=== PATIENT | female | born 1960 | race Caucasian/White ===

== ENCOUNTER → 2017-03-06 | Outpatient (CLI) | payer OTHER ==
[~2017-03-06] MED LIST: RT-ALBUTEROL SULF 2.5 MG/3 ML PRE-MIX VIAL IH ONE
== END ==
LOC: RT 12:51
PROVIDERS: ATTEND Neuromusculoskeletal Medicine, Sports Medicine
DX: Z02.71 Encounter for disability determination (principal)
CPT/HCPCS: 94060; 94640; 94729

== ENCOUNTER 2018-09-13 12:00 | Emergency (ER) | payer MEDICAID, OTHER ==
[~2018-09-13] VITALS: Ht 160 cm; Wt 54.4 kg
[2018-09-13] MEDS ORDERED: ALPR0.254 (12:29)
[2018-09-13] MEDS ORDERED: OXYC-465 (12:29)
[2018-09-13] MEDS ORDERED: DULO30CA48 (12:29)
[2018-09-13] MEDS ORDERED: CYCL10TA9 (12:29)
[2018-09-13] MEDS ORDERED: PANT40TA3 (12:29)
[2018-09-13] MEDS ORDERED: TRAZ-190 (12:29)
[2018-09-13] MEDS ORDERED: ARIP2TAB11 (12:29)
[2018-09-13] MEDS ORDERED: CLOP75TA69 PO (12:30)
--- NOTE | 2018-09-13 13:08 | Diagnostic Imaging Report ---
PATIENT HISTORY: Fall, confusion. TECHNIQUE: Frontal view of the chest. COMPARISON: None. FINDINGS: Lung volumes are mildly large. There is mild opacity at the right costophrenic angle. The cardiac silhouette is upper normal in size. No acute osseous abnormality is seen. There is no pneumothorax. IMPRESSION: Mild opacity at the right costophrenic angle, may represent a small infiltrate or effusion. Dictated by: Dictated on workstation # [id number]
[2018-09-13 13:11] LABS: BILIRUBIN,URINE NEGATIVE (NEGATIVE); CLARITY,URINE CLEAR; COLOR,URINE YELLOW; GLUCOSE, URINE (UA) NEGATIVE (NEGATIVE); KETONES,URINE NEGATIVE (NEGATIVE); LEUKOCYTE ESTERASE ,URINE 1+ (NEGATIVE); NITRITE,URINE NEGATIVE (NEGATIVE); PH,URINE 8 (5-9); PROTEIN,URINE NEGATIVE (NEGATIVE); UROBILINOGEN,URINE NORMAL (NORMAL)
[2018-09-13 13:26] LABS: AMPHETAMINE SCREEN, URINE NEGATIVE (NEGATIVE); BARBITURATE SCREEN URINE NEGATIVE (NEGATIVE); BENZODIAZEPINES SCREEN URINE POSITIVE (NEGATIVE); CANNABINOID SCREEN, URINE NEGATIVE (NEGATIVE); COCAINE SCREEN URINE NEGATIVE (NEGATIVE); METHADONE STAT NEGATIVE (NEGATIVE); METHAMPHETAMINE SCREEN URINE S NEGATIVE (NEGATIVE); OPIATE SCREEN URINE NEGATIVE (NEGATIVE); OXYCODONE STAT POSITIVE (NEGATIVE); TRICYCLIC ANTIDEPRESSANTS SCRE POSITIVE (NEGATIVE)
[2018-09-13 13:27] LABS: PROPOXYPHENE STAT NEGATIVE (NEGATIVE)
--- NOTE | 2018-09-13 13:28 | ED General ---
General Chief Complaint: Trauma-Non Activation Stated Complaint: FALL/CONFUSED Nursing Triage Note: pt presents to ed accompanied by son with the complaints of increased confusion and hallucinations since falling at home monday. pt reports she has not been seen by a provider since the fall. pt son also reports pt has increased weakness. pt is on plavix Nursing Sepsis Screen: No Definite Risk Source of Information: Patient Exam Limitations: No Limitations History of Present Illness Date Seen by Provider: Sep 13, 2018 Time Seen by Provider: 13:26 Initial Comments To ER per private vehicle accompanied by son with reports of confusion and hallucinations. She fell at home on Monday on 09/08/18. She hit her head. Since then she's been hallucinating. She has done this before according to the son when she was low on oxygen. He also states that she's been overmedicating with her pain medication. Son reports a history of "early dementia" Timing/Duration: 1-2 Days Severity: Moderate Allergies and Home Medications Allergies Coded Allergies: No Known Drug Allergies (Unverified , 03/06/17) Home Medications Clopidogrel Bisulfate 75 Mg Tablet, 75 MG PO DAILY, (Reported) Patient Home Medication List Home Medication List Reviewed: Yes Review of Systems Review of Systems Constitutional: see HPI EENTM: see HPI Respiratory: no symptoms reported Cardiovascular: no symptoms reported Genitourinary: no symptoms reported Musculoskeletal: no symptoms reported Skin: no symptoms reported Psychiatric/Neurological: No Symptoms Reported Past Xziqkbd-Panmuf-Zxzbgb Hx Patient Social History Alcohol Use: Denies Use Recreational Drug Use: No Smoking Status: Former Smoker Type Used: Smokeless Tobacco Former Smoker, Quit: Aug 15, 2018 Recent Foreign Travel: No Contact w/Someone Who Travel: No Recent Infectious Disease Expo: No Recent Hopitalizations: No Seasonal Allergies Seasonal Allergies: No Past Medical History Surgeries: Yes (r eye, DNC, ) Appendectomy, Eye Surgery Sleep Apnea, COPD, Emphysema Currently Using CPAP: Yes Cardiac: No Neurological: Yes (restless legs) Dementia, Stroke Genitourinary: No Gastrointestinal: Yes (decreased appetite) Arthritis Endocrine: No HEENT: No Cancer: No Psychosocial: Yes Anxiety, Bipolar, Depression Physical Exam Vital Signs Vital Signs - First Documented 09/13/18 12:18 Temp 96.6 Pulse 95 Resp 20 B/P (MAP) 149/94 (112) Pulse Ox 94 Capillary Refill : Less Than 3 Seconds Height, Weight, BMI Height: 5'3.00" Weight: 120lbs. oz. 54.839588ag; BMI Method:Stated General Appearance: No Apparent Distress, WD/WN, Other (alert and oriented at this time but the son states that she's been hallucinating even since she's been here.) Eyes: Bilateral Eye Normal Inspection, Bilateral Eye PERRL, Bilateral Eye EOMI HEENT: PERRL/EOMI, TMs Normal Neck: Full Range of Motion, Normal Inspection Respiratory: Lungs Clear, Normal Breath Sounds, No Accessory Muscle Use, No Respiratory Distress Cardiovascular: Regular Rate, Rhythm, Normal Peripheral Pulses Gastrointestinal: Normal Bowel Sounds, Non Tender, Soft Extremity: Normal Capillary Refill, Normal Inspection Neurologic/Psychiatric: Alert, Oriented x3, Other (cooperative. States that she has been seeing things that she knows is not actually there. States she's also hearing things occasionally. ) Skin: Normal Color, Warm/Dry Progress/Results/Core Measures Suspected Sepsis Recent Fever Within 48 Hours: No Infection Criteria Present: None New/Unexplained Altered Menta: Yes Sepsis Screen: No Definite Risk SIRS Temperature:96.6 Pulse: 95 Respiratory Rate: 20 Laboratory Tests 09/13/18 13:25: White Blood Count 8.6 Blood Pressure 149 /94 Mean: 112 Laboratory Tests 09/13/18 13:25: Creatinine 0.68, Platelet Count 306, Total Bilirubin 0.4 Results/Orders Lab Results Laboratory Tests Test 09/13/18 13:00 09/13/18 13:25 09/13/18 15:30 Range/Units Urine Color YELLOW Urine Clarity CLEAR Urine pH 8 5-9 Urine Specific Alton 1.010 L 1.016-1.022 Urine Protein NEGATIVE NEGATIVE Urine Glucose (UA) NEGATIVE NEGATIVE Urine Ketones NEGATIVE NEGATIVE Urine Nitrite NEGATIVE NEGATIVE Urine Bilirubin NEGATIVE NEGATIVE Urine Urobilinogen NORMAL NORMAL MG/DL Urine Leukocyte Esterase 1+ H NEGATIVE Urine RBC (Auto) NEGATIVE NEGATIVE Urine RBC 0-2 /HPF Urine WBC 0-2 /HPF Urine Squamous Epithelial Cells 2-5 /HPF Urine Renal Epithelial Cells NONE /HPF Urine Crystals NONE /LPF Urine Bacteria NEGATIVE /HPF Urine Casts NONE /LPF Urine Mucus NEGATIVE /LPF Urine Culture Indicated NO Urine Opiates Screen NEGATIVE NEGATIVE Urine Oxycodone Screen POSITIVE H NEGATIVE Urine Methadone Screen NEGATIVE NEGATIVE Urine Propoxyphene Screen NEGATIVE NEGATIVE Urine Barbiturates Screen NEGATIVE NEGATIVE Ur Tricyclic Antidepressants Screen POSITIVE H NEGATIVE Urine Phencyclidine Screen NEGATIVE NEGATIVE Urine Amphetamines Screen NEGATIVE NEGATIVE Urine Methamphetamines Screen NEGATIVE NEGATIVE Urine Benzodiazepines Screen POSITIVE H NEGATIVE Urine Cocaine Screen NEGATIVE NEGATIVE Urine Cannabinoids Screen NEGATIVE NEGATIVE White Blood Count 8.6 4.3-11.0 10^3/uL Red Blood Count 3.61 L 4.35-5.85 10^6/uL Hemoglobin 11.8 11.5-16.0 G/DL Hematocrit 37 35-52 % Mean Corpuscular Volume 102 H 80-99 FL Mean Corpuscular Hemoglobin 33 25-34 PG Mean Corpuscular Hemoglobin Concent 32 32-36 G/DL Red Cell Distribution Width 13.6 10.0-14.5 % Platelet Count 306 130-400 10^3/uL Mean Platelet Volume 9.1 7.4-10.4 FL Neutrophils (%) (Auto) 82 H 42-75 % Lymphocytes (%) (Auto) 12 12-44 % Monocytes (%) (Auto) 5 0-12 % Eosinophils (%) (Auto) 1 0-10 % Basophils (%) (Auto) 0 0-10 % Neutrophils # (Auto) 7.1 1.8-7.8 X 10^3 Lymphocytes # (Auto) 1.0 1.0-4.0 X 10^3 Monocytes # (Auto) 0.5 0.0-1.0 X 10^3 Eosinophils # (Auto) 0.0 0.0-0.3 10^3/uL Basophils # (Auto) 0.0 0.0-0.1 10^3/uL Sodium Level 139 135-145 MMOL/L Potassium Level 3.7 3.6-5.0 MMOL/L Chloride Level 97 L 98-107 MMOL/L Carbon Dioxide Level 34 H 21-32 MMOL/L Anion Gap 8 5-14 MMOL/L Blood Urea Nitrogen 7 7-18 MG/DL Creatinine 0.68 0.60-1.30 MG/DL Estimat Glomerular Filtration Rate > 60 BUN/Creatinine Ratio 10 Glucose Level 99 70-105 MG/DL Calcium Level 9.6 8.5-10.1 MG/DL Corrected Calcium 9.7 8.5-10.1 MG/DL Magnesium Level 2.1 1.8-2.4 MG/DL Total Bilirubin 0.4 0.1-1.0 MG/DL Aspartate Amino Transf (AST/SGOT) 25 5-34 U/L Alanine Aminotransferase (ALT/SGPT) 19 0-55 U/L Alkaline Phosphatase 73 40-136 U/L Total Protein 7.6 6.4-8.2 GM/DL Albumin 3.9 3.2-4.5 GM/DL Thyroid Stimulating Hormone (TSH) 0.28 L 0.35-4.94 UIU/ML Free Thyroxine 0.79 0.70-1.48 NG/DL Serum Alcohol < 10 <10 MG/DL Blood Gas Puncture Site LT RAD Blood Gas Patient Temperature 98.6 Arterial Blood pH 7.40 7.37-7.43 Arterial Blood Partial Pressure CO2 54 H 35-45 MMHG Arterial Blood Partial Pressure O2 40 L 79-93 MMHG Arterial Blood HCO3 33 H 23-27 MMOL/L Arterial Blood Total CO2 34.6 H 21.0-31.0 MMOL/L Arterial Blood Oxygen Saturation 70 L 94-100 % Arterial Blood Base Excess 8.1 H -2.5-2.5 MMOL/L Feliciano Test YES-POS Blood Gas Ventilator Setting NO Blood Gas Inspired Oxygen 2L My Orders Orders - KYLE LÓPEZ APRN Cbc With Automated Diff (09/13/18 12:41) Comprehensive Metabolic Panel (09/13/18 12:41) Thyroid Stimulating Hormone (09/13/18 12:41) Magnesium (09/13/18 12:41) Ua Culture If Indicated (09/13/18 12:41) Drug Screen Stat (Urine) (09/13/18 12:41) Alcohol (09/13/18 12:41) Ct Head/Cervical Spine Wo (09/13/18 12:41) Chest 1 View, Ap/Pa Only (09/13/18 12:41) Iv Heplock-Insert (Order) (09/13/18 12:41) Lactated Ringers (Lr 1000 Ml Iv Solution (09/13/18 13:30) Ketorolac Injection (Toradol Injection) (09/13/18 14:30) Free T4 (Free Thyroxine) (09/13/18 14:24) Arterial Blood Gas (09/13/18 14:49) Medications Given in ED Current Medications Medications Dose Ordered Sig/Ana Route Start Time Stop Time Status Last Admin Dose Admin Ketorolac Tromethamine 15 mg ONCE ONCE IVP 09/13/18 14:30 09/13/18 14:31 DC 09/13/18 14:34 15 MG Vital Signs/I&O 09/13/18 12:18 Temp 96.6 Pulse 95 Resp 20 B/P (MAP) 149/94 (112) Pulse Ox 94 Capillary Refill : Less Than 3 Seconds Blood Pressure Mean: 112 Diagnostic Imaging Diagonstic Imaging: Xray Plain Films/CT/US/NM/MRI: chest Comments NAME: MARQUISE PEDERSEN [facility] REC#: [id number] PT STATUS: REG ER : 1960 PHYSICIAN: KYLE LÓPEZ APRN ADMIT DATE: 09/13/18/ER Draft Date of Exam:09/13/18 CHEST 1 VIEW, AP/PA ONLY PATIENT HISTORY: Fall, confusion. TECHNIQUE: Frontal view of the chest. COMPARISON: None. FINDINGS: Lung volumes are mildly large. There is mild opacity at the right costophrenic angle. The cardiac silhouette is upper normal in size. No acute osseous abnormality is seen. There is no pneumothorax. IMPRESSION: Mild opacity at the right costophrenic angle, may represent a small infiltrate or effusion. Dictated on workstation # [id number] Dict: 09/13/18 1303 Trans: 09/13/18 1307 [id number] Interpreted by: SLAVA SMITH MD Electronically signed by: NAME: MARQUISE PEDERSEN [facility] REC#: [id number] PT STATUS: REG ER : 1960 PHYSICIAN: KYLE LÓPEZ APRN ADMIT DATE: 09/13/18/ER Draft Date of Exam:09/13/18 CT HEAD/CERVICAL SPINE WO PROCEDURE: CT head and CT cervical spine without contrast. TECHNIQUE: Multiple contiguous axial images were obtained through the brain and cervical spine without the use of intravenous contrast. Sagittal and coronal reformations through the cervical spine were then performed. INDICATION: Multiple falls. No prior studies are available for comparison. CT head: The ventricles and sulci are within normal limits. No sulcal effacement, midline shift or hemorrhage is detected. There is a vague area of low density in the left thalamus. This may represent a lacunar infarct, age indeterminate. Cisterns are patent. The visualized paranasal sinuses appear clear. Impression: 1. No acute intra-cranial hemorrhage is detected. 2. Vague low-density left thalamus suggestive of an age-indeterminate lacunar infarct. If there is concern for acuity, MRI could be performed for further evaluation. CT cervical spine: Curvature and alignment is normal. There is degenerative disc disease C5-6 and C6-7 levels with disc space narrowing and marginal spurring. There is neural foraminal stenosis bilaterally at C5-6 level due to uncovertebral joint degenerative change. No fracture is identified. The prevertebral tissues are within normal limits. The odontoid is intact. Impression: Cervical spondylosis. No acute bony abnormality is detected. Dictated on workstation # [id number] Dict: 09/13/18 1358 Trans: 09/13/18 1403 [place] [id number] Interpreted by: ROSMERY DEVLIN MD Electronically signed by: Departure Communication (Admissions) 1433- son states that she is still hallucinating, stating that she heard something on the TV even though the TV is turned off, stating that she saw a leaf blow across the floor or maybe it was a mouse, she was petting the son's hands it was a Bar. This is the son's report. I have not witnessed these things myself. Patient has been cooperative and she does state that she is hallucinating and seeing things.I discussed inpatient placement for mental health versus outpatient mental health follow-up. Patient would prefer outpatient mental health follow-up, son would prefer inpatient. Discussed with him that if he can convince her to go inpatient I will transfer her or at least attempt depending on bed availability but I cannot force her to go. 1529- patient has agreed to go inpatient. I have tried to call to place her inpatient. [facility] does not have any beds. [facility]. Natasha irvin did not answer. [facility] states that they do not feel she is appropriate for inpatient. [facility] does not have any beds available. I spoke with [facility] and they can see her tomorrow at 11 AM with Carlene De La Garza. Impression Primary Impression: History of hallucinations Additional Impression: History of confusion Disposition: 01 HOME, SELF-CARE Condition: Stable Departure-Patient Inst. Decision time for Depature: 14:28 Referrals: RADHA CRAFT MD (PCP/Family) Primary Care Physician Patient Instructions: General (DC) Add. Discharge Instructions: 1. Continue current medications 2. Return to ER for any concerns 3. Your scheduled to see Carlene De La Garza tomorrow at 11 AM at the [place] office from [facility]. All discharge instructions reviewed with patient and/or family. Voiced understanding. KYLE LÓPEZ APRN Sep 13, 2018 13:28
[2018-09-13] MEDS ORDERED: LACTATED RINGERS 1,000 ML IV SCH (13:30)
[2018-09-13 13:32] LABS: BACTERIA,URINE NEGATIVE /HPF; RBC,URINE 0-2 /HPF; WBC,URINE 0-2 /HPF
[2018-09-13 13:33] LABS: BASOPHILS % (AUTO) 0 % (0-10); EOSINOPHILS % (AUTO) 1 % (0-10); HEMATOCRIT 37 % (35-52); HEMOGLOBIN 11.8 G/DL (11.5-16.0); LYMPHOCYTES % (AUTO) 12 % (12-44); MEAN CORPUSCULAR HEMOGLOBIN 33 PG (25-34); MEAN CORPUSCULAR HGB CONC 32 G/DL (32-36); MEAN CORPUSCULAR VOLUME 102 FL (80-99); MEAN PLATELET VOLUME 9.1 FL (7.4-10.4); MONOCYTES # (AUTO) 0.5 X 10^3 (0.0-1.0); MONOCYTES % (AUTO) 5 % (0-12); NEUTROPHILS # (AUTO) 7.1 X 10^3 (1.8-7.8); NEUTROPHILS % (AUTO) 82 % (42-75); PLATELET COUNT 306 10^3/uL (130-400); RED CELL DISTRIBUTION WIDTH 13.6 % (10.0-14.5); WHITE BLOOD COUNT 8.6 10^3/uL (4.3-11.0)
[2018-09-13 13:59] LABS: BUN/CREATININE RATIO 10; CARBON DIOXIDE 34 MMOL/L (21-32); CHLORIDE 97 MMOL/L (98-107); CREATININE SERUM 0.68 MG/DL (0.60-1.30); POTASSIUM 3.7 MMOL/L (3.6-5.0); SODIUM 139 MMOL/L (135-145)
[2018-09-13 14:00] LABS: ALANINE AMINOTRANSFERASE 19 U/L (0-55); ALBUMIN 3.9 GM/DL (3.2-4.5); ALKALINE PHOSPHATASE 73 U/L (40-136); BILIRUBIN,TOTAL 0.4 MG/DL (0.1-1.0); CALCIUM 9.6 MG/DL (8.5-10.1); GFR ESTIMATED > 60; GLUCOSE 99 MG/DL (70-105); MAGNESIUM 2.1 MG/DL (1.8-2.4); TOTAL PROTEIN 7.6 GM/DL (6.4-8.2)
--- NOTE | 2018-09-13 14:04 | Diagnostic Imaging Report ---
PROCEDURE: CT head and CT cervical spine without contrast. TECHNIQUE: Multiple contiguous axial images were obtained through the brain and cervical spine without the use of intravenous contrast. Sagittal and coronal reformations through the cervical spine were then performed. INDICATION: Multiple falls. No prior studies are available for comparison. CT head: The ventricles and sulci are within normal limits. No sulcal effacement, midline shift or hemorrhage is detected. There is a vague area of low density in the left thalamus. This may represent a lacunar infarct, age indeterminate. Cisterns are patent. The visualized paranasal sinuses appear clear. Impression: 1. No acute intra-cranial hemorrhage is detected. 2. Vague low-density left thalamus suggestive of an age-indeterminate lacunar infarct. If there is concern for acuity, MRI could be performed for further evaluation. CT cervical spine: Curvature and alignment is normal. There is degenerative disc disease C5-6 and C6-7 levels with disc space narrowing and marginal spurring. There is neural foraminal stenosis bilaterally at C5-6 level due to uncovertebral joint degenerative change. No fracture is identified. The prevertebral tissues are within normal limits. The odontoid is intact. Impression: Cervical spondylosis. No acute bony abnormality is detected. Dictated by: Dictated on workstation # [id number]
[2018-09-13] MEDS ORDERED: KETOROLAC 30 MG/ML VIAL IVP ONE (14:30)
[2018-09-13 15:41] LABS: ABG BASE EXCESS 8.1 MMOL/L (-2.5-2.5); ABG OXYGEN SATURATION 70 % (94-100); ABG PCO2 54 MMHG (35-45); ABG PO2 40 MMHG (79-93); ABG TCO2 34.6 MMOL/L (21.0-31.0)
[2018-09-13 15:42] LABS: ALLENS TEST YES-POS; INSPIRED O2 2L; PATIENT TEMP 98.6; VENTILATOR NO
[2018-09-13 16:27] VITALS: BP 145/90
== END 2018-09-13 16:29 | disposition home or self-care (01) ==
LOC: EDUNIT# 12:00 → ER 12:03
DX: R41.0 Disorientation, unspecified (principal); R44.3 Hallucinations, unspecified; J43.9 Emphysema, unspecified; F03.90 Unspecified dementia, unspecified severity, without behavioral disturbance, psychotic disturbance, mood disturbance, and anxiety; F31.9 Bipolar disorder, unspecified; F41.9 Anxiety disorder, unspecified; Z86.73 Personal history of transient ischemic attack (TIA), and cerebral infarction without residual deficits; Z87.891 Personal history of nicotine dependence; Z90.49 Acquired absence of other specified parts of digestive tract; Z79.02 Long term (current) use of antithrombotics/antiplatelets
CPT/HCPCS: 36415; 70450; 71045; 72125; 80053; 80306; 80320; 81000; 82805; 83735; 84439; 84443; 85025

== ENCOUNTER 2020-02-04 06:41 | Inpatient (IN) | payer MEDICARE, MEDICAID ==
[~2020-02-04] VITALS: Ht 160 cm; Wt 91.0 kg
[2020-02-04] VITALS (18 sets, daily range): BP systolic 100–169; BP diastolic 53–123
[~2020-02-04 06:41] MED LIST changes: +ALPR0.254; +ARIP2TAB20; +CLOP75TA69 PO; +CYCL10TA9 PO; +DULO30CA49; +OXYC-465; +PANT40TA3; -RT-ALBUTEROL SULF 2.5 MG/3 ML PRE-MIX VIAL IH ONE; +TRAZ-227 PO
--- OUTSIDE RECORDS SUMMARY | 2020-02-04 06:52 | XMS REPORT ---
Author Author Melania CRAFT Organization [facility] Address [address] [place] [address] Care Team Providers Care Research Biologist Name Role Phone RADHA CRAFT Unavailable PROBLEMS Type Condition ICD9-CM Code MYY73-OF Code Onset Dates Condition S tatus SNOMED Code Problem Tobacco use Z72.0 Mar, Active 62145 3000 Problem COPD with exacerbation J44.1 Apr, Acti ve 456465704 Problem Hypoxia R09.02 Sep, Active 8390283 02 Problem Cerebral infarction I63.9 Dec, Active 094593875 Problem Chronic respiratory failure with hypoxia and hypercapn ia J96.11 Sep, Active 54554738 Problem Pure hypercholesterolemia E78.00 Acti ve 356032622 Problem Nondiabetic gastroparesis K31.84 Apr, A ctive 59246481 Problem Arthritis M19.90 Active 2758292 Problem CVA (cerebral vascular accident) I63.9 Active 616162152 Problem Anxiety F41.9 Active 54258004 Problem Centrilobular emphysema J43.2 Active 93019165 Problem Chronic obstructive airway disease J44.9 Active 64645503 Problem Centrilobular emphysema J43.2 Active 41018310 Problem Moderate episode of recurrent major depressive disorder F33.1 Active 305141846 Problem Dementia F03.90 Active 46722583 Problem Dyslipidemia E78.5 Active 4326595 07 Problem Daytime somnolence R40.0 Active 1 31350378330 Problem Memory loss R41.3 Active 63053097 ALLERGIES No Information ENCOUNTERS Encounter Location Date Diagnosis [address] [place] [address] Sep, [address] [place] [address] Aug, [address] [place] [address] Aug, UTI symptoms R39.9 and COPD with exacerbation J44.[address] [place] [address] Aug, Moderate episode of recurren t major depressive disorder F33.[address] [place] [address] Jul, [address] [place] [address] Jul, Moderate episode of recurren t major depressive disorder F33.[address] [place] [address] Jun, [address] [place] [address] Jun, Moderate episode of recurren t major depressive disorder F33.[address] [place] [address] Jun, [address] [place] [address] May, Moderate episode of recurren t major depressive disorder F33.[address] [place] [address] May, [address] [place] [address] May, [address] [place] [address] May, Memory loss R41.3 and Centri lobular emphysema J43.[address] [place] [address] May, [address] [place] [address] Apr, Influenza vaccine refused Z2 8.21 ; Dyslipidemia E78.5 ; Memory loss R41.3 ; Chronic obstructive airway disease J44.9 and CVA (cerebral vascular accident) I63.9 [facility] [address] [place] [address] Apr, Moderate episode of recurren t major depressive disorder F33.1 [facility] [address] [place] [address] Apr, [address] [place] [address] Apr, Moderate episode of recurren t major depressive disorder F33.[address] [place] [address] Apr, Pure hypercholesterolemia E7 8.[address] [place] [address] Mar, Pure hypercholesterolemia E7 8.00 and Dyslipidemia E78.[address] [place] [address] Mar, Moderate episode of recurren t major depressive disorder F33.1 [facility] [address] [place] [address] Mar, [address] [place] [address] Mar, Moderate episode of recurren t major depressive disorder F33.1 [facility] [address] [place] [address] Feb, Moderate episode of recurren t major depressive disorder F33.1 [facility] [address] [place] [address] Feb, [address] [place] [address] Feb, Moderate episode of recurren t major depressive disorder F33.[address] [place] [address] Jan, Moderate episode of recurren t major depressive disorder F33.1 [facility] [address] [place] [address] Jan, Dementia F03.90 and CVA (cer ebral vascular accident) I63.9 [facility] [address] [place] [address] Jan, [facility] [address] [place] [address] Jan, [address] [place] [address] Jan, Moderate episode of recurren t major depressive disorder F33.[address] [place] [address] Dec, Moderate episode of recurren t major depressive disorder F33.[address] [place] [address] Dec, [address] [place] [address] Dec, COPD with exacerbation J44.1 ; Daytime somnolence R40.0 ; Memory loss R41.3 and Fungal infection of skin of abdomen B36.[address] [place] [address] Dec, Moderate episode of recurren t major depressive disorder F33.1 [facility] [address] [id number] [place] [address] November, [address] [place] [address] November, Moderate episode of recurren t major depressive disorder F33.[address] [place] [address] November, CVA (cerebral vascular accid ent) I63.9 ; Chronic respiratory failure with hypoxia and hypercapnia J96.11 ; Dyslipidemia E78.5 and Walking pneumonia J18.[address] [place] [address] November, [address] [place] [address] November, Dyslipidemia E78.[address] [place] [address] November, Moderate episode of recurren t major depressive disorder F33.1 [facility] [address] [id number] [place] [address] Oct, [address] [place] [address] Oct, Moderate episode of recurren t major depressive disorder F33.[address] [place] [address] Oct, Moderate episode of recurren t major depressive disorder F33.1 [facility] [address] [id number] [place] [address] Oct, Moderate episode of recurrent major depr essive disorder F33.[address] [place] [address] Oct, Breast calcifications on ariana mogram R92.[address] [place] [address] Oct, Depression F32.9 ; History o f CVA (cerebrovascular accident) without residual deficits Z86.73 and Moderate episode of recurrent major depressive disorder F33.[address] [place] [address] Oct, Moderate episode of recurren t major depressive disorder F33.[address] [place] [address] Oct, [address] [place] [address] Sep, [address] [place] [address] Sep, [facility] [address] [place] [address] Sep, 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 [place] [address] Sep, COPD (chronic obstructive pu lmonary disease) J44.9 ; Pure hypercholesterolemia E78.00 ; Moderate episode of recurrent major depressive disorder F33.1 ; Depression F32.9 and History of CVA (cerebrovascular accident) without residual deficits Z86.73 [facility] [id number] [place] [address] Aug, [facility] [id number] [place] [address] Aug, [address] [place] [address] Aug, [address] [place] [address] Aug, COPD (chronic obstructive pu lmonary disease) J44.9 ; Depression F32.9 and Pure hypercholesterolemia E78.00 [address] [place] [address] Aug, [facility] [id number] [place] [address] Jul, [facility] [id number] [place] [address] Jun, [facility] [id number] [place] [address] Jun, [facility] [address] [address] May, [facility] [id number] [place] [address] May, [facility] [address] [address] Apr, [facility] [address] [id number] [place] [address] Apr, [facility] [address] [id number] [place] [address] Oct, Dental caries K02.9 [facility] [address] [id number] [place] [address] Sep, Dental examination Z01.20 IMMUNIZATIONS No Known Immunizations SOCIAL HISTORY Never Assessed REASON FOR VISIT Controlled Med Refill 10/26 PLAN OF CARE VITAL SIGNS MEDICATIONS Medication Instructions Dosage Frequency Start Date End Date Duration S tatus Percocet 10-325 MG Orally 4 times a day 1 tablet 6h Sep, 28 days Active RESULTS No Results PROCEDURES No Known procedures INSTRUCTIONS MEDICATIONS ADMINISTERED No Known Medications MEDICAL (GENERAL) HISTORY Type Description Date Medical History CVA (cerebral vascular accident) Medical History Arthritis Medical History Chronic obstructive airway disease Medical History Depression Medical History Anxiety Medical History Dementia Surgical History Repair broken leg 1975 Surgical History Appendectomy 1979 Surgical History Gallbladder removed 2008 Hospitalization History Stroke 2006
--- OUTSIDE RECORDS SUMMARY | 2020-02-04 06:52 | XMS REPORT ---
Author Author Melania CRAFT Organization [facility] Address [address] [facility] [place] [address] Care Team Providers Care Behavioral Scientist Name Role Phone RADHA CRAFT Unavailable PROBLEMS Type Condition ICD9-CM Code [id number] Code Onset Dates Condition S tatus SNOMED Code Problem COPD with exacerbation J44.1 Apr, 0 294092911 Problem Left-sided weakness 728.87 Dec, 0 35646310 Problem Chest pain R07.9 09 May, 2009 0 110299 09 Problem Hypoxia R09.02 Sep, 0 5089181 02 Problem Hyperlipidemia E78.5 May, 0 55 894648 Problem Back pain M54.9 Jun, 0 3637193 05 Problem 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 Sep, 0 34851456 Problem Well woman exam with routine gynecological exam Z01.419 Apr, 0 [id number] Problem Acute pancreatitis K85.90 09 May, 2009 0 933378496 Problem Cerebral infarction I63.9 Dec, 0 250173929 Problem Nondiabetic gastroparesis K31.84 Apr, 0 03672006 Problem Depression F32.9 Active 87095628 Problem Chronic respiratory failure with hypoxia and hypercapn ia J96.11 Sep, 0 85954270 Problem Tobacco use Z72.0 Mar, 0 60842 3000 Problem Moderate episode of recurrent major depressive disorder F33.1 Active 604638838 Problem Hx of transient ischemic attack (TIA) Z86.73 Dec, 0 598363090 Problem Breast calcification, right R92.1 Apr, 0 964987438 Problem Left-sided headache R51 Dec, 0 39943545 Problem Left-sided weakness R53.1 Dec, 0 61262526 Problem Pure hypercholesterolemia E78.00 Acti ve 424988997 Problem COPD (chronic obstructive pulmonary disease) J44.9 Active 88324457 ALLERGIES No Known Allergies ENCOUNTERS Encounter Location Date Diagnosis [facility] [address] [address] November, [address] [address] Oct, Breast calcifications on mammogram R92.[address] [address] Oct, Moderate episode of recurrent major depr essive disorder F33.1 [facility] [address] [address] Oct, [address] [address] Sep, [address] [address] Sep, [address] [address] Sep, COPD with chronic bronchitis and emphyse ma J44.[address] [address] Sep, COPD (chronic obstructive pulmonary dise ase) J44.9 ; Pure hypercholesterolemia E78.00 ; Moderate episode of recurrent major depressive disorder F33.1 ; Depression F32.9 and History of CVA (cerebrovascular accident) without residual deficits Z86.73 [place] [address] [place] [id number] [address] [place] [address] Aug, [facility], [place] [address] [facility] [id number] [address] [place] [address] Aug, [address] [address] Aug, [address] [address] Aug, COPD (chronic obstructive pulmonary dise ase) J44.9 ; Depression F32.9 and Pure hypercholesterolemia E78.[address] [address] Aug, [facility], [place] [address] [facility] [id number] [address] [place] [address] Jul, [facility], [place] [address] [id number] [address] [place] [address] Jun, [facility], [place] [address] [id number] [address] [place] [address] Jun, [facility], [place] [address] [id number] [address] [place] [address] May, [facility], [place] [address] [id number] [address] [place] [address] May, [facility], [place] [address] [id number] [address] [place] [address] Apr, [facility], [place] [address] [id number] [address] [place] [address] Apr, [facility], [place] [address] [id number] [address] [place] [address] Oct, Dental caries K02.9 [facility], [place] [address] [id number] [address] [place] [address] Sep, Dental examination Z01.20 IMMUNIZATIONS No Known Immunizations SOCIAL HISTORY Never Assessed REASON FOR VISIT Hospital F/U, Coughing up mucos, yellow in color PLAN OF CARE Activity Details Follow Up prn Reason: VITAL SIGNS Height 5ft 3in in 2018-10-02 Weight 138lb lbs 2018-10-02 BMI 24.44 kg/m2 2018-10-02 Blood pressure systolic 126 mmHg 2018-10-02 Blood pressure diastolic 64 mmHg 2018-10-02 MEDICATIONS Medication Instructions Dosage Frequency Start Date End Date Duration S tatus Xanax 0.25 MG by oral route every 8 hours 1 tablet 8h 10 days Active Cymbalta 30 MG Orally Once a day 1 capsule 24h Active Trazodone HCl 100 MG Orally Once a day 1 tablet at bedtime 24h 30 day(s) Active Protonix 20 MG Orally Once a day 1 tablet 24h 30 day (s) Active Abilify 2 MG Orally at bedtime 2 capsules Active Clopidogrel Bisulfate 75 MG Orally Once a day 1 tablet 24h Active Atorvastatin Calcium 10 MG Orally Once a day 1 tablet 24h Active Percocet 10-325 MG Orally 4 times a day 1 tablet 6h Sep, 28 days Active Cyclobenzaprine HCl 10 MG Orally Three times a day 1 tablet as needed 8h Active RESULTS No Results PROCEDURES No Known [...]
--- OUTSIDE RECORDS SUMMARY | 2020-02-04 06:52 | XMS REPORT ---
Author Melania Lindsey [facility] eClinicalWorks Address Unknown Phone Unavailable Care Team Providers Care Sales Support Technician Name Role Phone RUBY PUENTES CP Unavailable Allergies, Adverse Reactions, Alerts Substance Reaction Event Type N.K.D.A. Info Not Available Non Drug Allergy Problems Problem Type Condition Code Onset Dates Condition Statu s Assessment Dental examination Z01.20 Active Medications Medication Code System Code Instructions Start Date End Date Status Dosage Amoxicillin [facility] [address]-30 500 MG Orally four times a day M arch 2015November 03, 2015 1 tablet Celexa [facility] [address]-11 not define d Plavix [facility] [address]-27 not define d Percocet [facility] [address]-94 not defin ed [place] [facility] [address]-35 5-325 MG Orally every 6 hrs October 27, 2015 October 31, 2015 1 tablet as needed Xanax [facility] [address]-22 not define d Procedures Procedure Coding System Code Date INTRAORL-PERIAPICAL 1 FILM 31770 CPT-4 D0220 October 27, 2015 Billing Notes on claim CPT-4 EC109 October 27, 2015 LTD ORAL EVALUATION - PROBLEM FOCUS CPT-4 D0140 October 27, 2015 Vital Signs Date/Time: October 27, 2015 Blood Pressure Diastolic 89 mmHg Blood Pressure Systolic 139 mmHg Results No Known Results Summary Purpose eClinicalWorks Submission
--- OUTSIDE RECORDS SUMMARY | 2020-02-04 06:52 | XMS REPORT ---
Author Author Melania CRAFT Organization [facility] Address [address] [place] [address] Care Team Providers Care Auto Parts Clerk Name Role Phone RADHA CRAFT Unavailable PROBLEMS Type Condition ICD9-CM Code PFZ32-HC Code Onset Dates Condition S tatus SNOMED Code Problem Tobacco use Z72.0 Mar, Active 77761 3000 Problem COPD with exacerbation J44.1 Apr, Acti ve 185683327 Problem Hypoxia R09.02 Sep, Active 5026878 02 Problem Cerebral infarction I63.9 Dec, Active 928922958 Problem Chronic respiratory failure with hypoxia and hypercapn ia J96.11 Sep, Active 92228189 Problem Pure hypercholesterolemia E78.00 Acti ve 758014855 Problem Nondiabetic gastroparesis K31.84 Apr, A ctive 59447071 Problem Arthritis M19.90 Active 8422465 Problem CVA (cerebral vascular accident) I63.9 Active 858226568 Problem Anxiety F41.9 Active 62063947 Problem Centrilobular emphysema J43.2 Active 58864896 Problem Chronic obstructive airway disease J44.9 Active 57219077 Problem Centrilobular emphysema J43.2 Active 03379021 Problem Moderate episode of recurrent major depressive disorder F33.1 Active 725904788 Problem Dementia F03.90 Active 16960390 Problem Dyslipidemia E78.5 Active 4875854 07 Problem Daytime somnolence R40.0 Active 1 97653262172 Problem Memory loss R41.3 Active 54600603 ALLERGIES No Information ENCOUNTERS Encounter Location Date Diagnosis [facility] [address] [facility] [address] [id number] [place] [address] Sep, [address] [id number] [place] [address] Sep, [address] [id number] [place] [address] Sep, [facility] [address] [id number] [place] [address] Sep, [address] [id number] [place] [address] 12 Sep, 2019 High risk medications (not a nticoagulants) long-term use Z79.899 [facility] [address] [id number] [place] [address] 11 Sep, 2019 Moderate episode of recurren t major depressive disorder F33.1 [address] [id number] [place] [address] 10 Sep, 2019 Moderate episode of recurren t major depressive disorder F33.1 [address] [id number] [place] [address] 09 Sep, 2019 Moderate episode of recurren t major depressive disorder F33.1 [facility] [address] [id number] [place] [address] Aug, [facility] [address] [id number] [place] [address] Aug, UTI symptoms R39.9 and COPD with exacerbation J44.[address] [id number] [place] [address] Aug, Moderate episode of recurren t major depressive disorder F33.1 [facility] [address] [id number] [place] [address] Jul, [facility] [address] [id number] [place] [address] Jul, Moderate episode of recurren t major depressive disorder F33.1 [facility] [address] [id number] [place] [address] Jun, [facility] [address] [id number] [address] Jun, Moderate episode of recurren t major depressive disorder F33.1 [facility] [place] [address] [id number] [place] [address] Jun, [facility] [address] [id number] [place] [address] May, Moderate episode of recurren t major depressive disorder F33.1 [facility] [address] 340[address] [id number] [place] [address] May, [facility] [address] 340B [id number] [place] [address] May, [facility] [address] 340[address] [id number] [place] [address] May, Memory loss R41.3 and Centri lobular emphysema J43.2 [facility] [address] 340[address] [id number] [place] [address] May, [facility] [address] 340[address] [id number] [place] [address] Apr, Influenza vaccine refused Z2 8.21 ; Dyslipidemia E78.5 ; Memory loss R41.3 ; Chronic obstructive airway disease J44.9 and CVA (cerebral vascular accident) I63.9 [facility] [address] 340B [id number] [place] [address] Apr, Moderate episode of recurren t major depressive disorder F33.1 [facility] [address] [id number] [place] [address] Apr, [facility] [address] 340[address] [id number] [place] [address] Apr, Moderate episode of recurren t major depressive disorder F33.1 [facility] [address] [id number] [place] [address] Apr, Pure hypercholesterolemia E7 8.00 [facility] [address] 340[address] [id number] [place] [address] Mar, Pure hypercholesterolemia E7 8.00 and Dyslipidemia E78.5 [facility] [address] [address] [id number] [place] [address] Mar, Moderate episode of recurren t major depressive disorder F33.1 [facility] [address] [id number] [place] [address] Mar, [facility] [address] [id number] [place] [address] Mar, Moderate episode of recurren t major depressive disorder F33.1 [facility] [address] [id number] [place] [address] Feb, Moderate episode of recurren t major depressive disorder F33.1 [facility] [address] [id number] [place] [address] Feb, [facility] [address] [id number] [place] [address] Feb, Moderate episode of recurren t major depressive disorder F33.1 [facility] [address] [id number] [place] [address] Jan, Moderate episode of recurren t major depressive disorder F33.1 [facility] [address] [id number] [place] [address] Jan, Dementia F03.90 and CVA (cer ebral vascular accident) I63.9 [facility] [address] [id number] [place] [address] Jan, [facility] [address] [id number] [place] [address] Jan, [facility] [place] [address] [id number] [place] [address] Jan, Moderate episode of recurren t major depressive disorder F33.1 [facility] [address] [address] [id number] [place] [address] Dec, Moderate episode of recurren t major depressive disorder F33.1 [facility] [address] 340B [id number] [place] [address] Dec, [facility] [address] 340B [id number] [place] [address] Dec, COPD with exacerbation J44.1 ; Daytime somnolence R40.0 ; Memory loss R41.3 and Fungal infection of skin of abdomen B36.[address] 340B [id number] [place] [address] Dec, Moderate episode of recurren t major depressive disorder F33.1 [facility] [address] [facility] [id number] 100[address] [place] [address] November, [facility] [address] 340[address] [id number], [place] [address] November, Moderate episode of recurren t major depressive disorder F33.1 [facility] [address] 340[place] [id number] [address] November, CVA (cerebral vascular accid ent) I63.9 ; Chronic respiratory failure with hypoxia and hypercapnia J96.11 ; Dyslipidemia E78.5 and Walking pneumonia J18.9 [facility] [address] 340[address] [id number] [place] [address] November, [facility] [address] 340[place] [id number], [place] [address] November, Dyslipidemia E78.[address] 340B [id number] [place] [address] November, Moderate episode of recurren t major depressive disorder F33.1 [facility] [address] [id number] [address] [place] [address] Oct, [address] 340B [id number] [place] [address] Oct, Moderate episode of recurren t major depressive disorder F33.[address] 340B [id number] [place] [address] Oct, Moderate episode of recurren t major depressive disorder F33.1 [facility] [address] [facility] [id number] [place] [address] Oct, Moderate episode of recurren t major depressive disorder F33.[address] 340B [id number] [place] [address] Oct, Breast calcifications on ariana mogram R92.[address] 340B [id number] [place] [address] Oct, Depression F32.9 ; History o f CVA (cerebrovascular accident) without residual deficits Z86.73 and Moderate episode of recurrent major depressive disorder F33.[address] 340B [id number] [place] [address] Oct, Moderate episode of recurren t major depressive disorder F33.[address] 340B [id number] [place] [address] Oct, [address] 340B [id number] [place] [address] Sep, [address] 340B [id number] [place] [address] Sep, [address] 340[place] [id number] [address] Sep, 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 340B [id number] [place] [address] Sep, COPD (chronic obstructive pu lmonary disease) J44.9 ; Pure hypercholesterolemia E78.00 ; Moderate episode of recurrent major depressive disorder F33.1 ; Depression F32.9 and History of CVA (cerebrovascular accident) without residual deficits Z86.73 [facility] [address] [facility] [id number] [place] [address] Aug, [facility] [address] [id number] [address] [place] [address] Aug, [facility] [address] 340[address] [id number], [place] [address] Aug, [address] 340[place] [id number] [address] Aug, COPD (chronic obstructive pu lmonary disease) J44.9 ; Depression F32.9 and Pure hypercholesterolemia E78.[address] 340[place] [id number] [address] Aug, [facility] [address] [id number] [address] [place] [address] Jul, [facility] [address] [id number] [address] [place] [address] Jun, [facility] [address] [id number] [address] [place] [address] Jun, [facility] [address] [id number] [address] [place] [address] May, [facility] [address] [id number] [address] [place] [address] May, [facility] [address] [facility] [id number] [address] [place] [address] Apr, [facility] [address] [id number] [address] [place] [address] Apr, [facility] [address] [id number] [address] [place] [address] Oct, Dental caries K02.9 [facility] [address] [id number] [address] [place] [address] Sep, Dental examination Z01.20 IMMUNIZATIONS No Known Immunizations SOCIAL HISTORY Never Assessed REASON FOR VISIT RYC- PLAN OF CARE VITAL SIGNS MEDICATIONS Medication Instructions Dosage Frequency Start Date End Date Duration S tatus Levaquin 500 MG Orally Once a day 1 tablet 24h Oct, 7 days Active RESULTS No Results PROCEDURES No [...]
--- OUTSIDE RECORDS SUMMARY | 2020-02-04 06:52 | XMS REPORT ---
Author Author Melania CRAFT Organization [facility] Address [address] [place] [address] Care Team Providers Care Rn Appeals Name Role Phone RADHA CRAFT Unavailable PROBLEMS Type Condition ICD9-CM Code QZU83-[place] Code Onset Dates Condition S tatus SNOMED Code Problem Tobacco use Z72.0 Mar, Active 20856 3000 Problem COPD with exacerbation J44.1 Apr, Acti ve 975328037 Problem Hypoxia R09.02 Sep, Active 5516993 02 Problem Cerebral infarction I63.9 Dec, Active 055832344 Problem Chronic respiratory failure with hypoxia and hypercapn ia J96.11 Sep, Active 39056626 Problem Pure hypercholesterolemia E78.00 Acti ve 961747227 Problem Nondiabetic gastroparesis K31.84 Apr, A ctive 43036501 Problem Arthritis M19.90 Active 2241801 Problem CVA (cerebral vascular accident) I63.9 Active 255471889 Problem Anxiety F41.9 Active 83791987 Problem Centrilobular emphysema J43.2 Active 65789523 Problem Chronic obstructive airway disease J44.9 Active 69102779 Problem Centrilobular emphysema J43.2 Active 08894692 Problem Moderate episode of recurrent major depressive disorder F33.1 Active 541039661 Problem Dementia F03.90 Active 05720037 Problem Dyslipidemia E78.5 Active 2168975 07 Problem Daytime somnolence R40.0 Active 1 33718352931 Problem Memory loss R41.3 Active 15547079 ALLERGIES No Known Allergies ENCOUNTERS Encounter Location Date Diagnosis [id number] [address] Dec, Well woman exam with routine gynecological exam Z01.419 and Breast cancer screening Z12.[address] 340B [id number] [place] [address] Sep, [facility] [address] 340B [id number] [place] [address] Sep, [address] [id number] [place] [address] Sep, [address] 340B [id number] [place] [address] Sep, [address] 340B [id number] [place] [address] Sep, High risk medications (not a nticoagulants) long-term use Z79.[address] 340B [id number] [place] [address] 11 Sep, 2019 Moderate episode of recurren t major depressive disorder F33.1 [facility] [address] 340B [id number] [place] [address] Sep, Moderate episode of recurren t major depressive disorder F33.1 [facility] [address] 340B [id number] [place] [address] 09 Sep, 2019 Moderate episode of recurren t major depressive disorder F33.1 [facility] [address] [id number] [place] [address] Aug, [facility] [address] 340B [id number] [place] [address] Aug, UTI symptoms R39.9 and COPD with exacerbation J44.[address] 340B [id number] [place] [address] Aug, Moderate episode of recurren t major depressive disorder F33.1 [address] [id number] [place] [address] Jul, [address] 340[address] [id number] [place] [address] Jul, Moderate episode of recurren t major depressive disorder F33.1 [facility] [address] [id number] [place] [address] Jun, [facility] [place] [address] 340B [id number] [place] [address] Jun, Moderate episode of recurren t major depressive disorder F33.1 [facility] [address] 340B [id number] [place] [address] Jun, [facility] [address] [address] [id number] [place] [address] May, Moderate episode of recurren t major depressive disorder F33.1 [facility] [place]ED[place] [address] 340B [id number] [place] [address] May, [facility] [address] 340B [id number] [place] [address] May, [facility] [address] [id number] [place] [address] May, Memory loss R41.3 and Centri lobular emphysema J43.2 [facility] [place] [address] 340B [id number] [place] [address] May, [facility] [address] [address] 340B [id number] [place] [address] Apr, Influenza vaccine refused Z2 8.21 ; Dyslipidemia E78.5 ; Memory loss R41.3 ; Chronic obstructive airway disease J44.9 and CVA (cerebral vascular accident) I63.9 [facility] [address] [id number] [place] [address] Apr, Moderate episode of recurren t major depressive disorder F33.1 [facility] [address] [id number] [place] [address] Apr, [facility] [address] 340[address] [id number] [place] [address] Apr, Moderate episode of recurren t major depressive disorder F33.1 [facility] [address] 340B [id number] [place] [address] Apr, Pure hypercholesterolemia E7 8.00 [facility] [address] [id number] [place] [address] Mar, Pure hypercholesterolemia E7 8.00 and Dyslipidemia E78.5 [address] 340B [id number] [place] [address] Mar, Moderate episode of recurren t major depressive disorder F33.1 [facility] [address] [id number] [place] [address] Mar, [facility] [address] [id number] [place] [address] Mar, Moderate episode of recurren t major depressive disorder F33.1 [facility] [address] [id number] [place] [address] Feb, Moderate episode of recurren t major depressive disorder F33.1 [facility] [address] [id number] [place] [address] Feb, [facility] [address] [id number] [place] [address] Feb, Moderate episode of recurren t major depressive disorder F33.1 [facility] [address] 340[address] [id number] [place] [address] Jan, Moderate episode of recurren t major depressive disorder F33.1 [facility] [address] 340B [id number] [place] [address] Jan, Dementia F03.90 and CVA (cer ebral vascular accident) I63.9 [facility] [address]B [id number] [place] [address] Jan, [facility] [address] [id number] [place] [address] Jan, [facility] [address] 340B [id number] [place] [address] Jan, Moderate episode of recurren t major depressive disorder F33.[address] 340B [id number] [place] [address] Dec, Moderate episode of recurren t major depressive disorder F33.[address] 340B [id number] [place] [address] Dec, [address] 340B [id number] [place] [address] Dec, COPD with exacerbation J44.1 ; Daytime somnolence R40.0 ; Memory loss R41.3 and Fungal infection of skin of abdomen B36.[address] 340 [id number] [address] Dec, Moderate episode of recurren t major depressive disorder F33.1 [facility] [address] [facility] [id number] [address] [place] [address] November, [address] 340 [id number] [address] November, Moderate episode of recurren t major depressive disorder F33.[address] 340B [id number] [place] [address] November, CVA (cerebral vascular accid ent) I63.9 ; Chronic respiratory failure with hypoxia and hypercapnia J96.11 ; Dyslipidemia E78.5 and Walking pneumonia J18.[address] 340B [id number] [place] [address] November, [address] 340 [id number] [place] [address] November, Dyslipidemia E78.[address] 340B [id number] [place] [address] November, Moderate episode of recurren t major depressive disorder F33.1 [facility] [address] [facility] [id number] [address] [place] [address] Oct, [address] 340B [id number] [place] [address] Oct, Moderate episode of recurren t major depressive disorder F33.1 [address] [id number] [place] [address] Oct, Moderate episode of recurren t major depressive disorder F33.1 [facility] [address] [facility] [id number] [address] [place] [address] Oct, Moderate episode of recurren t major depressive disorder F33.[address] 340B [id number] [place] [address] Oct, Breast calcifications on ariana mogram R92.[address] 340B [id number] [place] [address] Oct, Depression F32.9 ; History o f CVA (cerebrovascular accident) without residual deficits Z86.73 and Moderate episode of recurrent major depressive disorder F33.1 [address]B [id number] [place] [address] Oct, Moderate episode of recurren t major depressive disorder F33.1 [address] 340B [id number] [place] [address] Oct, [address] 340B [id number] [place] [address] Sep, [address] [id number] [place] [address] Sep, [address]B [id number] [place] [address] Sep, 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 340B [id number] [place] [address] Sep, COPD (chronic obstructive pu lmonary disease) J44.9 ; Pure hypercholesterolemia E78.00 ; Moderate episode of recurrent major depressive disorder F33.1 ; Depression F32.9 and History of CVA (cerebrovascular accident) without residual deficits Z86.73 [facility] [address] [id number] [address] [place] [address] Aug, [facility] [address] [id number] [address] [place] [address] Aug, [address] 340B [id number] [place] [address] Aug, [facility] [address] 340B [id number] [place] [address] Aug, COPD (chronic obstructive pu lmonary disease) J44.9 ; Depression F32.9 and Pure hypercholesterolemia E78.[address] 340B [id number] [place] [address] Aug, [facility] [address] [id number] [address] [place] [address] Jul, [facility] [address] [id number] [address] [place] [address] Jun, [facility] [address] [id number] [address] [place] [address] Jun, [facility] [address] [facility] [id number] [address] [place] [address] May, [facility] [address] [id number] [address] [place] [address] May, [facility] [address] [id number] [address] [place] [address] Apr, [facility] [address] [id number] [address] [place] [address] Apr, [facility] [address] [facility] [id number] [address] [place] [address] Oct, Dental caries K02.9 [facility] [address] [id number] [address] [place] [address] Sep, Dental examination Z01.20 IMMUNIZATIONS No Known Immunizations SOCIAL HISTORY Never Assessed REASON FOR VISIT Cold Symptoms PLAN OF CARE VITAL SIGNS Height 5ft 3in in 2018-10-24 Weight 138 lbs 2018-10-24 BMI 24.44 kg/m2 2018-10-24 Blood pressure systolic 122 mmHg 2018-10-24 Blood pressure diastolic 70 mmHg 2018-10-24 MEDICATIONS Medication Instructions Dosage Frequency Start Date End Date Duration S tatus Clopidogrel Bisulfate 75 MG Orally Once a day 1 tablet 24h Active Abilify 2 MG Orally at bedtime 2 capsules Active Trazodone HCl 100 MG Orally Once a day 1 tablet at bedtime 24h 30 day(s) Active Xanax 0.25 MG by oral route every 8 hours 1 tablet 8h 10 days Active PredniSONE 5 MG Orally Once a day 1 tablet 24h Sep, 6 days Active Cymbalta 30 MG Orally Once a day 1 capsule 24h Active Protonix 20 MG Orally Once a day 1 tablet 24h 30 day (s) Active Augmentin 875-125 MG Orally every 12 hrs 1 tablet 12h Sep, 07 days Active Cyclobenzaprine HCl 10 MG Orally Three times a day 1 tablet as needed 8h Active Percocet 10-325 MG Orally 4 times a day 1 tablet 6h Sep, 28 days Active Atorvastatin Calcium 10 MG TAKE 1 TABLET BY MOUTH ONCE DAILY 30 Active RESULTS No Results PROCEDURES No Known [...]
--- OUTSIDE RECORDS SUMMARY | 2020-02-04 06:52 | XMS REPORT ---
Author Author Melania Hunter Organization [facility] Address [address] [place] [address] Care Team Providers Care Director Of Teenage Activities Name Role Phone NAVEED Hunter Unavailable PROBLEMS Type Condition ICD9-CM Code AYD35-DH Code Onset Dates Condition S tatus SNOMED Code Problem Tobacco use Z72.0 Mar, Active 94878 3000 Problem COPD with exacerbation J44.1 Apr, Acti ve 201370348 Problem Hypoxia R09.02 Sep, Active 8326185 02 Problem Cerebral infarction I63.9 Dec, Active 556307842 Problem Chronic respiratory failure with hypoxia and hypercapn ia J96.11 Sep, Active 42130181 Problem Pure hypercholesterolemia E78.00 Acti ve 387545359 Problem Nondiabetic gastroparesis K31.84 Apr, A ctive 18790512 Problem Arthritis M19.90 Active 1078114 Problem CVA (cerebral vascular accident) I63.9 Active 698164370 Problem Anxiety F41.9 Active 64403761 Problem Centrilobular emphysema J43.2 Active 80054691 Problem Chronic obstructive airway disease J44.9 Active 80709085 Problem Centrilobular emphysema J43.2 Active 83820364 Problem Moderate episode of recurrent major depressive disorder F33.1 Active 676628282 Problem Dementia F03.90 Active 51885926 Problem Dyslipidemia E78.5 Active 8187906 07 Problem Daytime somnolence R40.0 Active 1 79265672519 Problem Memory loss R41.3 Active 42308456 ALLERGIES No Information ENCOUNTERS Encounter Location Date Diagnosis [address] [place] [address] Sep, [address] [place] [address] Aug, [address] [place] [address] 12 Aug, 2019 UTI symptoms R39.9 and COPD with exacerbation J44.1 [facility] [address] [place] [address] 2019 Moderate episode of recurren t major depressive disorder F33.[address] [place] [address] Jul, [address] [place] [address] Jul, Moderate episode of recurren t major depressive disorder F33.1 [address] [place] [address] Jun, [address] [place] [address] Jun, Moderate episode of recurren t major depressive disorder F33.1 [address] [place] [address] Jun, [address] [place] [address] May, Moderate episode of recurren t major depressive disorder F33.[address] [place] [address] May, [address] [place] [address] May, [address] [place] [address] May, Memory loss R41.3 and Centri lobular emphysema J43.[address] [place] [address] May, [address] [place] [address] Apr, Influenza vaccine refused Z2 8.21 ; Dyslipidemia E78.5 ; Memory loss R41.3 ; Chronic obstructive airway disease J44.9 and CVA (cerebral vascular accident) I63.[address] [place] [address] Apr, Moderate episode of recurren t major depressive disorder F33.1 [facility] [address] [place] [address] Apr, [address] [place] [address] Apr, Moderate episode of recurren t major depressive disorder F33.[address] [place] [address] Apr, Pure hypercholesterolemia E7 8.[address] [place] [address] Mar, Pure hypercholesterolemia E7 8.00 and Dyslipidemia E78.[address] [place] [address] Mar, Moderate episode of recurren t major depressive disorder F33.[address] [place] [address] Mar, [address] [place] [address] Mar, Moderate episode of recurren t major depressive disorder F33.[address] [place] [address] Feb, Moderate episode of recurren t major depressive disorder F33.[address] [place] [address] Feb, [address] [place] [address] Feb, Moderate episode of recurren t major depressive disorder F33.[address] [place] [address] Jan, Moderate episode of recurren t major depressive disorder F33.[address] [place] [address] Jan, Dementia F03.90 and CVA (cer ebral vascular accident) I63.9 [address] [place] [address] Jan, [address] [place] [address] Jan, [address] [place] [address] Jan, Moderate episode of recurren t major depressive disorder F33.1 [address] [place] [address] Dec, Moderate episode of recurren t major depressive disorder F33.1 [address] [place] [address] Dec, [address] [place] [address] Dec, COPD with exacerbation J44.1 ; Daytime somnolence R40.0 ; Memory loss R41.3 and Fungal infection of skin of abdomen B36.[address] [place] [address] Dec, Moderate episode of recurren t major depressive disorder F33.1 [facility] [place] [address] [facility] [place] [address] November, [address] [place] [address] November, Moderate episode of recurren t major depressive disorder F33.1 [address] [place] [address] November, CVA (cerebral vascular accid ent) I63.9 ; Chronic respiratory failure with hypoxia and hypercapnia J96.11 ; Dyslipidemia E78.5 and Walking pneumonia J18.[address] [place] [address] November, [address] [place] [address] November, Dyslipidemia E78.[address] [place] [address] November, Moderate episode of recurren t major depressive disorder F33.1 [facility] [place] [address] [facility] [place] [address] Oct, [address] [place] [address] Oct, Moderate episode of recurren t major depressive disorder F33.1 [address] [place] [address] Oct, Moderate episode of recurren t major depressive disorder F33.1 [facility] [place] [address] [facility] [place] [address] Oct, Moderate episode of recurrent major depr essive disorder F33.[address] [place] [address] Oct, Breast calcifications on ariana mogram R92.1 [address] [place] [address] Oct, Depression F32.9 ; History o f CVA (cerebrovascular accident) without residual deficits Z86.73 and Moderate episode of recurrent major depressive disorder F33.[address] [place] [address] Oct, Moderate episode of recurren t major depressive disorder F33.[address] [place] [address] Oct, [address] [place] [address] Sep, [address] [place] [address] Sep, [facility] [address] [place] [address] Sep, 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 [place] [address] Sep, COPD (chronic obstructive pu lmonary disease) J44.9 ; Pure hypercholesterolemia E78.00 ; Moderate episode of recurrent major depressive disorder F33.1 ; Depression F32.9 and History of CVA (cerebrovascular accident) without residual deficits Z86.73 [facility] [place] [id number] [place] [address] Aug, [facility] [place] [id number] [place] [address] Aug, [address] [place] [address] Aug, [address] [place] [address] Aug, COPD (chronic obstructive pu lmonary disease) J44.9 ; Depression F32.9 and Pure hypercholesterolemia E78.[address] [place] [address] Aug, [facility] [place] [id number] [place] [address] Jul, [facility] [place] [id number] [place] [address] Jun, [facility] [place] [id number] [place] [address] Jun, [facility] [place] [address] [facility] [place] [address] May, [facility] [place] [id number] [place] [address] May, [facility] [place] [address] [facility] [place] [address] Apr, [facility] [place] [address] [place] [address] Apr, [facility] [place] [address] [facility] [place] [address] Oct, Dental caries K02.9 [facility] [place] [address] [facility] [place] [address] Sep, Dental examination Z01.20 IMMUNIZATIONS No Known Immunizations SOCIAL HISTORY Never Assessed REASON FOR VISIT Controlled Med Refill PLAN OF CARE VITAL SIGNS MEDICATIONS Medication [...]
--- OUTSIDE RECORDS SUMMARY | 2020-02-04 06:52 | XMS REPORT ---
Author Author Melania CRAFT Organization [facility] Address [address] [place] [address] Care Team Providers Care Duty Manager Name Role Phone RADHA CRAFT Unavailable PROBLEMS Type Condition ICD9-CM Code CYO49-CE Code Onset Dates Condition S tatus SNOMED Code Problem Tobacco use Z72.0 Mar, Active 87649 3000 Problem COPD with exacerbation J44.1 Apr, Acti ve 946907185 Problem Hypoxia R09.02 Sep, Active 4407856 02 Problem Cerebral infarction I63.9 Dec, Active 428009922 Problem Chronic respiratory failure with hypoxia and hypercapn ia J96.11 Sep, Active 93119104 Problem Pure hypercholesterolemia E78.00 Acti ve 153176076 Problem Nondiabetic gastroparesis K31.84 Apr, A ctive 30770969 Problem Arthritis M19.90 Active 3658377 Problem CVA (cerebral vascular accident) I63.9 Active 467663077 Problem Anxiety F41.9 Active 93775723 Problem Centrilobular emphysema J43.2 Active 09574434 Problem Chronic obstructive airway disease J44.9 Active 09550449 Problem Centrilobular emphysema J43.2 Active 00394185 Problem Moderate episode of recurrent major depressive disorder F33.1 Active 434299317 Problem Dementia F03.90 Active 80058516 Problem Dyslipidemia E78.5 Active 6049674 07 Problem Daytime somnolence R40.0 Active 1 03725148030 Problem Memory loss R41.3 Active 52665817 ALLERGIES No Information ENCOUNTERS Encounter Location Date Diagnosis [place] [id number] [place] [address] 24 Dec, 2019 Well woman exam with routine gynecological exam Z01.419 and Breast cancer screening Z12.[address] [id number] [place] [address] Sep, [facility] [address] [id number] [place] [address] Sep, [address] [id number] [place] [address] Sep, [address] 340[address] [id number] [place] [address] Sep, [address] [id number] [place] [address] Sep, High risk medications (not a nticoagulants) long-term use Z79.[address] [id number] [place] [address] Sep, Moderate episode of recurren t major depressive disorder F33.[address] 340[address] [id number] [place] [address] Sep, Moderate episode of recurren t major depressive disorder F33.1 [address] [id number] [place] [address] 09 Sep, 2019 Moderate episode of recurren t major depressive disorder F33.1 [facility] [address] [id number] [place] [address] Aug, [facility] [address] [id number] [place] [address] Aug, UTI symptoms R39.9 and COPD with exacerbation J44.[address] 340[address] [id number] [place] [address] 2019 Moderate episode of recurren t major depressive disorder F33.1 [address] [id number] [place] [address] Jul, [address] [id number] [place] [address] Jul, Moderate episode of recurren t major depressive disorder F33.1 [facility] [place] [address] [id number] [place] [address] Jun, [facility] [place] [address] 340B [id number] [place] [address] Jun, Moderate episode of recurren t major depressive disorder F33.1 [facility] [address] [id number] [place] [address] Jun, [facility] [address] [id number] [place] [address] May, Moderate episode of recurren t major depressive disorder F33.1 [facility] [place] [address] 340B [id number] [place] [address] May, [facility] [address] 340B [id number] [place] [address] May, [facility] [address] [id number] [place] [address] May, Memory loss R41.3 and Centri lobular emphysema J43.2 [facility] [place] [address] 340B [id number] [place] [address] May, [facility] [place] [address] [id number] [place] [address] Apr, Influenza vaccine refused Z2 8.21 ; Dyslipidemia E78.5 ; Memory loss R41.3 ; Chronic obstructive airway disease J44.9 and CVA (cerebral vascular accident) I63.9 [facility] [address] [id number] [place] [address] Apr, Moderate episode of recurren t major depressive disorder F33.1 [facility] [place] [address] [id number] [place] [address] Apr, [facility] [address] [id number] [place] [address] Apr, Moderate episode of recurren t major depressive disorder F33.1 [facility] [address] [id number] [place] [address] Apr, Pure hypercholesterolemia E7 8.00 [facility] [address] [id number] [place] [address] Mar, Pure hypercholesterolemia E7 8.00 and Dyslipidemia E78.5 [address] [id number] [place] [address] Mar, Moderate episode of recurren t major depressive disorder F33.1 [facility] [address] [id number] [place] [address] Mar, [facility] [address] [id number] [place] [address] Mar, Moderate episode of recurren t major depressive disorder F33.1 [facility] [address] [id number] [place] [address] Feb, Moderate episode of recurren t major depressive disorder F33.1 [facility] [address] [id number] [place] [address] Feb, [facility] [address] [id number] [place] [address] Feb, Moderate episode of recurren t major depressive disorder F33.1 [facility] [address] [id number] [place] [address] Jan, Moderate episode of recurren t major depressive disorder F33.1 [facility] [address] [id number] [place] [address] Jan, Dementia F03.90 and CVA (cer ebral vascular accident) I63.9 [facility] [address] [id number] [place] [address] Jan, [facility] [address] [id number] [place] [address] Jan, [facility] [address] [id number] [place] [address] Jan, Moderate episode of recurren t major depressive disorder F33.[address] 340 [id number] [place] [address] Dec, Moderate episode of recurren t major depressive disorder F33.[address] 340B [id number] [place] [address] Dec, [address] 340 [id number], [place] [address] Dec, COPD with exacerbation J44.1 ; Daytime somnolence R40.0 ; Memory loss R41.3 and Fungal infection of skin of abdomen B36.[address] 340 [id number], [place] [address] Dec, Moderate episode of recurren t major depressive disorder F33.1 [facility] [place] [address] [facility] [place] [id number] [address] [place] [address] November, [address] 340 [id number], [place] [address] November, Moderate episode of recurren t major depressive disorder F33.[address] 340 [id number], [place] [address] November, CVA (cerebral vascular accid ent) I63.9 ; Chronic respiratory failure with hypoxia and hypercapnia J96.11 ; Dyslipidemia E78.5 and Walking pneumonia J18.[address] 340 [id number], [place] [address] November, [address] 340 [id number], [place] [address] November, Dyslipidemia E78.[address] 340B [id number], [place] [address] November, Moderate episode of recurren t major depressive disorder F33.1 [facility] [place] [address] [facility] [place] [id number] [address] [place] [address] Oct, [address] 340B [id number] [place] [address] Oct, Moderate episode of recurren t major depressive disorder F33.1 [address] [id number] [place] [address] Oct, Moderate episode of recurren t major depressive disorder F33.1 [facility] [place] [address] [facility] [place] [id number] [address] [place] [address] Oct, Moderate episode of recurren t major depressive disorder F33.[address] 340B [id number], [place] [address] Oct, Breast calcifications on ariana mogram R92.[address] 340B [id number] [place] [address] Oct, Depression F32.9 ; History o f CVA (cerebrovascular accident) without residual deficits Z86.73 and Moderate episode of recurrent major depressive disorder F33.[address] 340B [id number] [place] [address] Oct, Moderate episode of recurren t major depressive disorder F33.1 [address] [id number] [place] [address] Oct, [address] 340B [id number] [place] [address] Sep, [address] 340B [id number] [place] [address] Sep, [address] [id number] [place] [address] Sep, 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 [address] [id number] [place] [address] 05 Sep, 2018 COPD (chronic obstructive pu lmonary disease) J44.9 ; Pure hypercholesterolemia E78.00 ; Moderate episode of recurrent major depressive disorder F33.1 ; Depression F32.9 and History of CVA (cerebrovascular accident) without residual deficits Z86.73 [facility] [place] [address] [id number] [address] [place] [address] Aug, [facility] [place] [address] [id number] [address] [place] [address] Aug, [address] 340[address] [id number], [place] [address] Aug, [facility] [address] [id number], [place] [address] Aug, COPD (chronic obstructive pu lmonary disease) J44.9 ; Depression F32.9 and Pure hypercholesterolemia E78.[address] 340[address] [id number], [place] [address] Aug, [facility] [place] [address] [id number] [address] [place] [address] Jul, [facility] [place] [address] [id number] [address] [place] [address] Jun, [facility] [place] [address] [id number] [address] [place] [address] Jun, [facility] [place] [address] [facility] [place] [id number] [address] [place] [address] May, [facility] [place] [address] [facility] [place] [id number] [address] [place] [address] May, [facility] [place] [address] [id number] [address] [place] [address] Apr, [facility] [place] [address] [facility] [place] [id number] [address] [place] [address] Apr, [facility] [place] [address] [facility] [place] [id number] [address] [place] [address] Oct, Dental caries K02.9 [facility] [place] [address] [id number] [address] [place] [address] Sep, Dental examination Z01.20 IMMUNIZATIONS No Known Immunizations SOCIAL HISTORY Never Assessed REASON FOR VISIT Controlled med refill 10/31 PLAN OF CARE VITAL SIGNS MEDICATIONS Medication Instructions Dosage Frequency Start Date End Date Duration S tat Xanax 0.25 MG Orally 3 times a day 1 tablet as needed 8h 14 days Active RESULTS No Results PROCEDURES No [...]
--- NOTE | 2020-02-04 06:53 | ED General ---
General Stated Complaint: TREMORS History of Present Illness Date Seen by Provider: Feb 04, 2020 Time Seen by Provider: 06:48 Initial Comments Patient presenting to emergency department via EMS to call came out as altered mental status. Reportedly she was shaking this morning and she could not stop her alarm due to the shaking in her hands. She reports recently being started on Accupril warfarin for pain which I found somewhat odd is that if the active compound in Suboxone. Patient says that she is being seen this morning for shortness of breath. She does appear somewhat sleepy me but she is alert and oriented him to answer all questions appropriately. She has a history of COPD and is on 3 L at baseline and is on 3 L currently satting at 91%. She does have audible abnormal breath sounds and says that she was started on Levaquin and prednisone Monday which would be 4 days ago currently. She says that she has had no fever but she has had productive cough. She appears to be chronically ill but nontoxic. Allergies and Home Medications Allergies Coded Allergies: No Known Drug Allergies (Unverified , 03/06/17) Home Medications Clopidogrel Bisulfate 75 Mg Tablet, 75 MG PO DAILY, (Reported) Patient Home Medication List Home Medication List Reviewed: Yes Review of Systems Review of Systems Constitutional: no symptoms reported EENTM: no symptoms reported Respiratory: cough, phlegm, short of breath, wheezing Cardiovascular: no symptoms reported Gastrointestinal: no symptoms reported Genitourinary: no symptoms reported Musculoskeletal: no symptoms reported Skin: no symptoms reported Psychiatric/Neurological: Tremors All Other Systems Reviewed Negative Unless Noted: Yes Past Yyjfpup-Yzfbti-Gfdvbg Hx Patient Social History Type Used: Smokeless Tobacco Former Smoker, Quit: Aug 15, 2018 Recent Foreign Travel: No Contact w/Someone Who Travel: No Recent Hopitalizations: No Seasonal Allergies Seasonal Allergies: No Past Medical History Surgeries: Yes (r eye, DNC, ) Appendectomy, Eye Surgery Sleep Apnea, COPD, Emphysema Currently Using CPAP: Yes Cardiac: No Neurological: Yes (restless legs) Dementia, Stroke Genitourinary: No Gastrointestinal: Yes (decreased appetite) Arthritis Endocrine: No HEENT: No Cancer: No Psychosocial: Yes Anxiety, Bipolar, Depression Physical Exam Vital Signs Vital Signs - First Documented 02/04/20 06:42 Temp 35.9 Pulse 82 Resp 22 B/P (MAP) 169/63 (98) Pulse Ox 93 O2 Delivery Nasal Cannula O2 Flow Rate 3.00 Capillary Refill : Height, Weight, BMI Height: 5'3.00" Weight: 120lbs. oz. 54.570743ih; BMI Method:Stated General Appearance: Chronically ill HEENT: PERRL/EOMI Neck: Supple Respiratory: Respiratory Distress, Rhonci, Wheezing Cardiovascular: Regular Rate, Rhythm Gastrointestinal: Non Tender, Soft Back: Normal Inspection Extremity: Normal Capillary Refill Neurologic/Psychiatric: Alert, Oriented x3 Skin: Warm/Dry Focused Exam Lactate Level 02/04/20 07:05: Lactic Acid Level 1.08 Lactic Acid Level Laboratory Tests Test 02/04/20 07:05 Lactic Acid Level 1.08 MMOL/L (0.50-2.00) Procedures/Interventions Reason for Intubation: resp failure, co2 narcosis Intubation Method: orotracheal Medications: Etomidate, Succinylcholine Positive End Tide CO2: Yes Breath Sounds after Intubation: bilateral-equal Intubation Complications: no complications Post Intubation Xray: Yes ET tube below clavicles Progress/Results/Core Measures Suspected Sepsis SIRS Temperature: Pulse: Respiratory Rate: Laboratory Tests 02/04/20 06:48: White Blood Count 20.4H Blood Pressure / Mean: 02/04/20 07:05: Lactic Acid Level 1.08 Laboratory Tests 02/04/20 06:48: Creatinine 0.91, INR Comment 0.9, Platelet Count 532H, Total Bilirubin 0.2 Results/Orders Lab Results Laboratory Tests Test 02/04/20 06:48 02/04/20 07:05 02/04/20 07:40 Range/Units White Blood Count 20.4 H 4.3-11.0 10^3/uL Red Blood Count 4.14 L 4.35-5.85 10^6/uL Hemoglobin 12.6 11.5-16.0 G/DL Hematocrit 42 35-52 % Mean Corpuscular Volume 100 H 80-99 FL Mean Corpuscular Hemoglobin 30 25-34 PG Mean Corpuscular Hemoglobin Concent 30 L 32-36 G/DL Red Cell Distribution Width 13.3 10.0-14.5 % Platelet Count 532 H 130-400 10^3/uL Mean Platelet Volume 9.7 7.4-10.4 FL Neutrophils (%) (Auto) 75 42-75 % Lymphocytes (%) (Auto) 16 12-44 % Monocytes (%) (Auto) 7 0-12 % Eosinophils (%) (Auto) 0 0-10 % Basophils (%) (Auto) 1 0-10 % Neutrophils # (Auto) 15.2 H 1.8-7.8 X 10^3 Lymphocytes # (Auto) 3.3 1.0-4.0 X 10^3 Monocytes # (Auto) 1.4 H 0.0-1.0 X 10^3 Eosinophils # (Auto) 0.0 0.0-0.3 10^3/uL Basophils # (Auto) 0.1 0.0-0.1 10^3/uL Neutrophils % (Manual) 65 % Lymphocytes % (Manual) 22 % Monocytes % (Manual) 3 % Eosinophils % (Manual) 0 % Basophils % (Manual) 1 % Metamyelocytes % 2 % Band Neutrophils 7 % Prothrombin Time 12.4 12.2-14.7 SEC INR Comment 0.9 0.8-1.4 Activated Partial Thromboplast Time 22 L 24-35 SEC Sodium Level 140 135-145 MMOL/L Potassium Level 4.2 3.6-5.0 MMOL/L Chloride Level 94 L 98-107 MMOL/L Carbon Dioxide Level 38 H 21-32 MMOL/L Anion Gap 8 5-14 MMOL/L Blood Urea Nitrogen 15 7-18 MG/DL Creatinine 0.91 0.60-1.30 MG/DL Estimat Glomerular Filtration Rate > 60 BUN/Creatinine Ratio 16 Glucose Level 152 H 70-105 MG/DL Calcium Level 9.2 8.5-10.1 MG/DL Corrected Calcium 9.1 8.5-10.1 MG/DL Total Bilirubin 0.2 0.1-1.0 MG/DL Aspartate Amino Transf (AST/SGOT) 50 H 5-34 U/L Alanine Aminotransferase (ALT/SGPT) 53 0-55 U/L Alkaline Phosphatase 116 40-136 U/L Troponin I < 0.30 <0.30 NG/ML Pro-B-Type Natriuretic Peptide 273.9 H <75.0 PG/ML Total Protein 7.8 6.4-8.2 GM/DL Albumin 4.1 3.2-4.5 GM/DL Blood Gas Puncture Site LT WRIST Blood Gas Patient Temperature 35.9 C Arterial Blood pH 7.17 *L 7.37-7.43 Arterial Blood Partial Pressure CO2 > 115 *H 35-45 MMHG Arterial Blood Partial Pressure O2 54 L 79-93 MMHG Arterial Blood HCO3 23-27 MMOL/L Arterial Blood Total CO2 21.0-31.0 MMOL/L Arterial Blood Oxygen Saturation 94-100 % Arterial Blood Base Excess -2.5-2.5 MMOL/L Feliciano Test OK Blood Gas Ventilator Setting NO Blood Gas Inspired Oxygen 3L Lactic Acid Level 1.08 0.50-2.00 MMOL/L My Orders Orders - ROMAIN BELLE DO Iv/Invasive Line Insertion .IV start (02/04/20 06:54) Arterial Blood Gas (02/04/20 06:54) Blood Culture (02/04/20 06:54) Cbc With Automated Diff (02/04/20 06:54) Comprehensive Metabolic Panel (02/04/20 06:54) Chest 1 View Ap/Pa Only (02/04/20 06:54) Probnp Fs (02/04/20 06:54) Partial Thromboplastin Time (02/04/20 06:54) Protime With Inr (02/04/20 06:54) Lactic Acid Analyzer (02/04/20 06:54) Troponin I Fs (02/04/20 06:54) Albuterol/Ipra Inhalation Soln (Duoneb I (02/04/20 07:00) Svn Small Volume Nebulizer (02/04/20 06:54) Blood Culture (02/04/20 06:58) Coronavirus Sars-Cov-2 So 2018 (02/04/20 07:00) Manual Differential (02/04/20 06:48) Methylprednisolone Sod Succ (Solu-Medrol (02/04/20 07:20) Methylprednisolone Sod Succ (Solu-Medrol (02/04/20 07:30) Ns Iv 1000 Ml (Sodium Chloride 0.9%) (02/04/20 08:00) Piperacillin Sodium/Tazobactam (Zosyn Vi (02/04/20 08:00) Etomidate Injection (Amidate Injection) (02/04/20 08:00) Succinylcholine Injection (Succinylcholi (02/04/20 08:00) Propofol Drip (Icu) (Diprivan Drip (Icu) (02/04/20 08:00) Sedation Communication Q48H (02/04/20 08:00) Chest 1 View Ap/Pa Only (02/04/20 08:14) Medications Given in ED Current Medications Medications Dose Ordered Sig/Ana Route Start Time Stop Time Status Last Admin Dose Admin Albuterol/ Ipratropium 3 ml ONCE ONCE INH 02/04/20 07:00 02/04/20 07:01 DC 02/04/20 07:31 3 ML Methylprednisolone Sodium Succinate 125 mg ONCE ONCE IVP 02/04/20 07:30 02/04/20 07:35 DC 02/04/20 07:32 125 MG Piperacillin Sod/ Tazobactam Sod 4.5 gm/Sodium Chloride 100 ml @ 200 mls/hr ONCE ONCE IV 02/04/20 08:00 02/04/20 08:29 02/04/20 08:17 200 MLS/HR Vital Signs/I&O 02/04/20 02/04/20 06:42 08:18 Temp 35.9 Pulse 82 93 Resp 22 B/P (MAP) 169/63 (98) 158/85 Pulse Ox 93 O2 Delivery Nasal Cannula O2 Flow Rate 3.00 Capillary Refill : Progress Note : Progress Note Patient with likely COPD exacerbation with underlying infection. I will check labs chest x-ray treat with a [facility] site Medrol and reassess. Patient had markedly elevated PCO2 that was undetectable over 115 and she was acidotic with a pH of 7.16. I spoke to the patient and recommended released to BiPAP and she refused. I then spoke to Dr. Ricci at [facility] and he essentially said the patient should be intubated and if she is unwilling to be intubated then she should be made a DO NOT RESUSCITATE. I discussed this with the patient that she is very sick and could have bacterial pneumonia versus a viral pneumonia including coronavirus. I told her if she is not intubated then she would essentially be a DO NOT RESUSCITATE. She did not want to be made a DO NOT RESUSCITATE and consented to being intubated. She was intubated with no difficulty and I went and spoke to her significant other Alonzo Murphy and let him know the plan and that she'll be at [facility]. Patient was started on Zosyn for now and will likely need expanded coverage until her COVID screen comes back. She is being sedated with propofol and being given IV fluids. She is going to be transferred to [facility] in critical condition. Critical Care Note Critical Care Total Time (minutes) 44 Departure Impression Primary Impression: Respiratory failure Qualified Codes: J96.21 - Acute and chronic respiratory failure with hypoxia; J96.22 - Acute and chronic respiratory failure with hypercapnia Additional Impressions: CO2 narcosis Pneumonia Failure of outpatient treatment Acidosis Disposition: ADMITTED INPATIENT Condition: Critical Transfer Transfer Reason: Exceeds level of care Time Spoke to Accepting Phy: 07:45 Transfer Facility: [facility], acccepted by Dr. Stern Method of Transfer: EMS Departure-Patient Inst. Referrals: RADHA CRAFT MD (PCP/Family) Primary Care Physician ROMAIN BELLE DO Feb 04, 2020 06:53
--- OUTSIDE RECORDS SUMMARY | 2020-02-04 06:53 | XMS REPORT | Continuity of Care Document ---
Author Organization Unknown Address Unknown Phone Unavailable Allergies Active Description Code Type Severity Reaction Onset Reported/Identified Relationship to Patient Clinical Status Yes No Known Drug Allergies [id number] Drug Allergy Unknown N/A 03/06/2017 Medications There is no data. Problems Date Dx Coded Attending Type Code Diagnosis Diagnosed By 03/29/2017 PANKAJ FRAZIER MD (DDU) Ot Z02.71 ENCOUNTER FOR DISABILITY DETERMINATION 03/29/2017 PANKAJ FRAZIER MD (DDU) Ot Z02.71 ENCOUNTER FOR DISABILITY DETERMINATION 09/13/2018 PANKAJ FRAZIER MD (DDU) Ot Z02.71 ENCOUNTER FOR DISABILITY DETERMINATION 09/13/2018 KYLE LÓPEZ APRN Ot F03.90 UNSPECIFIED DEMENTIA WITHOUT BEHAVIORAL 09/13/2018 KYLE LÓPEZ APRN Ot F31 .9 BIPOLAR DISORDER, UNSPECIFIED 09/13/2018 KYLE LÓPEZ APRN Ot F41 .9 ANXIETY DISORDER, UNSPECIFIED 09/13/2018 KYLE LÓPEZ APRN Ot J43 .9 EMPHYSEMA, UNSPECIFIED 09/13/2018 KYLE LÓPEZ APRN Ot R41 .0 DISORIENTATION, UNSPECIFIED 09/13/2018 KYLE LÓPEZ APRN Ot R44 .3 HALLUCINATIONS, UNSPECIFIED 09/13/2018 KYLE LÓPEZ APRN Ot 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 09/13/2018 KYLE LÓPEZ APRN Ot Z86.73 PRSNL HX OF TIA (TIA), AND CEREB INFRC W 09/13/2018 KYLE LÓPEZ APRN Ot Z87.891 PERSONAL HISTORY OF NICOTINE DEPENDENCE 09/13/2018 KYLE LÓPEZ APRN Ot Z90.49 ACQUIRED ABSENCE OF OTHER SPECIFIED PART 09/17/2018 KYLE LÓPEZ APRN Ot F03.90 UNSPECIFIED DEMENTIA WITHOUT BEHAVIORAL 09/17/2018 KYLE LÓPEZ APRN Ot F31 .9 BIPOLAR DISORDER, UNSPECIFIED 09/17/2018 LÓPEZ, PETER J INNERSOLE MAKER Ot F41 .9 ANXIETY DISORDER, UNSPECIFIED 09/17/2018 KYLE LÓPEZ INNERSOLE MAKER Ot J43 .9 EMPHYSEMA, UNSPECIFIED 09/17/2018 KYLE LÓPEZ APRN Ot R41 .0 DISORIENTATION, UNSPECIFIED 09/17/2018 KYLE LÓPEZ APRN Ot R44 .3 HALLUCINATIONS, UNSPECIFIED 09/17/2018 KYLE LÓPEZ INNERSOLE MAKER Ot 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 Results Test Result Range Urine drug screening test - 09/13/18 13: 00 Urine phencyclidine detection by screening method NEGATIVE NEGATIVE Urine benzodiazepines detection by screening method POSITIVE NEGATIVE Urine cocaine detection NEGATIVE NEGATI VE Urine amphetamines detection by screening method N EGATIVE NEGATIVE Urine methamphetamine detection by screening method NEGATIVE NEGATIVE Urine cannabinoids detection by screening method N EGATIVE NEGATIVE Urine opiates detection by screening method NEGATI VE NEGATIVE Urine barbiturates detection NEGATIVE N EGATIVE Screening urine tricyclic antidepressants detection POSITIVE NEGATIVE Urine methadone detection by screening method NEGA TIVE NEGATIVE Urine oxycodone detection POSITIVE NEGA TIVE Urine propoxyphene detection NEGATIVE N EGATIVE Complete urinalysis with reflex to cultu re - 09/13/18 13:00 Urine color determination YELLOW NRG Urine clarity determination CLEAR NR G Urine pH measurement by test strip 8 5-9 Specific gravity of urine by test strip 1.010 1.016-1.022 Urine protein assay by test strip, semi-quantitative NEGATIVE NEGATIVE Urine glucose detection by automated test strip NE GATIVE NEGATIVE Erythrocytes detection in urine sediment by light micr oscopy NEGATIVE NEGATIVE Urine ketones detection by automated test strip NE GATIVE NEGATIVE Urine nitrite detection by test strip NEGATIVE NEGATIVE Urine total bilirubin detection by test strip NEGA TIVE NEGATIVE Urine urobilinogen measurement by automated test strip (mass/volume) NORMAL NORMAL Urine leukocyte esterase detection by dipstick 1+ NEGATIVE Automated urine sediment erythrocyte cou nt by microscopy (number/high power field) [HPF] NRG Automated urine sediment leukocyte count by microscopy (number/high power field) [HPF] NRG Bacteria detection in urine sediment by light microsco py NEGATIVE NRG Squamous epithelial cells detection in u rine sediment by light microscopy 2-5 NRG Crystals detection in urine sediment by light microsco py NONE NRG Casts detection in urine sediment by light microscopy NONE NRG Mucus detection in urine sediment by light microscopy NEGATIVE NRG Complete urinalysis with reflex to culture NO NRG Renal epithelial cells detection in urin e sediment by light microscopy NONE NRG Complete blood count (CBC) with automate d white blood cell (WBC) differential - 09/13/18 13:25 Blood leukocytes automated count (number/volume) 8.6 10*3/uL 4.3-11.0 Blood erythrocytes automated count (number/volume) 3.61 10*6/uL 4.35-5.85 Venous blood hemoglobin measurement (mass/volume) 11.8 g/dL 11.5-16.0 Blood hematocrit (volume fraction) 37 % 35-52 Automated erythrocyte mean corpuscular volume 102 [foz_us] 80-99 Automated erythrocyte mean corpuscular h emoglobin (mass per erythrocyte) 33 pg 25-34 Automated erythrocyte mean corpuscular h emoglobin concentration measurement (mass/volume) 32 g/dL 32-36 Automated erythrocyte distribution width ratio 13. 6 % 10.0- 14.5 Automated blood platelet count (count/volume) 306 10*3/uL 130-400 Automated blood platelet mean volume measurement 9.1 [foz_us] 7.4-10.4 Automated blood neutrophils/100 leukocytes 82 % 42-75 Automated blood lymphocytes/100 leukocytes 12 % 12-44 Blood monocytes/100 leukocytes 5 % 0-12 Automated blood eosinophils/100 leukocytes 1 % 0-10 Automated blood basophils/100 leukocytes 0 % 0-10 Blood neutrophils automated count (number/volume) 7.1 10*3 1.8-7.8 Blood lymphocytes automated count (number/volume) 1.0 10*3 1.0-4.0 Blood monocytes automated count (number/volume) 0. 5 10*3 0.0-1.0 Automated eosinophil count 0.0 10*3/uL 0 .0-0.3 Automated blood basophil count (count/volume) 0.0 10*3/uL 0.0-0.1 Comprehensive metabolic panel - 09/13/18 13:25 Serum or plasma sodium measurement (moles/volume) 139 mmol/L 135-145 Serum or plasma potassium measurement (moles/volume) 3.7 mmol/L 3.6-5.0 Serum or plasma chloride measurement (moles/volume) 97 mmol/L 98-107 Carbon dioxide 34 mmol/L 21-32 Serum or plasma anion gap determination (moles/volume) 8 mmol/L 5-14 Serum or plasma urea nitrogen measurement (mass/volume ) 7 mg/dL 7-18 Serum or plasma creatinine measurement (mass/volume) 0.68 mg/dL 0.60-1.30 Serum or plasma urea nitrogen/creatinine mass ratio 10 NRG Serum or plasma creatinine measurement w ith calculation of estimated glomerular filtration rate > NRG Serum or plasma glucose measurement (mass/volume) 99 mg/dL 70-105 Serum or plasma calcium measurement (mass/volume) 9.6 mg/dL 8.5-10.1 Serum or plasma total bilirubin measurement (mass/volu me) 0.4 mg/dL 0.1-1.0 Serum or plasma alkaline phosphatase mary surement (enzymatic activity/volume) 73 U/L 40-136 Serum or plasma aspartate aminotransfera se measurement (enzymatic activity/volume) 25 U/L 5-34 Serum or plasma alanine aminotransferase measurement (enzymatic activity/volume) 19 U/L 0-55 Serum or plasma protein measurement (mass/volume) 7.6 g/dL 6.4-8.2 Serum or plasma albumin measurement (mass/volume) 3.9 g/dL 3.2-4.5 CALCIUM CORRECTED 9.7 mg/dL 8.5-10.1 Magnesium - 09/13/18 13:25 Magnesium 2.1 mg/dL 1.8-2.4 THYROID STIMULATING HORMONE - 09/13/18 1 3:25 THYROID STIMULATING HORMONE 0.28 u[iU]/mL 0.35-4.94 Serum or plasma ethanol measurement (mas s/volume) - 09/13/18 13:25 Serum or plasma ethanol measurement (mass/volume) < mg/dL <10 Serum or plasma thyroxine (T4) free shala urement (mass/volume) - 09/13/18 13:25 Serum or plasma thyroxine (T4) free measurement (mass/ volume) 0.79 ng/dL 0.70-1.48 Arterial blood gas measurement - 9 15:30 Blood pCO2 54 mm[Hg] 35-45 Blood pO2 40 mm[Hg] 79-93 Arterial blood bicarbonate measurement (moles/volume) 33 mmol/L 23-27 Arterial blood base excess by calculation 8.1 mmol /L -2.5-2.5 Arterial blood oxygen saturation measurement 70 % 94-100 * Inhaled oxygen flow rate 2L NRG Arterial blood pH measurement with patient temperature correction 7.40 7.37-7.43 Arterial blood carbon dioxide, total measurement (mole s/volume) 34.6 mmol/L 21.0-31.0 Body site LT RAD NRG Assessment of wrist artery patency prior to arterial p uncture YES-POS NRG Setting of ventilation mode NO NR G Measurement of body temperature 98.6 NRG PDM - 09 PANEL (PROFILE 1) - 11/23/18 11 :50 Prescribed Drug 1 Oxycodone NRG Creatinine 26.6 mg/dL > or = 20.0 pH 6.69 4.5 - 9.0 Oxidant NEGATIVE mcg/mL <200 Amphetamines NEGATIVE ng/mL <500 medMATCH Amphetamines CONSISTENT NRG Benzodiazepines POSITIVE ng/mL <100 Marijuana Metabolite NEGATIVE ng/mL <20 medMATCH Marijuana Metab CONSISTENT NRG Cocaine Metabolite NEGATIVE ng/mL <150 medMATCH Cocaine Metab CONSISTENT NRG Opiates NEGATIVE CONFIRMED ng/mL <100 Oxycodone POSITIVE ng/mL <100 COMMENT NRG Alphahydroxyalprazolam 74 ng/mL <25 medMATCH aOH alprazolam CONSISTENT NRG Alphahydroxymidazolam NEGATIVE ng/mL < 50 medMATCH aOH midazolam CONSISTENT NRG Alphahydroxytriazolam NEGATIVE ng/mL < 50 medMATCH aOH triazolam CONSISTENT NRG Aminoclonazepam NEGATIVE ng/mL <25 medMATCH Aminoclonazepam CONSISTENT NRG Hydroxyethylflurazepam NEGATIVE ng/mL <50 medMATCH OH,Et flurazepam CONSISTENT NR G Lorazepam NEGATIVE ng/mL <50 medMATCH Lorazepam CONSISTENT NRG Nordiazepam NEGATIVE ng/mL <50 medMATCH Nordiazepam CONSISTENT NRG Oxazepam NEGATIVE ng/mL <50 medMATCH Oxazepam CONSISTENT NRG Temazepam NEGATIVE ng/mL <50 medMATCH Temazepam CONSISTENT NRG Codeine NEGATIVE ng/mL <50 medMATCH Codeine CONSISTENT NRG Hydrocodone NEGATIVE ng/mL <50 medMATCH Hydrocodone CONSISTENT NRG Hydromorphone NEGATIVE ng/mL <50 medMATCH Hydromorphone CONSISTENT NRG Morphine NEGATIVE ng/mL <50 medMATCH Morphine CONSISTENT NRG Norhydrocodone NEGATIVE ng/mL <50 medMATCH Norhydrocodone CONSISTENT NRG Prescribed Drug 2 Alprazolam NRG Noroxycodone 1612 ng/mL <50 medMATCH Noroxycodone CONSISTENT NRG Oxycodone 869 ng/mL <50 medMATCH Oxycodone CONSISTENT NRG Oxymorphone 213 ng/mL <50 medMATCH Oxymorphone CONSISTENT NRG Barbiturates NEGATIVE ng/mL <300 medMATCH Barbiturates CONSISTENT NRG Methadone Metabolite NEGATIVE ng/mL <100 medMATCH Methadone Metab CONSISTENT NRG Phencyclidine NEGATIVE ng/mL <25 medMATCH Phencyclidine CONSISTENT NRG LIPID PANEL - 12/18/18 08:06 CHOLESTEROL, TOTAL 193 mg/dL <200 HDL CHOLESTEROL 71 mg/dL >50 TRIGLYCERIDES 120 mg/dL <150 LDL-CHOLESTEROL 100 mg/dL (calc) NRG CHOL/HDLC RATIO 2.7 (calc) <5.0 NON HDL CHOLESTEROL 122 mg/dL (calc) <13 0 CMP - 12/18/18 08:06 GLUCOSE 102 mg/dL 65-99 UREA NITROGEN (BUN) 11 mg/dL 7-25 CREATININE 0.77 mg/dL 0.50-1.05 eGFR NON-AFR. MONTENEGRIN 86 mL/min/1.73m2 > OR = 60 eGFR 99 mL/min/1.73m2 > OR = 60 BUN/CREATININE RATIO NOT APPLICABLE (calc) 6-22 SODIUM 139 mmol/L 135-146 POTASSIUM 4.6 mmol/L 3.5-5.3 CHLORIDE 96 mmol/L 98-110 CARBON DIOXIDE 35 mmol/L 20-32 CALCIUM 9.7 mg/dL 8.6-10.4 PROTEIN, TOTAL 6.9 g/dL 6.1-8.1 ALBUMIN 3.9 g/dL 3.6-5.1 GLOBULIN 3.0 g/dL (calc) 1.9-3.7 ALBUMIN/GLOBULIN RATIO 1.3 (calc) 1.0-2. 5 BILIRUBIN, TOTAL 0.3 mg/dL 0.2-1.2 ALKALINE PHOSPHATASE 73 U/L 33-130 AST 18 U/L 10-35 ALT 16 U/L 6-29 CBC w/MANUAL DIFF - 12/18/18 08:06 WHITE BLOOD CELL COUNT 6.5 Thousand/uL 3 .8-10.8 RED BLOOD CELL COUNT 3.94 Million/uL 3.8 0-5.10 HEMOGLOBIN 12.0 g/dL 11.7-15.5 HEMATOCRIT 37.1 % 35.0-45.0 MCV 94.2 fL 80.0-100.0 MCH 30.5 pg 27.0-33.0 MCHC 32.3 g/dL 32.0-36.0 RDW 11.5 % 11.0-15.0 PLATELET COUNT 370 Thousand/uL 140-400 MPV 9.2 fL 7.5-12.5 ABSOLUTE NEUTROPHILS 2893 cells/uL 1500- 7800 ABSOLUTE MONOCYTES 195 cells/uL 200-950 ABSOLUTE EOSINOPHILS 195 cells/uL 15-500 ABSOLUTE BASOPHILS 65 cells/uL 0-200 NEUTROPHILS 44.5 % NRG LYMPHOCYTES 46.5 % NRG MONOCYTES 3.0 % NRG EOSINOPHILS 3.0 % NRG BASOPHILS 1.0 % NRG ABSOLUTE BAND NEUTROPHILS 130 cells/uL 0 -750 ABSOLUTE LYMPHOCYTES 3023 cells/uL 850-3 900 BAND NEUTROPHILS 2.0 % NRG CBC MORPHOLOGY NORMAL COMMENT(S) [facility] LIPID PANEL - 05/03/19 07:08 CHOLESTEROL, TOTAL 182 mg/dL <200 HDL CHOLESTEROL 57 mg/dL >50 TRIGLYCERIDES 148 mg/dL <150 LDL-CHOLESTEROL 100 mg/dL (calc) NRG CHOL/HDLC RATIO 3.2 (calc) <5.0 NON HDL CHOLESTEROL 125 mg/dL (calc) <13 0 CMP - 05/03/19 07:08 GLUCOSE 97 mg/dL 65-99 UREA NITROGEN (BUN) 8 mg/dL 7-25 CREATININE 0.87 mg/dL 0.50-1.05 eGFR NON-AFR. MONTENEGRIN 74 mL/min/1.73m2 > OR = 60 eGFR 86 mL/min/1.73m2 > OR = 60 BUN/CREATININE RATIO NOT APPLICABLE (calc) 6-22 SODIUM 141 mmol/L 135-146 POTASSIUM 4.1 mmol/L 3.5-5.3 CHLORIDE 97 mmol/L 98-110 CARBON DIOXIDE 37 mmol/L 20-32 CALCIUM 9.3 mg/dL 8.6-10.4 PROTEIN, TOTAL 7.0 g/dL 6.1-8.1 ALBUMIN 3.9 g/dL 3.6-5.1 GLOBULIN 3.1 g/dL (calc) 1.9-3.7 ALBUMIN/GLOBULIN RATIO 1.3 (calc) 1.0-2. 5 BILIRUBIN, TOTAL 0.3 mg/dL 0.2-1.2 ALKALINE PHOSPHATASE 88 U/L 33-130 AST 27 U/L 10-35 ALT 34 U/L 6-29 CBC w/MANUAL DIFF - 05/03/19 07:08 WHITE BLOOD CELL COUNT 6.9 Thousand/uL 3 .8-10.8 RED BLOOD CELL COUNT 4.18 Million/uL 3.8 0-5.10 HEMOGLOBIN 12.7 g/dL 11.7-15.5 HEMATOCRIT 38.5 % 35.0-45.0 MCV 92.1 fL 80.0-100.0 MCH 30.4 pg 27.0-33.0 MCHC 33.0 g/dL 32.0-36.0 RDW 12.4 % 11.0-15.0 PLATELET COUNT 393 Thousand/uL 140-400 MPV 9.3 fL 7.5-12.5 ABSOLUTE NEUTROPHILS 3105 cells/uL 1500- 7800 ABSOLUTE MONOCYTES 455 cells/uL 200-950 ABSOLUTE EOSINOPHILS 304 cells/uL 15-500 ABSOLUTE BASOPHILS 0 cells/uL 0-200 NEUTROPHILS 45.0 % NRG LYMPHOCYTES 42.9 % NRG MONOCYTES 6.6 % NRG EOSINOPHILS 4.4 % NRG BASOPHILS 0 % NRG ABSOLUTE BAND NEUTROPHILS 76 cells/uL 0- 750 ABSOLUTE LYMPHOCYTES 2960 cells/uL 850-3 900 BAND NEUTROPHILS 1.1 % NRG PLATELET ESTIMATION ADEQUATE ADEQUATE COMMENT(S) NRG CULTURE, URINE - 09/11/19 09:10 CULTURE, URINE, ROUTINE SEE NOTE NRG PDM - 09 PANEL (PROFILE 1) - 10/10/19 10 :17 Prescribed Drug 1 Oxycodone NRG Creatinine 36.1 mg/dL > or = 20.0 pH 7.2 4.5-9.0 Oxidant NEGATIVE mcg/mL <200 Amphetamines NEGATIVE ng/mL <500 medMATCH Amphetamines CONSISTENT NRG Benzodiazepines POSITIVE ng/mL <100 Marijuana Metabolite POSITIVE ng/mL <20 Cocaine Metabolite NEGATIVE ng/mL <150 medMATCH Cocaine Metab CONSISTENT NRG Opiates NEGATIVE CONFIRMED ng/mL <100 Oxycodone POSITIVE ng/mL <100 COMMENT NRG Alphahydroxyalprazolam 54 ng/mL <25 medMATCH aOH alprazolam CONSISTENT NRG Alphahydroxymidazolam NEGATIVE ng/mL < 50 medMATCH aOH midazolam CONSISTENT NRG Alphahydroxytriazolam NEGATIVE ng/mL < 50 medMATCH aOH triazolam CONSISTENT NRG Aminoclonazepam NEGATIVE ng/mL <25 medMATCH Aminoclonazepam CONSISTENT NRG Hydroxyethylflurazepam NEGATIVE ng/mL <50 medMATCH OH,Et flurazepam CONSISTENT NR G Lorazepam NEGATIVE ng/mL <50 medMATCH Lorazepam CONSISTENT NRG Nordiazepam NEGATIVE ng/mL <50 medMATCH Nordiazepam CONSISTENT NRG Oxazepam NEGATIVE ng/mL <50 medMATCH Oxazepam CONSISTENT NRG Temazepam NEGATIVE ng/mL <50 medMATCH Temazepam CONSISTENT NRG Codeine NEGATIVE ng/mL <50 medMATCH Codeine CONSISTENT NRG Hydrocodone NEGATIVE ng/mL <50 medMATCH Hydrocodone CONSISTENT NRG Hydromorphone NEGATIVE ng/mL <50 medMATCH Hydromorphone CONSISTENT NRG Morphine NEGATIVE ng/mL <50 medMATCH Morphine CONSISTENT NRG Norhydrocodone NEGATIVE ng/mL <50 medMATCH Norhydrocodone CONSISTENT NRG Prescribed Drug 2 Xanax(TM) NRG Marijuana Metabolite 106 ng/mL <5 medMATCH Marijuana Metab INCONSISTENT N RG Noroxycodone 2978 ng/mL <50 medMATCH Noroxycodone CONSISTENT NRG Oxycodone 3217 ng/mL <50 medMATCH Oxycodone CONSISTENT NRG Oxymorphone 371 ng/mL <50 medMATCH Oxymorphone CONSISTENT NRG Barbiturates NEGATIVE ng/mL <300 medMATCH Barbiturates CONSISTENT NRG Methadone Metabolite NEGATIVE ng/mL <100 medMATCH Methadone Metab CONSISTENT NRG Phencyclidine NEGATIVE ng/mL <25 medMATCH Phencyclidine CONSISTENT NRG SUREPATH PAP RFX HPV mRNA E6/E7 - 11:38 CLINICAL INFORMATION: NRG LMP: NRG PREV. PAP: NRG PREV. BX: NRG SOURCE: NRG STATEMENT OF ADEQUACY: NRG INTERPRETATION/RESULT: NRG RETAIL MAINTENANCE TECHNICIAN: SUKH INFECTION: NRG COMMENT NRG Encounters ACCT No. Visit Date/Time Discharge Status Pt. Type Provider Facility Loc./Unit Complaint [id number] 01/31/2020 10:40:00 01/31/2020 23:59: 59 [facility] [id number] 01/22/2020 15:00:00 Document Registration [id number] 10/10/2019 10:12:00 Document Registration [id number] 09/11/2019 08:45:00 Document Registration [id number] 05/03/2019 07:00:00 Document Registration [id number] 12/18/2018 08:00:00 Document Registration [id number] 11/23/2018 12:00:00 Document Registration [id number] 09/13/2018 12:03:00 019 16:29:00 DIS Emergency KYLE LÓPEZ APRN [facility] ER FALL/CONFUSED [id number] 03/06/2017 12:51:00 017 23:59:59 CLS Outpatient FREDDIE VELASQUEZ, PANKAJ Camacho (DDU) [facility] RT DDU
[2020-02-04] MEDS ORDERED: methylPREDNISolone 40 MG/ML (Solu-MEDROL) VIAL IV ONE (07:00)
[2020-02-04] MEDS ORDERED: RT-ALBUTEROL/IPRATROPIUM 3 ML (DUONEB) VIAL INH ONE (07:00)
[2020-02-04 07:08] LABS: BASOPHILS % (AUTO) 1 % (0-10); EOSINOPHILS % (AUTO) 0 % (0-10); HEMATOCRIT 42 % (35-52); HEMOGLOBIN 12.6 G/DL (11.5-16.0); LYMPHOCYTES % (AUTO) 16 % (12-44); MEAN CORPUSCULAR HEMOGLOBIN 30 PG (25-34); MEAN CORPUSCULAR HGB CONC 30 G/DL (32-36); MEAN CORPUSCULAR VOLUME 100 FL (80-99); MEAN PLATELET VOLUME 9.7 FL (7.4-10.4); MONOCYTES % (AUTO) 7 % (0-12); NEUTROPHILS % (AUTO) 75 % (42-75); PLATELET COUNT 532 10^3/uL (130-400); RED CELL DISTRIBUTION WIDTH 13.3 % (10.0-14.5); WHITE BLOOD COUNT 20.4 10^3/uL (4.3-11.0)
[2020-02-04 07:09] LABS: BASOPHILS # (AUTO) 0.1 10^3/uL (0.0-0.1); LYMPHOCYTES # (AUTO) 3.3 X 10^3 (1.0-4.0); MONOCYTES # (AUTO) 1.4 X 10^3 (0.0-1.0); NEUTROPHILS # (AUTO) 15.2 X 10^3 (1.8-7.8)
--- NOTE | 2020-02-04 07:18 | Diagnostic Imaging Report ---
INDICATION: Tremors, shortness of breath. TECHNIQUE: Single view chest 7:05 AM. CORRELATION STUDY: 09/13/2018 FINDINGS: Heart size and mediastinal configuration generally stable. Scattered patchy wispy-like densities are noted suspect for infiltrate. Most pronounced involving the upper lobes, right greater than left, as well as left lung base. IMPRESSION: 1. Scattered patchy infiltrates, concerning for multifocal pneumonia. This would include underlying viral-type pneumonitis. Follow-up imaging recommended. Dictated by: Dictated on workstation # [id number]
[2020-02-04] MEDS ORDERED: methylPREDNISolone 125 MG (Solu-MEDROL) VIAL ONE (07:20)
[2020-02-04] MEDS ORDERED: methylPREDNISolone 125 MG (Solu-MEDROL) VIAL IVP ONE (07:30)
[2020-02-04 07:33] LABS: INR 0.9 (0.8-1.4); PROTHROMBIN TIME PATIENT 12.4 SEC (12.2-14.7)
[2020-02-04 07:41] LABS: ALANINE AMINOTRANSFERASE 53 U/L (0-55); ALBUMIN 4.1 GM/DL (3.2-4.5); ALKALINE PHOSPHATASE 116 U/L (40-136); BILIRUBIN,TOTAL 0.2 MG/DL (0.1-1.0); BUN/CREATININE RATIO 16; CALCIUM 9.2 MG/DL (8.5-10.1); CARBON DIOXIDE 38 MMOL/L (21-32); CREATININE SERUM 0.91 MG/DL (0.60-1.30); GFR ESTIMATED > 60; GLUCOSE 152 MG/DL (70-105); TOTAL PROTEIN 7.8 GM/DL (6.4-8.2)
[2020-02-04 07:48] LABS: CHLORIDE 94 MMOL/L (98-107); POTASSIUM 4.2 MMOL/L (3.6-5.0); SODIUM 140 MMOL/L (135-145)
[2020-02-04 07:49] LABS: BAND NEUTROPHILS 7 %; BASOPHILS % (MANUAL) 1 %; EOSINOPHILS % (MANUAL) 0 %; LYMPHOCYTES % (MANUAL) 22 %; METAMYELOCYTES % 2 %; MONOCYTES % (MANUAL) 3 %; NEUTROPHILS % (MANUAL) 65 %
[2020-02-04 07:54] LABS: ABG PH 7.17 (7.37-7.43)
[2020-02-04 07:55] LABS: ABG PCO2 > 115 MMHG (35-45); ABG PO2 54 MMHG (79-93); ALLENS TEST OK; INSPIRED O2 3L; PATIENT TEMP 35.9 C; VENTILATOR NO
[2020-02-04] MEDS ORDERED: PIPERACILLIN SODIUM/TAZOBACTAM 4.5 GM in NS (IVPB) 100 ML IV ONE (08:00)
[2020-02-04] MEDS ORDERED: PROPOFOL DRIP (ICU) 100 ML IV SCH (08:00)
[2020-02-04] MEDS ORDERED: SUCCINYLCHOLINE INJ 100 MG/5 ML SYR INJ ONE ×2 (08:00→13:36)
[2020-02-04] MEDS ORDERED: ETOMIDATE IV SOLN 20 MG/10 ML VIAL IV ONE ×2 (08:00→13:36)
[2020-02-04] MEDS ORDERED: NS IV 1000 ML 1,000 ML IV SCH (08:00)
--- NOTE | 2020-02-04 08:21 | NUR ---
Alonzo Murphy (next of kin) stated that their neighbor Swati was waiting for COVID testing to come back. Pt might have been exposed to covid. Alonzo was informed about visitor policy in [place].
--- NOTE | 2020-02-04 08:38 | Diagnostic Imaging Report ---
INDICATION: Intubation. TECHNIQUE: Single view chest at 8:19 AM. CORRELATION STUDY: 02/04/2020. FINDINGS: The endotracheal tube is placed with the tip projecting just below the level of the clavicles. The heart size and mediastinum as well as vasculature appear stable. Scattered patchy pulmonary parenchymal densities are again demonstrated, most pronounced involving the upper lobe distribution. The findings are generally stable given differences in technique. IMPRESSION: 1. Interval intubation. 2. Scattered patchy pulmonary infiltrates are present, particularly involving the upper lobe distribution. Dictated by: Dictated on workstation # [id number]
--- NOTE | 2020-02-04 08:45 | NUR ---
0800 - EMS to assist phsician with intubation. 0810 - 20mg Etomidate and 100mg of Succinylcholine administered 0812 - Patient intubated 24cm at the teeth 0823 - 80mcg bolus of propofol given 0829 - 100mcg bolus of propofol given 0830 - 100mcg of Fentanyl adminstered
[2020-02-04] MEDS ORDERED: NS IV 1000 ML 1,000 ML ONE ×2 (09:31→14:15)
[2020-02-04] MEDS ORDERED: PROPOFOL DRIP (ICU) 100 ML IV ONE (09:31)
--- NOTE | 2020-02-04 09:50 | NUR ---
MARQUISE PEDERSEN admitted to room CU6-1, with an admitting diagnosis of Resp failure, on 02/04/20 from AM via cart, accompanied by staff.MARQUISE PEDERSEN introduced to surroundings, call light, bed controls, phone, TV, temperature control, lights, meal times, smoking policy, visitor policy, side rail policy, bathrooms and showers. Patient Rights given to patient in the handbook. MARQUISE PEDERSEN verbalizes understanding that [facility] is not responsible for the loss or damage to any personal effects or valuables that are kept in the patients posession during their hospitalization. The following Patient Care Plans were discussed with the : Discharge Planning. MARQUISE PEDERSEN verbalizes understanding of Interdisciplinary Patient Education. Patient and/or family were informed about the Rapid Response Team and its purpose.
[2020-02-04] MEDS ORDERED: CATHETER FLUSH 10 ML SYR IV PRN (10:00)
[2020-02-04] MEDS: fentaNYL INJECTION 1,250 MCG in NS (IVPB) 250 ML IV SCH (10:14)
[2020-02-04] MEDS: RT-ALBUTEROL INHALER HFA (VENTOLIN HFA) 8 GM IH SCH ×2 (10:44→15:16)
--- NOTE | 2020-02-04 10:57 | Pulmonary Consultation ---
History of Present Illness History of Present Illness Date Seen by Provider: Feb 04, 2020 Time Seen by Provider: 10:52 Date of Admission History of Present Illness 59yo with hx of severe oxygen dependant COPD (uses 3liters/min), chronic pain presented to ED secondary to MS changes, and worsening SOB. Pt failed out pt treatment she was started on Levaquin and prednisone on Monday. The ED doc attempted to place pt on BiPAP secondary to worsening respiratory failure however pt refused. I requested pt be intubated secondary to respiratory failure and need for transfer here. Pt is not intubated on vent in ICU. Allergies and Home Medications Allergies Coded Allergies: No Known Drug Allergies (Unverified , 03/06/17) Home Medications Clopidogrel Bisulfate 75 Mg Tablet, 75 MG PO DAILY, (Reported) Past Ujntkwi-Uxlzjr-Akgmrl Hx Patient Social History Alcohol Use: Denies Use Recreational Drug Use: No Smoking Status: Current Someday Smoker Type Used: Electronic/Vapor, Smokeless Tobacco Former Smoker, Quit: Aug 15, 2018 2nd Hand Smoke Exposure: No Recent Foreign Travel: No Contact w/Someone Who Travel: No Recent Infectious Disease Expo: No Recent Hopitalizations: No Physical Abuse: No Sexual Abuse: No Mistreated: No Fear: No Seasonal Allergies Seasonal Allergies: No Past Medical History Surgeries: Yes (r eye, DNC, ) Appendectomy, Eye Surgery Respiratory: Yes Sleep Apnea, COPD, Emphysema Currently Using CPAP: Yes Cardiac: No Neurological: Yes (restless legs) Dementia, Stroke, TIA Genitourinary: No Gastrointestinal: Yes (decreased appetite) Arthritis Endocrine: No HEENT: No Cancer: No Psychosocial: Yes Anxiety, Bipolar, Depression Integumentary: No Blood Disorders: No Review of Systems Time Seen by Provider: 11:10 Sepsis Event Evaluation Height, Weight, BMI Height: 5'3.00" Weight: 120lbs. oz. 54.760084vp; 36.00 BMI Method:Stated Exam Exam Vital Signs Date Time Temp Pulse Resp B/P (MAP) Pulse Ox O2 Delivery O2 Flow Rate FiO2 02/04/20 09:30 72 24 100 100 02/04/20 08:45 36.4 72 16 156/89 (109) 94 Mechanical Ventilator 02/04/20 08:18 93 158/85 02/04/20 06:42 35.9 82 22 169/63 (98) 93 Nasal Cannula 3.00 Height & Weight Height: 5'3.00" Weight: 120lbs. oz. 54.160922jy; 36.00 BMI Method:Stated General Appearance: Chronically ill HEENT: PERRL/EOMI Neck: Supple Respiratory: Respiratory Distress, Rhonci, Wheezing Cardiovascular: Regular Rate, Rhythm Capillary Refill: Less Than 3 Seconds Extremity: Normal Capillary Refill Neurologic/Psychiatric: Alert, Oriented x3 Skin: Warm/Dry Results Lab Laboratory Tests 02/04/20 06:48 Assessment/Plan Assessment/Plan Acute on chronic respiratory failure -Continue propofol and fentanyl gtt PNA with sepsis - failed out pt treatment -IVF -Start zosyn and Vanco -Disla cultures, RVP, urine strep and legionella Ag -Check PCT -R/o COVID COPDAE -MDIs C02 narcosis -Check UDS DVT/GI PPX TUCKER JUSTIN DO Feb 04, 2020 10:57
[2020-02-04] MEDS ORDERED: PHARMACY TO DOSE IV SCH (11:00)
[2020-02-04 11:03] LABS: ABG BASE EXCESS 9.1 MMOL/L (-2.5-2.5); ABG OXYGEN SATURATION 95 % (94-100); ABG PCO2 52 MMHG (35-45); ABG PH 7.43 (7.37-7.43); ABG PO2 65 MMHG (79-93); ABG TCO2 35.4 MMOL/L (21.0-31.0)
--- OUTSIDE RECORDS SUMMARY | 2020-02-04 11:05 | XMS REPORT | Continuity of Care Document ---
Author Organization Unknown Address Unknown Phone Unavailable Allergies Active Description Code Type Severity Reaction Onset Reported/Identified Relationship to Patient Clinical Status Yes No Known Drug Allergies [id number] Drug Allergy Unknown N/A 03/06/2017 Medications There [...] UNSPECIFIED 09/13/2018 KYLE LÓPEZ APRN Ot Z79.[address] JUDGE (CURRENT) USE OF ANTITHROMBOTI 09/13/2018 KYLE LÓPEZ [...] BIPOLAR DISORDER, UNSPECIFIED 09/17/2018 LÓPEZ, PETER J SENIOR ENGINEERING TECHNICIAN Ot F41 .9 ANXIETY DISORDER, UNSPECIFIED 09/17/2018 KYLE LÓPEZ SENIOR ENGINEERING TECHNICIAN Ot J43 .9 EMPHYSEMA, UNSPECIFIED 09/17/2018 KYLE LÓPEZ APRN Ot R41 .0 DISORIENTATION, UNSPECIFIED 09/17/2018 KYLE LÓPEZ APRN Ot R44 .3 HALLUCINATIONS, UNSPECIFIED 09/17/2018 KYLE LÓPEZ SENIOR ENGINEERING TECHNICIAN Ot Z79.[address] JUDGE (CURRENT) USE OF ANTITHROMBOTI 09/17/2018 KYLE LÓPEZ [...] 7-25 CREATININE 0.77 mg/dL 0.50-1.05 eGFR NON-AFR. KITTITIAN 86 mL/min/1.73m2 > OR = 60 eGFR [...] 2.0 % NRG CBC MORPHOLOGY NORMAL COMMENT(S) [facility] LIPID PANEL - 05/03/19 07:08 CHOLESTEROL, TOTAL 182 mg/dL <200 HDL CHOLESTEROL 57 mg/dL >50 TRIGLYCERIDES 148 mg/dL <150 LDL-CHOLESTEROL 100 mg/dL (calc) NRG CHOL/HDLC RATIO 3.2 (calc) <5.0 NON HDL CHOLESTEROL 125 mg/dL (calc) <13 0 CMP - 05/03/19 07:08 GLUCOSE 97 mg/dL 65-99 UREA NITROGEN (BUN) 8 mg/dL 7-25 CREATININE 0.87 mg/dL 0.50-1.05 eGFR NON-AFR. KITTITIAN 74 mL/min/1.73m2 > OR = 60 eGFR [...] NRG STATEMENT OF ADEQUACY: NRG INTERPRETATION/RESULT: NRG FOOD CASHIER: SUKH INFECTION: NRG COMMENT NRG Complete blood count (CBC) with automate d white blood cell (WBC) differential - 02/04/20 06:48 Blood leukocytes automated count (number/volume) 20.4 10*3/uL 4.3-11.0 Blood erythrocytes automated count (number/volume) 4.14 10*6/uL 4.35-5.85 Venous blood hemoglobin measurement (mass/volume) 12.6 g/dL 11.5-16.0 Blood hematocrit (volume fraction) 42 % 35-52 Automated erythrocyte mean corpuscular volume 100 [foz_us] 80-99 Automated erythrocyte mean corpuscular h emoglobin (mass per erythrocyte) 30 pg 25-34 Automated erythrocyte mean corpuscular h emoglobin concentration measurement (mass/volume) 30 g/dL 32-36 Automated erythrocyte distribution width ratio 13. 3 % 10.0- 14.5 Automated blood platelet count (count/volume) 532 10*3/uL 130-400 Automated blood platelet mean volume measurement 9.7 [foz_us] 7.4-10.4 Automated blood neutrophils/100 leukocytes 75 % 42-75 Automated blood lymphocytes/100 leukocytes 16 % 12-44 Blood monocytes/100 leukocytes 7 % 0-12 Automated blood eosinophils/100 leukocytes 0 % 0-10 Automated blood basophils/100 leukocytes 1 % 0-10 Blood neutrophils automated count (number/volume) 15.2 10*3 1.8-7.8 Blood lymphocytes automated count (number/volume) 3.3 10*3 1.0-4.0 Blood monocytes automated count (number/volume) 1. 4 10*3 0.0-1.0 Automated eosinophil count 0.0 10*3/uL 0 .0-0.3 Automated blood basophil count (count/volume) 0.1 10*3/uL 0.0-0.1 PT panel in platelet poor plasma by coag ulation assay - 02/04/20 06:48 Prothrombin time (PT) in platelet poor plasma by coagu lation assay 12.4 s 12.2-14.7 INR in platelet poor plasma or blood by coagulation as say 0.9 0.8-1.4 Activated partial thromboplastin time (a PTT) in platelet poor plasma bycoagulation assay - 02/04/20 06:48 Activated partial thromboplastin time (a PTT) in platelet poor plasma bycoagulation assay 22 s 24-35 Comprehensive metabolic panel - 02/04/20 06:48 Serum or plasma sodium measurement (moles/volume) 140 mmol/L 135-145 Serum or plasma potassium measurement (moles/volume) 4.2 mmol/L 3.6-5.0 Serum or plasma chloride measurement (moles/volume) 94 mmol/L 98-107 Carbon dioxide 38 mmol/L 21-32 Serum or plasma anion gap determination (moles/volume) 8 mmol/L 5-14 Serum or plasma urea nitrogen measurement (mass/volume ) 15 mg/dL 7-18 Serum or plasma creatinine measurement (mass/volume) 0.91 mg/dL 0.60-1.30 Serum or plasma urea nitrogen/creatinine mass ratio 16 NRG Serum or plasma creatinine measurement w ith calculation of estimated glomerular filtration rate > NRG Serum or plasma glucose measurement (mass/volume) 152 mg/dL 70-105 Serum or plasma calcium measurement (mass/volume) 9.2 mg/dL 8.5-10.1 Serum or plasma total bilirubin measurement (mass/volu me) 0.2 mg/dL 0.1-1.0 Serum or plasma alkaline phosphatase mary surement (enzymatic activity/volume) 116 U/L 40-136 Serum or plasma aspartate aminotransfera se measurement (enzymatic activity/volume) 50 U/L 5-34 Serum or plasma alanine aminotransferase measurement (enzymatic activity/volume) 53 U/L 0-55 Serum or plasma protein measurement (mass/volume) 7.8 g/dL 6.4-8.2 Serum or plasma albumin measurement (mass/volume) 4.1 g/dL 3.2-4.5 CALCIUM CORRECTED 9.1 mg/dL 8.5-10.1 TROPONIN I FS - 02/04/20 06:48 TROPONIN I FS < 0.30 <0.30 PROBNP FS - 02/04/20 06:48 PROBNP FS 273.9 pg/mL <75.0 Manual absolute plasma cell count - 02/16 06:48 Blood monocytes/100 leukocytes 3 % NRG Manual blood segmented neutrophils/100 leukocytes 65 % NRG Blood band neutrophils/100 leukocytes 7 % NRG Manual blood lymphocytes/100 leukocytes 22 % NRG Manual eosinophils/100 leukocytes in nose 0 % NRG Manual blood basophils/100 leukocytes 1 % NRG Manual blood metamyelocytes/100 leukocytes 2 % NRG Blood lactic acid measurement (moles/vol ume) - 02/04/20 07:05 Blood lactic acid measurement (moles/volume) 1.08 mmol/L 0.50-2.00 Arterial blood gas measurement - 0 07:05 Blood pCO2 > mm[Hg] 35-45 Blood pO2 54 mm[Hg] 79-93 * Inhaled oxygen flow rate 3L NRG Arterial blood pH measurement with patient temperature correction 7.17 7.37-7.43 Body site LT WRIST NRG Assessment of wrist artery patency prior to arterial p uncture OK NRG Setting of ventilation mode NO NR G Measurement of body temperature 35.9 C NRG Encounters ACCT No. Visit Date/Time Discharge Status Pt. Type Provider Facility Loc./Unit Complaint [id number] 01/31/2020 10:40:00 01/31/2020 23:59: 59 [facility] [id number] 01/22/2020 15:00:00 Document Registration [id number] 10/10/2019 10:12:00 Document Registration [id number] 09/11/2019 08:45:00 Document Registration [id number] 05/03/2019 07:00:00 Document Registration [id number] 12/18/2018 08:00:00 Document Registration [id number] 11/23/2018 12:00:00 Document Registration [id number] 09/13/2018 12:03:00 019 16:29:00 DIS Emergency KYLE LÓPEZ APRN [facility] ER FALL/CONFUSED [id number] 03/06/2017 12:51:00 017 23:59:59 CLS Outpatient PANKAJ FRAZIER MD (DDU) [facility] RT DDU [id number] 02/04/2020 07:10:00 Document Registration
[2020-02-04 11:06] LABS: ALLENS TEST YES-POS; INSPIRED O2 70%; PATIENT TEMP 36.3; VENTILATOR YES
[2020-02-04] MEDS ORDERED: LACTATED RINGERS 1,000 ML IV ONE ×2 (11:15)
--- NOTE | 2020-02-04 11:19 | Diagnostic Imaging Report ---
EXAMINATION: Chest radiograph, portable AP view. DATE: 02/04/2020 10:30 AM hours. INDICATION: 59-year-old female, intubation. COMPARISON: February 04, 2020 at 0819 hours. FINDINGS: The endotracheal tube is approximately 3.9 cm above the david. The nasogastric tube extends below the field of view. Stable overall appearance of the cardiomediastinal silhouette. There is no identified pneumothorax. There is no large pleural effusion. There are mildly prominent bilateral interstitial opacities. IMPRESSION: 1. Mildly prominent bilateral interstitial opacities which may relate to pulmonary interstitial edema. Atypical infection is also considered. 2. Support lines and tubes as above. Dictated by: Dictated on workstation # [id number]
--- NOTE | 2020-02-04 11:20 | NUR ---
PHARMACY TO DOSE VANCOMYCIN: ADJ BW 68.8 KG, SCr 1, CrCl 67 LOADING DOSE: 2000 MG MAIN DOSE: 1,500 MG Q 12 HR VANCOMYCIN TROUGH DUE 02/05/20 @ 23:00 IF TROUGH > 20 HOLD 02/06/20 00:00 DOSE
--- NOTE | 2020-02-04 11:25 | Physical Therapy Progress Note ---
Therapy Progress Note Patient is currently sedated and intubated. PT will continue to monitor patient status and initiate treatment when patient is able to actively participate with skilled therapy. SHU DASH PT Feb 04, 2020 11:25
[2020-02-04] MEDS ORDERED: VANCOMYCIN 2000 MG/NS 500 ML IVPB IV NR ×2 (11:30)
[2020-02-04] MEDS ORDERED: PIPERACILLIN/TAZO 4.5 GM/NS 100 ML IV NR ×2 (11:30)
[2020-02-04] MEDS: ENOXAPARIN 40 MG/0.4 ML (LOVENOX) SYR SC SCH (13:03)
--- NOTE | 2020-02-04 13:05 | Occ Therapy Progress Note ---
Therapy Progress Note OT orders received and chart reviewed. Pt currently intubated and sedated. OT will continue to monitor pt and initiate tx when pt is more medically stable and able to actively participate in therapy. JINNY LEMON OT Feb 04, 2020 13:05
[2020-02-04] MEDS: PIPERACILLIN/TAZOBACTAM (BULK) 4.5 GM in NS (IVPB) 100 ML IV SCH ×2 (13:10→21:00)
[2020-02-04] MEDS ORDERED: fentaNYL INJECTION 100 MCG/2 ML AMP INJ ONE (13:36)
[2020-02-04] MEDS: LACTATED RINGERS 1,000 ML IV SCH ×3 (15:04→22:46)
[2020-02-04 15:13] LABS: BILIRUBIN,URINE NEGATIVE (NEGATIVE); CLARITY,URINE CLEAR; COLOR,URINE YELLOW; GLUCOSE, URINE (UA) NEGATIVE (NEGATIVE); KETONES,URINE NEGATIVE (NEGATIVE); LEUKOCYTE ESTERASE ,URINE NEGATIVE (NEGATIVE); NITRITE,URINE NEGATIVE (NEGATIVE); PROTEIN,URINE NEGATIVE (NEGATIVE)
[2020-02-04 15:16] LABS: AMPHETAMINE SCREEN, URINE NEGATIVE (NEGATIVE); BARBITURATE SCREEN URINE NEGATIVE (NEGATIVE); BENZODIAZEPINES SCREEN URINE POSITIVE (NEGATIVE); CANNABINOID SCREEN, URINE POSITIVE (NEGATIVE); COCAINE SCREEN URINE NEGATIVE (NEGATIVE); METHADONE STAT NEGATIVE (NEGATIVE); METHAMPHETAMINE SCREEN URINE S NEGATIVE (NEGATIVE); OPIATE SCREEN URINE NEGATIVE (NEGATIVE); OXYCODONE STAT NEGATIVE (NEGATIVE); PROPOXYPHENE STAT NEGATIVE (NEGATIVE); TRICYCLIC ANTIDEPRESSANTS SCRE POSITIVE (NEGATIVE)
[2020-02-04 15:18] LABS: RBC,URINE RARE /HPF
[2020-02-04 15:19] LABS: BACTERIA,URINE NEGATIVE /HPF
[2020-02-04] MEDS: RT-ALBUTEROL INHALER HFA (VENTOLIN HFA) 8 GM IH PRN ×2 (19:10→21:30)
[2020-02-04] MEDS: VANCOMYCIN 1500 MG/NS 500 ML IVPB IV SCH ×2 (22:47)
[2020-02-05] VITALS (27 sets, daily range): BP systolic 111–177; BP diastolic 63–90
[2020-02-05 02:38] LABS: BASOPHILS % (AUTO) 0 % (0-10); EOSINOPHILS % (AUTO) 0 % (0-10); HEMATOCRIT 29 % (35-52); HEMOGLOBIN 9.1 G/DL (11.5-16.0); LYMPHOCYTES % (AUTO) 16 % (12-44); MEAN CORPUSCULAR HEMOGLOBIN 30 PG (25-34); MEAN CORPUSCULAR HGB CONC 31 G/DL (32-36); MEAN CORPUSCULAR VOLUME 97 FL (80-99); MEAN PLATELET VOLUME 10.1 FL (7.4-10.4); MONOCYTES # (AUTO) 0.6 X 10^3 (0.0-1.0); MONOCYTES % (AUTO) 5 % (0-12); NEUTROPHILS # (AUTO) 9.9 X 10^3 (1.8-7.8); NEUTROPHILS % (AUTO) 79 % (42-75); PLATELET COUNT 297 10^3/uL (130-400); RED CELL DISTRIBUTION WIDTH 13.5 % (10.0-14.5); WHITE BLOOD COUNT 12.5 10^3/uL (4.3-11.0)
[2020-02-05 02:39] LABS: ABG BASE EXCESS 6.7 MMOL/L (-2.5-2.5); ABG OXYGEN SATURATION 94 % (94-100); ABG PCO2 37 MMHG (35-45); ABG PH 7.51 (7.37-7.43); ABG PO2 58 MMHG (79-93); ABG TCO2 31.4 MMOL/L (21.0-31.0)
[2020-02-05 02:40] LABS: ALLENS TEST POSITIVE; INSPIRED O2 70; VENTILATOR YES
[2020-02-05] MEDS: RT-ALBUTEROL INHALER HFA (VENTOLIN HFA) 8 GM IH PRN (02:42)
[2020-02-05 02:50] LABS: CHLORIDE 101 MMOL/L (98-107); POTASSIUM 3.6 MMOL/L (3.6-5.0); SODIUM 137 MMOL/L (135-145)
[2020-02-05 02:51] LABS: CALCIUM 7.9 MG/DL (8.5-10.1)
[2020-02-05 02:52] LABS: GLUCOSE 109 MG/DL (70-105)
[2020-02-05] MEDS: fentaNYL INJECTION 1,250 MCG in NS (IVPB) 250 ML IV SCH ×2 (02:52→21:00)
[2020-02-05 02:53] LABS: CARBON DIOXIDE 26 MMOL/L (21-32)
[2020-02-05] MEDS: KCL 20 MEQ TAB (K-DUR) PO SCH (02:54)
[2020-02-05] MEDS: POTASSIUM CL 10MEQ/50ML IVPB 50 ML IV SCH ×5 (02:54→08:28)
[2020-02-05 02:55] LABS: PHOSPHORUS 2.1 MG/DL (2.3-4.7)
--- NOTE | 2020-02-05 02:55 | NUR ---
THIS RN CALLED TELE-ICU AND SPOKE WITH DR. RAYO ABOUT DECREASED URINE OUTPUT OF 75/ML AT LAST I&O. DR. RAYO STATED SHE WOULD WAIT FOR LAB RESULTS TO BE FINALIZED AND WOULD EVALUATE LABS PRIOR TO PROVIDING ORDERS. WILL CONTINUE TO MONITOR.
[2020-02-05 02:56] LABS: CREATININE SERUM 0.75 MG/DL (0.60-1.30); GFR ESTIMATED > 60
[2020-02-05 02:57] LABS: BUN/CREATININE RATIO 20
[2020-02-05 02:58] LABS: MAGNESIUM 1.9 MG/DL (1.6-2.4)
[2020-02-05] MEDS ORDERED: BUMETANIDE 1 MG/4 ML (BUMEX) VIAL IV ONE ×2 (03:15→06:15)
[2020-02-05] MEDS: MAGNESIUM 1 GM/100 ML IVPB 100 ML IV SCH (03:32)
--- NOTE | 2020-02-05 04:51 | NUR ---
THIS RN CALLED TELE-ICU TO SPEAK WITH DR. RAYO ABOUT PT'S HEART RATE BEING LOW-MID 40S. NO NEW ORDERS AT THIS TIME.
[2020-02-05] MEDS: PIPERACILLIN/TAZOBACTAM (BULK) 4.5 GM in NS (IVPB) 100 ML IV SCH ×3 (05:07→21:02)
--- NOTE | 2020-02-05 05:28 | Pulmonary Progress Note ---
Subjective Time Seen by a Provider: 05:23 Subjective/Events-last exam Pt sedated on vent. Sepsis Event Evaluation Height, Weight, BMI Height: 5'3.00" Weight: 120lbs. oz. 54.703683fa; 36.00 BMI Method:Stated Focused Exam Lactate Level 02/04/20 07:05: Lactic Acid Level 1.08 Exam Exam Vital Signs Date Time Temp Pulse Resp B/P (MAP) Pulse Ox O2 Delivery O2 Flow Rate FiO2 02/05/20 05:15 58 134/77 02/05/20 05:05 40 02/05/20 05:04 46 127/83 02/05/20 04:00 Mechanical Ventilator 40 02/05/20 04:00 46 23 130/65 (86) 92 Mechanical Ventilator 40.00 02/05/20 03:27 36.2 02/05/20 03:00 42 24 134/67 (89) 92 Mechanical Ventilator 40.00 02/05/20 02:42 53 24 92 40 02/05/20 02:00 42 24 140/69 (92) 95 Mechanical Ventilator 40.00 02/05/20 01:00 52 02/05/20 01:00 50 24 133/74 (93) 93 Mechanical Ventilator 40.00 02/05/20 00:51 64 150/80 02/05/20 00:11 Mechanical Ventilator 55 02/05/20 00:00 46 23 136/65 (88) 98 Mechanical Ventilator 40.00 02/05/20 00:00 43 02/04/20 23:45 36.7 02/04/20 23:36 44 125/53 02/04/20 23:00 45 24 119/53 (75) 96 Mechanical Ventilator 40.00 02/04/20 22:50 46 119/63 02/04/20 22:00 51 23 122/63 (82) 95 Mechanical Ventilator 40.00 02/04/20 21:32 54 24 96 40 02/04/20 21:01 53 121/65 02/04/20 21:00 53 24 123/66 (85) 97 Mechanical Ventilator 40.00 02/04/20 20:00 53 23 123/67 (85) 99 Mechanical Ventilator 40.00 02/04/20 20:00 36.8 02/04/20 20:00 Mechanical Ventilator 55 02/04/20 19:10 55 24 100 45 02/04/20 19:00 57 23 112/62 (79) 100 Mechanical Ventilator 40.00 02/04/20 19:00 60 02/04/20 18:24 73 109/68 02/04/20 18:00 79 22 114/70 (85) 99 Mechanical Ventilator 70.00 02/04/20 17:00 63 24 120/59 (79) 99 Mechanical Ventilator 70.00 02/04/20 16:00 93 28 151/68 (95) 89 Mechanical Ventilator 70.00 02/04/20 15:41 Mechanical Ventilator 55 02/04/20 15:26 Mechanical Ventilator 45.00 02/04/20 15:15 63 24 96 55 02/04/20 15:00 64 24 111/56 (74) 96 Mechanical Ventilator 70.00 02/04/20 14:00 64 23 100/58 (72) 98 Mechanical Ventilator 70.00 02/04/20 13:08 71 104/64 02/04/20 13:02 70 02/04/20 13:00 70 24 104/64 (77) 98 Mechanical Ventilator 70.00 02/04/20 12:00 72 24 97 Mechanical Ventilator 70.00 02/04/20 12:00 Mechanical Ventilator 55 02/04/20 11:00 75 23 118/66 (83) 98 Mechanical Ventilator 70.00 02/04/20 11:00 93 Mechanical Ventilator 70 02/04/20 10:43 77 24 97 70 02/04/20 10:15 72 24 127/111 (116) 92 Mechanical Ventilator 70.00 02/04/20 10:06 72 02/04/20 09:30 72 24 100 100 02/04/20 08:45 36.4 72 16 156/89 (109) 94 Mechanical Ventilator 02/04/20 08:18 93 158/85 02/04/20 06:42 35.9 82 22 169/63 (98) 93 Nasal Cannula 3.00 I & O 02/05/20 07:00 Intake Total 2510 ml Output Total 825 ml Balance 1685 ml Height & Weight Height: 5'3.00" Weight: 120lbs. oz. 54.140751uc; 36.00 BMI Method:Stated General Appearance: Chronically ill HEENT: PERRL/EOMI Neck: Supple Respiratory: Respiratory Distress, Rhonci, Wheezing Cardiovascular: Regular Rate, Rhythm Capillary Refill: Less Than 3 Seconds Extremity: Normal Capillary Refill Neurologic/Psychiatric: Alert, Oriented x3 Skin: Warm/Dry Results Lab Laboratory Tests 02/04/20 06:48 02/05/20 02:22 Assessment/Plan Assessment/Plan Acute on chronic respiratory failure -Continue ventilator therapy -Decrease Vt and repeat ABG 1hr after change PNA with sepsis - failed out pt treatment -IVF - zosyn and Vanco -Disla cultures, RVP, urine strep and legionella Ag -Check PCT -R/o COVID Pulmonary edema -Give 80mg of Lasix x 1 -Decrease IVF to 30cc/hr hypophos/hypokalemia -replace COPDAE -MDIs -Start solumedrol q 6 40mg C02 narcosis -Check UDS DVT/GI PPX TUCKER JUSTIN DO Feb 05, 2020 05:28
[2020-02-05] MEDS ORDERED: FUROSEMIDE 40 MG/4 ML INJ (LASIX) IVP ONE (05:30)
[2020-02-05] MEDS ORDERED: POTASSIUM PHOSPHATE INJ 30 MM in NS (IVPB) 250 ML IV ONE (05:30)
[2020-02-05] MEDS ORDERED: POTASSIUM CL 10MEQ/50ML IVPB 50 ML IV SCH (05:30)
--- NOTE | 2020-02-05 06:06 | Diagnostic Imaging Report ---
INDICATION: Ventilated patient. Shortness of air. COMPARISON: 02/04/2020 FINDINGS: Single frontal radiograph view of the chest was obtained and shows indwelling endotracheal tube with tip at the clavicular heads. Right upper extremity PICC line is seen with tip just below the cavoatrial junction. Gastric tube tip terminates in the stomach. Cardiac silhouette is improved. Pulmonary vasculature is within normal limits. Lungs continue to show diffuse prominence of the interstitium. There is a new small left basilar effusion. No large effusion is seen on the right. No pneumothorax is identified on either side. Osseous structures show no gross acute abnormalities. IMPRESSION: 1. New small left effusion. 2. Diffuse bilateral interstitial thickening concerning for pulmonary edema or possible pneumonia. 3. Lines and tubes as above. Dictated by: Dictated on workstation # [id number]
[2020-02-05] MEDS ORDERED: methylPREDNISolone 40 MG/ML (Solu-MEDROL) VIAL ONE (06:15)
[2020-02-05] MEDS ORDERED: BUMETANIDE 1 MG/4 ML (BUMEX) VIAL ONE (06:15)
[2020-02-05] MEDS: methylPREDNISolone 40 MG/ML (Solu-MEDROL) VIAL IV SCH ×4 (06:28→23:19)
--- NOTE | 2020-02-05 06:33 | NUR ---
TV CHANGED TO 370 AND PEEP TO [address] JUSTIN.
[2020-02-05] MEDS: RT-ALBUTEROL INHALER HFA (VENTOLIN HFA) 8 GM IH SCH ×5 (07:57→22:04)
--- NOTE | 2020-02-05 08:04 | Physical Therapy Progress Note ---
Therapy Progress Note Patient continues to be intubated and sedated. Will monitor and start when appropriate. LOR SMITH PT Feb 05, 2020 08:04
--- NOTE | 2020-02-05 08:25 | NUR ---
PT VENT VT WAS CHANGED TO 370 AND PEEP WAS CHANGED TO 5 BY DOCTOR. PT WAS DESATURATING TO 82. RT TO HAD TO DISCONNECT PT AND SUCTION WHILE BAGGING PT. PT HAD COPIOUS THICK SECREATIONS. RT HAD TO TURN UP PT TO 80% DUE TO INCREASING DESATS. RT HAD TO CHANGE TUBE MCCLENDON. RT PUT ON BITE BLOCK. Addendum: 02/05/20 at 0825 by XENIA BENNETT RT Amended: Links added.
[2020-02-05] MEDS: PANTOPRAZOLE 40 MG (PROTONIX) VIAL IV SCH (08:27)
[2020-02-05] MEDS: CLOPIDOGREL 75 MG (PLAVIX) TABLET PO SCH (08:27)
[2020-02-05] MEDS ORDERED: LORazepam INJ 2 MG/ML (ATIVAN) VIAL IVP ONE (09:15)
[2020-02-05 09:28] LABS: ABG BASE EXCESS 6.9 MMOL/L (-2.5-2.5); ABG OXYGEN SATURATION 95 % (94-100); ABG PCO2 47 MMHG (35-45); ABG PH 7.43 (7.37-7.43); ABG PO2 66 MMHG (79-93); INSPIRED O2 80%; VENTILATOR YES
[2020-02-05 09:29] LABS: PATIENT TEMP 96.7
--- NOTE | 2020-02-05 09:29 | Occ Therapy Progress Note ---
Therapy Progress Note Pt. continues on ventilator support and sedation. Will continue to monitor and assess pt. when medically stable. [id number] PAMELA SMALLWOOD OT Feb 05, 2020 09:29
--- NOTE | 2020-02-05 10:16 | NUR ---
Canvas Goods Maker spoke with by phone. Pt is listed as Anabaptist but has not been active. Can[employer] Maker will wait till pt is extubated for conversation with her about her spiritual needs.
[2020-02-05] MEDS ORDERED: inSUlin ASPART (NovoLOG) 1 UNIT/0.01 ML (CHARGE PER UNIT) SC SCH (11:00)
[2020-02-05] MEDS: ENOXAPARIN 40 MG/0.4 ML (LOVENOX) SYR SC SCH (13:58)
[2020-02-05] MEDS: LORazepam INJ 2 MG/ML (ATIVAN) VIAL IV PRN ×2 (13:59→23:56)
[2020-02-05] MEDS: LACTATED RINGERS 1,000 ML IV SCH ×2 (13:59→19:46)
[2020-02-05] MEDS: VANCOMYCIN 1500 MG/NS 500 ML IVPB IV SCH ×4 (13:59→23:02)
[2020-02-05] MEDS: IPRATROPIUM INHALER (ATROVENT) 12.9 GM INH SCH ×3 (14:42→22:06)
[2020-02-05] MEDS ORDERED: PRD20T PO (15:16)
[2020-02-05] MEDS ORDERED: ALPR0.5T7 PO (15:16)
[2020-02-05] MEDS ORDERED: ARIP5TAB57 PO (15:16)
[2020-02-05] MEDS ORDERED: PANT20TA3 PO (15:16)
[2020-02-05] MEDS ORDERED: DULO60CA59 PO (15:16)
[2020-02-05] MEDS ORDERED: DONE10TA41 PO (15:16)
[2020-02-05] MEDS ORDERED: ATOR10TA66 PO (15:16)
[2020-02-05] MEDS ORDERED: MEMA10TA57 PO (15:16)
[2020-02-05] MEDS ORDERED: LEVO500T80 PO (15:16)
[2020-02-05] MEDS ORDERED: CLOP75TA28 PO (15:16)
[2020-02-05] MEDS ORDERED: BUPR8TAB SL (15:17)
[2020-02-05] MEDS ORDERED: MIRA25TA PO (15:17)
--- NOTE | 2020-02-05 15:19 | NUR ---
UNABLE TO SPEAK WITH PT- I CALLED PT AND HE WAS NOT SURE OF HER MEDICATION. I HAD DR. MAGDALENO OFFICE SEND OVER A MED LIST, I CALLED [facility] AND WENT THRU THE EXT MED HISTORY TO ENTER THE MED REC BUPRENORPHINE 8MG AND MYRBETRIQ 25MG WERE BOTH FILLED ON 02-03-2020 AT [facility] FOR #30 AFTER THE PT IS EXTUBATED I WILL VERIFY THE MED LIST AND UPDATE THE MED REC AND NOTES NEEDED Addendum: 02/07/20 at 1014 by JOHNNY ORDAZ ribbon blocker I WAS ABLE TO SPEAK WITH THE PT TODAY WHEN SHE TRANSFERRED TO 4TH FLOOR- I DID HAVE TO MAKE A FEW CHANGES TO THE MED REC AFTER I SPOKE WITH HER. PROTONIX 20MG- PT SAYS SHE TAKES 2 TABS DAILY INSTEAD OF 1 TAB DAY ABILIFY 5MG- THE DIRECTIONS SHOW 1 TAB DAILY HOWEVER SHE SAID SHE TAKES AT BEDTIME OTC MEDS: IBUPROFEN PRN
--- NOTE | 2020-02-05 18:52 | NUR ---
RT REPOSITION ET TUBE TO RIGHT SIDE OF MOUTH. Addendum: 02/05/20 at 1924 by FAVIOLA YING RN Rt repositioned Et tube to Left side of mouth, from right side.
[2020-02-05] MEDS: inSUlin ASPART (NovoLOG) 1 UNIT/0.01 ML (CHARGE PER UNIT) SC SCH ×2 (19:25→23:18)
[2020-02-05] MEDS ORDERED: TROUGH ORDER-PHARMACY XX ONE (23:00)
[2020-02-05] MEDS ORDERED: hydrALAZINE (APESOLINE) 20 MG/ML VIAL IV PRN (23:00)
[2020-02-05] MEDS ORDERED: hydrALAZINE (APESOLINE) 20 MG/ML VIAL ONE (23:10)
[2020-02-06] VITALS (21 sets, daily range): BP systolic 133–227; BP diastolic 58–112
[2020-02-06 01:59] LABS: ABG BASE EXCESS 4.3 MMOL/L (-2.5-2.5); ABG OXYGEN SATURATION 96 % (94-100); ABG PCO2 38 MMHG (35-45); ABG PH 7.47 (7.37-7.43); ABG PO2 74 MMHG (79-93); ABG TCO2 29.2 MMOL/L (21.0-31.0); BASOPHILS % (AUTO) 0 % (0-10); EOSINOPHILS % (AUTO) 0 % (0-10); HEMATOCRIT 28 % (35-52); HEMOGLOBIN 9.1 G/DL (11.5-16.0); LYMPHOCYTES # (AUTO) 1.1 X 10^3 (1.0-4.0); LYMPHOCYTES % (AUTO) 10 % (12-44); MEAN CORPUSCULAR HGB CONC 33 G/DL (32-36); MEAN CORPUSCULAR VOLUME 95 FL (80-99); MEAN PLATELET VOLUME 10.5 FL (7.4-10.4); MONOCYTES # (AUTO) 0.3 X 10^3 (0.0-1.0); MONOCYTES % (AUTO) 3 % (0-12); NEUTROPHILS # (AUTO) 9.7 X 10^3 (1.8-7.8); NEUTROPHILS % (AUTO) 87 % (42-75); PLATELET COUNT 282 10^3/uL (130-400); RED CELL DISTRIBUTION WIDTH 13.9 % (10.0-14.5); WHITE BLOOD COUNT 11.1 10^3/uL (4.3-11.0)
[2020-02-06 02:00] LABS: MEAN CORPUSCULAR HEMOGLOBIN 31 PG (25-34)
[2020-02-06 02:01] LABS: ALLENS TEST YES-POS; INSPIRED O2 AC VENT; VENTILATOR YES
[2020-02-06 02:02] LABS: PATIENT TEMP 36.3
[2020-02-06 02:18] LABS: BUN/CREATININE RATIO 19; CALCIUM 7.5 MG/DL (8.5-10.1); CARBON DIOXIDE 22 MMOL/L (21-32); CHLORIDE 104 MMOL/L (98-107); GFR ESTIMATED > 60; GLUCOSE 139 MG/DL (70-105); MAGNESIUM 1.8 MG/DL (1.6-2.4); PHOSPHORUS 2.8 MG/DL (2.3-4.7); POTASSIUM 3.8 MMOL/L (3.6-5.0); SODIUM 137 MMOL/L (135-145)
[2020-02-06] MEDS: IPRATROPIUM INHALER (ATROVENT) 12.9 GM INH SCH ×6 (02:41→21:15)
[2020-02-06] MEDS: RT-ALBUTEROL INHALER HFA (VENTOLIN HFA) 8 GM IH SCH ×6 (02:41→21:15)
[2020-02-06] MEDS: MAGNESIUM 1 GM/100 ML IVPB 100 ML IV SCH (03:06)
[2020-02-06] MEDS: POTASSIUM CL 10MEQ/50ML IVPB 50 ML IV SCH ×5 (03:06→07:06)
[2020-02-06] MEDS: KCL 20 MEQ TAB (K-DUR) PO SCH (03:07)
[2020-02-06] MEDS: PIPERACILLIN/TAZOBACTAM (BULK) 4.5 GM in NS (IVPB) 100 ML IV SCH ×3 (04:59→21:35)
[2020-02-06] MEDS: methylPREDNISolone 40 MG/ML (Solu-MEDROL) VIAL IV SCH ×4 (04:59→23:02)
[2020-02-06] MEDS: fentaNYL INJECTION 1,250 MCG in NS (IVPB) 250 ML IV SCH (05:06)
[2020-02-06] MEDS: inSUlin ASPART (NovoLOG) 1 UNIT/0.01 ML (CHARGE PER UNIT) SC SCH ×3 (05:06→20:31)
--- NOTE | 2020-02-06 05:14 | Pulmonary Progress Note ---
Subjective Time Seen by a Provider: 05:09 Subjective/Events-last exam PT is sedated on vent. Sepsis Event Evaluation Height, Weight, BMI Height: 5'3.00" Weight: 120lbs. oz. 54.560254dh; 36.00 BMI Method:Stated Focused Exam Lactate Level 02/04/20 07:05: Lactic Acid Level 1.08 Exam Exam Vital Signs Date Time Temp Pulse Resp B/P (MAP) Pulse Ox O2 Delivery O2 Flow Rate FiO2 02/06/20 05:00 38 23 179/93 (121) 95 Mechanical Ventilator 40.00 02/06/20 04:59 176/81 02/06/20 04:00 40 24 145/65 (91) 95 Mechanical Ventilator 40.00 02/06/20 03:46 Mechanical Ventilator 40 02/06/20 03:16 Mechanical Ventilator 40.00 02/06/20 03:01 36.3 02/06/20 03:00 40 24 149/67 (94) 89 Mechanical Ventilator 35.00 02/06/20 03:00 109/71 02/06/20 02:41 40 24 95 35 02/06/20 02:00 41 24 134/65 (88) 95 Mechanical Ventilator 35.00 02/06/20 01:00 46 02/06/20 01:00 44 24 135/58 (83) 93 Mechanical Ventilator 35.00 02/06/20 00:00 72 24 160/65 (96) 91 Mechanical Ventilator 35.00 02/05/20 23:29 Mechanical Ventilator 35 02/05/20 23:23 36.6 Mechanical Ventilator 35.00 02/05/20 23:19 148/92 02/05/20 23:00 39 23 177/83 (114) 96 Mechanical Ventilator 40.00 02/05/20 22:06 38 24 96 40 02/05/20 22:00 39 23 174/90 (118) 96 Mechanical Ventilator 40.00 02/05/20 21:00 38 24 167/76 (106) 97 Mechanical Ventilator 40.00 02/05/20 20:00 39 23 159/73 (101) 96 Mechanical Ventilator 40.00 02/05/20 19:58 Mechanical Ventilator 40 02/05/20 19:45 36.0 Mechanical Ventilator 40.00 02/05/20 19:00 39 19 161/89 (113) 97 Mechanical Ventilator 40.00 02/05/20 19:00 39 24 96 40 02/05/20 19:00 40 02/05/20 18:06 Mechanical Ventilator 40.00 02/05/20 18:00 39 24 159/76 (103) 96 Mechanical Ventilator 70.00 02/05/20 17:00 39 24 169/73 (105) 97 Mechanical Ventilator 70.00 02/05/20 16:00 40 24 156/75 (102) 96 Mechanical Ventilator 70.00 02/05/20 16:00 Mechanical Ventilator 80 02/05/20 15:00 39 24 149/70 (96) 94 Mechanical Ventilator 70.00 02/05/20 14:43 40 24 96 40 02/05/20 14:00 50 23 139/63 (88) 98 Mechanical Ventilator 70.00 02/05/20 13:00 78 20 145/82 (103) 97 Mechanical Ventilator 70.00 02/05/20 12:43 64 02/05/20 12:00 Mechanical Ventilator 80 02/05/20 12:00 39 23 138/70 (92) 98 Mechanical Ventilator 40.00 02/05/20 11:03 39 24 98 70 02/05/20 11:00 39 23 134/73 (93) 98 Mechanical Ventilator 40.00 02/05/20 10:37 43 161/86 02/05/20 10:00 49 18 161/86 (111) 100 Mechanical Ventilator 40.00 02/05/20 09:00 38 23 162/87 (112) 97 Mechanical Ventilator 40.00 02/05/20 08:00 Mechanical Ventilator 80 02/05/20 08:00 46 23 135/66 (89) 94 Mechanical Ventilator 40.00 02/05/20 07:58 47 24 92 80 02/05/20 07:00 42 19 133/73 (93) 95 Mechanical Ventilator 40.00 02/05/20 06:36 42 02/05/20 06:00 49 24 124/77 (93) 94 Mechanical Ventilator 40.00 02/05/20 05:48 46 137/73 02/05/20 05:15 58 134/77 I & O 02/06/20 07:00 Intake Total 3640 ml Output Total 3050 ml Balance 590 ml Height & Weight Height: 5'3.00" Weight: 120lbs. oz. 54.358354jj; 36.00 BMI Method:Stated General Appearance: Chronically ill HEENT: PERRL/EOMI Neck: Supple Respiratory: Respiratory Distress, Rhonci, Wheezing Cardiovascular: Regular Rate, Rhythm Capillary Refill: Less Than 3 Seconds Extremity: Normal Capillary Refill Neurologic/Psychiatric: Alert, Oriented x3 Skin: Warm/Dry Results Lab Laboratory Tests 02/04/20 06:48 02/05/20 02:22 02/06/20 01:51 Assessment/Plan Assessment/Plan Acute on chronic respiratory failure -Continue ventilator therapy -Pt is doing well off venti -D/C precedex and IVF PNA with sepsis - failed out pt treatment -IVF - zosyn - change to Omnicef -MRSA swab is negative -Disla cultures, RVP, urine strep and legionella Ag -R/o COVID Pulmonary edema -improved COPDAE -MDIs - solumedrol q 6 40mg -- Change to prednisone 40mg daily Marijuanna use -Education DVT/GI PPX TUCKER JUSTIN DO Feb 06, 2020 05:14
[2020-02-06] MEDS ORDERED: FUROSEMIDE 40 MG/4 ML INJ (LASIX) IVP ONE (05:30)
--- NOTE | 2020-02-06 05:48 | NUR ---
[id number] held at this time per dr walton
--- NOTE | 2020-02-06 06:20 | NUR ---
pt extubated and placed on vapotherm at this time. restraints removed.
[2020-02-06] MEDS ORDERED: morphine INJ 4 MG/ML 1 ML (VIAL/SYRINGE) ONE (06:31)
[2020-02-06] MEDS ORDERED: DexMEDEtomidine 250 ML DRIP 250 ML IV ONE (06:31)
[2020-02-06] MEDS ORDERED: morphine INJ 10 MG/ML 1ML (SYR OR VIAL) IVP STA (06:32)
[2020-02-06] MEDS ORDERED: morphine INJ 4 MG/ML 1 ML (VIAL/SYRINGE) IVP PRN (06:45)
[2020-02-06] MEDS ORDERED: DexMEDEtomidine 250 ML DRIP 250 ML IV SCH (06:45)
[2020-02-06] MEDS: DexMEDEtomidine 250 ML DRIP 250 ML IV SCH ×2 (06:46→15:50)
[2020-02-06] MEDS ORDERED: HALOPERIDOL 5 MG/ML (HALDOL) VIAL ONE (06:58)
[2020-02-06] MEDS: hydrALAZINE (APESOLINE) 20 MG/ML VIAL IV PRN (07:01)
[2020-02-06] MEDS: HALOPERIDOL 5 MG/ML (HALDOL) VIAL IV PRN ×3 (07:01→23:42)
--- NOTE | 2020-02-06 07:07 | NUR ---
240 ml of fentanyl wasted at this time. witnessed by cuca pierre.
[2020-02-06] MEDS ORDERED: risperiDONE 2 MG (RisperDAL) TAB ONE ×2 (07:42→07:46)
[2020-02-06] MEDS: CLOPIDOGREL 75 MG (PLAVIX) TABLET PO SCH (07:45)
[2020-02-06] MEDS: ALPRAZolam 0.5 MG (XANAX) TAB PO SCH ×3 (07:45→19:49)
[2020-02-06] MEDS: risperiDONE 2 MG (RisperDAL) TAB PO SCH ×2 (07:48→19:49)
[2020-02-06] MEDS: PANTOPRAZOLE 40 MG (PROTONIX) VIAL IV SCH (07:50)
--- NOTE | 2020-02-06 10:10 | NUR ---
CM/SS: Attempted to visit with this pt as to her plan for discharge. TAMMY Carballo requested that pt not be woke up at this time and allowed to rest. This worker will follow up.
[2020-02-06] MEDS: CYCLOBENZAPRINE 10 MG (FLEXERIL) TAB PO SCH ×2 (10:50→19:49)
--- NOTE | 2020-02-06 10:51 | NUR ---
Flexeril given late due to med not in [facility] at admin time.
--- NOTE | 2020-02-06 11:00 | Physical Therapy Progress Note ---
Therapy Progress Note RN requested no treatment on this date due to patient extubated this a.m. and is having some behavioral issues. PT to assess in a.m. SHU DASH PT Feb 06, 2020 11:00
--- NOTE | 2020-02-06 12:47 | Physician Query Clarification ---
PQ-Further Specificity Admission/Discharge Admission Date: Feb 04, 2020 at 07:50 Discharge Date: The medical record reflects the following clinical scenario: Dr. Ricci, History/Risk Factors: Acute on chronic respiratory failure Pneumonia Emphysema Clinical Findings:Chest xray 02/03 Impression: Mildly prominent bilateral inters tital opacities which may relate to pulmonary interstitial edema. Atypical infection is also considered. Chest xray 02/04 Impression: New small left effusion. Diffuse bilateral interstitial thickening concerning for pulmonary edema or possible pneumonia. Treatment: IVP 80 mg Lasix. Question: Can you further specify pulmonary edema per the clinical indicators above? Please document a response in the Progress Notes or Discharge Summary. 1. Acute pulmonary edema. 2. Chronic pulmonary edema. 3. Other, with explanation of the clinical findings. 4. Clinically undetermined, no explanation for the clinical findings. PHYSICIAN RESPONSE Can you specify per above: 1 Please remember a lack of response to the above will prompt a phone page by CDI/Coding staff. In responding to this query, please exercise your independent professional judgment. The purpose of this communication is to more accurately reflect the complexity of your patients condition. The fact that a question is asked does not imply that any particular answer is desired or expected. Thank you for your timely response to this clarification. Requestors name: Tessa Wilson [facility] Phone # ext [phone] or [phone] THIS PHYSICIAN QUERY FORM IS A PERMANENT PART OF THE MEDICAL RECORD TESSA WILSON Feb 06, 2020 12:47 TUCKER RICCI DO Feb 21, 2020 20:24
--- NOTE | 2020-02-06 12:58 | Physician Query Clarification ---
PQ-Further Specificity Admission/Discharge Admission Date: Feb 04, 2020 at 07:50 Discharge Date: The medical record reflects the following clinical scenario: Dr. Ricci, History/Risk Factors: Sepsis Emphysema Pneumonia Clinical Findings:Blood gases pH 7.17, pC02 >115, p02 54, pulse ox 93. Treatment: Intubation with mechanical ventilation. Question: Can you further specify Acute on chronic respiratory failure per the clinical indicators above? Please document a response in the Progress Notes or Discharge Summary. 1. Acute on chronic respiratory failure due to/associated with sepsis. 2. Acute on chronic respiratory failure not due to/associated with sepsis. 3. Other, with explanation of the clinical findings. 4. Clinically undetermined, no explanation for the clinical findings. PHYSICIAN RESPONSE Can you specify per above: 1 Please remember a lack of response to the above will prompt a phone page by CDI/Coding staff. In responding to this query, please exercise your independent professional judgment. The purpose of this communication is to more accurately reflect the complexity of your patients condition. The fact that a question is asked does not imply that any particular answer is desired or expected. Thank you for your timely response to this clarification. Requestors name: Tessa Wilson [facility] Phone # ext [phone] or [phone] THIS PHYSICIAN QUERY FORM IS A PERMANENT PART OF THE MEDICAL RECORD TESSA WILSON Feb 06, 2020 12:58 TUCKER RICCI DO Feb 21, 2020 20:25
[2020-02-06] MEDS: ENOXAPARIN 40 MG/0.4 ML (LOVENOX) SYR SC SCH (13:05)
--- NOTE | 2020-02-06 13:07 | Occ Therapy Progress Note ---
Therapy Progress Note Due to report from PT, pt. will be held from therapy services this date. Will assess pt. in a.m. Thank you for this referral. 1307 PAMELA SMALLWOOD OT Feb 06, 2020 13:07
--- NOTE | 2020-02-06 14:30 | ST Dysphagia Evaluation ---
Speech Evaluation-General Medical Diagnosis Respirayory Failure Onset Date: Feb 04, 2020 Therapy Diagnosis Therapy Diagnosis: Oropharyngeal Dysphaia Referral Referring Physician: Dr. Ricci Medical History Pertinent Medical History: COPD Reviewed History: Yes Speech PLF/Current-Dysphagia Prior Level of Function Patient lived at home where she was independent for her daily needs. Subjective Patient was cooperative with the Bedside Dysphagia Evaluation. Cognitive Status Patient Orientation: Person, Place, Situation Oral Motor Skills Dentition: Natural, Tumbled, Stained Ability to Follow Directions: Good Patient is NPO pending BDE Oral Expression Ability: Mild Impairment Voice Voice Phonatory-Based Quality: Breathy, Weak Voice Pitch: Normal Voice Loudness: Mildly Soft/Quiet Face Facial Symmetry: Symmetrical Oral-Facial Assessment Oral-Facial Dentition: Normal Labial Seal Description: Reduced ROM, Poor Coordination Smile: Reduced ROM, Poor Coordination Lingual Protrusion: Abnormal Weak due to medical status Lingual ROM: Abnormal Weak due to medical status Lingual Strength: Abnormal Weak due to medical status Pharynx Velopharyngeal Move.: Normal Volitional Dry Swallow: Yes Voluntary Cough: No Can Clear Throat Volitionally: No Dysphagia Evaluation Consistencies Presented: Thin Liquid, Pureed Oral Phase: Unable to Suck Straw Oral phase is within normal range of function, however she is unable to suck on a straw this date Pharyngeal phase is within normal range of function Dietary Recommendations: Pureed Liquid Recommendations: Thin Swallowing Precautions: Alternate Liquids/Solids, Decreased Bolus 1/2 Tsp, Liquids from Spoon, Small Bites and Sips, Sitting Upright 90 Degrees, Sitting 90 Degrees 30 Post Intake Dysphagia Evaluation Summary Patient is a pleasant 59 y/o female who was admitted to the ICU via ED due to respiratory failure. The patient was extubated this date. The patient completed the BDE. Patient was given trials of thin liquids of 1/2 tsp x2 without difficulty or s/s of aspiration. Patient was unable to complete trial with thin via straw due to not being able to suck on a straw. The patient was given trials of 1/2 tsp size puree without difficulty. The patient is recommended for Dysphagia I with thin liquids. This information was given to her nurse and written on the white board in her room. Barriers to Learning Patient's medical status Speech Short Term Goals Short Term Goals Short Term Goals 1) The patient will tolerate least restrictive diet level without s/s of aspiration at 90% or greater. 2) The patient will utilize compensatory strategies as trained at 90% or greater with minimal cues. Speech Furniture Rental Consultant Goals Furniture Rental Consultant Goals The patient will maintain adequate nutrition/hydration via safe, effective swallow function. Speech-Plan Patient/Family Goals Patient/Family Goals: The patient's discharge plans are unknown at this time. Treatment Plan Speech Therapy Treatment Plan: Continue Plan of Care Treatment Duration: Feb 14, 2020 Frequency: 3 times per week Estimated Hrs Per Day: .25 hour per day Rehab Potential: Fair Barriers to Learning: Patient's medical status Pt/Family Agrees to Plan: Yes Safety Risks/Education Teaching Recipient: Patient Teaching Methods: Discussion Response to Teaching: Verbalize Understanding Education Topics Provided: Safety of oral intake and diet level Time Speech Therapy Time In: 13:20 Speech Therapy Time Out: 13:35 Total Billed Time: 15 Billed Treatment Time PollyLUDIVINA BETHANIA ST Feb 06, 2020 14:30
[2020-02-06] MEDS: ADVAIR HFA 115/21 MCG INHALER 8 GM IH SCH (21:19)
[2020-02-07] VITALS (11 sets, daily range): BP systolic 138–210; BP diastolic 70–122
[2020-02-07] MEDS: RT-ALBUTEROL INHALER HFA (VENTOLIN HFA) 8 GM IH SCH (02:31)
[2020-02-07] MEDS: IPRATROPIUM INHALER (ATROVENT) 12.9 GM INH SCH (02:31)
[2020-02-07] MEDS: LACTATED RINGERS 1,000 ML IV SCH (04:22)
[2020-02-07 04:33] LABS: BASOPHILS % (AUTO) 0 % (0-10); EOSINOPHILS % (AUTO) 0 % (0-10); HEMATOCRIT 33 % (35-52); HEMOGLOBIN 10.8 G/DL (11.5-16.0); LYMPHOCYTES # (AUTO) 1.2 X 10^3 (1.0-4.0); LYMPHOCYTES % (AUTO) 9 % (12-44); MEAN CORPUSCULAR HEMOGLOBIN 30 PG (25-34); MEAN CORPUSCULAR HGB CONC 32 G/DL (32-36); MEAN CORPUSCULAR VOLUME 94 FL (80-99); MEAN PLATELET VOLUME 10.1 FL (7.4-10.4); MONOCYTES # (AUTO) 0.5 X 10^3 (0.0-1.0); MONOCYTES % (AUTO) 4 % (0-12); NEUTROPHILS # (AUTO) 10.9 X 10^3 (1.8-7.8); NEUTROPHILS % (AUTO) 87 % (42-75); PLATELET COUNT 354 10^3/uL (130-400); RED CELL DISTRIBUTION WIDTH 13.8 % (10.0-14.5); WHITE BLOOD COUNT 12.6 10^3/uL (4.3-11.0)
[2020-02-07 04:41] LABS: CHLORIDE 99 MMOL/L (98-107); POTASSIUM 3.8 MMOL/L (3.6-5.0); SODIUM 140 MMOL/L (135-145)
[2020-02-07 04:42] LABS: CALCIUM 8.9 MG/DL (8.5-10.1); GLUCOSE 131 MG/DL (70-105)
[2020-02-07 04:44] LABS: CARBON DIOXIDE 28 MMOL/L (21-32)
[2020-02-07 04:46] LABS: CREATININE SERUM 0.78 MG/DL (0.60-1.30); GFR ESTIMATED > 60; PHOSPHORUS 3.7 MG/DL (2.3-4.7)
[2020-02-07 04:47] LABS: BUN/CREATININE RATIO 23
[2020-02-07 04:48] LABS: MAGNESIUM 2.4 MG/DL (1.6-2.4)
[2020-02-07] MEDS: MAGNESIUM 1 GM/100 ML IVPB 100 ML IV SCH (05:32)
[2020-02-07] MEDS: POTASSIUM CL 10MEQ/50ML IVPB 50 ML IV SCH (05:32)
[2020-02-07] MEDS: KCL 20 MEQ TAB (K-DUR) PO SCH (05:33)
[2020-02-07] MEDS: inSUlin ASPART (NovoLOG) 1 UNIT/0.01 ML (CHARGE PER UNIT) SC SCH (05:33)
[2020-02-07] MEDS: hydrALAZINE (APESOLINE) 20 MG/ML VIAL IV PRN (06:24)
[2020-02-07] MEDS: HALOPERIDOL 5 MG/ML (HALDOL) VIAL IV PRN ×2 (06:24→23:12)
[2020-02-07] MEDS: predniSONE 20 MG TAB PO SCH (06:27)
[2020-02-07] MEDS: RT-ALBUTEROL/IPRATROPIUM 3 ML (DUONEB) VIAL INH SCH ×5 (06:43→22:16)
--- NOTE | 2020-02-07 07:12 | Diagnostic Imaging Report ---
Indication: Respiratory failure, extubated. Comparison: 02/05/2020 Findings: Single view of the chest demonstrates significantly improved aeration of both lungs. No obvious infiltrate is seen. The heart is normal. There is no pneumothorax or effusion. Patient has been extubated. The PICC line is stable. Impression: No acute cardiopulmonary findings. Dictated by: Dictated on workstation # [id number]
[2020-02-07] MEDS: CEFDINIR 300 MG (OMNICEF) CAP PO SCH ×2 (07:57→21:52)
[2020-02-07] MEDS: CYCLOBENZAPRINE 10 MG (FLEXERIL) TAB PO SCH ×2 (07:57→21:52)
[2020-02-07] MEDS: ALPRAZolam 0.5 MG (XANAX) TAB PO SCH ×3 (07:57→21:52)
[2020-02-07] MEDS: risperiDONE 2 MG (RisperDAL) TAB PO SCH ×2 (07:58→21:52)
[2020-02-07] MEDS: CLOPIDOGREL 75 MG (PLAVIX) TABLET PO SCH (07:58)
[2020-02-07] MEDS: PANTOPRAZOLE 40 MG (PROTONIX) VIAL IV SCH (07:59)
--- NOTE | 2020-02-07 08:20 | NUR ---
This nurse gave report to Martha MUNOZ on 4th floor, patient is going to room 404. SHANTI Dais is taking patient to 4th floor via bed.
--- NOTE | 2020-02-07 08:45 | NUR ---
RECEIVED FROM ICU PER BED, ALERT, MAJANO PATENT WITH CLEAR YELLOW URINE, O2 ON PER NC AT 1 LITER, DENIES PAIN OR SOB, CALL LIGHT WITHIN REACH, FREQUENT COUGH, NON PRODUCTIVE. ORIENTED TO ROOM.
[2020-02-07] MEDS ORDERED: IBUP-2185 PO (10:09)
--- NOTE | 2020-02-07 10:21 | Progress Note - Hospitalist ---
Subjective HPI/CC On Admission Date Seen by Provider: Feb 07, 2020 Time Seen by Provider: 10:30 Subjective/Events-last exam Patient much improved Uses home oxygen at 3L/min at home Cough is unproductive Mucinex twice daily ordered Lungs still are very coarse Reviewed ICU stay Restarted all home meds Conferred with international logistics analyst of Systems General: Fatigue, Malaise Pulmonary: Dyspnea, Cough Neurological: Weakness Objective Exam Vital Signs Vital Signs Date Time Temp Pulse Resp B/P (MAP) Pulse Ox O2 Delivery O2 Flow Rate FiO2 02/07/20 15:49 37.2 102 20 138/80 (99) 98 High Flow N/C 3.00 02/06/20 12:00 30 Capillary Refill : Less Than 3 Seconds General Appearance: No Apparent Distress, Anxious, Chronically ill, Obese Respiratory: No Accessory Muscle Use, No Respiratory Distress, Crackles, Decreased Breath Sounds, Wheezing Cardiovascular: Regular Rate, Rhythm Extremity: Normal Capillary Refill, Normal Inspection, Normal Range of Motion, Non Tender, No Calf Tenderness, No Pedal Edema Neurologic/Psychiatric: Alert, Oriented x3, No Motor/Sensory Deficits, Normal Mood/Affect Results/Procedures Lab Laboratory Tests 02/07/20 04:20 Patient resulted labs reviewed. Assessment/Plan Assessment and Plan Assess & Plan/Chief Complaint Assessment: Respiratory failure COVID-19 Negative AECOPD Cough HTN PNA Plan: Home meds O2 Monitor blood pressure Lovenox Diagnosis/Problems Diagnosis/Problems (1) Respiratory failure Status: Acute Qualifiers: Chronicity: acute on chronic Respiratory failure complication: hypoxia and hypercapnia Qualified Codes: J96.21 - Acute and chronic respiratory failure with hypoxia; J96.22 - Acute and chronic respiratory failure with hypercapnia (2) CO2 narcosis Status: Acute (3) Pneumonia Status: Acute (4) Failure of outpatient treatment Status: Acute (5) Acidosis Status: Acute (6) History of confusion Status: Acute (7) History of hallucinations Status: Acute Clinical Quality Measures DVT/VTE Risk/Contraindication: Risk Factor Score Per Nursin RFS Level Per Nursing on Admit: 4+=Very High ANJUM CAMPOS DO Feb 07, 2020 10:21
[2020-02-07] MEDS ORDERED: NON-FORMULARY MEDICATION 1 EA EA (Ibuprofen 800 MG) PO PRN (10:30)
[2020-02-07] MEDS ORDERED: HYDROCODONE/CHLOR 10MG/5 ML (TUSSIONEX SUSP) 5ML UDC PO ONE (10:45)
[2020-02-07] MEDS ORDERED: guaiFENesin (MUCINEX) 600 MG TAB PO ONE (10:45)
[2020-02-07] MEDS: aCETylcysteine 20% (MUCOMYST) 30ML SOLN VIAL INH SCH ×4 (11:14→22:16)
--- NOTE | 2020-02-07 11:25 | NUR ---
CM/SS: Visited with pt as to plan to discharge Plan: Pt is from home and reports she has 16 1/2 HCBS - home community based service hours help in the home. Summary: Pt reports she was at [facility] and then transferred to [place] by her physician Dr. Shane. She reports there are more COVID resources here, then pt says I dont have COVID. Pt reports she lives at home with spouse and that she has a worker in the home. She has a total of 16 1/2 hours of HC home community based services. Pt feels as if the help she has is adequate. Pt has not had home care in past that she knows of, but seems to be open to it, if her physician would suggest it. Pt coughs alot during the visit, and shares she is unable to cough anything up. Pt is encouraged to rest. This worker will follow up.
--- NOTE | 2020-02-07 11:28 | Occupational Therapy Eval ---
OT Evaluation-General/PLF Medical Diagnosis Admission Date Feb 04, 2020 at 07:50 Medical Diagnosis: Respiratory Failure Onset Date: Feb 04, 2020 Therapy Diagnosis Therapy Diagnosis: decreased ADL status Height/Weight Height (Feet): 5 Height (Inches): 3.00 Weight (Pounds): 120 Precautions Precautions/Isolations: Fall Prevention, Standard Precautions Referral Physician: Jarred Flores Reason: Evaluation/Treatment Medical History Pertinent Medical History: COPD (O2 at 3L baseline) Additional Medical History dementia, CVA, sleep apnea, emphysema, anxiety, bipolar, depression, arthritis, appendectomy, eye surgery Current History ER via EMS due to AMS & SOB. Pt intubated 02/04/2020 and extubated 02/06/2020 Social History Home: Single Level Current Living Status: Spouse Entry Into Home: Stairs Without Railing Steps Into Home: 1 ADL-Prior Level of Function SCALE: Activities may be completed with or without assistive devices. 8-Aysbjesxnz-wlvsrvo completes the activity by him/herself with no assistance from a helper. 5-Set-up or Clean-up Assistance-helper sets up or cleans up; patient completes activity. [place] assists only prior to or following the activity. 4-Supervision or Touching Assistance-helper provides verbal cues and/or touching/steadying and/or contact guard assistance as patient completes activity. Assistance may be provided throughout the activity or intermittently. 3-Partial/Moderate Assistance-helper does LESS THAN HALF the effort. [place] lifts, holds or supports trunk or limbs, but provides less than half the effort. 2-Substantial/Maximal Assistance-helper does MORE THAN HALF the effort. [place] lifts or holds trunk or limbs and provides more than half the effort. 1-Rjhpvrpil-rgqxcx does ALL the effort. Patient does none of the effort to complete the activity. Or, the assistance of 2 or more helpers is required for the patient to complete the activity. If activity was not attempted, code reason: 7-Patient Refused. 9-Not Applicable-not attempted and the patient did not perform the activity before the current illness, exacerbation or injury. 10-Not Attempted due to Environmental Limitations-(lack of equipment, weather restraints, etc.). 88-Not Attempted due to Medical Conditions or Safety Concerns. ADL PLOF Comments Pt reports living with her , they both receive scheduled assistance throughout the week. Pt states she is independent with functional mobility at [facility] without AD, and she is able to complete dressing independently. Pt has assistance x3/week for ~1 hour for showering. She also has assistance with cooking and cleaning. She has a tub shower with a shower chair, but she reports her SC is falling apart and she needs to get a new one. Self Care: Needed Some Help Functional Cognition: Independent DME/Equipment: Bath Chair, Tub/Shower OT Current Status Subjective Pt laying in bed, stating she is waiting on respiratory therapy for breathing tx. Pain 9/10 in bilateral knees. Pain Numeric Pain Scale: 9 Location: Right, Left Location Body Site: Knee Mental Status/Objective Patient Orientation: Person, Place, Situation Attachments: Dickson Catheter, Oxygen Current Glasses/Contacts: Yes Hearing Aids: No Dentures/Partials: No Hand Dominance: Left Upper Extremity ROM WFL Upper Extremity Sensation pt denies tingling/numbness BUEs Upper Extremity Strength grossly 3+/5 Other Treatments Pt laying in bed with HOB slightly elevated. Agreeable to OT evaluation at this time. OT educated pt on benefits and purpose of OT, pt verbalized understanding. Pt then provided information about PLOF and home set up. She participated in UE screen. Pt able to use arms to pull forward on side rail to sit up in bed without back support. She attempts to cough up phlegm but reports difficulty. Nurse present and informed of pts concerns with phlegm and pain. Pt declines further ADLs at this time stating she is waiting on respiratory therapy to come for a breathing tx. OT educated pt on POC while she is admitted to the hospital, she verbalized understanding. Pt reports she has no further concerns/questions. Post OT tx, pt in bed, call light in reach and all needs met. 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 2=Patient will verbalize/demonstrate understanding of assistive devices/modifications for ADL. 3=Patient will improve strength/tolerance for activity to enable patient to perform ADL's. OT Education/Plan Problem List/Assessment Assessment: Decreased Activ Tolerance, Decreased UE Strength, Impaired I ADL's, Impaired Self-Care Skills Discharge Recommendations Plan/Recommendations: Continue POC Therapy Discharge Recommendati: Scheduled Assistance, Home & Family Equpiment Recommendations-D/C: Bath Chair Treatment Plan/Plan of Care Patient would benefit from OT for education, treatment and training to promote independence in ADL's, mobility, safety and/or upper extremity function for ADL's. Plan of Care: ADL Retraining, Functional Mobility, UE Funct Exercise/Act Treatment Duration: Feb 14, 2020 Frequency: 5 times per week Estimated Hrs Per Day: .25 hour per day Rehab Potential: Fair Time/GCodes Start Time: 10:24 Stop Time: 10:35 Total Time Billed (hr/min): 11 Billed Treatment Time 1, JINNY TILLMAN OT Feb 07, 2020 11:27
[2020-02-07] MEDS: ENOXAPARIN 40 MG/0.4 ML (LOVENOX) SYR SC SCH (12:53)
--- NOTE | 2020-02-07 13:37 | Physical Therapy Evaluation ---
PT Evaluation-General Medical Diagnosis Admission Date Feb 04, 2020 at 07:50 Medical Diagnosis: Respiratory Failure Onset Date: Feb 04, 2020 Therapy Diagnosis Therapy Diagnosis: impaired mobility, strength, endurance Height/Weight Height (Feet): 5 Height (Inches): 3.00 Weight (Pounds): 120 Precautions Precautions/Isolations: Fall Prevention, Standard Precautions Referral Physician: Jarred Reason for Referral: Evaluation/Treatment Medical History Pertinent Medical History: COPD (O2 at 3L baseline) Additional Medical History Past Medical History Surgeries: Yes (r eye, DNC, ) Appendectomy, Eye Surgery Sleep Apnea, COPD, Emphysema Currently Using CPAP: Yes Cardiac: No Neurological: Yes (restless legs) Dementia, Stroke Genitourinary: No Gastrointestinal: Yes (decreased appetite) Arthritis Endocrine: No HEENT: No Cancer: No Psychosocial: Yes Anxiety, Bipolar, Depression Reviewed History: Yes Social History Home: Single Level Current Living Status: Spouse Entry Into Home: Stairs Without Railing PT Steps Into Home: 1 Prior Prior Level of Function SCALE: Activities may be completed with or without assistive devices. 3-Yfbkxkyuzw-pigplmn completes the activity by him/herself with no assistance from a helper. 5-Set-up or Clean-up Assistance-helper sets up or cleans up; patient completes activity. [place] assists only prior to or following the activity. 4-Supervision or Touching Assistance-helper provides verbal cues and/or phillip toan/steadying and/or contact guard assistance as patient completes activity. Assistance may be provided throughout the activity or intermittently. 3-Partial/Moderate Assistance-helper does LESS THAN HALF the effort. [place] lifts, holds or supports trunk or limbs, but provides less than half the effort. 2-Substantial/Maximal Assistance-helper does MORE THAN HALF the effort. [place] lifts or holds trunk or limbs and provides more than half the effort. 7-Fzazbtnrx-fskkug does ALL the effort. Patient does none of the effort to complete the activity. Or, the assistance of 2 or more helpers is required for the patient to complete the activity. If activity was not attempted, code reason: 7-Patient Refused. 9-Not Applicable-not attempted and the patient did not perform the activity before the current illness, exacerbation or injury. 10-Not Attempted due to Environmental Limitations-(lack of equipment, weather restraints, etc.). 88-Not Attempted due to Medical Conditions or Safety Concerns. Bed Mobility: 6 Transfers (B,C,W/C): 6 Gait: 6 Indoor Mobility (Ambulation): Independent PT Evaluation-Current Subjective Patient in bed pre tx, agrees to PT, states she has 9/10 pain in both knees and says nurse is aware of it and she is supposed to be getting meds for it. Pt/Family Goals "to get stronger" Objective Patient Orientation: Person, Place, Situation ROM/Strength ROM Lower Extremities WNL Strength Lower Extremities 3+/5 gross BLE Sensory Hearing: Functional Hand Dominance: Left Sensation Right Lower Extremit: Intact Sensation Left Lower Extremity: Intact Transfers Roll Left to Right (QC): 6 Lying to Sitting/Side of Bed(Q: 3 Sit to Stand (QC): 4 Chair/Gvj-rs-Zgqgz Xfer(QC): 4 Min assist for supine to sit, CGA for sit to stand and transfers. Gait Does the Patient Walk?: Yes Mode of Locomotion: Walk Anticipated Mode of Locomotion: Walk Distance: 5' Gait Assistive Device: FWW Comments/Gait Description slumped posture, unsteady, patient needs cues for direction and safety, needs assist guiding walker, close CGA due to unsteadiness Balance Sitting Static: Normal Sitting Dynamic: Normal Standing Static: Poor Standing Dynamic: Poor Treatment seated BLE exercises x20 (AP, LAQ, hip flexion) Assessment/Needs Patient has impaired mobility, strength, endurance, she is unsteady with ambulation, patient in recliner post tx with nurse call, phone, tray, all needs met, patient instructed to call nurse if she needs to get up or go back to bed Rehab Potential: Fair 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 PT [employer] Operator Goals Time Frame: Feb 14, 2020 Roll Left & Right (QC): 6 Sit to Lying (QC): 6 Lying-Sitting on Side/Bed(QC): 6 Sit to Stand (QC): 5 Chair/Vld-rz-Kiydp Xfer(QC): 5 Walk 10 feet (QC): 5 Walk 50ft with 2 Turns (QC): 4 PT Plan Problem List Problem List: Activity Tolerance, Functional Strength, Safety, Balance, Gait, Transfer, Bed Mobility Treatment/Plan Treatment Plan: Continue Plan of Care Treatment Plan: Bed Mobility, Education, Functional Activity Ivelisse, Functional Strength, Gait, Safety, Therapeutic Exercise, Transfers Treatment Duration: Feb 14, 2020 Frequency: 6 times per week Estimated Hrs Per Day: .25 hour per day Patient and/or Family Agrees t: Yes Safety Risks/Education Patient Education: Gait Training, Transfer Techniques, Correct Positioning, Safety Issues Teaching Recipient: Patient Teaching Methods: Demonstration, Discussion Response to Teaching: Reinforcement Needed Discharge Recommendations Plan Patient will perform bed mobility and transfer training, balance and endurance training, functional strengthening, stair training, gait training, and education, to improve functional mobility and independence at home. Therapy Discharge Recommendati: Scheduled Assistance, Home & Family Time/GCodes Time In: 1310 Time Out: 1326 Total Billed Treatment Time: 16 Total Billed Treatment 1 visit ALEJANDRO 16' LOR SMITH PT Feb 07, 2020 13:37
[2020-02-07] MEDS: IBUPROFEN 800 MG (MOTRIN) TAB PO PRN (13:49)
[2020-02-07] MEDS: ADVAIR HFA 115/21 MCG INHALER 8 GM IH SCH ×2 (14:37→18:36)
[2020-02-07] MEDS ORDERED: BUPRENORPHINE HCL 4 MG SL SCH (21:00)
[2020-02-07] MEDS ORDERED: NON-FORMULARY MEDICATION 1 EA EA (Aripiprazole 5 MG) PO SCH (21:00)
[2020-02-07] MEDS: guaiFENesin (MUCINEX) 600 MG TAB PO SCH (21:52)
[2020-02-07] MEDS: traZODone 100 MG (DESYREL) TAB PO SCH (21:52)
[2020-02-07] MEDS: DONEPEZIL 10 MG (ARICEPT) TAB PO SCH (21:52)
[2020-02-07] MEDS: HYDROCODONE/CHLOR 10MG/5 ML (TUSSIONEX SUSP) 5ML UDC PO SCH (21:53)
[2020-02-07] MEDS: MEMANTINE 10 MG (NAMENDA) TABLET PO SCH (21:53)
[2020-02-08] VITALS: BP 146/76
[2020-02-08] MEDS: RT-ALBUTEROL/IPRATROPIUM 3 ML (DUONEB) VIAL INH SCH ×6 (02:49→22:17)
[2020-02-08] MEDS: aCETylcysteine 20% (MUCOMYST) 30ML SOLN VIAL INH SCH ×6 (02:49→22:18)
[2020-02-08 04:00] VITALS: BP 164/71
[2020-02-08 05:20] LABS: BASOPHILS % (AUTO) 0 % (0-10); EOSINOPHILS # (AUTO) 0.1 10^3/uL (0.0-0.3); EOSINOPHILS % (AUTO) 1 % (0-10); HEMATOCRIT 35 % (35-52); HEMOGLOBIN 11.5 G/DL (11.5-16.0); LYMPHOCYTES # (AUTO) 3.2 X 10^3 (1.0-4.0); LYMPHOCYTES % (AUTO) 24 % (12-44); MEAN CORPUSCULAR HEMOGLOBIN 30 PG (25-34); MEAN CORPUSCULAR HGB CONC 33 G/DL (32-36); MEAN CORPUSCULAR VOLUME 93 FL (80-99); MEAN PLATELET VOLUME 9.8 FL (7.4-10.4); MONOCYTES % (AUTO) 8 % (0-12); NEUTROPHILS # (AUTO) 9.1 X 10^3 (1.8-7.8); NEUTROPHILS % (AUTO) 68 % (42-75); PLATELET COUNT 382 10^3/uL (130-400); RED CELL DISTRIBUTION WIDTH 14.6 % (10.0-14.5); WHITE BLOOD COUNT 13.4 10^3/uL (4.3-11.0)
[2020-02-08 05:40] LABS: CHLORIDE 95 MMOL/L (98-107); SODIUM 136 MMOL/L (135-145)
[2020-02-08 05:41] LABS: CALCIUM 8.7 MG/DL (8.5-10.1)
[2020-02-08 05:42] LABS: GLUCOSE 93 MG/DL (70-105)
[2020-02-08 05:44] LABS: CARBON DIOXIDE 28 MMOL/L (21-32)
[2020-02-08 05:46] LABS: GFR ESTIMATED > 60; PHOSPHORUS 3.8 MG/DL (2.3-4.7)
[2020-02-08 05:47] LABS: BUN/CREATININE RATIO 20
[2020-02-08 05:48] LABS: MAGNESIUM 2.4 MG/DL (1.6-2.4)
[2020-02-08] MEDS ORDERED: KCL 20 MEQ TAB (K-DUR) PO ONE ×3 (06:00→10:00)
[2020-02-08] MEDS: KCL 20 MEQ TAB (K-DUR) PO SCH (06:00)
[2020-02-08] MEDS: predniSONE 20 MG TAB PO SCH (06:28)
[2020-02-08] MEDS: ADVAIR HFA 115/21 MCG INHALER 8 GM IH SCH ×2 (07:01→18:46)
[2020-02-08 07:21] VITALS: BP 130/80
--- NOTE | 2020-02-08 07:40 | Pulmonary Progress Note ---
Subjective Time Seen by a Provider: 07:39 Sepsis Event Evaluation Height, Weight, BMI Height: 5'3.00" Weight: 120lbs. oz. 54.050109yx; 36.00 BMI Method:Stated Exam Exam Vital Signs Date Time Temp Pulse Resp B/P (MAP) Pulse Ox O2 Delivery O2 Flow Rate FiO2 02/08/20 07:21 37.0 111 18 130/80 (97) 95 High Flow N/C 2.00 02/08/20 07:12 94 Nasal Cannula 2.00 02/08/20 07:03 94 Nasal Cannula 2.00 02/08/20 04:00 36.9 84 20 164/71 (102) 95 High Flow N/C 3.00 02/08/20 02:35 93 Nasal Cannula 2.00 02/08/20 00:00 36.8 98 20 146/76 (99) 93 High Flow N/C 3.00 02/07/20 22:16 93 Nasal Cannula 3.00 02/07/20 21:50 Nasal Cannula 2.00 02/07/20 19:43 37.1 91 18 163/73 (103) 99 High Flow N/C 3.00 02/07/20 18:49 99 Nasal Cannula 2.00 02/07/20 18:36 96 Nasal Cannula 3.00 02/07/20 15:49 37.2 102 20 138/80 (99) 98 High Flow N/C 3.00 02/07/20 14:31 96 Nasal Cannula 2.00 02/07/20 12:00 37.0 115 20 179/72 (107) 95 High Flow N/C 1.00 02/07/20 11:16 95 Nasal Cannula 2.00 02/07/20 09:48 Nasal Cannula 1.00 02/07/20 08:45 36.5 81 20 169/78 (108) 94 High Flow N/C 1.00 02/07/20 08:00 37.0 02/07/20 08:00 Nasal Cannula 1.00 02/07/20 08:00 110 26 186/85 (118) 94 Nasal Cannula 2.00 I & O 02/08/20 07:00 Intake Total 4860 ml Output Total 7050 ml Balance -2190 ml Height & Weight Height: 5'3.00" Weight: 120lbs. oz. 54.220259om; 36.00 BMI Method:Stated General Appearance: No Apparent Distress, Anxious, Chronically ill, Obese HEENT: PERRL/EOMI Neck: Supple Respiratory: No Accessory Muscle Use, No Respiratory Distress, Crackles, Decrea sed Breath Sounds, Wheezing Cardiovascular: Regular Rate, Rhythm Capillary Refill: Less Than 3 Seconds Extremity: Normal Capillary Refill, Normal Inspection, Normal Range of Motion, Non Tender, No Calf Tenderness, No Pedal Edema Neurologic/Psychiatric: Alert, Oriented x3, No Motor/Sensory Deficits, Normal Mood/Affect Skin: Warm/Dry Results Lab Laboratory Tests 02/07/20 04:20 02/08/20 05:10 Assessment/Plan Assessment/Plan Acute on chronic respiratory failure -Improving PNA with sepsis - failed out pt treatment - Omnicef Pulmonary edema -improved COPDAE -MDIs - prednisone 40mg daily [place] use -Education DVT/GI PPX TUCKER JUSTIN DO Feb 08, 2020 07:40
[2020-02-08] MEDS: CEFDINIR 300 MG (OMNICEF) CAP PO SCH ×2 (08:20→21:38)
[2020-02-08] MEDS: DULoxetine 30 MG (CYMBALTA) CAP PO SCH (08:20)
[2020-02-08] MEDS: guaiFENesin (MUCINEX) 600 MG TAB PO SCH ×2 (08:21→21:38)
[2020-02-08] MEDS: IBUPROFEN 800 MG (MOTRIN) TAB PO PRN ×2 (08:21→16:59)
[2020-02-08] MEDS: CLOPIDOGREL 75 MG (PLAVIX) TABLET PO SCH (08:22)
[2020-02-08] MEDS: MEMANTINE 10 MG (NAMENDA) TABLET PO SCH ×2 (08:22→21:38)
[2020-02-08] MEDS: CYCLOBENZAPRINE 10 MG (FLEXERIL) TAB PO SCH ×2 (08:22→21:38)
[2020-02-08] MEDS: risperiDONE 2 MG (RisperDAL) TAB PO SCH ×2 (08:22→21:38)
[2020-02-08] MEDS: PANTOPRAZOLE 40 MG (PROTONIX) VIAL IV SCH (08:22)
[2020-02-08] MEDS: ALPRAZolam 0.5 MG (XANAX) TAB PO SCH ×3 (08:22→21:38)
[2020-02-08] MEDS: HYDROCODONE/CHLOR 10MG/5 ML (TUSSIONEX SUSP) 5ML UDC PO SCH ×2 (08:23→21:39)
[2020-02-08] MEDS ORDERED: PANTOPRAZOLE 20 MG TABLET (PROTONIX) PO SCH (09:00)
[2020-02-08] MEDS ORDERED: NON-FORMULARY MEDICATION 1 EA EA (Duloxetine HCl 60 MG) PO SCH (09:00)
[2020-02-08] MEDS ORDERED: CLOPIDOGREL 75 MG (PLAVIX) TABLET PO SCH (09:00)
[2020-02-08] MEDS ORDERED: NON-FORMULARY MEDICATION 1 EA EA (Mirabegron (Myrbetriq) 25 MG) PO SCH (09:00)
--- NOTE | 2020-02-08 10:14 | Progress Note - Hospitalist ---
Subjective HPI/CC On Admission Date Seen by Provider: Feb 08, 2020 Time Seen by Provider: 10:30 Subjective/Events-last exam Patient feels better Refuses to eat pureed diet so changed it to soft and ground meat and advance as long as she swallows that without aspiration ST had seen her shortly after extubation and made that recommendation and she has severe coughing since extubation leading us to assume she has aspiration issues Labs reviewed and meds reviewed Conferred with RN No pain reported Wants to go home soon and I told her that would likely be Monday and she is ok with that Review of Systems General: Fatigue, Malaise Pulmonary: Dyspnea, Cough Objective Exam Vital Signs Vital Signs Date Time Temp Pulse Resp B/P (MAP) Pulse Ox O2 Delivery O2 Flow Rate FiO2 02/08/20 16:06 36.8 98 18 126/73 (90) 96 High Flow N/C 2.00 02/06/20 12:00 30 Capillary Refill : Less Than 3 Seconds General Appearance: No Apparent Distress, WD/WN, Chronically ill Respiratory: No Accessory Muscle Use, No Respiratory Distress, Crackles, Decreased Breath Sounds, Wheezing Cardiovascular: Regular Rate, Rhythm, No Edema, No Gallop, No JVD, No Murmur, Normal Peripheral Pulses Neurologic/Psychiatric: Alert, Oriented x3, No Motor/Sensory Deficits, Normal Mood/Affect Results/Procedures Lab Laboratory Tests 02/08/20 05:10 02/08/20 14:45 Patient resulted labs reviewed. Assessment/Plan Assessment and Plan Assess & Plan/Chief Complaint Assessment: Respiratory failure COVID-19 Negative AECOPD Cough HTN PNA Aspiration risk shortly after extubation now will advance slowly Plan: Home meds O2 Monitor blood pressure Lovenox Advance diet Diagnosis/Problems Diagnosis/Problems (1) Respiratory failure Status: Acute Qualifiers: Chronicity: acute on chronic Respiratory failure complication: hypoxia and hypercapnia Qualified Codes: J96.21 - Acute and chronic respiratory failure with hypoxia; J96.22 - Acute and chronic respiratory failure with hypercapnia (2) CO2 narcosis Status: Acute (3) Pneumonia Status: Acute (4) Failure of outpatient treatment Status: Acute (5) Acidosis Status: Acute (6) History of confusion Status: Acute (7) History of hallucinations Status: Acute Clinical Quality Measures DVT/VTE Risk/Contraindication: Risk Factor Score Per Nursin RFS Level Per Nursing on Admit: 4+=Very High ANJUM CAMPOS DO Feb 08, 2020 10:14
--- NOTE | 2020-02-08 10:59 | Physical Therapy Daily Note ---
PT Daily Note-Current Subjective Pt reports feeling stronger. Mental Status Patient Orientation: Normal For Age Attachments: Saline Lock Transfers SCALE: Activities may be completed with or without assistive devices. 2-Ygchdawasx-ydokqen completes the activity by him/herself with no assistance from a helper. 5-Set-up or Clean-up Assistance-helper sets up or cleans up; patient completes activity. [place] assists only prior to or following the activity. 4-Supervision or Touching Assistance-helper provides verbal cues and/or touching/steadying and/or contact guard assistance as patient completes activity. Assistance may be provided throughout the activity or intermittently. 3-Partial/Moderate Assistance-helper does LESS THAN HALF the effort. [place] lif ts, holds or supports trunk or limbs, but provides less than half the effort. 2-Substantial/Maximal Assistance-helper does MORE THAN HALF the effort. [place] lifts or holds trunk or limbs and provides more than half the effort. 1-Faaqszbgc-eceqtl does ALL the effort. Patient does none of the effort to complete the activity. Or, the assistance of 2 or more helpers is required for the patient to complete the activity. If activity was not attempted, code reason: 7-Patient Refused. 9-Not Applicable-not attempted and the patient did not perform the activity before the current illness, exacerbation or injury. 10-Not Attempted due to Environmental Limitations-(lack of equipment, weather restraints, etc.). 88-Not Attempted due to Medical Conditions or Safety Concerns. Roll Left & Right (QC): 4 Sit to Lying (QC): 4 Sit to Stand (QC): 4 Gait Training Ambulate 5ft x 3 trials using FWW. Practiced turns using FWW all with Min A. Exercises Standing: Hip Abduction, Heel/toe raises, 3 way Ex=Flex, Abd, Ext, Marching Standing Reps: 10 Treatments Improved tolerance to activity with improved standing balance and stability. Assessment Current Status: Good Progress PT Skilled Nursing Goals Skilled Nursing Goals PT Skilled Nursing Goals Time Frame: Feb 14, 2020 Roll Left & Right (QC): 6 Sit to Lying (QC): 6 Lying-Sitting on Side/Bed(QC): 6 Sit to Stand (QC): 5 Chair/Yig-wy-Wyinv Xfer(QC): 5 Walk 10 feet (QC): 5 Walk 50ft with 2 Turns (QC): 4 PT Plan Treatment/Plan Treatment Plan: Continue Plan of Care Treatment Plan: Bed Mobility, Education, Functional Activity Ivelisse, Functional Strength, Gait, Safety, Therapeutic Exercise, Transfers Treatment Duration: Feb 14, 2020 Frequency: 6 times per week Estimated Hrs Per Day: .25 hour per day Patient and/or Family Agrees t: Yes Time/GCodes Time In: 850 Time Out: 915 Total Billed Treatment Time: 25 Total Billed Treatment visit, gait 10min, ex 15 min UNIQUE ORTIZ PT Feb 08, 2020 10:59
[2020-02-08 12:06] VITALS: BP 143/70
[2020-02-08] MEDS: ENOXAPARIN 40 MG/0.4 ML (LOVENOX) SYR SC SCH (12:57)
[2020-02-08 16:06] VITALS: BP 126/73
[2020-02-08 19:59] VITALS: BP 105/66
[2020-02-08] MEDS: traZODone 100 MG (DESYREL) TAB PO SCH (21:37)
[2020-02-08] MEDS: DONEPEZIL 10 MG (ARICEPT) TAB PO SCH (21:38)
[2020-02-09] VITALS (7 sets, daily range): BP systolic 103–160; BP diastolic 64–77
[2020-02-09] MEDS: RT-ALBUTEROL/IPRATROPIUM 3 ML (DUONEB) VIAL INH SCH ×6 (02:09→22:49)
[2020-02-09] MEDS: aCETylcysteine 20% (MUCOMYST) 30ML SOLN VIAL INH SCH ×6 (02:12→22:49)
[2020-02-09] MEDS: predniSONE 20 MG TAB PO SCH (06:16)
[2020-02-09 07:05] LABS: BASOPHILS % (AUTO) 0 % (0-10); EOSINOPHILS # (AUTO) 0.2 10^3/uL (0.0-0.3); EOSINOPHILS % (AUTO) 2 % (0-10); HEMATOCRIT 35 % (35-52); HEMOGLOBIN 10.9 G/DL (11.5-16.0); LYMPHOCYTES # (AUTO) 3.9 X 10^3 (1.0-4.0); LYMPHOCYTES % (AUTO) 30 % (12-44); MEAN CORPUSCULAR HEMOGLOBIN 30 PG (25-34); MEAN CORPUSCULAR HGB CONC 32 G/DL (32-36); MEAN CORPUSCULAR VOLUME 96 FL (80-99); MEAN PLATELET VOLUME 10.3 FL (7.4-10.4); MONOCYTES # (AUTO) 0.9 X 10^3 (0.0-1.0); MONOCYTES % (AUTO) 7 % (0-12); NEUTROPHILS # (AUTO) 7.9 X 10^3 (1.8-7.8); NEUTROPHILS % (AUTO) 61 % (42-75); PLATELET COUNT 386 10^3/uL (130-400); RED CELL DISTRIBUTION WIDTH 14.8 % (10.0-14.5)
[2020-02-09] MEDS: ADVAIR HFA 115/21 MCG INHALER 8 GM IH SCH ×2 (07:05→22:48)
[2020-02-09 07:24] LABS: CHLORIDE 101 MMOL/L (98-107); POTASSIUM 4.1 MMOL/L (3.6-5.0); SODIUM 138 MMOL/L (135-145)
[2020-02-09 07:25] LABS: CALCIUM 8.4 MG/DL (8.5-10.1)
[2020-02-09 07:26] LABS: GLUCOSE 82 MG/DL (70-105)
[2020-02-09 07:27] LABS: CARBON DIOXIDE 25 MMOL/L (21-32)
[2020-02-09 07:29] LABS: CREATININE SERUM 0.86 MG/DL (0.60-1.30); GFR ESTIMATED > 60; PHOSPHORUS 4.2 MG/DL (2.3-4.7)
[2020-02-09 07:30] LABS: BUN/CREATININE RATIO 26
[2020-02-09 07:32] LABS: MAGNESIUM 2.7 MG/DL (1.6-2.4)
[2020-02-09] MEDS: KCL 20 MEQ TAB (K-DUR) PO SCH (07:39)
[2020-02-09] MEDS: CYCLOBENZAPRINE 10 MG (FLEXERIL) TAB PO SCH ×2 (08:15→21:46)
[2020-02-09] MEDS: PANTOPRAZOLE 40 MG (PROTONIX) VIAL IV SCH (08:15)
[2020-02-09] MEDS: risperiDONE 2 MG (RisperDAL) TAB PO SCH ×2 (08:16→21:46)
[2020-02-09] MEDS: ALPRAZolam 0.5 MG (XANAX) TAB PO SCH ×3 (08:16→21:46)
[2020-02-09] MEDS: CEFDINIR 300 MG (OMNICEF) CAP PO SCH ×2 (08:16→21:46)
[2020-02-09] MEDS: DULoxetine 30 MG (CYMBALTA) CAP PO SCH (08:16)
[2020-02-09] MEDS: MEMANTINE 10 MG (NAMENDA) TABLET PO SCH ×2 (08:16→21:46)
[2020-02-09] MEDS: CLOPIDOGREL 75 MG (PLAVIX) TABLET PO SCH (08:16)
[2020-02-09] MEDS: HYDROCODONE/CHLOR 10MG/5 ML (TUSSIONEX SUSP) 5ML UDC PO SCH ×2 (08:17→21:47)
[2020-02-09] MEDS: IBUPROFEN 800 MG (MOTRIN) TAB PO PRN (08:17)
[2020-02-09] MEDS: guaiFENesin (MUCINEX) 600 MG TAB PO SCH ×2 (08:17→21:46)
[2020-02-09] MEDS: ENOXAPARIN 40 MG/0.4 ML (LOVENOX) SYR SC SCH (10:42)
--- NOTE | 2020-02-09 10:49 | Progress Note - Hospitalist ---
Subjective HPI/CC On Admission Date Seen by Provider: Feb 09, 2020 Time Seen by Provider: 11:15 Subjective/Events-last exam Patient feeling better Less coughing BM+ No falls Eating well now since I changed diet yesterday Checked meds and labs WBC 13k Coarse breath sounds still remains O2 3L/min PT OT working with patient Review of Systems General: Fatigue, Malaise Pulmonary: Dyspnea, Cough Neurological: Weakness, Numbness, Incoordination Objective Exam Vital Signs Vital Signs Date Time Temp Pulse Resp B/P (MAP) Pulse Ox O2 Delivery O2 Flow Rate FiO2 02/09/20 15:51 36.8 90 18 160/77 (104) 95 High Flow N/C 4.00 02/06/20 12:00 30 Capillary Refill : Less Than 3 Seconds General Appearance: No Apparent Distress, WD/WN, Chronically ill, Obese Respiratory: No Accessory Muscle Use, No Respiratory Distress, Crackles, Decreased Breath Sounds, Wheezing Cardiovascular: Regular Rate, Rhythm, No Edema, No Gallop, No JVD, No Murmur, Normal Peripheral Pulses Neurologic/Psychiatric: Alert, Oriented x3, No Motor/Sensory Deficits, Normal Mood/Affect Results/Procedures Lab Laboratory Tests 02/09/20 05:30 Patient resulted labs reviewed. Assessment/Plan Assessment and Plan Assess & Plan/Chief Complaint Assessment: Respiratory failure COVID-19 Negative AECOPD Cough HTN PNA Aspiration risk shortly after extubation now regular diet Plan: Home meds O2 Monitor blood pressure Lovenox Advance diet DC soon PT OT Diagnosis/Problems Diagnosis/Problems (1) Respiratory failure Status: Acute Qualifiers: Chronicity: acute on chronic Respiratory failure complication: hypoxia and hypercapnia Qualified Codes: J96.21 - Acute and chronic respiratory failure with hypoxia; J96.22 - Acute and chronic respiratory failure with hypercapnia (2) CO2 narcosis Status: Acute (3) Pneumonia Status: Acute (4) Failure of outpatient treatment Status: Acute (5) Acidosis Status: Acute (6) History of confusion Status: Acute (7) History of hallucinations Status: Acute Clinical Quality Measures DVT/VTE Risk/Contraindication: Risk Factor Score Per Nursin RFS Level Per Nursing on Admit: 4+=Very High ANJUM CAMPOS DO Feb 09, 2020 10:49
[2020-02-09] MEDS: traZODone 100 MG (DESYREL) TAB PO SCH (21:46)
[2020-02-09] MEDS: DONEPEZIL 10 MG (ARICEPT) TAB PO SCH (21:46)
[2020-02-10] MEDS: RT-ALBUTEROL/IPRATROPIUM 3 ML (DUONEB) VIAL INH SCH ×4 (03:23→11:24)
[2020-02-10] MEDS: aCETylcysteine 20% (MUCOMYST) 30ML SOLN VIAL INH SCH ×3 (03:23→11:24)
[2020-02-10 04:45] VITALS: BP 178/77
[2020-02-10 05:43] LABS: BASOPHILS % (AUTO) 0 % (0-10); EOSINOPHILS # (AUTO) 0.3 10^3/uL (0.0-0.3); EOSINOPHILS % (AUTO) 2 % (0-10); HEMATOCRIT 35 % (35-52); HEMOGLOBIN 10.9 G/DL (11.5-16.0); LYMPHOCYTES # (AUTO) 4.4 X 10^3 (1.0-4.0); LYMPHOCYTES % (AUTO) 28 % (12-44); MEAN CORPUSCULAR HEMOGLOBIN 30 PG (25-34); MEAN CORPUSCULAR HGB CONC 31 G/DL (32-36); MEAN CORPUSCULAR VOLUME 96 FL (80-99); MONOCYTES # (AUTO) 0.8 X 10^3 (0.0-1.0); MONOCYTES % (AUTO) 5 % (0-12); NEUTROPHILS # (AUTO) 9.9 X 10^3 (1.8-7.8); NEUTROPHILS % (AUTO) 64 % (42-75); PLATELET COUNT 383 10^3/uL (130-400); RED CELL DISTRIBUTION WIDTH 14.8 % (10.0-14.5); WHITE BLOOD COUNT 15.5 10^3/uL (4.3-11.0)
[2020-02-10 06:00] LABS: CHLORIDE 100 MMOL/L (98-107); POTASSIUM 4.1 MMOL/L (3.6-5.0); SODIUM 138 MMOL/L (135-145)
[2020-02-10] MEDS: KCL 20 MEQ TAB (K-DUR) PO SCH (06:00)
[2020-02-10 06:01] LABS: CALCIUM 8.6 MG/DL (8.5-10.1); GLUCOSE 83 MG/DL (70-105)
[2020-02-10 06:03] LABS: CARBON DIOXIDE 27 MMOL/L (21-32)
[2020-02-10 06:05] LABS: CREATININE SERUM 0.82 MG/DL (0.60-1.30); GFR ESTIMATED > 60; PHOSPHORUS 4.2 MG/DL (2.3-4.7)
[2020-02-10 06:06] LABS: BUN/CREATININE RATIO 24
[2020-02-10 06:07] LABS: MAGNESIUM 2.6 MG/DL (1.6-2.4)
[2020-02-10] MEDS: ADVAIR HFA 115/21 MCG INHALER 8 GM IH SCH (06:18)
[2020-02-10] MEDS: predniSONE 20 MG TAB PO SCH (06:25)
[2020-02-10] MEDS: guaiFENesin (MUCINEX) 600 MG TAB PO SCH (07:52)
[2020-02-10] MEDS: ALPRAZolam 0.5 MG (XANAX) TAB PO SCH (07:52)
[2020-02-10] MEDS: CEFDINIR 300 MG (OMNICEF) CAP PO SCH (07:52)
[2020-02-10] MEDS: CLOPIDOGREL 75 MG (PLAVIX) TABLET PO SCH (07:52)
[2020-02-10] MEDS: risperiDONE 2 MG (RisperDAL) TAB PO SCH (07:52)
[2020-02-10] MEDS: DULoxetine 30 MG (CYMBALTA) CAP PO SCH (07:52)
[2020-02-10] MEDS: MEMANTINE 10 MG (NAMENDA) TABLET PO SCH (07:52)
[2020-02-10] MEDS: CYCLOBENZAPRINE 10 MG (FLEXERIL) TAB PO SCH (07:52)
[2020-02-10] MEDS: HYDROCODONE/CHLOR 10MG/5 ML (TUSSIONEX SUSP) 5ML UDC PO SCH (07:52)
[2020-02-10] MEDS: PANTOPRAZOLE 40 MG (PROTONIX) VIAL IV SCH (07:53)
--- NOTE | 2020-02-10 07:59 | Pulmonary Progress Note ---
Subjective Time Seen by a Provider: 07:54 Subjective/Events-last exam Pt appears to be doing better. Sepsis Event Evaluation Height, Weight, BMI Height: 5'3.00" Weight: 120lbs. oz. 54.485000ix; 36.00 BMI Method:Stated Exam Exam Vital Signs Date Time Temp Pulse Resp B/P (MAP) Pulse Ox O2 Delivery O2 Flow Rate FiO2 02/10/20 06:20 Nasal Cannula 3.00 02/10/20 06:19 94 Nasal Cannula 3.00 02/10/20 04:45 36.2 76 16 178/77 (110) 96 High Flow N/C 4.00 02/10/20 03:24 92 Nasal Cannula 3.00 02/09/20 23:45 36.8 84 16 135/68 (90) 95 High Flow N/C 4.00 02/09/20 22:49 94 Nasal Cannula 4.00 02/09/20 20:11 36.8 84 18 149/76 (100) 96 High Flow N/C 4.00 02/09/20 20:00 Nasal Cannula 2.00 02/09/20 15:51 36.8 90 18 160/77 (104) 95 High Flow N/C 4.00 02/09/20 14:33 93 Nasal Cannula 4.00 02/09/20 11:09 36.5 83 18 135/76 (95) 95 High Flow N/C 2.00 02/09/20 10:25 87 Nasal Cannula 4.00 02/09/20 08:41 Nasal Cannula 2.00 I & O 02/10/20 07:00 Intake Total 2360 ml Output Total 3865 ml Balance -1505 ml Height & Weight Height: 5'3.00" Weight: 120lbs. oz. 54.412123bv; 36.00 BMI Method:Stated General Appearance: No Apparent Distress, WD/WN, Chronically ill, Obese HEENT: PERRL/EOMI Neck: Supple Respiratory: No Accessory Muscle Use, No Respiratory Distress, Crackles, Decreased Breath Sounds, Wheezing Cardiovascular: Regular Rate, Rhythm, No Edema, No Gallop, No JVD, No Murmur, Normal Peripheral Pulses Capillary Refill: NONE Extremity: Normal Capillary Refill, Normal Inspection, Normal Range of Motion, Non Tender, No Calf Tenderness, No Pedal Edema Neurologic/Psychiatric: Alert, Oriented x3, No Motor/Sensory Deficits, Normal Mood/Affect Skin: Warm/Dry Results Lab Laboratory Tests 02/08/20 14:45 02/09/20 05:30 02/10/20 04:45 Assessment/Plan Assessment/Plan Acute on chronic respiratory failure -Improving -D/C Prednisone PNA with sepsis - failed out pt treatment - Omnicef - D/C -Leukocytosis secondary to steroids Pulmonary edema -improved COPDAE -Ria Hummel use -Education DVT/GI PPX Pt is ok from pulmonary standpoint for discharge. D/C steroids and Omnicef today. TUCKER JUSTIN DO Feb 10, 2020 07:59
[2020-02-10 08:27] VITALS: BP 140/63
--- NOTE | 2020-02-10 09:59 | Occupational Ther Daily Note ---
OT Current Status-Daily Note Subjective Pt seen in bed asleep. Pt easily wakes upon entry. Pt alert/ oriented. Pt denies pain, states feels "much better," and desires to go home today. pt agrees to OT tx session. Mental Status/Objective Patient Orientation: Person, Place, Situation Attachments: Oxygen (4L) ADL-Treatment Therapy Code Descriptions/Definitions Functional [place] Measure: 0=Not Assessed/NA 4=Minimal Assistance 1=Total Assistance 5=Supervision or Setup 2=Maximal Assistance 6=Modified [place] 3=Moderate Assistance 7=Complete IndependenceSCALE: Activities may be completed with or without assistive devices. 3-Hhdjsajpnn-jwixhuh completes the activity by him/herself with no assistance from a helper. 5-Set-up or Clean-up Assistance-helper sets up or cleans up; patient completes activity. [place] assists only prior to or following the activity. 4-Supervision or Touching Assistance-helper provides verbal cues and/or t ouching/steadying and/or contact guard assistance as patient completes activity. Assistance may be provided throughout the activity or intermittently. 3-Partial/Moderate Assistance-helper does LESS THAN HALF the effort. [place] lifts, holds or supports trunk or limbs, but provides less than half the effort. 2-Substantial/Maximal Assistance-helper does MORE THAN HALF the effort. [place] lifts or holds trunk or limbs and provides more than half the effort. 0-Sbeuseshq-ofqlii does ALL the effort. Patient does none of the effort to complete the activity. Or, the assistance of 2 or more helpers is required for the patient to complete the activity. If activity was not attempted, code reason: 7-Patient Refused. 9-Not Applicable-not attempted and the patient did not perform the activity before the current illness, exacerbation or injury. 10-Not Attempted due to Environmental Limitations-(lack of equipment, weather restraints, etc.). 88-Not Attempted due to Medical Conditions or Safety Concerns. Eating (QC): 6 Toileting Hygiene (QC): 4 (SBA) Toilet Transfer (QC): 4 (SBA) Other Treatment Pt completes bed mob with SBA to EOB. Sit to stand with SBA, ambulates with 4WW to standard toilet. Pt completes toileting and hygiene with SBA. Pt stands to wash hands, 4WW gets caught on door frame, pt has slight LOB but able to self correct with CGA throughout. pt states no walker at home, pt educated on safety of walker use and benefits. Pt agrees. Pt sits in recliner, educated on UE HEP with handout and theraband given. Pt completes 5 reps bilaterally of 5/5 e xercises with skilled cues for positioning / tension. Pt denies needs, call light on lap, pt left in recliner with all needs met. Education OT Patient Education: Correct positioning, Exercise program, Home exercise program, Progress toward Goal/Update tx plan, Safety issues Teaching Recipient: Patient Teaching Methods: Demonstration, Discussion Response to Teaching: Verbalize Understanding, Return Demonstration OT Senior Care Goals Senior Staff Accountant Goals Time Frame: Feb 14, 2020 Eating (QC): 6 Oral Hygiene (QC): 6 Shower/Bathe Self (QC): 3 Upper Body Dressing (QC): 6 Lower Body Dressing (QC): 6 On/Off Footwear (QC): 6 1=Demonstrate adherence to instructed precautions during ADL tasks. 2=Patient will verbalize/demonstrate understanding of assistive devices/modifications for ADL. 3=Patient will improve strength/tolerance for activity to enable patient to perform ADL's. OT Education/Plan Problem List/Assessment Assessment: Decreased Activ Tolerance, Decreased UE Strength, Impaired Funct Balance, Impaired I ADL's, Impaired Self-Care Skills Discharge Recommendations Plan/Recommendations: Continue POC Therapy Discharge Recommendati: Scheduled Assistance, Meals on Wheels, Bath Aide, Home & Family Equpiment Recommendations-D/C: Bath Chair Treatment Plan/Plan of Care Treatment,Training & Education: Yes Patient would benefit from OT for education, treatment and training to promote independence in ADL's, mobility, safety and/or upper extremity function for ADL's. Plan of Care: ADL Retraining, Functional Mobility, UE Funct Exercise/Act Treatment Duration: Feb 14, 2020 Frequency: 5 times per week Estimated Hrs Per Day: .25 hour per day Rehab Potential: Fair Time/GCodes Start Time: 09:30 Stop Time: 09:52 Total Time Billed (hr/min): 22 Billed Treatment Time 1, ADL (22) KARLI JOSEPH OTR Feb 10, 2020 09:59
[2020-02-10] MEDS ORDERED: IPRA3AMP31 INH (10:19)
[2020-02-10] MEDS ORDERED: FLUT12AE4 IH (10:19)
[2020-02-10] MEDS ORDERED: PRED10TA22 PO (10:19)
[2020-02-10] MEDS ORDERED: GUAI600T43 PO (10:19)
--- NOTE | 2020-02-10 10:22 | D/C HH Face to Face Order ---
D/C Face to Face Orders Reconcile Patient Problems Problems Reviewed?: Yes Instructions for Patient Home Health Patient Instructions/FollowUp: [facility] 1 week Physician to follow Patient: [facility] Discharge Diet for Home: No Restrictions Patient Problems: COPD Goals for Patient: Long Patient Data-Allergies,Ht & Wt Patient Allergies: Coded Allergies: No Known Drug Allergies (Unverified , 03/06/17) Height (Feet): 5 Height (Inches): 3.00 Weight (Pounds): 120 Home Health Need/Face to Face Date of Face to Face: Feb 10, 2020 Clinical Findings: Generalized weakness and fatigue, Muscle weakness, Shortness of breath, Unsteady gait I have seen Pt [id number]: Yes Discharged To: Home Diagnosis/Conditions: COPD Patient is Homebound due to: CognItive deficits, [place] fall risk due to instabilty, Shortness of breath/distress Homebound Status Due to the above stated illness, injury or surgical procedure (medical condition or diagnosis) and associated clinical findings, the patient is homebound because of his/her inability to leave home except with aid of a supportive device and/or person AND leaving the home requires a considerable and taxing effort or is medically contraindicated. Pt req the following assistanc: Walker Home Health Nursing Orders Home Health Services Order: Nursing Services, Biometrics Analyst-Evaluate & Treat, Physical Therapy-Evaluate & Treat Home Health Infusion Therapy Line Start Date: Feb 04, 2020 Certify Stmt I certify that this patient is under my care and that I, a nurse practitioner or a physician; a access services assistant working with me, had a face to face encounter that - meets the physician face to face encounter requirements with this patient as dated. ANJUM CAMPOS DO Feb 10, 2020 10:22
--- NOTE | 2020-02-10 10:23 | Discharge Summary ---
Discharge Summary Hospital Course Was the Problem List Reviewed?: Yes Problems/Dx: (1) Respiratory failure Status: Acute Qualifiers: Qualified Codes: J96.21 - Acute and chronic respiratory failure with hypoxia; J96.22 - Acute and chronic respiratory failure with hypercapnia (2) CO2 narcosis Status: Acute (3) Pneumonia Status: Acute (4) Failure of outpatient treatment Status: Acute (5) Acidosis Status: Acute (6) History of confusion Status: Acute (7) History of hallucinations Status: Acute Hospital Course Date of Admission: Feb 04, 2020 at 07:50 Admission Diagnosis : Family Physician/Provider: Gary Silveira MD Date of Discharge: 02/10/20 Discharge Diagnosis: Respiratory failure, AECOPD, HTN, Hospital Course: Hospital Course: Pt had an uneventful hospital course for nearly 7 days for respiratory failure. She was on the ventilator managed by Dr. Ricci and Covid swab was negative. Pt did recover very well. All antibiotics were completed at time of DC and she did require a short course of Prednisone at DC but overall she was restarted on all of her home mediation. Pt already had oxygen at 3 liters at home and did not require any home health services but she will just resume the ones she already had through [facility] and she will be discharged in improved condition with close follow up with [facility]. Labs and Pending Lab Test: Laboratory Tests 02/10/20 04:45: White Blood Count 15.5H, Red Blood Count 3.65L, Hemoglobin 10.9L, Hematocrit 35, Mean Corpuscular Volume 96, Mean Corpuscular Hemoglobin 30, Mean Corpuscular Hemoglobin Concent 31L, Red Cell Distribution Width 14.8H, Platelet Count 383, Mean Platelet Volume 10.0, Neutrophils (%) (Auto) 64, Lymphocytes (%) (Auto) 28, Monocytes (%) (Auto) 5, Eosinophils (%) (Auto) 2, Basophils (%) (Auto) 0, Neutrophils # (Auto) 9.9H, Lymphocytes # (Auto) 4.4H, Monocytes # (Auto) 0.8, Eosinophils # (Auto) 0.3, Basophils # (Auto) 0.0, Sodium Level 138, Potassium Level 4.1, Chloride Level 100, Carbon Dioxide Level 27, Anion Gap 11, Blood Urea Nitrogen 20H, Creatinine 0.82, Estimat Glomerular Filtration Rate > 60, BUN /Creatinine Ratio 24, Glucose Level 83, Calcium Level 8.6, Phosphorus Level 4.2, Magnesium Level 2.6H Microbiology 02/04/20 MRSA Screen - Final, Complete MRSA not isolated 02/04/20 Blood Culture - Final, Complete No growth Home Meds Active Prednisone 10 Mg Tab.ds.pk 10 Mg PO DAILY Take 3 tabs(60mg)daily,decrease by 1 tab(10MG)daily. Mucinex (Guaifenesin) 600 Mg Tab.er.12h 600 Mg PO BID Advair Hfa 115-21 Mcg Inhaler (Fluticasone/Salmeterol) 12 Gm Hfa.aer.ad 2 Puff IH RTBID Iprat-Albut 0.5-3(2.5) mg/3 ml (Ipratropium/Albuterol Sulfate) 3 Ml Ampul.neb 3 Ml INH RTQ4HR Reported Ibuprofen 200 Mg Capsule 800 Mg PO Q8H PRN TAKES 2 (400MG) TABS NEEDED Myrbetriq (Mirabegron) 25 Mg Tab.er.24h 25 Mg PO DAILY Buprenorphine HCl 8 Mg Tab.subl 4 Mg SL BID TAKES OF AN 8MG TAB TWICE DAILY Atorvastatin Calcium 10 Mg Tablet 10 Mg PO DAILY LAST FILLED 10-14-2019 #90 Donepezil HCl 10 Mg Tablet 10 Mg PO HS Pantoprazole Sodium 20 Mg Tablet.dr 40 Mg PO DAILY TAKES 2 (20MG) TABS Clopidogrel (Clopidogrel Bisulfate) 75 Mg Tablet 75 Mg PO DAILY Alprazolam 0.5 Mg Tablet 0.5 Mg PO TID Duloxetine HCl 60 Mg Capsule.dr 60 Mg PO DAILY Aripiprazole 5 Mg Tablet 5 Mg PO HS Memantine HCl 10 Mg Tablet 10 Mg PO BID Levofloxacin 500 Mg Tablet 500 Mg PO DAILY FILLED 01-31-2020 #7 Prednisone 20 Mg Tab 40 Mg PO DAILY TAKES 2 (20MG) TABS FILLED ON 01-31-2020 #10 Trazodone HCl 100 Mg Tablet 100 Mg PO HS Cyclobenzaprine HCl 10 Mg Tablet 10 Mg PO BID Assessment/Pt Instructions [facility] in 1 week Discharge Planning: <30 minutes discharge planning Discharge Instructions Discharge Diet: Regular Diet Activity as Tolerated: Yes Discharge Physical Examination Vital Signs Vital Signs Date Time Temp Pulse Resp B/P (MAP) Pulse Ox O2 Delivery O2 Flow Rate FiO2 02/10/20 08:27 36.8 87 18 140/63 (88) 93 High Flow N/C 4.00 02/06/20 12:00 30 General Appearance: No Apparent Distress, WD/WN, Chronically ill Respiratory: Other (crackles) Cardiovascular: Regular Rate, Rhythm Neurologic/Psychiatric: Alert, Oriented x3 Allergies: Coded Allergies: No Known Drug Allergies (Unverified , 03/06/17) Discharge Summary Date of Admission Feb 04, 2020 at 07:50 Date of Discharge Discharge Date: Feb 10, 2020 Discharge Diagnosis Assessment: Respiratory failure COVID-19 Negative AECOPD Cough HTN PNA Aspiration risk shortly after extubation now regular diet Plan: Home meds O2 Monitor blood pressure Lovenox Advance diet DC soon PT OT (1) Respiratory failure Status: Acute Qualifiers: Qualified Codes: J96.21 - Acute and chronic respiratory failure with hypoxia; J96.22 - Acute and chronic respiratory failure with hypercapnia (2) CO2 narcosis Status: Acute (3) Pneumonia Status: Acute (4) Failure of outpatient treatment Status: Acute (5) Acidosis Status: Acute (6) History of confusion Status: Acute (7) History of hallucinations Status: Acute Clinical Quality Measures DVT/VTE Risk/Contraindication: Risk Factor Score Per Nursin RFS Level Per Nursing on Admit: 4+=Very High ANJUM CAMPOS DO Feb 10, 2020 10:23
--- NOTE | 2020-02-10 11:22 | NUR ---
CM/SS: Visited with pt as to plan for discharge Plan: Pt to return home with [facility] and a Walker from [facility]. Summary: Pt reports feeling better, and ready to go home. She is ok for the walker to be delivered to her home later today. Pt is aware that she will have home care and is ok for it to be through [facility] out of [place]. Pt reports still having her home community based services in place. She is also told that Coreen Main, from [facility] will notified that she will be discharged on today. [facility] [phone]. Coreen Main is notified that pt will be discharged from hospital today.
[2020-02-10 11:38] VITALS: BP 163/73
== END 2020-02-10 13:55 | disposition home health service (06) | DRG 871 ==
LOC: EDUNIT# 06:41 → ER FS 06:44 → ICU 07:50 → ER FS 08:45 → ICU 02-06 12:56 → 4TH 02-07 08:33
PROVIDERS: ADMIT Internal Medicine; ATTEND Internal Medicine
PROC: 5A1945Z Respiratory Ventilation, 24-96 Consecutive Hours (ICD-10-PCS; principal; 2020-02-04)
PROC: 0BH17EZ Insertion of Endotracheal Airway into Trachea, Via Natural or Artificial Opening (ICD-10-PCS; 2020-02-04)
DX: A41.9 Sepsis, unspecified organism (principal); J18.9 Pneumonia, unspecified organism; J96.20 Acute and chronic respiratory failure, unspecified whether with hypoxia or hypercapnia; E87.2 Acidosis; J81.1 Chronic pulmonary edema; J43.9 Emphysema, unspecified; G47.30 Sleep apnea, unspecified; G25.81 Restless legs syndrome; F03.90 Unspecified dementia, unspecified severity, without behavioral disturbance, psychotic disturbance, mood disturbance, and anxiety; M19.91 Primary osteoarthritis, unspecified site; F41.9 Anxiety disorder, unspecified; F31.9 Bipolar disorder, unspecified; Z99.81 Dependence on supplemental oxygen; Z87.891 Personal history of nicotine dependence; Z86.73 Personal history of transient ischemic attack (TIA), and cerebral infarction without residual deficits; Z77.29 Contact with and (suspected) exposure to other hazardous substances; Z20.828 Contact with and (suspected) exposure to other viral communicable diseases
CPT/HCPCS: 31500; 36415; 36569; 36600; 71045; 76937; 80048; 80053; 80202; 80306; 81000; 82805; 82962; 83605; 83735; 83880; 84100; 84132; 84145; 84484; 85007; 85025; 85027; 85610; 85730; 86769; 87040; 87070; 87081; 87205; 87449; 87635; 87899; 94002; 94003; 94640; 94760; 94799; 96374; 96375; 99291

== ENCOUNTER 2020-05-12 17:15 | Observation (INO) | payer MEDICARE, MEDICAID ==
[~2020-05-12] VITALS: Ht 160 cm; Wt 91.6 kg
[~2020-05-12 17:15] MED LIST changes: +ALPR.25T; -ALPR0.254; +ALPR0.5T7 PO; +ARIP5TAB57 PO; +ATOR10TA66 PO; +BUPR8TAB SL; +CEFD300C3 PO; +CLOP75TA28 PO; +DONE10TA41 PO; +DULO60CA59 PO; +FLUT12AE4 IH; +GUAI600T43 PO; +IBUP-2185 PO; +IPRA3AMP31 IH; +IPRA3AMP31 INH; +LEVO500T80 PO; +MEMA10TA57 PO; +MIRA25TA PO; -OXYC-465; +OXYC-556; +PANT20TA18 PO; -PANT40TA3; +PANT40TA52; +PRD20T PO; +PRED10TA22 PO
[2020-05-12 17:56] LABS: ALBUMIN 3.7 GM/DL (3.2-4.5); BASOPHILS % (AUTO) 0 % (0-10); EOSINOPHILS # (AUTO) 0.6 10^3/uL (0.0-0.3); EOSINOPHILS % (AUTO) 6 % (0-10); HEMATOCRIT 37 % (35-52); HEMOGLOBIN 10.9 g/dL (11.5-16.0); LYMPHOCYTES % (AUTO) 30 % (12-44); MEAN CORPUSCULAR HEMOGLOBIN 28 pg (25-34); MEAN CORPUSCULAR HGB CONC 30 g/dL (32-36); MEAN CORPUSCULAR VOLUME 95 fL (80-99); MEAN PLATELET VOLUME 10.1 fL (9.0-12.2); MONOCYTES # (AUTO) 0.7 10^3/uL (0.0-1.0); MONOCYTES % (AUTO) 7 % (0-12); NEUTROPHILS # (AUTO) 5.5 10^3/uL (1.8-7.8); NEUTROPHILS % (AUTO) 56 % (42-75); PLATELET COUNT 340 10^3/uL (130-400); WHITE BLOOD COUNT 9.8 10^3/uL (4.3-11.0)
[2020-05-12 17:57] LABS: CHLORIDE 98 MMOL/L (98-107); POTASSIUM 3.9 MMOL/L (3.6-5.0); SODIUM 141 MMOL/L (135-145)
[2020-05-12 17:58] LABS: CALCIUM 9.2 MG/DL (8.5-10.1)
[2020-05-12 17:59] LABS: GLUCOSE 104 MG/DL (70-105); TOTAL PROTEIN 7.5 GM/DL (6.4-8.2)
[2020-05-12 18:00] LABS: CARBON DIOXIDE 34 MMOL/L (21-32)
[2020-05-12 18:01] LABS: BILIRUBIN,TOTAL 0.2 MG/DL (0.1-1.0)
[2020-05-12 18:02] LABS: ALKALINE PHOSPHATASE 99 U/L (40-136)
[2020-05-12 18:03] LABS: CREATININE SERUM 0.75 MG/DL (0.60-1.30); GFR ESTIMATED > 60
[2020-05-12 18:04] LABS: BUN/CREATININE RATIO 13
[2020-05-12 18:06] LABS: ALANINE AMINOTRANSFERASE 15 U/L (0-55)
--- NOTE | 2020-05-12 18:09 | Diagnostic Imaging Report ---
Indication: Shortness of air and confusion. Time of exam 6:00 p.m. Correlation is made with prior chest from 03/02/2020. Heart size is stable. Left-sided pulmonary infiltrate has cleared since the prior exam. There is minimal parenchymal density in the right base. Otherwise, the lungs are clear. No effusion. There is no pneumothorax. IMPRESSION: Clearing of left-sided infiltrate since the prior exam. Minimal density right base is noted which may represent minimal infiltrate or atelectasis. Dictated by: Dictated on workstation # [id number]
--- NOTE | 2020-05-12 18:10 | Diagnostic Imaging Report ---
PROCEDURE: CT head without contrast. TECHNIQUE: Multiple contiguous axial images were obtained through the brain without the use of intravenous contrast. Auto Exposure Controls were utilized during the CT exam to meet ALARA standards for radiation dose reduction. INDICATION: Altered mental status and confusion. COMPARISON: Correlation is made with prior head CT from 03/01/2020. FINDINGS: Ventricles and sulci are within normal limits. No sulcal effacement or midline shift is detected. No acute intra-axial or extra-axial hemorrhage is detected. Cisterns are patent. Visualized paranasal sinuses are clear. IMPRESSION: No acute intracranial process is detected. Dictated by: Dictated on workstation # [id number]
[2020-05-12] MEDS ORDERED: NS IV 500 ML 500 ML IV ONE (18:21)
--- NOTE | 2020-05-12 18:42 | ED General ---
General Chief Complaint: Altered Mental Status Stated Complaint: AMS Nursing Triage Note: PT STATES HAVING AMS TODAY, STATED IT STARTED ABOUT 0400 TODAY. PT WAS W/O HER HOME O2 FOR A WHILE BEFORE EMS ARRIVAL AND WAS IN THE UPPER 60'S% BUT QUICKLY WENT UP AFTER APPLYING O2. GENERAL PAIN IN KNEES AND BACK WHICH IS NORMAL. Nursing Sepsis Screen: No Definite Risk Source of Information: Patient Exam Limitations: No Limitations (THOMPSON LOPEZ MD) History of Present Illness Date Seen by Provider: May 12, 2020 Time Seen by Provider: 18:05 Initial Comments Here by EMS with report of altered mental status at home. Apparently she had been doing some confusing things at home including trying to make coffee without water etc. Typically this is related to high CO2. EMS bypass Daryn Pedersen and brought her directly here due to usually requiring admission. O2 sats were in the upper 60s on EMS arrival but it did improve after applying oxygen at her typical 3 L. Patient is actually doing much better now and is able to relate the story. She states that she has not been wearing her mask at night for sleep apnea and that usually is what causes this. She states it just causes her anxiety when she wears it but she states that if things are okay she can do that tonight. Denies nausea, vomiting or weakness otherwise. Has had some intermittent diarrhea. Denies dysuria. Reports eating and drinking okay. Timing/Duration: 12 Hours, Changing Over Time Severity: Moderate Modifying Factors: improves with Rest Associated Systoms: No Cough, No Fever/Chills, No Nausea/Vomiting, No Shortness of Air (THOMPSON LOPEZ MD) Allergies and Home Medications Allergies Coded Allergies: No Known Drug Allergies (Unverified , 03/06/17) Home Medications Alprazolam 0.5 Mg Tablet, 0.5 MG PO TID, (Reported) Aripiprazole 5 Mg Tablet, 5 MG PO HS, (Reported) Atorvastatin Calcium 10 Mg Tablet, 10 MG PO HS, (Reported) Clopidogrel Bisulfate 75 Mg Tablet, 75 MG PO DAILY, (Reported) Cyclobenzaprine HCl 10 Mg Tablet, 10 MG PO BID, (Reported) Donepezil HCl 10 Mg Tablet, 10 MG PO HS, (Reported) Duloxetine HCl 60 Mg Capsule.dr, 60 MG PO DAILY, (Reported) Furosemide 20 Mg Tablet, 20 MG PO DAILY, (Reported) Ibuprofen 200 Mg Capsule, 400 MG PO Q6H PRN for PAIN-MILD (1-4), (Reported) Ipratropium/Albuterol Sulfate 3 Ml Ampul.neb, 3 ML IH Q4H PRN for SHORTNESS OF BREATH, (Reported) Memantine HCl 10 Mg Tablet, 10 MG PO BID, (Reported) LAST FILLED 03-03-2020 #60/30 DAY SUPPLY Pantoprazole Sodium 20 Mg Tablet.dr, 20 MG PO DAILY, (Reported) Trazodone HCl 100 Mg Tablet, 100 MG PO HS, (Reported) Patient Home Medication List Home Medication List Reviewed: Yes (THOMPSON LOPEZ MD) Review of Systems Review of Systems Constitutional: see HPI; No chills, No fever EENTM: no symptoms reported Respiratory: No cough, No short of breath; wheezing Cardiovascular: No chest pain, No edema Gastrointestinal: No abdominal pain; diarrhea; No nausea, No vomiting Genitourinary: no symptoms reported Musculoskeletal: back pain (chronic and unchanged); No muscle weakness Psychiatric/Neurological: Denies Headache; Other (altered mental status but improving) (THOMPSON LOPEZ MD) All Other Systems Reviewed Negative Unless Noted: Yes (THOMPSON LOPEZ MD) Past Xprothf-Wfftak-Vuapbw Hx Past Med/Social Hx: Reviewed Nursing Past Med/Soc Hx (THOMPSON LOPEZ MD) Patient Social History Alcohol Use: Denies Use Recreational Drug Use: No Smoking Status: Former Smoker Type Used: Electronic/Vapor, Smokeless Tobacco Former Smoker, Quit: Aug 15, 2018 2nd Hand Smoke Exposure: No Recent Foreign Travel: No Contact w/Someone Who Travel: No Recent Infectious Disease Expo: No Recent Hopitalizations: No (THOMPSON LOPEZ MD) Seasonal Allergies Seasonal Allergies: No (THOMPSON LOPEZ MD) Past Medical History Surgeries: Yes (r eye, DNC, ) Appendectomy, Eye Surgery Respiratory: Yes Sleep Apnea, COPD, Emphysema Currently Using CPAP: Yes Cardiac: No High Cholesterol, Hypertension Neurological: Yes (restless legs) Dementia, Stroke, TIA Genitourinary: No Gastrointestinal: Yes (decreased appetite) Arthritis Endocrine: No HEENT: No Cancer: No Psychosocial: Yes Anxiety, Bipolar, Depression Integumentary: No Blood Disorders: No (THOMPSON LOPEZ MD) Family Medical History Reviewed Nursing Family Hx (THOMPSON LOPEZ MD) Physical Exam Vital Signs Vital Signs - First Documented 05/12/20 05/12/20 17:20 21:15 Temp 36.7 Pulse 88 Resp 18 B/P (MAP) 156/81 (106) Pulse Ox 98 O2 Delivery Nasal Cannula O2 Flow Rate 3.00 FiO2 30 (DOM PIERRE MED STUDENT) Vital Signs Capillary Refill : Less Than 3 Seconds (THOMPSON LOPEZ MD) Height, Weight, BMI Height: 5'3.00" Weight: 120lbs. oz. 54.399032xe; 35.00 BMI Method:Stated General Appearance: No Apparent Distress, WD/WN HEENT: PERRL/EOMI, Pharynx Normal Neck: Non Tender, Supple Respiratory: No Accessory Muscle Use, No Respiratory Distress, Wheezing (few scattered) Cardiovascular: Regular Rate, Rhythm, No Murmur Gastrointestinal: Non Tender, Soft Extremity: Normal Range of Motion, Non Tender Neurologic/Psychiatric: Alert, Oriented x3 Skin: Normal Color, Warm/Dry (THOMPSON LOPEZ MD) Procedures/Interventions Date of ETT Placement: Feb 04, 2020 Time of ETT Placement: 811 (THOMPSON LOPEZ MD) Progress/Results/Core Measures Suspected Sepsis Recent Fever Within 48 Hours: No Infection Criteria Present: None New/Unexplained Altered Menta: Yes Sepsis Screen: No Definite Risk SIRS Temperature: Pulse: 88 Respiratory Rate: 18 Laboratory Tests 05/12/20 17:30: White Blood Count 9.8 Blood Pressure 156 /81 Mean: 106 Laboratory Tests 05/12/20 17:30: Creatinine 0.75, Platelet Count 340, Total Bilirubin 0.2 (THOMPSON LOPEZ MD) Results/Orders Lab Results Laboratory Tests Test 05/12/20 17:30 05/12/20 18:22 05/12/20 20:18 05/13/20 04:45 Range/Units White Blood Count 9.8 9.9 4.3-11.0 10^3/uL Red Blood Count 3.89 3.92 3.80-5.11 10^6/uL Hemoglobin 10.9 L 11.2 L 11.5-16.0 g/dL Hematocrit 37 37 35-52 % Mean Corpuscular Volume 95 94 80-99 fL Mean Corpuscular Hemoglobin 28 29 25-34 pg Mean Corpuscular Hemoglobin Concent 30 L 30 L 32-36 g/dL Red Cell Distribution Width 13.4 13.2 10.0-14.5 % Platelet Count 340 323 130-400 10^3/uL Mean Platelet Volume 10.1 10.2 9.0-12.2 fL Immature Granulocyte % (Auto) 1 1 % Neutrophils (%) (Auto) 56 86 H 42-75 % Lymphocytes (%) (Auto) 30 12 12-44 % Monocytes (%) (Auto) 7 1 0-12 % Eosinophils (%) (Auto) 6 0 0-10 % Basophils (%) (Auto) 0 0 0-10 % Neutrophils # (Auto) 5.5 8.6 H 1.8-7.8 10^3/uL Lymphocytes # (Auto) 3.0 1.1 1.0-4.0 10^3/uL Monocytes # (Auto) 0.7 0.1 0.0-1.0 10^3/uL Eosinophils # (Auto) 0.6 H 0.0 0.0-0.3 10^3/uL Basophils # (Auto) 0.0 0.0 0.0-0.1 10^3/uL Immature Granulocyte # (Auto) 0.1 0.1 0.0-0.1 10^3/uL Sodium Level 141 141 135-145 MMOL/L Potassium Level 3.9 4.4 3.6-5.0 MMOL/L Chloride Level 98 101 98-107 MMOL/L Carbon Dioxide Level 34 H 29 21-32 MMOL/L Anion Gap 9 11 5-14 MMOL/L Blood Urea Nitrogen 10 12 7-18 MG/DL Creatinine 0.75 0.79 0.60-1.30 MG/DL Estimat Glomerular Filtration Rate > 60 > 60 BUN/Creatinine Ratio 13 15 Glucose Level 104 154 H 70-105 MG/DL Calcium Level 9.2 9.0 8.5-10.1 MG/DL Corrected Calcium 9.4 9.3 8.5-10.1 MG/DL Total Bilirubin 0.2 0.2 0.1-1.0 MG/DL Aspartate Amino Transf (AST/SGOT) 15 14 5-34 U/L Alanine Aminotransferase (ALT/SGPT) 15 16 0-55 U/L Alkaline Phosphatase 99 97 40-136 U/L Total Protein 7.5 7.5 6.4-8.2 GM/DL Albumin 3.7 3.6 3.2-4.5 GM/DL Blood Gas Puncture Site LFT RAD Blood Gas Patient Temperature 98.3 Arterial Blood pH 7.33 *L 7.37-7.43 Arterial Blood Partial Pressure CO2 75 *H 35-45 MMHG Arterial Blood Partial Pressure O2 87 79-93 MMHG Arterial Blood HCO3 38 H 23-27 MMOL/L Arterial Blood Total CO2 40.8 H 21.0-31.0 MMOL/L Arterial Blood Oxygen Saturation 96 94-100 % Arterial Blood Base Excess 12.1 H -2.5-2.5 MMOL/L Feliciano Test POS Blood Gas Ventilator Setting NO Blood Gas Inspired Oxygen 2L Urine Color YELLOW Urine Clarity CLOUDY Urine pH 6.0 5-9 Urine Specific [place] 1.015 L 1.016-1.022 Urine Protein NEGATIVE NEGATIVE Urine Glucose (UA) NEGATIVE NEGATIVE Urine Ketones NEGATIVE NEGATIVE Urine Nitrite NEGATIVE NEGATIVE Urine Bilirubin NEGATIVE NEGATIVE Urine Urobilinogen 0.2 < = 1.0 MG/DL Urine Leukocyte Esterase 2+ H NEGATIVE Urine RBC (Auto) 1+ H NEGATIVE Urine RBC 0-2 /HPF Urine WBC 10-25 H /HPF Urine Crystals PRESENT H /LPF Urine Amorphous Sediment FEW ZACH URATES H /LPF Urine Bacteria LARGE H /HPF Urine Casts NONE /LPF Urine Mucus NEGATIVE /LPF Urine Culture Indicated YES (DOM PIERRE X MED STUDENT) Vital Signs/I&O 05/13/20 05/13/20 05/13/20 05/13/20 00:07 02:32 04:30 07:31 Temp 36.1 36.4 Pulse 83 89 Resp 18 18 B/P (MAP) 170/74 (106) 141/69 (93) Pulse Ox 95 93 96 96 O2 Delivery Vapotherm Vapotherm Vapotherm Vapotherm O2 Flow Rate 25.00 25.00 25.00 25.00 30.00 30.00 FiO2 30 30 05/13/20 05/13/20 08:09 10:24 Temp 36.0 Pulse 90 Resp 20 B/P (MAP) 179/75 (109) Pulse Ox 92 92 O2 Delivery Vapotherm Vapotherm O2 Flow Rate 20.00 25.00 30.00 FiO2 30 05/13/20 00:00 Intake Total 500 ml Balance 500 ml (DOM PIERRE MED STUDENT) Vital Signs/I&O Capillary Refill : Less Than 3 Seconds (THOMPSON LOPEZ MD) Blood Pressure Mean: 106 Progress Note : Progress Note Seen and evaluated. IV by EMS. Labs, chest x-ray, CT head, ABG and UA ordered. Normal saline 500 mL bolus. Patient's mentation is improving and we will determine further needs based on ABG. O2 requirement is only 1 L currently to keep sats in the upper 90s. Denies any current contacts or concerns and is afebrile currently. Monitor patient. 2030: Patient's ABG consistent with hypercarbia. She does have history of COPD and obstructive sleep apnea. We did give prednisone 40 mg by mouth as well as albuterol MDI 2 puffs which has helped. We will initiate Vapotherm and 30 L and 30% to keep sats greater than 92% and hopefully that will wash out the CO2. Patient states that she cannot handle the mask which is why were to keep her overnight because we don't have good confidence that she will be able to utilize her mask at home and wash out the CO2 is needed. I discussed this with Dr. Rayo and she agrees. I discussed this with the patient and she agrees. Admit, observation status. Patient agrees with plan. Chest x-ray findings believed to be consistent with atelectasis given presentation and lack of other pneumonia findings. (THOMPSON LOPEZ MD) Diagnostic Imaging Diagonstic Imaging: Xray Plain Films/CT/US/NM/MRI: chest Comments [facility]. [place], [place] NAME: MARQUISE PEDERSEN [facility] REC#: [id number] PT STATUS: REG ER : 1960 PHYSICIAN: KYLE LÓPEZ APRN ADMIT DATE: 05/12/20/ER Signed Date of Exam:05/12/20 CHEST 1 VIEW, AP/PA ONLY Indication: Shortness of air and confusion. Time of exam 6:00 p.m. Correlation is made with prior chest from 03/02/2020. Heart size is stable. Left-sided pulmonary infiltrate has cleared since the prior exam. There is minimal parenchymal density in the right base. Otherwise, the lungs are clear. No effusion. There is no pneumothorax. IMPRESSION: Clearing of left-sided infiltrate since the prior exam. Minimal density right base is noted which may represent minimal infiltrate or atelectasis. Dictated by: Dictated on workstation # [id number] Dict: 05/12/201800 Trans: 05/12/201812 [facility] [id number] Interpreted by: ROSMERY DEVLIN MD Electronically signed by: ROSMERY DEVLIN MD 05/12/201812 Diagonstic Imaging: CT Plain Films/CT/US/NM/MRI: head Comments [facility] [place] [place] NAME: MARQUISE PEDERSEN [facility] REC#: [id number] PT STATUS: REG ER : 1960 PHYSICIAN: KYLE LÓPEZ APRN ADMIT DATE: 05/12/20/ER Signed Date of Exam:05/12/20 CT HEAD WO PROCEDURE: CT head without contrast. TECHNIQUE: Multiple contiguous axial images were obtained through the brain without the use of intravenous contrast. Auto Exposure Controls were utilized during the CT exam to meet ALARA standards for radiation dose reduction. INDICATION: Altered mental status and confusion. COMPARISON: Correlation is made with prior head CT from 03/01/2020. FINDINGS: Ventricles and sulci are within normal limits. No sulcal effacement or midline shift is detected. No acute intra-axial or extra-axial hemorrhage is detected. Cisterns are patent. Visualized paranasal sinuses are clear. IMPRESSION: No acute intracranial process is detected. Dictated by: Dictated on workstation # [id number] Dict: 05/12/201802 Trans: 05/12/201812 [facility] [id number] Interpreted by: ROSMERY DEVLIN MD Electronically signed by: ROSMERY DEVLIN MD 05/12/201812 (THOMPSON LOPEZ MD) Departure Communication (Admissions) Time/Spoke to Admitting Phy: 20:30 (THOMPSON LOPEZ MD) Impression Primary Impression: COPD with acute exacerbation Additional Impressions: Hypercarbia Obstructive sleep apnea of adult Disposition: ADMITTED INPATIENT Condition: Stable Admissions Decision to Admit Reason: Admit from ER (General) Decision to Admit/Date: May 12, 2020 Time/Decision to Admit Time: 20:30 (THOMPSON LOPEZ MD) Departure-Patient Inst. Referrals: RADHA CRAFT MD (PCP/Family) Primary Care Physician THOMPSON LOPEZ MD May 12, 2020 18:42 DOM PIERRE MED STUDENT May 13, 2020 11:57
[2020-05-12 19:01] LABS: ABG BASE EXCESS 12.1 MMOL/L (-2.5-2.5); ABG OXYGEN SATURATION 96 % (94-100); ABG PO2 87 MMHG (79-93); ABG TCO2 40.8 MMOL/L (21.0-31.0)
[2020-05-12 19:08] LABS: ABG PH 7.33 (7.37-7.43)
[2020-05-12 19:10] LABS: ABG PCO2 75 MMHG (35-45)
[2020-05-12 19:11] LABS: ALLENS TEST POS; INSPIRED O2 2L; PATIENT TEMP 98.3; VENTILATOR NO
[2020-05-12] MEDS ORDERED: predniSONE 20 MG TAB PO ONE (19:45)
[2020-05-12] MEDS: RT-ALBUTEROL INHALER HFA (VENTOLIN HFA) 18 GM IH SCH (20:03)
[2020-05-12 20:27] LABS: BILIRUBIN,URINE NEGATIVE (NEGATIVE); CLARITY,URINE CLOUDY; COLOR,URINE YELLOW; GLUCOSE, URINE (UA) NEGATIVE (NEGATIVE); KETONES,URINE NEGATIVE (NEGATIVE); LEUKOCYTE ESTERASE ,URINE 2+ (NEGATIVE); NITRITE,URINE NEGATIVE (NEGATIVE); PROTEIN,URINE NEGATIVE (NEGATIVE)
[2020-05-12] MEDS ORDERED: ACETAMINOPHEN 325 MG TABLET PO ONE (21:00)
--- NOTE | 2020-05-12 21:15 | NUR ---
MARQUISE PEDERSEN admitted to room 413-1, with an admitting diagnosis of ACUTE COPD EXACERBATION, on 05/12/20 from [facility] [place] via WHEELCHAIR, accompanied by STAFF.MARQUISE PEDERSEN introduced to surroundings, call light, bed controls, phone, TV, temperature control, lights, meal times, smoking policy, visitor policy, side rail policy, bathrooms and showers. Patient Rights given to patient in the handbook. MARQUISE PEDERSEN verbalizes understanding that [facility] is not responsible for the loss or damage to any personal effects or valuables that are kept in the patients possession during their hospitalization. Patient and/or family were informed about the Rapid Response Team and its purpose.
[2020-05-12 21:32] LABS: AMORPHOUS SEDIMENT,UR FEW AMOR URATES /LPF; BACTERIA,URINE LARGE /HPF; RBC,URINE 0-2 /HPF
[2020-05-12 21:46] VITALS: BP 167/76
[2020-05-13] MEDS ORDERED: RT-ALBUTEROL/IPRATROPIUM 3 ML (DUONEB) VIAL INH PRN
[2020-05-13 00:07] VITALS: BP 170/74
[2020-05-13] MEDS: RT-ALBUTEROL INHALER HFA (VENTOLIN HFA) 18 GM IH SCH ×4 (02:31→14:48)
[2020-05-13 04:30] VITALS: BP 141/69
[2020-05-13 05:08] LABS: BASOPHILS % (AUTO) 0 % (0-10); EOSINOPHILS % (AUTO) 0 % (0-10); HEMATOCRIT 37 % (35-52); HEMOGLOBIN 11.2 g/dL (11.5-16.0); LYMPHOCYTES # (AUTO) 1.1 10^3/uL (1.0-4.0); LYMPHOCYTES % (AUTO) 12 % (12-44); MEAN CORPUSCULAR HEMOGLOBIN 29 pg (25-34); MEAN CORPUSCULAR HGB CONC 30 g/dL (32-36); MEAN CORPUSCULAR VOLUME 94 fL (80-99); MEAN PLATELET VOLUME 10.2 fL (9.0-12.2); MONOCYTES # (AUTO) 0.1 10^3/uL (0.0-1.0); MONOCYTES % (AUTO) 1 % (0-12); NEUTROPHILS # (AUTO) 8.6 10^3/uL (1.8-7.8); NEUTROPHILS % (AUTO) 86 % (42-75); PLATELET COUNT 323 10^3/uL (130-400); WHITE BLOOD COUNT 9.9 10^3/uL (4.3-11.0)
[2020-05-13 06:33] LABS: ALANINE AMINOTRANSFERASE 16 U/L (0-55); ALBUMIN 3.6 GM/DL (3.2-4.5); ALKALINE PHOSPHATASE 97 U/L (40-136); BILIRUBIN,TOTAL 0.2 MG/DL (0.1-1.0); BUN/CREATININE RATIO 15; CARBON DIOXIDE 29 MMOL/L (21-32); CHLORIDE 101 MMOL/L (98-107); CREATININE SERUM 0.79 MG/DL (0.60-1.30); GFR ESTIMATED > 60; GLUCOSE 154 MG/DL (70-105); POTASSIUM 4.4 MMOL/L (3.6-5.0); SODIUM 141 MMOL/L (135-145); TOTAL PROTEIN 7.5 GM/DL (6.4-8.2)
[2020-05-13] MEDS ORDERED: predniSONE 20 MG TAB PO SCH (07:00)
[2020-05-13] MEDS ORDERED: RT-ALBUTEROL/IPRATROPIUM 3 ML (DUONEB) VIAL INH SCH (07:00)
[2020-05-13] MEDS ORDERED: ENOXAPARIN 40 MG/0.4 ML (LOVENOX) SYR SQ SCH (07:30)
[2020-05-13 08:09] VITALS: BP 179/75
[2020-05-13] MEDS ORDERED: IBUP-2185 PO (10:57)
[2020-05-13] MEDS ORDERED: FURO20TA4 PO (10:57)
--- NOTE | 2020-05-13 11:00 | NUR ---
SPOKE WITH THE PT, WENT THRU THE EXT MED HISTORY AND CALLED [facility] TO COMPLETE THE MED REC [facility] WAS LAST FILLED 03-03-2020 #60/30DS-I DID INCLUDE THE PAST DUE FILL DATE ON THE MED REC OTC MEDS: IBUPROFEN
--- NOTE | 2020-05-13 11:46 | NUR ---
CM/SS: Visited with pt as to plan for discharge and her need for compliance Plan: Pt to return home with no identified services - however pt does have home community based services for 20 1/4 hours per week. Summary: Pt is reporting that she was not wearing her oxygen as she is supposed too, she became short of breath and some confusion noted. Pt is reminded to follow what she needs to do in wearing her oxygen and be compliant with what the doctor has told her. Pt does verbalize understanding with doing what she needs to do. She does continue to have Home Community Based Service hours for 20 1/4 per week. she reports her [employer] Block Splitter Operator is Coreen Main. This worker will follow up with Coreen Main with [facility]. Email sent to [facility] Block Splitter Operator. Pt does have a ride that will pick her up and they will bring her oxygen with then when they come.
--- NOTE | 2020-05-13 11:56 | Short Stay Summary ---
IGNACIODOM X MED STUDENT 05/13/20 1156: HPI History of Present Illness: 59 y/o F presented w/ AMS. Monday night, thinks pt wasn't talking right. 4 PM last night, pt was wheezing and talking odd. Pt was getting confused about conversations and no preforming daily tasks properly. 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 Pt states she was here in January, Feb, and Mar for the same reasons. She had COPD exacerbations b/c she wasn't using her cpap/bipap machine. Pt states her mask was too big and covered her whole face to where she felt claustrophobic wearing it and decline to use the machine. Pt had mask switched to a smaller more comfortable version 2 wks ago. Pt states her doctor had pt use machine for 1 hr/d but wanted it to slowly progress up to 2hr/d and eventually to entire night. Pt is on 3L O2 at home all the time. Pt received predispose last night and this morning. Currently, pt has been eating, going to bathroom, and walking around w/o difficulty. Pt states she feels better, denies wheezing today or AMS. Pt would like to go home. Source: patient Exam Limitations: no limitations Date seen by provider: May 13, 2020 Time Seen by Provider: 08:00 Attending Physician Mikaela Manuel MD PCP Gary Silveira MD Consult Date of Admission May 12, 2020 at 20:54 Home Medications Home Medications Reviewed patient Home Medication Reconciliation performed by pharmacy medication reconciliations relay technician and/or nursing. Patients Allergies have been reviewed Meds: alprazolam, aripiprazole, atorvastatin, cefdinir, clopidogrel, cyclobenzaprine, donepezil, duloxetine, albuterol, memantine, pantoprazole, predispose, trazodone Allergies Coded Allergies: No Known Drug Allergies (Unverified , 03/06/17) JOK-Sfqowf-Mjsmfh Hx Patient Social History Marrital Status: Number of Children: 2 Alcohol Use: Denies Use Recreational Drug Use: No Smoking Status: Former Smoker (quit Jul 2018. was 2.5-3 pkd) Type Used: Electronic/Vapor, Smokeless Tobacco 2nd Hand Smoke Exposure: No Recent Foreign Travel: No Contact w/other who traveled: No Recent Hopitalizations: No Recent Infectious Disease Expo: No Immunizations Up To Date Date of Pneumonia Vaccine: Apr 30, 2019 Past Medical History PMH: COPD, anxiety, bipolar, depression, high cholesterol, stroke, dementia (early onset of short term memory), arthritis Family Medical History Significant Family History: Asthma, Heart Disease, Stroke (father @38 y/o) Review of Systems ([facility]) Constitutional: no symptoms reported, see HPI EENTM: see HPI, no symptoms reported Respiratory: wheezing Cardiovascular: no symptoms reported, see HPI Gastrointestinal: no symptoms reported, see HPI Genitourinary: no symptoms reported, see HPI Musculoskeletal: no symptoms reported, see HPI Skin: no symptoms reported, see HPI Psychiatric/Neurological: Other (AMS) Physical Exam-([facility]) Physical Exam Vital Signs VS - Last 72 Hours, by Label 05/12/20 05/12/20 05/12/20 05/12/20 17:20 21:11 21:15 21:46 Temp 36.7 36.8 36.4 Pulse 88 81 83 Resp 18 18 20 B/P (MAP) 156/81 (106) 153/68 (106) 167/76 Pulse Ox 98 100 97 O2 Delivery Nasal Cannula Vapotherm Vapotherm Vapotherm O2 Flow Rate 3.00 25.00 25.00 30.00 FiO2 30 05/12/20 05/12/20 05/13/20 05/13/20 21:49 23:47 00:07 02:32 Temp 36.1 Pulse 88 83 Resp 18 B/P (MAP) 170/74 (106) Pulse Ox 98 98 95 93 O2 Delivery Vapotherm Vapotherm Vapotherm O2 Flow Rate 25.00 25.00 25.00 30.00 FiO2 30 3 30 05/13/20 05/13/20 05/13/20 05/13/20 04:30 07:31 08:09 10:24 Temp 36.4 36.0 Pulse 89 90 Resp 18 20 B/P (MAP) 141/69 (93) 179/75 (109) Pulse Ox 96 96 92 92 O2 Delivery Vapotherm Vapotherm Vapotherm Vapotherm O2 Flow Rate 25.00 25.00 20.00 25.00 30.00 30.00 FiO2 30 30 Capillary Refill : Less Than 3 Seconds General Appearance: WD/WN, no apparent distress Respiratory: no accessory muscle use, decreased breath sounds, wheezing Cardiovascular: regular rate, rhythm Neurologic/Psychiatric: alert, normal mood/affect, oriented x 3 Short Stay Diagnosis Discharge Diagnosis-Short Stay Admission Diagnosis COPD exacerbation Final Discharge Diagnosis COPD exacerbation Conclusion Plan - continue albuterol and COPD medication (ICS) - continue cpap/bipap and use as much as possible - continue oxygen - possible discharge today Clinical Quality Measures DVT/VTE Risk/Contraindication: Risk Factor Score Per Nursin RFS Level Per Nursing on Admit: 4+=Very High Copy Copies To 1: BRENNAN MAJOR DO Assessment/Plan Assessment/Plan Admission Dx COPD exacerbation. Admission Status: Observation Assessment & Plan COPD exacerbation: - continue albuterol and COPD medication (ICS) - continue cpap/bipap and use as much as possible - continue oxygen - possible discharge today Supervisory-Addendum Brief Verification & Attestation Participated in pt care: history, physical Personally performed: exam, history Care discussed with: Medical Student Procedures: n/a n/a MIKAELA MANUEL MD 05/13/20 1651: HPI History of Present Illness: Time Seen by Provider: 11:00 Home Medications Allergies Coded Allergies: No Known Drug Allergies (Unverified , 03/06/17) Short Stay Diagnosis Discharge Diagnosis-Short Stay Admission Diagnosis Acute on chronic hypercapneic respiratory failure COPD exacerbation Dementia Final Discharge Diagnosis Acute on chronic hypercapneic respiratory failure- she had marked improvement in cognition with vapotherm overnight at high flow, and was anxious to go home, she stated she would use her bipap at home as much as possible. COPD exacerbation- prednisone burst Dementia- continue home medications, mental status normal on d/c Conclusion Plan See discharge diagnosis Copy Copies To 1: BRENNAN MAJOR DO Supervisory-Addendum Brief Verification & Attestation Participated in pt care: history, MDM, physical Personally performed: exam, history, MDM Care discussed with: Medical Student Procedures: n/a I personally saw and examined this patient today and performed my own exam and history which match that documented by the student. I formed the plan of care and agree with documentation. DOM PIERRE MED STUDENT May 13, 2020 11:56 MIKAELA MANUEL MD May 13, 2020 16:51
[2020-05-13 12:25] VITALS: BP 151/70
[2020-05-13] MEDS ORDERED: PRD20T PO (12:38)
--- NOTE | 2020-05-13 12:40 | Discharge Summary ---
Discharge [facility] Discharge Medications New, Converted or Re-Newed RX: Transmitted to Pharmacy New Medications: Prednisone (Prednisone) 20 Mg Tab 40 MG PO DAILY@0700 for 4 Days, #4 TAB 0 Refills Continued Medications: Alprazolam (Alprazolam) 0.5 Mg Tablet 0.5 MG PO TID, TAB Aripiprazole (Aripiprazole) 5 Mg Tablet 5 MG PO HS, TAB Atorvastatin Calcium (Atorvastatin Calcium) 10 Mg Tablet 10 MG PO HS, TAB Clopidogrel Bisulfate (Clopidogrel) 75 Mg Tablet 75 MG PO DAILY, TAB Cyclobenzaprine HCl (Cyclobenzaprine HCl) 10 Mg Tablet 10 MG PO BID, TAB Donepezil HCl (Donepezil HCl) 10 Mg Tablet 10 MG PO HS, TAB Duloxetine HCl (Duloxetine HCl) 60 Mg Capsule.dr 60 MG PO DAILY, CAP Furosemide (Furosemide) 20 Mg Tablet 20 MG PO DAILY, TAB Ibuprofen (Ibuprofen) 200 Mg Capsule 400 MG PO Q6H PRN for PAIN-MILD (1-4), CAP Ipratropium/Albuterol Sulfate (Iprat-Albut 0.5-3(2.5) mg/3 ml) 3 Ml Ampul.neb 3 ML IH Q4H PRN for SHORTNESS OF BREATH, EACH Memantine HCl (Memantine HCl) 10 Mg Tablet 10 MG PO BID, TAB LAST FILLED 03-03-2020 #60/30 DAY SUPPLY Pantoprazole Sodium (Pantoprazole Sodium) 20 Mg Tablet.dr 20 MG PO DAILY, TAB Trazodone HCl (Trazodone HCl) 100 Mg Tablet 100 MG PO HS, TAB Patient Instructions Goal/Follow Up Appt: Follow up with Dr. Shane within a week of discharge. Patient Instructions: Use your bipap as much as possible, especially when sleeping. Return to The Hospital For: Fever, shortness of breath, confusion Activity & Diet Discharge Diet: Cardiac Diet Activity as Tolerated: Yes Copy Copies To 1: BRENNAN SHANE BETHANY N MD May 13, 2020 12:40
[2020-05-13 13:50] VITALS: BP 151/70
== END 2020-05-13 13:50 | disposition home or self-care (01) ==
LOC: EDUNIT# 17:15 → ER 17:16 → 4TH 20:54
PROVIDERS: ADMIT Family Medicine; ATTEND Family Medicine
DX: J44.1 Chronic obstructive pulmonary disease with (acute) exacerbation (principal); J96.22 Acute and chronic respiratory failure with hypercapnia; E78.00 Pure hypercholesterolemia, unspecified; I10 Essential (primary) hypertension; F41.9 Anxiety disorder, unspecified; F32.9 Major depressive disorder, single episode, unspecified; M19.90 Unspecified osteoarthritis, unspecified site; G47.33 Obstructive sleep apnea (adult) (pediatric); F03.90 Unspecified dementia, unspecified severity, without behavioral disturbance, psychotic disturbance, mood disturbance, and anxiety; R41.82 Altered mental status, unspecified; Z79.51 Long term (current) use of inhaled steroids; Z79.899 Other long term (current) drug therapy; Z87.891 Personal history of nicotine dependence; Z86.73 Personal history of transient ischemic attack (TIA), and cerebral infarction without residual deficits
CPT/HCPCS: 36415; 70450; 71045; 80053; 81000; 82805; 85025; 87088; 94640; 94760; G0378

== ENCOUNTER → 2021-09-20 | Outpatient (CLI) | payer MEDICARE, MEDICAID ==
[~2021-09-20] MED LIST changes: +CYCL10TA25 PO; -CYCL10TA9 PO; +FURO20TA4 PO; -LEVO500T80 PO; +LEVO500T81 PO
[2021-09-20 11:48] LABS: ABG BASE EXCESS 9.6 MMOL/L (-2.5-2.5); ABG OXYGEN SATURATION 98 % (94-100); ABG PCO2 67 MMHG (35-45); ABG PO2 104 MMHG (79-93); ABG TCO2 37.4 MMOL/L (21.0-31.0)
[2021-09-20 12:33] LABS: ABG PH 7.34 (7.37-7.43); ALLENS TEST POS; INSPIRED O2 3L; PATIENT TEMP 37; VENTILATOR NO
== END ==
LOC: LAB 10:56
PROVIDERS: ATTEND Emergency Medicine
DX: J96.12 Chronic respiratory failure with hypercapnia (principal)
CPT/HCPCS: 36600; 82805

== ENCOUNTER 2022-09-15 11:38 | Emergency (ER) | payer MEDICARE, MEDICAID ==
[~2022-09-15] VITALS: Ht 160 cm; Wt 94.0 kg
[~2022-09-15 11:38] MED LIST changes: +CLOP-31 PO; -CLOP75TA69 PO; +LEVO-55 PO; -LEVO500T81 PO
[2022-09-15] MEDS: TETANUS,DIPTH,PERTUSS P/F (BOOSTRIX) 0.5 ML VIAL IM ONE (11:54)
--- NOTE | 2022-09-15 11:59 | ED Head Injury ---
General Chief Complaint: Head/Cervical Problems Stated Complaint: FALL; HEAD LAC; DENTAL INJ Source: patient, family Exam Limitations: no limitations History of Present Illness Date Seen by Provider: Sep 15, 2022 Time Seen by Provider: 11:44 Initial Comments 62-year-old female who is on Plavix presents to the emergency department today after a fall. She states she was bleeding from her posterior scalp and "knocked out of 2." She tells me she was bending over to feed her dog, lost her balance and fell to the ground, striking her head on the floor. She did not lose consciousness she is on Plavix. She has no other injuries. She does not know when her last tetanus shot was Allergies and Home Medications Allergies Coded Allergies: No Known Drug Allergies (Unverified , 03/06/17) Patient Home Medication List Home Medication List Reviewed: Yes Alprazolam (Alprazolam) 0.5 Mg Tablet, 0.5 MG PO TID, (Reported) Entered as Reported by: JOHNNY ORDAZ on 02/05/20 151 Aripiprazole (Aripiprazole) 5 Mg Tablet, 5 MG PO HS, (Reported) Entered as Reported by: JOHNNY ORDAZ on 02/05/20 151 Atorvastatin Calcium (Atorvastatin Calcium) 10 Mg Tablet, 10 MG PO HS, (Reported) Entered as Reported by: JOHNNY ORDAZ on 02/05/20 1516 Clopidogrel Bisulfate (Clopidogrel) 75 Mg Tablet, 75 MG PO DAILY, (Reported) Entered as Reported by: JOHNNY ORDAZ on 02/05/20 1516 Cyclobenzaprine HCl (Cyclobenzaprine HCl) 10 Mg Tablet, 10 MG PO BID, (Reported) Entered as Reported by: KRISTINA CHAMBERLAIN on 09/13/18 1229 Donepezil HCl (Donepezil HCl) 10 Mg Tablet, 10 MG PO HS, (Reported) Entered as Reported by: JOHNNY ORDAZ on 02/05/20 151 Duloxetine HCl (Duloxetine HCl) 60 Mg Capsule.dr, 60 MG PO DAILY, (Reported) Entered as Reported by: JOHNNY ORDAZ on 02/05/20 1516 Furosemide (Furosemide) 20 Mg Tablet, 20 MG PO DAILY, (Reported) Entered as Reported by: JOHNNY ORDAZ on 05/13/20 1057 Ibuprofen (Ibuprofen) 200 Mg Capsule, 400 MG PO Q6H PRN for PAIN-MILD (1-4), (Reported) Entered as Reported by: JOHNNY ORDAZ on 05/13/20 1057 Ipratropium/Albuterol Sulfate (Iprat-Albut 0.5-3(2.5) mg/3 ml) 3 Ml Ampul.neb, 3 ML IH Q4H PRN for SHORTNESS OF BREATH, (Reported) Entered as Reported by: JOHNNY ORDAZ on 03/02/20 1156 Memantine HCl (Memantine HCl) 10 Mg Tablet, 10 MG PO BID, (Reported) Entered as Reported by: JOHNNY ORDAZ on 02/05/20 1516 Pantoprazole Sodium (Pantoprazole Sodium) 20 Mg Tablet.dr, 20 MG PO DAILY, (Reported) Entered as Reported by: JOHNNY ORDAZ on 02/05/20 1516 Prednisone (Prednisone) 20 Mg Tab, 40 MG PO DAILY@0700 Prescribed by: MIKAELA MANUEL on 05/13/20 1238 Trazodone HCl (Trazodone HCl) 100 Mg Tablet, 100 MG PO HS, (Reported) Entered as Reported by: KRISTINA CHAMBERLAIN on 09/13/18 1229 Review of Systems Review of Systems Constitutional: no symptoms reported Eyes: No Symptoms Reported Ears, Nose, Mouth, Throat: no symptoms reported Respiratory: no symptoms reported Cardiovascular: no symptoms reported Gastrointestinal: no symptoms reported Genitourinary: no symptoms reported Musculoskeletal: other (Pain in the back of her head, bleeding) Skin: no symptoms reported Psychiatric/Neurological: No Symptoms Reported Endocrine: No Symptoms Reported Hematologic/Lymphatic: No Symptoms Reported Past Jfntlvj-Fqjlzb-Dnmjuc Hx Patient Social History Tobacco Use?: No Use of E-Cig and/or Vaping dev: No Substance use?: No Alcohol Use?: No Seasonal Allergies Seasonal Allergies: No Past Medical History Surgeries: Yes (r eye, DNC, ) Appendectomy, Eye Surgery Respiratory: Yes Sleep Apnea, COPD, Emphysema Currently Using CPAP: Yes Cardiac: No High Cholesterol, Hypertension Neurological: Yes (restless legs) Dementia, Stroke, TIA Genitourinary: No Gastrointestinal: Yes (decreased appetite) Arthritis Endocrine: No HEENT: No Cancer: No Psychosocial: Yes Anxiety, Bipolar, Depression Integumentary: No Blood Disorders: No Family Medical History Reviewed Nursing Family Hx Asthma, Heart Disease, Stroke Physical Exam Vital Signs Capillary Refill : Height, Weight, BMI Height: 5'3.00" Weight: 120lbs. oz. 54.076519nn; 35.54 BMI Method:Stated General Appearance: WD/WN, no apparent distress HEENT: PERRL/EOMI, TMs normal, pharynx normal, other (Tenderness palpation and abrasion to her posterior scalp. Hemostatic at this time. Patient has poor overall dentition with only 1 lower tooth remaining. There is an area next to this tooth that appears to have a tooth that fractured off at the base. The gingiva is intact. No obvious mandibular fracture, maxillary fracture or other facial trauma.) Neck: non-tender, full range of motion, supple, normal inspection Cardiovascular: regular rate, rhythm, no murmur Respiratory: chest non-tender, lungs clear, normal breath sounds, no respiratory distress, no accessory muscle use Gastrointestinal: normal bowel sounds, non tender, soft, no organomegaly Back: normal inspection, no CVA tenderness, no vertebral tenderness Extremities: normal range of motion, non-tender, normal inspection, no pedal edema, no calf tenderness Skin: normal color, other (There is abrasion posterior scalp. No laceration. Hemostatic.) Procedures/Interventions Date of ETT Placement: Feb 04, 2020 Time of ETT Placement: 811 Progress/Results/Core Measures Results/Orders My Orders Orders - CHARU MCFADDEN DO Ct Head Wo (09/15/22 11:47) Dipht,Pertuss(Acell),Tet Adult (Boostrix (09/15/22 12:00) Departure Communication (Admissions) The patient is hemodynamically stable. She has a chip fracture at the base but no gingival or mandibular involvement. There is no tenderness in this area and it is hemostatic. She has abrasion to posterior scalp. A head CT was obtained as she is on Plavix and has vascular dementia. This is negative. She is discharged home in stable condition with supportive care. Tetanus was updated here in the emergency department. She has no other traumatic injuries Impression Primary Impression: Fall Qualified Codes: W19.XXXA - Unspecified fall, initial encounter Additional Impressions: Scalp abrasion Qualified Codes: S00.01XA - Abrasion of scalp, initial encounter Tooth fracture Qualified Codes: S02.5XXA - Fracture of tooth (traumatic), initial encounter for closed fracture Disposition: HOME, SELF-CARE Condition: Stable Departure-Patient Inst. Referrals: BRENNAN MAJOR DO (PCP) Primary Care Physician Patient Instructions: Abrasions ED, Mouth and Dental Injuries in Adults Add. Discharge Instructions: Continue all previous medications as prescribed. Increase your fluids, rest. Return to the emergency department for any severe concerns. Your tetanus shot was updated in the emergency department today. All discharge instructions reviewed with patient and/or family. Voiced understanding. CHARU MCFADDEN DO Sep 15, 2022 11:59
[2022-09-15 12:11] VITALS: BP 165/71
--- NOTE | 2022-09-15 12:14 | Diagnostic Imaging Report ---
Clinical indications: Patient fell and hit back of head. Exam: Axial CT scan of the brain without IV contrast with coronal and sagittal reformatted images. Auto Exposure Controls were utilized during the CT exam to meet ALARA standards for radiation dose reduction. Comparison: Head CT without contrast dated 05/12/2020. Findings: There is no evidence of acute cerebral infarct, intracranial hemorrhage, or gross mass effect. The brain parenchymal volume appears appropriate for patient's age. There are patchy confluent areas of low-attenuation white matter changes involving both cerebral hemispheres and periventricular regions, likely representing chronic small vessel ischemic disease and leukoaraiosis. There is normal yu-white matter distinction. There is no significant midline shift or herniation. There is no evidence of hydrocephalus. The basal cisterns are unremarkable. There is a small area of extracranial soft tissue swelling involving right posterior aspect of the head with air in the region likely related to recent trauma and laceration. There is no skull fracture. There is also a small area of soft tissue defect involving the left forehead/frontal sinus region which may be related to scarring. Otherwise, the skull, extracranial soft tissue, and orbits are unremarkable. The paranasal sinuses are unremarkable. Temporal bones show no significant abnormality. Impression: 1: There is no evidence of acute intracranial process. There is no skull fracture. 2: Age-related brain parenchymal changes. Dictated by: Dictated on workstation # [id number]
== END 2022-09-15 12:13 | disposition home or self-care (01) ==
LOC: EDUNIT# 11:38 → ER FS 11:39
DX: S02.5XXA Fracture of tooth (traumatic), initial encounter for closed fracture (principal); S00.01XA Abrasion of scalp, initial encounter; Z23 Encounter for immunization; W01.198A Fall on same level from slipping, tripping and stumbling with subsequent striking against other object, initial encounter; X50.1XXA Overexertion from prolonged static or awkward postures, initial encounter
CPT/HCPCS: 70450; 90715

== ENCOUNTER 2022-10-19 12:01 | Emergency (ER) | payer MEDICARE, MEDICAID ==
[~2022-10-19] VITALS: Ht 160 cm; Wt 92.0 kg
[2022-10-19 12:05] VITALS: BP 136/60
[2022-10-19] MEDS ORDERED: methylPREDNISolone 125 MG (Solu-MEDROL) VIAL IVP STA (12:09)
[2022-10-19 12:16] LABS: BASOPHILS # (AUTO) 0.1 10^3/uL (0.0-0.1); BASOPHILS % (AUTO) 1 % (0-10); EOSINOPHILS % (AUTO) 0 % (0-10); HEMATOCRIT 29 % (35-52); HEMOGLOBIN 8.6 g/dL (11.5-16.0); LYMPHOCYTES # (AUTO) 1.8 10^3/uL (1.0-4.0); LYMPHOCYTES % (AUTO) 19 % (12-44); MEAN CORPUSCULAR HEMOGLOBIN 26 pg (25-34); MEAN CORPUSCULAR HGB CONC 29 g/dL (32-36); MEAN CORPUSCULAR VOLUME 88 fL (80-99); MEAN PLATELET VOLUME 10.2 fL (9.0-12.2); MONOCYTES # (AUTO) 0.4 10^3/uL (0.0-1.0); MONOCYTES % (AUTO) 4 % (0-12); NEUTROPHILS # (AUTO) 7.2 10^3/uL (1.8-7.8); NEUTROPHILS % (AUTO) 75 % (42-75); PLATELET COUNT 262 10^3/uL (130-400); WHITE BLOOD COUNT 9.7 10^3/uL (4.3-11.0)
--- NOTE | 2022-10-19 12:28 | ED Dyspnea ---
General Chief Complaint: Respiratory Problems Stated Complaint: LOW O2 Nursing Triage Note: Patient has presented to ER today with short of breath for the last 2 days. Worse with exertion - even walking to the bathroom makes her short of breath. Source of Information: Patient, EMS History of Present Illness Date Seen by Provider: Oct 19, 2022 Time Seen by Provider: 12:01 Initial Comments 62 yo female presenting by EMS with complaints of increased shortness of breath over the last 2 days. She denies fever or chills. She has not had chest pains. She uses oxygen at home at 3 Lpm. She felt more short of breath and like she was working harder to breath. At home her oxygen saturations were reportedly in the 80s and EMS administered a Duoneb breathing treatment with improvement in her breathing and oxygen saturation. She states that she does use inhalers as well as nebulizer treatments at home. She did not feel like she was coughing up more sputum than usual. She did feel like the breathing treatment by EMS had helped with her breathing and got her back to more her baseline. Timing/Duration: Increasing (shortness of breath x 2 days) Severity: Moderate Activities at Onset: Activity Prior Episodes/Possible Cause: Chronic Episodes Modifying Factors: Worse With Activity Associated Symptoms: Cough, Wheezing Allergies and Home Medications Allergies Coded Allergies: No Known Drug Allergies (Unverified , 03/06/17) Patient Home Medication List Home Medication List Reviewed: Yes Alprazolam (Alprazolam) 0.5 Mg Tablet, 0.5 MG PO TID, (Reported) Entered as Reported by: JOHNNY ORDAZ on 02/05/20 151 Aripiprazole (Aripiprazole) 5 Mg Tablet, 5 MG PO HS, (Reported) Entered as Reported by: JOHNNY ORDAZ on 02/05/20 151 Atorvastatin Calcium (Atorvastatin Calcium) 10 Mg Tablet, 10 MG PO HS, (Reported) Entered as Reported by: JOHNNY ORDAZ on 02/05/20 151 Clopidogrel Bisulfate (Clopidogrel) 75 Mg Tablet, 75 MG PO DAILY, (Reported) Entered as Reported by: JOHNNY ORDAZ on 02/05/20 151 Cyclobenzaprine HCl (Cyclobenzaprine HCl) 10 Mg Tablet, 10 MG PO BID, (Reported) Entered as Reported by: KRISTINA CHAMBERLAIN on 09/13/18 1229 Donepezil HCl (Donepezil HCl) 10 Mg Tablet, 10 MG PO HS, (Reported) Entered as Reported by: JOHNNY ORDAZ on 02/05/20 1516 Duloxetine HCl (Duloxetine HCl) 60 Mg Capsule.dr, 60 MG PO DAILY, (Reported) Entered as Reported by: JOHNNY ORDAZ on 02/05/20 1516 Furosemide (Furosemide) 20 Mg Tablet, 20 MG PO DAILY, (Reported) Entered as Reported by: JOHNNY ORDAZ on 05/13/20 1057 Ibuprofen (Ibuprofen) 200 Mg Capsule, 400 MG PO Q6H PRN for PAIN-MILD (1-4), (Reported) Entered as Reported by: JOHNNY ORDAZ on 05/13/20 1057 Ipratropium/Albuterol Sulfate (Iprat-Albut 0.5-3(2.5) mg/3 ml) 3 Ml Ampul.neb, 3 ML IH Q4H PRN for SHORTNESS OF BREATH, (Reported) Entered as Reported by: JOHNNY ORDAZ on 03/02/20 1156 Memantine HCl (Memantine HCl) 10 Mg Tablet, 10 MG PO BID, (Reported) Entered as Reported by: JOHNNY ORDAZ on 02/05/20 1516 Pantoprazole Sodium (Pantoprazole Sodium) 20 Mg Tablet.dr, 20 MG PO DAILY, (Repo rted) Entered as Reported by: JOHNNY ORDAZ on 02/05/20 151 Prednisone (Prednisone) 20 Mg Tab, 40 MG PO DAILY@0700 Prescribed by: MIKAELA MANUEL on 05/13/20 1238 Prednisone (Prednisone) 20 Mg Tab, 40 MG PO DAILY Prescribed by: HONG ETIENNE on 10/19/22 1316 Trazodone HCl (Trazodone HCl) 100 Mg Tablet, 100 MG PO HS, (Reported) Entered as Reported by: KRISTINA CHAMBERLAIN on 09/13/18 1229 Review of Systems Review of Systems Constitutional: No chills, No fever EENTM: No nose congestion Respiratory: see HPI Cardiovascular: No chest pain Gastrointestinal: No nausea, No vomiting Genitourinary: no symptoms reported Musculoskeletal: no symptoms reported Skin: No rash Psychiatric/Neurological: Denies Headache Past Ctupmyh-Zjonut-Yebuor Hx Patient Social History Tobacco Use?: No Smoking Status: Former Smoker Use of E-Cig and/or Vaping dev: No Substance use?: No Alcohol Use?: No Seasonal Allergies Seasonal Allergies: No Past Medical History Surgery/Hospitalization HX: COPD on Home O2 at 3 Lpm Surgeries: Yes (r eye, DNC, ) Appendectomy, Eye Surgery Respiratory: Yes Sleep Apnea, COPD, Emphysema Currently Using CPAP: Yes Cardiac: No High Cholesterol, Hypertension Neurological: Yes (restless legs) Dementia, Stroke, TIA Genitourinary: No Gastrointestinal: Yes (decreased appetite) Arthritis Endocrine: No HEENT: No Cancer: No Psychosocial: Yes Anxiety, Bipolar, Depression Integumentary: No Blood Disorders: No Family Medical History Asthma, Heart Disease, Stroke Physical Exam Vital Signs Vital Signs - First Documented 10/19/22 12:05 Temp 36.7 Pulse 85 Resp 18 B/P (MAP) 136/60 (85) Pulse Ox 93 O2 Delivery Room Air Capillary Refill : Height, Weight, BMI Height: 5'3.00" Weight: 120lbs. oz. 54.906061li; 35.00 BMI Method:Stated General Appearance: No Apparent Distress, Chronically ill, Obese HEENT: PERRL/EOMI, Pharynx Normal Neck: Full Range of Motion, Normal Inspection, Non Tender, Supple Respiratory: Chest Non Tender, No Accessory Muscle Use, No Respiratory Distress, Decreased Breath Sounds, Wheezing (inspiratory and expiratory wheezes) Cardiovascular: Regular Rate, Rhythm, Normal Peripheral Pulses Gastrointestinal: Normal Bowel Sounds, No Pulsatile Mass, Non Tender, Soft Rectal: Deferred Extremity: Normal Capillary Refill, No Calf Tenderness Neurologic/Psychiatric: Alert, Oriented x3 Skin: Normal Color, Warm/Dry Focused Exam Lactate Level 10/19/22 12:00: Lactic Acid Level 1.27 Lactic Acid Level Laboratory Tests Test 10/19/22 12:00 Lactic Acid Level 1.27 MMOL/L (0.50-2.00) Procedures/Interventions Date of ETT Placement: Feb 04, 2020 Time of ETT Placement: 811 Progress/Results/Core Measures Results/Orders Lab Results Laboratory Tests Test 10/19/22 12:00 Range/Units White Blood Count 9.7 4.3-11.0 10^3/uL Red Blood Count 3.34 L 3.80-5.11 10^6/uL Hemoglobin 8.6 L 11.5-16.0 g/dL Hematocrit 29 L 35-52 % Mean Corpuscular Volume 88 80-99 fL Mean Corpuscular Hemoglobin 26 25-34 pg Mean Corpuscular Hemoglobin Concent 29 L 32-36 g/dL Red Cell Distribution Width 16.7 H 10.0-14.5 % Platelet Count 262 130-400 10^3/uL Mean Platelet Volume 10.2 9.0-12.2 fL Immature Granulocyte % (Auto) 2 % Neutrophils (%) (Auto) 75 42-75 % Lymphocytes (%) (Auto) 19 12-44 % Monocytes (%) (Auto) 4 0-12 % Eosinophils (%) (Auto) 0 0-10 % Basophils (%) (Auto) 1 0-10 % Neutrophils # (Auto) 7.2 1.8-7.8 10^3/uL Lymphocytes # (Auto) 1.8 1.0-4.0 10^3/uL Monocytes # (Auto) 0.4 0.0-1.0 10^3/uL Eosinophils # (Auto) 0.0 0.0-0.3 10^3/uL Basophils # (Auto) 0.1 0.0-0.1 10^3/uL Immature Granulocyte # (Auto) 0.2 H 0.0-0.1 10^3/uL Sodium Level 136 135-145 MMOL/L Potassium Level 3.6 3.6-5.0 MMOL/L Chloride Level 95 L 98-107 MMOL/L Carbon Dioxide Level 34 H 21-32 MMOL/L Anion Gap 7 5-14 MMOL/L Blood Urea Nitrogen 15 7-18 MG/DL Creatinine 0.93 0.60-1.30 MG/DL Estimat Glomerular Filtration Rate 70 BUN/Creatinine Ratio 16 Glucose Level 154 H 70-105 MG/DL Lactic Acid Level 1.27 0.50-2.00 MMOL/L Calcium Level 8.7 8.5-10.1 MG/DL Corrected Calcium 9.4 8.5-10.1 MG/DL Magnesium Level 2.0 1.6-2.4 MG/DL Total Bilirubin 0.4 0.1-1.0 MG/DL Aspartate Amino Transf (AST/SGOT) 12 5-34 U/L Alanine Aminotransferase (ALT/SGPT) 8 0-55 U/L Alkaline Phosphatase 120 40-136 U/L C-Reactive Protein 8.58 H <0.50 MG/DL Pro-B-Type Natriuretic Peptide 7118.0 H <125.0 PG/ML Total Protein 8.4 H 6.4-8.2 GM/DL Albumin 3.1 L 3.2-4.5 GM/DL My Orders Orders - HONG ETIENNE MD Cbc With Automated Diff (10/19/22 12:09) Comprehensive Metabolic Panel (10/19/22 12:09) Blood Culture (10/19/22 12:09) Chest 1 View Ap/Pa Only (10/19/22 12:09) Magnesium (10/19/22 12:09) Ekg Tracing (10/19/22 12:09) O2 (10/19/22 12:09) Ed Iv/Invasive Line Start (10/19/22 12:09) Sputum Culture (10/19/22 12:09) Monitor-Rhythm Ecg Trace Only (10/19/22 12:09) Crp Fs (10/19/22 12:09) Lactic Acid Analyzer (10/19/22 12:09) Isolation Central Supply Req (10/19/22 12:09) Probnp Fs (10/19/22 12:09) Methylprednisolone Sod Succ (Solu-Medrol (10/19/22 12:09) Vital Signs/I&O 10/19/22 12:05 Temp 36.7 Pulse 85 Resp 18 B/P (MAP) 136/60 (85) Pulse Ox 93 O2 Delivery Room Air Blood Pressure Mean: 85 Progress Progress Note #1: Progress Note Potential diagnosis of COPD exacerbation, pneumonia, COVID, influenza, acute on chronic respiratory failure, pleural effusion, congestive heart failure. Obtain peripheral IV access and send labs for complete blood count, comprehensive metabolic profile, blood cultures, lactic acid, proBNP. Urinalysis to look for signs of infection. Progress Note #2: Time: 12:57 Progress Note On my personal review and interpretation of her chest x-ray I did not appreciate any acute infiltrate or pleural effusion. Complete blood count was showing anemia with a hemoglobin of 8.6. Comparing to previous blood work from 2 to 3 years ago she had hemoglobin that ran around 10. Comprehensive metabolic profile did not show any acute significant abnormality with her electrolytes to account for her shortness of breath. She had refused the COVID and influenza swab. Her electrocardiogram showed sinus rhythm with a heart rate 74 and appeared stable from tracing on March 01, 2020. Awaiting radiology overread and anticipate discharge to home on steroid burst and follow- up with clinic about her anemia. Progress Note #3: Progress Note I reviewed the radiologist report on the chest x-ray and they did not see any acute infiltrate. They felt there was some mild pulmonary vascular congestion. On recheck of the patient and reviewing results with her she felt like she was improved with her breathing. She was maintaining her oxygen saturation on her home O2. Advised to take the steroid burst and that we had done a dose of Solu- Medrol 125 mg through her IV which we will treat her for today. The next dose would be due tomorrow. Continue to use breathing treatments and inhalers to help with shortness of breath at home. Keep appointment tomorrow with Dr. MAJOR for follow-up. When she follows up she could talk to them about the chronic anemia and if she needed to do anything different as well as her breathing. Initial ECG Impression Date: Oct 19, 2022 Initial ECG Impression Time: 12:40 Initial ECG Rate: 74 Initial ECG Rhythm: Normal Sinus Initial ECG Comparisson: Unchanged (Similar to tracing from March 01, 2020) Comment Personal interpretation and review of her electrocardiogram she has a sinus rhythm with a heart rate of 74 bpm. IN interval [address] elevation. QT interval 399 ms with a QTc interval of 427 ms. Overall this appears similar to tracing from March 01, 2020. Diagnostic Imaging Diagonstic Imaging: Xray Plain Films/CT/US/NM/MRI: chest Comments NAME: MARQUISE PEDERSEN [facility] REC#: [id number] PT STATUS: REG ER : 1960 PHYSICIAN: HONG ETIENNE MD ADMIT DATE: 10/19/22/ER FS Draft Date of Exam:10/19/22 CHEST 1 VIEW AP/PA ONLY INDICATION: Dyspnea. AP upright portable view of the chest is obtained with comparison made to study of 05/12/2020. FINDINGS: Heart size and pulmonary vascularity are at the upper limits of normal. No overt edema is seen. There is no evidence of pneumothorax or significant pleural fluid. IMPRESSION: Borderline cardiomegaly and pulmonary venous congestion without significant edema or other adverse change. Dictated on workstation # [id number] Dict: 10/19/22 1301 Trans: 10/19/22 1303 [id number] Interpreted by: MARIA T SIEGEL MD Electronically signed by: Reviewed: Reviewed by Me Departure Impression Primary Impression: Anemia Qualified Codes: D64.9 - Anemia, unspecified Additional Impression: Increasing shortness of breath Disposition: 01 HOME, SELF-CARE Condition: Stable Departure-Patient Inst. Decision time for Depature: 13:14 Referrals: BRENNAN MAJOR DO (PCP) Primary Care Physician Patient Instructions: Anemia, Possibly From Low Iron, Adult ED, Shortness of Breath, Adult ED Add. Discharge Instructions: Continue using your oxygen to help with your shortness of breath and low oxygen. Take the steroids to help from a COPD standpoint. You were given a first dose here in the emergency department and a prescription was sent to continue daily dosing of this. Check back with the primary care provider for worsening symptoms. You do have some anemia which appears to be chronic with your hemoglobin at 8.6. This can also contribute to your shortness of breath. Follow-up with the clinic to continue to monitor this and see if they need to do any additional testing or vitamin supplementation to help bring your hemoglobin up to a higher level. All discharge instructions reviewed with patient and/or family. Voiced understanding. Scripts Prednisone (Prednisone) 20 Mg Tab 40 MG PO DAILY for COPD for 5 Days, #10 TAB 0 Refills Prov: HONG ETIENNE MD 10/19/22 HONG ETIENNE MD Oct 19, 2022 12:28
[2022-10-19 12:47] LABS: BILIRUBIN,TOTAL 0.4 MG/DL (0.1-1.0); CALCIUM 8.7 MG/DL (8.5-10.1); CREATININE SERUM 0.93 MG/DL (0.60-1.30); POTASSIUM 3.6 MMOL/L (3.6-5.0); TOTAL PROTEIN 8.4 GM/DL (6.4-8.2)
[2022-10-19 12:48] LABS: ALBUMIN 3.1 GM/DL (3.2-4.5)
--- NOTE | 2022-10-19 13:03 | Diagnostic Imaging Report ---
INDICATION: Dyspnea. AP upright portable view of the chest is obtained with comparison made to study of 05/12/2020. FINDINGS: Heart size and pulmonary vascularity are at the upper limits of normal. No overt edema is seen. There is no evidence of pneumothorax or significant pleural fluid. IMPRESSION: Borderline cardiomegaly and pulmonary venous congestion without significant edema or other adverse change. Dictated by: Dictated on workstation # [id number]
[2022-10-19] MEDS ORDERED: PRD20T PO (13:16)
== END 2022-10-19 14:00 | disposition home or self-care (01) ==
LOC: EDUNIT# 12:01 → ER FS 12:02
DX: J43.9 Emphysema, unspecified (principal); F64.9 Gender identity disorder, unspecified; G47.30 Sleep apnea, unspecified; Z99.81 Dependence on supplemental oxygen; Z79.51 Long term (current) use of inhaled steroids; Z87.891 Personal history of nicotine dependence; Z99.89 Dependence on other enabling machines and devices; Z28.310 Unvaccinated for COVID-19
CPT/HCPCS: 36415; 71045; 80053; 83605; 83735; 83880; 85025; 86141; 87040; 93005

== ENCOUNTER 2022-10-19 18:40 | Emergency (ER) | payer MEDICARE, MEDICAID ==
[~2022-10-19] VITALS: Ht 160 cm; Wt 95.0 kg
[2022-10-19] MEDS ORDERED: RT-ALBUTEROL/IPRATROPIUM 3 ML (DUONEB) VIAL INH STA (18:50)
--- NOTE | 2022-10-19 18:55 | ED Dyspnea ---
General Stated Complaint: LOW O2 Source of Information: Patient, EMS, Old Records History of Present Illness Date Seen by Provider: Oct 19, 2022 Time Seen by Provider: 18:40 Initial Comments 62-year-old female presenting with complaints of continued shortness of breath. She was seen earlier this morning with testing which help to rule out acute myocardial infarction as well as pneumonia. She was diagnosed with COPD exacerbation and did receive a dose of steroids. She has really long oxygen tubing at home so her 2 to 3 L that she takes chronically at home is likely not getting enough oxygen to her because of the long tubing. EMS reports when they put her on their oxygen with a shorter tubing she came up to 93 to 94%. They had her at 4 L/min. She denies any other new symptoms or complaints other than she just continued to feel short of breath. Severity: Moderate Activities at Onset: None Prior Episodes/Possible Cause: Chronic Episodes, Frequent Episodes Modifying Factors: Worse With Activity Associated Symptoms: Anxiety, Lightheadedness, Weakness, Wheezing Allergies and Home Medications Allergies Coded Allergies: No Known Drug Allergies (Unverified , 03/06/17) Patient Home Medication List Home Medication List Reviewed: Yes Alprazolam (Alprazolam) 0.5 Mg Tablet, 0.5 MG PO TID, (Reported) Entered as Reported by: JOHNNY ORDAZ on 02/05/20 151 Aripiprazole (Aripiprazole) 5 Mg Tablet, 5 MG PO HS, (Reported) Entered as Reported by: JOHNNY ORDAZ on 02/05/20 151 Atorvastatin Calcium (Atorvastatin Calcium) 10 Mg Tablet, 10 MG PO HS, (Reported) Entered as Reported by: JOHNNY ORDAZ on 02/05/20 151 Clopidogrel Bisulfate (Clopidogrel) 75 Mg Tablet, 75 MG PO DAILY, (Reported) Entered as Reported by: JOHNNY ORDAZ on 02/05/20 151 Cyclobenzaprine HCl (Cyclobenzaprine HCl) 10 Mg Tablet, 10 MG PO BID, (Reported) Entered as Reported by: KRISTINA CHAMBERLAIN on 09/13/18 1229 Donepezil HCl (Donepezil HCl) 10 Mg Tablet, 10 MG PO HS, (Reported) Entered as Reported by: JOHNNY ORDAZ on 02/05/20 151 Duloxetine HCl (Duloxetine HCl) 60 Mg Capsule.dr, 60 MG PO DAILY, (Reported) Entered as Reported by: JOHNNY ORDAZ on 02/05/20 1516 Furosemide (Furosemide) 20 Mg Tablet, 20 MG PO DAILY, (Reported) Entered as Reported by: JOHNNY ORDAZ on 05/13/20 1057 Ibuprofen (Ibuprofen) 200 Mg Capsule, 400 MG PO Q6H PRN for PAIN-MILD (1-4), (Reported) Entered as Reported by: JOHNNY ORDAZ on 05/13/20 1057 Ipratropium/Albuterol Sulfate (Iprat-Albut 0.5-3(2.5) mg/3 ml) 3 Ml Ampul.neb, 3 ML IH Q4H PRN for SHORTNESS OF BREATH, (Reported) Entered as Reported by: JOHNNY ORDAZ on 03/02/20 1156 Memantine HCl (Memantine HCl) 10 Mg Tablet, 10 MG PO BID, (Reported) Entered as Reported by: JOHNNY ORDAZ on 02/05/20 1516 Pantoprazole Sodium (Pantoprazole Sodium) 20 Mg Tablet.dr, 20 MG PO DAILY, (Reported) Entered as Reported by: JOHNNY ORDAZ on 02/05/20 1516 Prednisone (Prednisone) 20 Mg Tab, 40 MG PO DAILY@0700 Prescribed by: MIKAELA MANUEL on 05/13/20 1238 Prednisone (Prednisone) 20 Mg Tab, 40 MG PO DAILY Prescribed by: HONG ETIENNE on 10/19/22 1316 Trazodone HCl (Trazodone HCl) 100 Mg Tablet, 100 MG PO HS, (Reported) Entered as Reported by: KRISTINA CHAMBERLAIN on 09/13/18 1229 Review of Systems Review of Systems Constitutional: No chills; dizziness; No fever; malaise EENTM: no symptoms reported Respiratory: cough, short of breath; No stridor; wheezing Cardiovascular: No chest pain Gastrointestinal: no symptoms reported Genitourinary: no symptoms reported Musculoskeletal: no symptoms reported Skin: no symptoms reported Psychiatric/Neurological: Anxiety Past Uyszxnu-Gwbzfq-Umvjbz Hx Patient Social History Tobacco Use?: Yes Tobacco type used: Cigarettes Seasonal Allergies Seasonal Allergies: No Past Medical History Surgery/Hospitalization HX: COPD on Home O2 at 3 Lpm Surgeries: Yes (r eye, DNC, ) Appendectomy, Eye Surgery Respiratory: Yes Sleep Apnea, COPD, Emphysema Currently Using CPAP: Yes Cardiac: No High Cholesterol, Hypertension Neurological: Yes (restless legs) Dementia, Stroke, TIA Genitourinary: No Gastrointestinal: Yes (decreased appetite) Arthritis Endocrine: No HEENT: No Cancer: No Psychosocial: Yes Anxiety, Bipolar, Depression Integumentary: No Blood Disorders: No Family Medical History Asthma, Heart Disease, Stroke Physical Exam Vital Signs Vital Signs - First Documented 10/19/22 10/19/22 18:59 19:02 Temp 36.6 Pulse 92 Resp 16 B/P (MAP) 119/50 (73) Pulse Ox 88 O2 Delivery Room Air O2 Flow Rate 3.00 Capillary Refill : Height, Weight, BMI Height: 5'3.00" Weight: 120lbs. oz. 54.924627ew; 35.00 BMI Method:Stated General Appearance: No Apparent Distress, Chronically ill, Obese HEENT: PERRL/EOMI, Pharynx Normal Respiratory: Chest Non Tender; No No Accessory Muscle Use, No No Respiratory Distress; Decreased Breath Sounds, Wheezing (Inspiratory and expiratory wheezing) Cardiovascular: Regular Rate, Rhythm, Normal Peripheral Pulses Neurologic/Psychiatric: Alert, Oriented x3, regional merchandising manager II-XII Norm as Tested Skin: Normal Color, Warm/Dry Procedures/Interventions Date of ETT Placement: Feb 04, 2020 Time of ETT Placement: 08 Progress/Results/Core Measures Results/Orders Lab Results Laboratory Tests Test 10/19/22 18:51 Range/Units Bedside Blood Gas pH (LAB) 7.415 H 7.310-7.410 Bedside Blood Gas pCO2 (LAB) 50.0 41.0-51.0 mmHg Bedside Blood Gas pO2 (LAB) 23 *L 80-105 mmHg Bedside Blood Gas HCO3 (LAB) 32.3 H 23.0-28.0 mmol/L POC Blood Gas Total CO2 Calc 34 H 24-29 mmol/L Bedside Bl Gas O2 Saturation (Calc) 40 L 95-98 % Bedside Arterial Blood Base Excess 8 H -2-3 mmol/L My Orders Orders - HONG ETIENNE MD O2 (10/19/22 18:48) Albuterol/Ipra Inhalation Soln (Duoneb I (10/19/22 18:50) Svn Small Volume Nebulizer (10/19/22 18:50) Vital Signs/I&O 10/19/22 10/19/22 18:59 19:02 Temp 36.6 Pulse 92 Resp 16 B/P (MAP) 119/50 (73) Pulse Ox 88 95 O2 Delivery Room Air O2 Flow Rate 3.00 Progress Progress Note #1: Progress Note Potential diagnosis of COPD exacerbation, malfunction of home O2 equipment, noncompliance with treatment. Will obtain room air ABG to help look at her acid-base balance and how well she was exchanging oxygen and CO2. After obtaining the blood gas on room air we will place back on 3 L by nasal cannula and give a DuoNeb breathing treatment. Since she had just had labs and full work-up earlier today will defer repeating other tests for now. If she was not improving or having worsening symptoms then she would warrant having a repeat of testing from a few hours ago. Progress Note #2: Progress Note Blood gas ended up being more venous but she had a normal pH of 7.41. Her PCO2 was 58 and PO2 of 23. As patient was having oxygen saturation in the low 80s this was not consistent with her physical exam findings but more likely again a venous or mixed specimen. Patient was feeling better after nebulizer treatment and was maintaining O2 sat 95 to 98% on her home 3 L. This was with using a shorter amount of tubing for the oxygen and nasal cannula. Encouraged to decrease the amount of tubing she was using at home as the longer the tubing has the less oxygen she is receiving. Advised that she could increase her oxygen to 4 L/min if needed for the next 1 or 2 days while the steroid kicks in. Check ba ck with Dr. MAJOR tomorrow morning as scheduled. As she did not have any other signs of worsening condition and her oxygen was staying up with the 3 L/min which is her home O2 setting, will discharge to home and counseled on return and follow-up precautions. Departure Impression Primary Impression: COPD with acute exacerbation Additional Impression: Hypoxemia Disposition: HOME, SELF-CARE Condition: Stable Departure-Patient Inst. Decision time for Depature: 19:36 Referrals: BRENNAN MAJOR DO (PCP) Primary Care Physician Patient Instructions: COPD Exacerbation, Adult ED, COPD Diet Add. Discharge Instructions: You need to decrease the amount of tubing that you use between your concentrator and your nasal cannula. The longer the tubing is the less oxygen you are recei ving. For the next 1 to 2 days while you are having the shortness of breath and letting the steroid kick in, increase your oxygen to 4 L/min and use the shorter tubing to get more the oxygen to you. Continue to use your nebulizer and inhaler to help with your breathing. Check back with Dr. MAJOR as scheduled tomorrow. HONG ETIENNE MD Oct 19, 2022 18:54
[2022-10-19 20:00] VITALS: BP 116/47
== END 2022-10-19 20:00 | disposition home or self-care (01) ==
LOC: EDUNIT# 18:40 → ER FS 18:42
DX: J44.1 Chronic obstructive pulmonary disease with (acute) exacerbation (principal); R09.02 Hypoxemia; F17.210 Nicotine dependence, cigarettes, uncomplicated; Z99.81 Dependence on supplemental oxygen; Z28.310 Unvaccinated for COVID-19
CPT/HCPCS: 82805; 94640

== ENCOUNTER 2023-01-03 06:49 | Emergency (ER) | payer MEDICARE, MEDICAID ==
--- NOTE | 2023-01-03 07:05 | ED Fall/Injury ---
General Stated Complaint: FALL Source: patient Exam Limitations: no limitations History of Present Illness Date Seen by Provider: Jan 03, 2023 Time Seen by Provider: 07:00 Initial Comments 62-year-old female presents from home via EMS after she had a fall. She states she has had increasing falls over the last couple months. She seen her primary doctor and had a work-up and ultimately this is attributed to vascular dementia and balance issues related to that. She states today she simply lost her balance and fell down, striking her head on the bed. No loss of consciousness. She is on Plavix. She has chronic low back pain which is unchanged. She has had no new pains since the fall. No recent illnesses. No changes in medicines. All other systems reviewed and negative except documented per HPI. Voice recognition software was used to help create this chart Allergies and Home Medications Allergies Coded Allergies: No Known Drug Allergies (Unverified , 03/06/17) Patient Home Medication List Home Medication List Reviewed: Yes Alprazolam (Alprazolam) 0.5 Mg Tablet, 0.5 MG PO TID, (Reported) Entered as Reported by: JOHNNY ORDAZ on 02/05/20 151 Aripiprazole (Aripiprazole) 5 Mg Tablet, 5 MG PO HS, (Reported) Entered as Reported by: JOHNNY ORDAZ on 02/05/20 151 Atorvastatin Calcium (Atorvastatin Calcium) 10 Mg Tablet, 10 MG PO HS, (Reported) Entered as Reported by: JOHNNY ORDAZ on 02/05/20 151 Clopidogrel Bisulfate (Clopidogrel) 75 Mg Tablet, 75 MG PO DAILY, (Reported) Entered as Reported by: JOHNNY ORDAZ on 02/05/20 151 Cyclobenzaprine HCl (Cyclobenzaprine HCl) 10 Mg Tablet, 10 MG PO BID, (Reported) Entered as Reported by: KRISTINA CHAMBERLAIN on 09/13/18 1229 Donepezil HCl (Donepezil HCl) 10 Mg Tablet, 10 MG PO HS, (Reported) Entered as Reported by: JOHNNY ORDAZ on 02/05/20 151 Duloxetine HCl (Duloxetine HCl) 60 Mg Capsule.dr, 60 MG PO DAILY, (Reported) Entered as Reported by: JOHNNY ORDAZ on 02/05/20 151 Furosemide (Furosemide) 20 Mg Tablet, 20 MG PO DAILY, (Reported) Entered as Reported by: JOHNNY ORDAZ on 05/13/20 1057 Ibuprofen (Ibuprofen) 200 Mg Capsule, 400 MG PO Q6H PRN for PAIN-MILD (1-4), (Reported) Entered as Reported by: JOHNNY ORDAZ on 05/13/20 1057 Ipratropium/Albuterol Sulfate (Iprat-Albut 0.5-3(2.5) mg/3 ml) 3 Ml Ampul.neb, 3 ML IH Q4H PRN for SHORTNESS OF BREATH, (Reported) Entered as Reported by: JOHNNY ORDAZ on 03/02/20 1156 Memantine HCl (Memantine HCl) 10 Mg Tablet, 10 MG PO BID, (Reported) Entered as Reported by: JOHNNY ORDAZ on 02/05/20 1516 Pantoprazole Sodium (Pantoprazole Sodium) 20 Mg Tablet.dr, 20 MG PO DAILY, (Reported) Entered as Reported by: JOHNNY ORDAZ on 02/05/20 1516 Prednisone (Prednisone) 20 Mg Tab, 40 MG PO DAILY@0700 Prescribed by: MIKAELA MANUEL on 05/13/20 1238 Prednisone (Prednisone) 20 Mg Tab, 40 MG PO DAILY Prescribed by: HONG ETIENNE on 10/19/22 1316 Trazodone HCl (Trazodone HCl) 100 Mg Tablet, 100 MG PO HS, (Reported) Entered as Reported by: KRISTINA CHAMBERLAIN on 09/13/18 1229 Review of Systems Review of Systems Constitutional: see HPI Past Iasvxiz-Ogjcmd-Rqslym Hx Patient Social History Tobacco Use?: No Use of E-Cig and/or Vaping dev: No Substance use?: No Alcohol Use?: No Seasonal Allergies Seasonal Allergies: No Past Medical History Surgery/Hospitalization HX: COPD on Home O2 at 3 Lpm Surgeries: Yes (r eye, DNC, ) Appendectomy, Eye Surgery Respiratory: Yes Sleep Apnea, COPD, Emphysema Currently Using CPAP: Yes Cardiac: No High Cholesterol, Hypertension Neurological: Yes (restless legs) Dementia, Stroke, TIA Genitourinary: No Gastrointestinal: Yes (decreased appetite) Arthritis Endocrine: No HEENT: No Cancer: No Psychosocial: Yes Anxiety, Bipolar, Depression Integumentary: No Blood Disorders: No Family Medical History Asthma, Heart Disease, Stroke Physical Exam Vital Signs Capillary Refill : Height, Weight, BMI Height: 5'3.00" Weight: 120lbs. oz. 54.813147jb; 37.00 BMI Method:Stated General Appearance: WD/WN, no apparent distress HEENT: normal ENT inspection, pharynx normal Neck: non-tender, full range of motion, supple, normal inspection Cardiovascular: regular rate, rhythm, no murmur Respiratory: chest non-tender, lungs clear, normal breath sounds, no respiratory distress, no accessory muscle use Gastrointestinal: normal bowel sounds, non tender, soft, no organomegaly Extremities: normal range of motion, non-tender, normal inspection, no pedal edema, no calf tenderness Neurologic/Psychiatric: inclusion special educator II-XII nml as tested, no motor/sensory deficits, alert, normal mood/affect, oriented x 3 Skin: normal color, warm/dry Procedures/Interventions Date of ETT Placement: Feb 04, 2020 Time of ETT Placement: 08 Departure Communication (Admissions) Patient is hemodynamically stable. She is on Plavix and did hit her head significantly. There is no obvious trauma to her head. No pain anywhere else that is new though she does endorse some chronic low back pain which is unchanged. This is benign on exam. She has no focal neurologic deficits. CT of her head negative on my pending review of imaging as well as radiology review. No indication for lab work-up at this time. She is discharged home in stable condition with supportive care. Impression Primary Impression: Fall Qualified Codes: W19.XXXA - Unspecified fall, initial encounter Additional Impression: Closed head injury Qualified Codes: S09.90XA - Unspecified injury of head, initial encounter Disposition: 01 HOME, SELF-CARE Condition: Stable Departure-Patient Inst. Referrals: BRENNAN MAJOR DO (PCP/Family) Primary Care Physician Patient Instructions: Minor Head Injury, Preventing Falls ED Add. Discharge Instructions: Use ibuprofen and Tylenol as needed for pain. There is no apparent serious injury from your fall. Follow-up with your primary doctor for any nonemergent needs. CHARU MCFADDEN DO Jan 03, 2023 07:05
[2023-01-03 07:26] VITALS: BP 103/55
--- NOTE | 2023-01-03 07:40 | Diagnostic Imaging Report ---
PROCEDURE: CT head without contrast. TECHNIQUE: Multiple contiguous axial images were obtained through the brain without the use of intravenous contrast. Auto Exposure Controls were utilized during the CT exam to meet ALARA standards for radiation dose reduction. INDICATION: Fall, pain COMPARISON: 09/15/2022 FINDINGS: No intracranial hemorrhage. Mild atrophy. Periventricular and subcortical white matter hypodensities are again identified, most consistent with mild background chronic small vessel white matter ischemic disease. No definite CT evidence of an acute ischemic infarction. No intracranial mass, mass effect, midline shift, herniation, hydrocephalus, or extra-axial fluid collection. The visualized orbits are unremarkable. The visualized paranasal sinuses are clear. Background vascular calcifications. The calvarium and extra calvarial soft tissues are unremarkable. IMPRESSION: Similar-appearing examination without acute intracranial abnormality. Mild atrophy with associated mild background chronic ischemic changes. Dictated by: Dictated on workstation # [id number]
== END 2023-01-03 07:27 | disposition home or self-care (01) ==
LOC: EDUNIT# 06:49 → ER FS 06:51
DX: S09.90XA Unspecified injury of head, initial encounter (principal); F01.50 Vascular dementia, unspecified severity, without behavioral disturbance, psychotic disturbance, mood disturbance, and anxiety; J43.9 Emphysema, unspecified; G47.30 Sleep apnea, unspecified; Z99.81 Dependence on supplemental oxygen; Z79.02 Long term (current) use of antithrombotics/antiplatelets; Z99.89 Dependence on other enabling machines and devices; Z28.310 Unvaccinated for COVID-19; W01.190A Fall on same level from slipping, tripping and stumbling with subsequent striking against furniture, initial encounter
CPT/HCPCS: 70450

== ENCOUNTER 2023-01-03 16:30 | Emergency (ER) | payer MEDICARE, MEDICAID ==
--- NOTE | 2023-01-03 16:39 | ED General ---
General Chief Complaint: General Problems/Pain Stated Complaint: R SIDE PAIN Source of Information: Patient, EMS Exam Limitations: No Limitations History of Present Illness Date Seen by Provider: Jan 03, 2023 Time Seen by Provider: 16:29 Initial Comments 62-year-old female presents to the emergency department via EMS for right-sided pain, leg pain. She was seen here this morning after a fall concerned that she hit her head. She did not have any other concerns at that time. She states since she is gone home she started hurting on the right side, hip, knee and ankle. She has not been able to get up and walk around. All other systems reviewed and negative except documented per HPI. Voice recognition software was used to help create this chart Allergies and Home Medications Allergies Coded Allergies: No Known Drug Allergies (Unverified , 03/06/17) Patient Home Medication List Home Medication List Reviewed: Yes Alprazolam (Alprazolam) 0.5 Mg Tablet, 0.5 MG PO TID, (Reported) Entered as Reported by: JOHNNY ORDAZ on 02/05/20 151 Aripiprazole (Aripiprazole) 5 Mg Tablet, 5 MG PO HS, (Reported) Entered as Reported by: JOHNNY ORDAZ on 02/05/20 1516 Atorvastatin Calcium (Atorvastatin Calcium) 10 Mg Tablet, 10 MG PO HS, (Reported) Entered as Reported by: JOHNNY ORDAZ on 02/05/20 1516 Clopidogrel Bisulfate (Clopidogrel) 75 Mg Tablet, 75 MG PO DAILY, (Reported) Entered as Reported by: JOHNNY ORDAZ on 02/05/20 1516 Cyclobenzaprine HCl (Cyclobenzaprine HCl) 10 Mg Tablet, 10 MG PO BID, (Reported) Entered as Reported by: KRISTINA CHAMBERLAIN on 09/13/18 1229 Donepezil HCl (Donepezil HCl) 10 Mg Tablet, 10 MG PO HS, (Reported) Entered as Reported by: JOHNNY ORDAZ on 02/05/20 151 Duloxetine HCl (Duloxetine HCl) 60 Mg Capsule.dr, 60 MG PO DAILY, (Reported) Entered as Reported by: JOHNNY ORDAZ on 02/05/20 1516 Furosemide (Furosemide) 20 Mg Tablet, 20 MG PO DAILY, (Reported) Entered as Reported by: JOHNNY ORDAZ on 05/13/20 1057 Ibuprofen (Ibuprofen) 200 Mg Capsule, 400 MG PO Q6H PRN for PAIN-MILD (1-4), (Reported) Entered as Reported by: JOHNNY ORDAZ on 05/13/20 1057 Ipratropium/Albuterol Sulfate (Iprat-Albut 0.5-3(2.5) mg/3 ml) 3 Ml Ampul.neb, 3 ML IH Q4H PRN for SHORTNESS OF BREATH, (Reported) Entered as Reported by: JOHNNY ORDAZ on 03/02/20 1156 Memantine HCl (Memantine HCl) 10 Mg Tablet, 10 MG PO BID, (Reported) Entered as Reported by: JOHNNY ORDAZ on 02/05/20 1516 Pantoprazole Sodium (Pantoprazole Sodium) 20 Mg Tablet.dr, 20 MG PO DAILY, (Reported) Entered as Reported by: JOHNNY ORDAZ on 02/05/20 1516 Prednisone (Prednisone) 20 Mg Tab, 40 MG PO DAILY@0700 Prescribed by: MIKAELA MANUEL on 05/13/20 1238 Prednisone (Prednisone) 20 Mg Tab, 40 MG PO DAILY Prescribed by: HONG ETIENNE on 10/19/22 1316 Trazodone HCl (Trazodone HCl) 100 Mg Tablet, 100 MG PO HS, (Reported) Entered as Reported by: KRISTINA CHAMBERLAIN on 09/13/18 1229 Review of Systems Review of Systems Constitutional: see HPI Past Cumcjbu-Pprpbc-Igexib Hx Patient Social History Tobacco Use?: No Use of E-Cig and/or Vaping dev: No Substance use?: No Alcohol Use?: No Immunizations Up To Date First/Initial COVID19 Vaccinat: Denies Seasonal Allergies Seasonal Allergies: No Past Medical History Surgery/Hospitalization HX: COPD on Home O2 at 3 Lpm; TIA; Dementia; High Cholesterol; Eye surgery; Right leg orthopedic surgery; Appendectomy; Cholecysectomy Surgeries: Yes (r eye, DNC, ) Appendectomy, Eye Surgery Respiratory: Yes Sleep Apnea, COPD, Emphysema Currently Using CPAP: Yes Cardiac: No High Cholesterol, Hypertension Neurological: Yes (restless legs) Dementia, Stroke, TIA Genitourinary: No Gastrointestinal: Yes (decreased appetite) Arthritis Endocrine: No HEENT: No Cancer: No Psychosocial: Yes Anxiety, Bipolar, Depression Integumentary: No Blood Disorders: No Family Medical History Asthma, Heart Disease, Stroke Physical Exam Vital Signs Vital Signs - First Documented 01/03/23 16:36 Temp 36.9 Pulse 96 Resp 18 B/P (MAP) 86/66 (73) Pulse Ox 93 O2 Delivery Room Air Capillary Refill : Height, Weight, BMI Height: 5'3.00" Weight: 120lbs. oz. 54.148066rb; 37.00 BMI Method:Stated General Appearance: No Apparent Distress, WD/WN Eyes: Bilateral Eye Normal Inspection, Bilateral Eye PERRL, Bilateral Eye EOMI HEENT: Normal ENT Inspection, Pharynx Normal Neck: Full Range of Motion, Normal Inspection, Non Tender, Supple Respiratory: Chest Non Tender, Lungs Clear, Normal Breath Sounds, No Accessory Muscle Use Cardiovascular: Regular Rate, Rhythm, No Murmur, Normal Peripheral Pulses Gastrointestinal: Normal Bowel Sounds, No Organomegaly, No Pulsatile Mass, Non Tender, Soft Back: Normal Inspection, Vertebral Tenderness (Tenderness to palpation of the lumbar spine midline and bilateral musculoskeletal.) Extremity: Normal Capillary Refill, Normal Inspection, Normal Range of Motion, Non Tender, No Calf Tenderness, Other (There is no swelling or deformity. I am unable to elicit any pain at all to the hip knee femur tib-fib ankle or foot bilaterally with palpation or range of motion. She is able to hold her legs up against gravity.) Neurologic/Psychiatric: Alert, Oriented x3, No Motor/Sensory Deficits, Normal Mood/Affect, international guest coordinator II-XII Norm as Tested Skin: Normal Color, Warm/Dry Procedures/Interventions Date of ETT Placement: Feb 04, 2020 Time of ETT Placement: 08 Progress/Results/Core Measures Suspected Sepsis SIRS Temperature: Pulse: Respiratory Rate: Blood Pressure / Mean: Results/Orders My Orders Orders - CHARU MCFADDEN DO Ct Lumbar Spine Wo (01/03/23 16:35) Fentanyl Inj (Sublimaze Injection) (01/03/23 16:45) Fentanyl Inj (Sublimaze Injection) (01/03/23 17:00) Medications Given in ED Current Medications Medications Dose Ordered Sig/Ana Route Start Time Stop Time Status Last Admin Dose Admin Fentanyl Citrate 50 mcg ONCE ONCE IVP 01/03/23 16:45 01/03/23 16:52 DC 01/03/23 16:59 50 MCG Vital Signs/I&O 01/03/23 16:36 Temp 36.9 Pulse 96 Resp 18 B/P (MAP) 86/66 (73) Pulse Ox 93 O2 Delivery Room Air Capillary Refill : Departure Communication (Admissions) After a bit more discussion the patient tells me really for the last couple of weeks to 1 month she has been unable to really walk much at home. She gets around with a home health aide who comes in twice a day. She is able to transfer to and from the toilet which she has done here without difficulty. She has no saddle anesthesia, no lower extremity weakness on exam. Her CT scan is negative for any acute findings though she does have some mild to moderate sp inal stenosis. This is likely chronic in nature given her chronic pain. Her son is at bedside and we had a significant discussion about custodial placement. They stated that this is something that they have been discussing and he will call the primary doctor tomorrow to see if they can help accommodate. They do feel comfortable with discharge at this time. I did independently reviewed the CT images myself and I see no other acute abnormalities. No fractures Impression Primary Impression: Chronic pain Qualified Codes: G89.29 - Other chronic pain Disposition: HOME, SELF-CARE Condition: Stable Departure-Patient Inst. Referrals: BRENNAN MAJOR DO (PCP/Family) Primary Care Physician Patient Instructions: CHRONIC PAIN Add. Discharge Instructions: Alternate ibuprofen and Tylenol as needed for pains. Transfer to and from the commode as previously recommended. You should use assistive devices to help you get around or wait until your help is at the bedside. Have a discussion with your primary doctor about possible custodial placement. All discharge instructions reviewed with patient and/or family. Voiced understanding. CHARU MCFADDEN DO Jan 03, 2023 16:39
[2023-01-03] MEDS ORDERED: fentaNYL INJ 100 MCG/2 ML AMP IVP ONE (16:45)
[2023-01-03] MEDS ORDERED: fentaNYL INJ 100 MCG/2 ML AMP IM ONE (17:00)
--- NOTE | 2023-01-03 17:16 | Diagnostic Imaging Report ---
PROCEDURE: CT lumbar spine without contrast. TECHNIQUE: Multiple contiguous axial images were obtained through the lumbar spine without the use of intravenous contrast. Sagittal and coronal reformations were then performed. Auto Exposure Controls were utilized during the CT exam to meet ALARA standards for radiation dose reduction. DATE: January 03, 2023. INDICATION: 62-year-old female, low back and leg pain. COMPARISON: None available. FINDINGS: The alignment of the lumbar spine is unremarkable. The lumbar disc heights are well-preserved. CT is limited for assessment of disc pathology as well as additional non-bony causes of pathology in the spinal canal. There are moderate to severe bilateral facet degenerative changes with ligamentum flavum hypertrophy at L4-L5. There are mild bilateral facet degenerative changes at L5-S1. There does appear to be potential at least mild to moderate spinal stenosis at L4-L5, with a diffuse disc bulge at this level. There is no identified compression deformity or fracture of the lumbar spine. The sacroiliac joints are grossly unremarkable in appearance. There are atherosclerotic calcifications. IMPRESSION: 1. L4-L5 diffuse disc bulge and advanced facet degenerative changes with ligamentum flavum hypertrophy, likely causing at least mild to moderate spinal stenosis. 2. No identified compression deformity or fracture. Dictated by: Dictated on workstation # [id number]
[2023-01-03 17:40] VITALS: BP 126/84
== END 2023-01-03 17:41 | disposition home or self-care (01) ==
LOC: EDUNIT# 16:30 → ER FS 16:31
DX: M54.50 Low back pain, unspecified (principal); G89.29 Other chronic pain; J43.9 Emphysema, unspecified; G47.30 Sleep apnea, unspecified; Z99.81 Dependence on supplemental oxygen; Z99.89 Dependence on other enabling machines and devices; W19.XXXA Unspecified fall, initial encounter
CPT/HCPCS: 72131

== ENCOUNTER 2023-01-06 11:47 | Observation (INO) | payer MEDICARE, MEDICAID ==
[2023-01-06] VITALS (7 sets, daily range): BP systolic 99–127; BP diastolic 42–64
[~2023-01-06] VITALS: Ht 160 cm; Wt 96.4 kg
--- NOTE | 2023-01-06 11:55 | ED Respiratory ---
General Chief Complaint: Respiratory Problems Stated Complaint: RESP DISTRESS; LETHARGY History of Present Illness Date Seen by Provider: Jan 06, 2023 Time Seen by Provider: 11:48 Initial Comments See [id number] female with PMH of PD/HTN/multiple CVA's and TIA's, with the last 1 being 10 years ago, is brought in by EMS from [facility] for respiratory distress. EMS reported that when they got to [facility] patient's oxygen saturation was in the 70s, however the oxygen tubing was over 50 feet long, so EMS put a much shorter tubing and the oxygen saturation went up to 90% on 5 L of oxygen. Patient was put on CPAP by EMS and given Solu-Medrol IV and a DuoNeb and was brought to the ER. In the ER patient appears lethargic and tired, and initially was short of breath but able to answer questions slowly due to SOB. Patient is AO x3 in the ER. I called patient's son and spoke with him at length via phone, and he reports that patient started declining in the past 3 months and was unable to take care of herself appropriately. He stated that she became noncompliant medications and took them on and off, and only in the past week has she been compliant with all her medications. Patient's son stated that when they took her to the PCP appointment, her PCP emergently admitted her to [facility] the day before yesterday. Patient's son also reported that all of the symptoms were triggered when the patient fell and hit her head on the end table, for which she had a CT head that was negative at that time. Patient is a full code as per son. Patient's baseline oxygen requirement at home was 3 L, and in [facility] it was 4 L. Allergies and Home Medications Allergies Coded Allergies: No Known Drug Allergies (Unverified , 03/06/17) Patient Home Medication List Home Medication List Reviewed: Yes Alprazolam (Alprazolam) 0.5 Mg Tablet, 0.5 MG PO TID, (Reported) Entered as Reported by: JOHNNY ORDAZ on 02/05/20 151 Aripiprazole (Aripiprazole) 5 Mg Tablet, 5 MG PO HS, (Reported) Entered as Reported by: JOHNNY ORDAZ on 02/05/20 151 Atorvastatin Calcium (Atorvastatin Calcium) 10 Mg Tablet, 10 MG PO HS, (Reported) Entered as Reported by: JOHNNY ODRAZ on 02/05/20 151 Clopidogrel Bisulfate (Clopidogrel) 75 Mg Tablet, 75 MG PO DAILY, (Reported) Entered as Reported by: JOHNNY ORDAZ on 02/05/20 151 Cyclobenzaprine HCl (Cyclobenzaprine HCl) 10 Mg Tablet, 10 MG PO BID, (Reported) Entered as Reported by: KRISTINA CHAMBERLAIN on 09/13/18 1229 Donepezil HCl (Donepezil HCl) 10 Mg Tablet, 10 MG PO HS, (Reported) Entered as Reported by: JOHNNY ORDAZ on 02/05/20 151 Duloxetine HCl (Duloxetine HCl) 60 Mg Capsule.dr, 60 MG PO DAILY, (Reported) Entered as Reported by: JOHNNY ORDAZ on 02/05/20 151 Furosemide (Furosemide) 20 Mg Tablet, 20 MG PO DAILY, (Reported) Entered as Reported by: JOHNNY ORDAZ on 05/13/20 105 Ibuprofen (Ibuprofen) 200 Mg Capsule, 400 MG PO Q6H PRN for PAIN-MILD (1-4), (Reported) Entered as Reported by: JOHNNY ORDAZ on 05/13/20 105 Ipratropium/Albuterol Sulfate (Iprat-Albut 0.5-3(2.5) mg/3 ml) 3 Ml Ampul.neb, 3 ML IH Q4H PRN for SHORTNESS OF BREATH, (Reported) Entered as Reported by: JOHNNY ORDAZ on 03/02/20 1156 Memantine HCl (Memantine HCl) 10 Mg Tablet, 10 MG PO BID, (Reported) Entered as Reported by: JOHNNY ORDAZ on 02/05/20 151 Pantoprazole Sodium (Pantoprazole Sodium) 20 Mg Tablet.dr, 20 MG PO DAILY, (Reported) Entered as Reported by: JOHNNY ORDAZ on 02/05/20 151 Prednisone (Prednisone) 20 Mg Tab, 40 MG PO DAILY@0700 Prescribed by: MIKAELA MANUEL on 05/13/20 1238 Prednisone (Prednisone) 20 Mg Tab, 40 MG PO DAILY Prescribed by: HONG ETIENNE on 10/19/22 1316 Trazodone HCl (Trazodone HCl) 100 Mg Tablet, 100 MG PO HS, (Reported) Entered as Reported by: KRISTINA CHAMBERLAIN on 09/13/18 1229 Review of Systems Review of Systems Constitutional: no symptoms reported EENTM: no symptoms reported Respiratory: short of breath, wheezing Cardiovascular: no symptoms reported Gastrointestinal: no symptoms reported Genitourinary: no symptoms reported Musculoskeletal: no symptoms reported Skin: no symptoms reported Psychiatric/Neurological: No Symptoms Reported Hematologic/Lymphatic: No Symptoms Reported Immunological/Allergic: no symptoms reported Past Mxatdsi-Oyrrin-Ioymkv Hx Immunizations Up To Date First/Initial COVID19 Vaccinat: Denies Second COVID19 Vaccination Brady: Denies Third COVID19 Vaccination Date: Denies Seasonal Allergies Seasonal Allergies: No Past Medical History Surgery/Hospitalization HX: COPD on Home O2 at 3 Lpm; TIA; Dementia; High Cholesterol; Eye surgery; Right leg orthopedic surgery; Appendectomy; Cholecysectomy Surgeries: Yes (r eye, DNC, ) Appendectomy, Eye Surgery Respiratory: Yes Sleep Apnea, COPD, Emphysema Currently Using CPAP: Yes Cardiac: No High Cholesterol, Hypertension Neurological: Yes (restless legs) Dementia, Stroke, TIA Genitourinary: No Gastrointestinal: Yes (decreased appetite) Arthritis Endocrine: No HEENT: No Cancer: No Psychosocial: Yes Anxiety, Bipolar, Depression Integumentary: No Blood Disorders: No Family Medical History Asthma, Heart Disease, Stroke Physical Exam Vital Signs - First Documented Capillary Refill : Height: 5'3.00" Weight: 120lbs. oz. [id number]; 37.00 BMI Method:Stated General Appearance: moderate distress, severe distress (Initially, but improved with treatment), obese HEENT: normal ENT inspection Neck: non-tender, full range of motion Respiratory: respiratory distress, decreased breath sounds (Laterally), accessory muscle use ( initially but improved after second DuoNeb treatment), rhonchi, wheezing (Expiratory) Cardiovascular: regular rate, rhythm, other (Bilateral pitting pedal edema) Gastrointestinal: non tender, soft, hernia (mass felt in midline above umbilicus, likely to be a hernia) Extremities: normal range of motion Neurologic/Psychiatric: alert, oriented x 3 Skin: normal color Focused Exam Lactate Level 01/06/23 11:56: Lactic Acid Level 1.30 Lactic Acid Level Laboratory Tests Test 01/06/23 11:56 Lactic Acid Level 1.30 MMOL/L (0.50-2.00) Procedures/Interventions Date of ETT Placement: Feb 04, 2020 Time of ETT Placement: 08 Progress/Results/Core Measures Suspected Sepsis SIRS Temperature: Pulse: Respiratory Rate: Laboratory Tests 01/06/23 11:56: White Blood Count 8.7 Blood Pressure / Mean: 01/06/23 11:56: Lactic Acid Level 1.30 Laboratory Tests 01/06/23 11:56: Creatinine 1.05, INR Comment 1.0, Platelet Count 149, Total Bilirubin 0.9 Results/Orders Lab Results Laboratory Tests Test 01/06/23 11:56 01/06/23 12:12 Range/Units White Blood Count 8.7 4.3-11.0 10^3/uL Red Blood Count 4.13 3.80-5.11 10^6/uL Hemoglobin 10.4 L 11.5-16.0 g/dL Hematocrit 37 35-52 % Mean Corpuscular Volume 90 80-99 fL Mean Corpuscular Hemoglobin 25 25-34 pg Mean Corpuscular Hemoglobin Concent 28 L 32-36 g/dL Red Cell Distribution Width 19.9 H 10.0-14.5 % Platelet Count 149 130-400 10^3/uL Mean Platelet Volume 10.8 9.0-12.2 fL Immature Granulocyte % (Auto) 1 % Neutrophils (%) (Auto) 70 42-75 % Lymphocytes (%) (Auto) 25 12-44 % Monocytes (%) (Auto) 4 0-12 % Eosinophils (%) (Auto) 0 0-10 % Basophils (%) (Auto) 1 0-10 % Neutrophils # (Auto) 6.1 1.8-7.8 10^3/uL Lymphocytes # (Auto) 2.2 1.0-4.0 10^3/uL Monocytes # (Auto) 0.4 0.0-1.0 10^3/uL Eosinophils # (Auto) 0.0 0.0-0.3 10^3/uL Basophils # (Auto) 0.1 0.0-0.1 10^3/uL Immature Granulocyte # (Auto) 0.1 0.0-0.1 10^3/uL Prothrombin Time 13.8 12.2-14.7 SEC INR Comment 1.0 0.8-1.4 Activated Partial Thromboplast Time 27 24-35 SEC D-Dimer 0.49 0.00-0.49 UG/ML Sodium Level 136 135-145 MMOL/L Potassium Level 4.5 3.6-5.0 MMOL/L Chloride Level 98 98-107 MMOL/L Carbon Dioxide Level 28 21-32 MMOL/L Anion Gap 10 5-14 MMOL/L Blood Urea Nitrogen 17 7-18 MG/DL Creatinine 1.05 0.60-1.30 MG/DL Estimat Glomerular Filtration Rate 60 BUN/Creatinine Ratio 16 Glucose Level 87 70-105 MG/DL Lactic Acid Level 1.30 0.50-2.00 MMOL/L Calcium Level 9.0 8.5-10.1 MG/DL Corrected Calcium 9.7 8.5-10.1 MG/DL Total Bilirubin 0.9 0.1-1.0 MG/DL Aspartate Amino Transf (AST/SGOT) 16 5-34 U/L Alanine Aminotransferase (ALT/SGPT) 20 0-55 U/L Alkaline Phosphatase 124 40-136 U/L Troponin I < 0.30 <0.30 NG/ML Pro-B-Type Natriuretic Peptide 8536.0 H <125.0 PG/ML Total Protein 6.9 6.4-8.2 GM/DL Albumin 3.1 L 3.2-4.5 GM/DL Blood Gas Puncture Site RIGHT RADIAL Blood Gas Patient Temperature 36.6 Arterial Blood pH 7.42 7.37-7.43 Arterial Blood Partial Pressure CO2 53 H 35-45 MMHG Arterial Blood Partial Pressure O2 49 L 79-93 MMHG Arterial Blood HCO3 34 H 23-27 MMOL/L Arterial Blood Total CO2 36.0 H 21.0-31.0 MMOL/L Arterial Blood Oxygen Saturation 85 L 94-100 % Arterial Blood Base Excess 8.4 H -2.5-2.5 MMOL/L Feliciano Test NEGATIVE Blood Gas Ventilator Setting NO Blood Gas Inspired Oxygen 5L My Orders Orders - EMMANUEL CEBALLOS MD Chest 1 View Ap/Pa Only (01/06/23 11:56) Cbc With Automated Diff (01/06/23 11:56) Comprehensive Metabolic Panel (01/06/23 11:56) Fibrin Degradation Products (01/06/23 11:56) Drug Screen Stat (Urine) (01/06/23 11:56) Lactic Acid Analyzer (01/06/23 11:56) Protime With Inr (01/06/23 11:56) Partial Thromboplastin Time (01/06/23 11:56) Ua Culture If Indicated (01/06/23 11:56) Probnp Fs (01/06/23 11:56) Troponin I Fs (01/06/23 11:56) Albuterol/Ipra Inhalation Soln (Duoneb I (01/06/23 12:00) Svn Small Volume Nebulizer (01/06/23 11:59) Albuterol/Ipra Inhalation Soln (Duoneb I (01/06/23 12:49) Svn Small Volume Nebulizer (01/06/23 12:49) Furosemide Injection (Lasix Injection) (01/06/23 13:00) Catheter(Urinary) Insert & Ass 03,15 (01/06/23 13:00) Lidocaine 2% (Urojet) (Xylocaine Urojet) (01/06/23 13:00) Ed Admission (Communication) (01/06/23 13:01) Arterial Blood Gas (01/06/23 13:03) Medications Given in ED Current Medications Medications Dose Ordered Sig/Ana Route Start Time Stop Time Status Last Admin Dose Admin Albuterol/ Ipratropium 3 ml ONCE ONCE INH 01/06/23 12:00 01/06/23 12:01 DC 01/06/23 12:15 3 ML Vital Signs/I&O 01/06/23 01/06/23 12:26 12:26 Temp 36.3 Pulse 86 Resp 28 B/P (MAP) 99/42 (61) Pulse Ox 93 O2 Delivery Room Air Room Air Capillary Refill : Progress Note : Progress Note 1. ACUTE RESPIRATORY DISTRESS: ACUTE COPD EXACERBATION: - CXR: no acute findings - CBC: Normal WBC -Normal lactic acid - D-dimer negative - CMP: unremarkable - ABG done when pt first came into the ER shows a pH of 7.42 with pCO2 at 53 -Solu-Medrol 125 mg IV given in the field by EMS -Lupilloo neb x3. Patient had significant improvement after the second DuoNeb, with oxygen saturation improving to 97% on CPAP with 5L of oxygen. Pt switched to BiPAP with improvement of O2 need -As per son, patient's baseline oxygen requirement is 3 L, and her oxygen requirement at baseline with [facility] was 4 L. -Discussed with hospitalist and accepted for observation admission to stepdown unit. 2. CHF: - BNP is elevated at 8,536 - Troponin is undetectable - Pt has pedal edema, elevated BNP - Would benefit from CHF work-up and cardiology consult, and possibly an ECHO. -Patient does not have a history of CHF. - Lasix held as BP low , and dropped to 90/45 - Dickson cath insertion and will monitor for I/O Diagnostic Imaging Diagonstic Imaging: Xray Plain Films/CT/US/NM/MRI: chest Comments NAME: MARQUISE [facility]EDERSEN [facility] REC#: [id number] PT STATUS: REG ER : 1960 PHYSICIAN: EMMANUEL CEBALLOS MD ADMIT DATE: 01/06/23/ER FS Draft Date of Exam:01/06/23 CHEST 1 VIEW AP/PA ONLY INDICATION: SOB. COMPARISON: 10/19/2022. FINDINGS: Single frontal view of the chest demonstrates mild cardiomegaly. Pulmonary vasculature, however, is within normal limits. The lungs are well aerated and clear. No large pleural effusion or pneumothorax is seen. The visualized osseous structures show no acute abnormalities. IMPRESSION: 1. Mild cardiomegaly, but no evidence of failure or focal infiltrate. Dictated on workstation # [id number] Dict: 01/06/23 1224 Trans: 01/06/23 1228 [id number] Interpreted by: ODALYS CARRILLO MD Electronically signed by: Critical Care Note Critical Care Start Time: 11:47 Stop Time: 12:10 Total Time (minutes) 32 minutes Progress Patient began improving after increasing oxygen to 6 L and CPAP, receiving DuoNeb treatments, and once the Solu-Medrol started kicking in. Critical care time management includes discussion with EMS, medication orders and management, multiple reevaluations, reviewing old records and imaging and labs, ordering and reviewing tests including an ABG, obtaining history from patient's son to get more details, discussing CODE STATUS and treatment options with son, and coor dinating transfer. Departure Impression Primary Impression: Acute respiratory distress Additional Impression: Acute exacerbation of chronic obstructive pulmonary disease (COPD) Disposition: 30 STILL A PATIENT Condition: Improved Admissions Decision to Admit Reason: Admit from ER (General) Decision to Admit/Date: Jan 06, 2023 Time/Decision to Admit Time: 12:20 Transfer Method of Transfer: EMS Departure-Patient Inst. Referrals: BRENNAN MAJRO DO (PCP/Family) Primary Care Physician EMMANUEL CEBALLOS MD Jan 06, 2023 11:55
[2023-01-06] MEDS ORDERED: RT-ALBUTEROL/IPRATROPIUM 3 ML (DUONEB) VIAL INH ONE (12:00)
[2023-01-06 12:08] LABS: BASOPHILS # (AUTO) 0.1 10^3/uL (0.0-0.1); BASOPHILS % (AUTO) 1 % (0-10); EOSINOPHILS % (AUTO) 0 % (0-10); HEMATOCRIT 37 % (35-52); HEMOGLOBIN 10.4 g/dL (11.5-16.0); LYMPHOCYTES # (AUTO) 2.2 10^3/uL (1.0-4.0); LYMPHOCYTES % (AUTO) 25 % (12-44); MEAN CORPUSCULAR HEMOGLOBIN 25 pg (25-34); MEAN CORPUSCULAR HGB CONC 28 g/dL (32-36); MEAN CORPUSCULAR VOLUME 90 fL (80-99); MEAN PLATELET VOLUME 10.8 fL (9.0-12.2); MONOCYTES # (AUTO) 0.4 10^3/uL (0.0-1.0); MONOCYTES % (AUTO) 4 % (0-12); NEUTROPHILS # (AUTO) 6.1 10^3/uL (1.8-7.8); NEUTROPHILS % (AUTO) 70 % (42-75); PLATELET COUNT 149 10^3/uL (130-400); WHITE BLOOD COUNT 8.7 10^3/uL (4.3-11.0)
[2023-01-06 12:23] LABS: PROTHROMBIN TIME PATIENT 13.8 SEC (12.2-14.7)
[2023-01-06 12:28] LABS: FIBRIN DEGRADATION PRODUCTS 0.49 UG/ML (0.00-0.49)
--- NOTE | 2023-01-06 12:29 | Diagnostic Imaging Report ---
INDICATION: SOB. COMPARISON: 10/19/2022. FINDINGS: Single frontal view of the chest demonstrates mild cardiomegaly. Pulmonary vasculature, however, is within normal limits. The lungs are well aerated and clear. No large pleural effusion or pneumothorax is seen. The visualized osseous structures show no acute abnormalities. IMPRESSION: 1. Mild cardiomegaly, but no evidence of failure or focal infiltrate. Dictated by: Dictated on workstation # [id number]
[2023-01-06 12:30] LABS: BUN/CREATININE RATIO 16; CARBON DIOXIDE 28 MMOL/L (21-32); CHLORIDE 98 MMOL/L (98-107); CREATININE SERUM 1.05 MG/DL (0.60-1.30); GFR ESTIMATED 60; POTASSIUM 4.5 MMOL/L (3.6-5.0); SODIUM 136 MMOL/L (135-145)
[2023-01-06 12:31] LABS: ALANINE AMINOTRANSFERASE 20 U/L (0-55); ALBUMIN 3.1 GM/DL (3.2-4.5); ALKALINE PHOSPHATASE 124 U/L (40-136); BILIRUBIN,TOTAL 0.9 MG/DL (0.1-1.0); GLUCOSE 87 MG/DL (70-105); TOTAL PROTEIN 6.9 GM/DL (6.4-8.2)
[2023-01-06] MEDS ORDERED: RT-ALBUTEROL/IPRATROPIUM 3 ML (DUONEB) VIAL INH STA (12:49)
[2023-01-06] MEDS ORDERED: LIDOCAINE UROJET 2% GEL 10 ML PKG TOP ONE (13:00)
[2023-01-06] MEDS ORDERED: FUROSEMIDE 40 MG/4 ML INJ (LASIX) IVP STA (13:00)
[2023-01-06 13:07] LABS: ABG BASE EXCESS 8.4 MMOL/L (-2.5-2.5); ABG OXYGEN SATURATION 85 % (94-100); ABG PCO2 53 MMHG (35-45); ABG PH 7.42 (7.37-7.43); ABG PO2 49 MMHG (79-93)
[2023-01-06 13:08] LABS: ALLENS TEST NEGATIVE; INSPIRED O2 5L; VENTILATOR NO
[2023-01-06 13:09] LABS: PATIENT TEMP 36.6
[2023-01-06 13:38] LABS: CLARITY,URINE SL CLOUDY; COLOR,URINE ORANGE
[2023-01-06 13:39] LABS: BILIRUBIN,URINE 2+ (NEGATIVE); GLUCOSE, URINE (UA) TRACE (NEGATIVE); KETONES,URINE NEGATIVE (NEGATIVE); LEUKOCYTE ESTERASE ,URINE NEGATIVE (NEGATIVE); NITRITE,URINE NEGATIVE (NEGATIVE); PH,URINE 5.5 (5-9); PROTEIN,URINE 1+ (NEGATIVE)
[2023-01-06 13:45] LABS: BACTERIA,URINE LARGE /HPF
[2023-01-06 13:49] LABS: BENZODIAZEPINES SCREEN URINE POSITIVE (NEGATIVE); CANNABINOID SCREEN, URINE POSITIVE (NEGATIVE); TRICYCLIC ANTIDEPRESSANTS SCRE POSITIVE (NEGATIVE)
[2023-01-06 13:50] LABS: AMPHETAMINE SCREEN, URINE NEGATIVE (NEGATIVE); BARBITURATE SCREEN URINE NEGATIVE (NEGATIVE); COCAINE SCREEN URINE NEGATIVE (NEGATIVE); METHADONE STAT NEGATIVE (NEGATIVE); OPIATE SCREEN URINE NEGATIVE (NEGATIVE); OXYCODONE STAT NEGATIVE (NEGATIVE); PROPOXYPHENE STAT NEGATIVE (NEGATIVE)
[2023-01-06] MEDS ORDERED: diphenhydrAMINE 25 MG TAB (BENADRYL) PO PRN (15:15)
[2023-01-06] MEDS ORDERED: ANTACID SUSP 30 ML UDC (MYLANTA) PO PRN (15:15)
[2023-01-06] MEDS ORDERED: MELATONIN 3 MG TABLET PO PRN (15:15)
[2023-01-06] MEDS ORDERED: ONDANSETRON 4 MG (ZOFRAN) ORAL DISSOLVE TAB PO PRN (15:15)
[2023-01-06] MEDS ORDERED: diphenhydrAMINE 50 MG/ML INJ (BENADRYL) IVP PRN (15:15)
[2023-01-06] MEDS ORDERED: polyethylene glycoL POWDER 17 GM (MIRALAX) PACK PO PRN (15:15)
[2023-01-06] MEDS ORDERED: ONDANSETRON 4 MG/2 ML (SDV) Z0FRAN IV PRN (15:15)
[2023-01-06] MEDS ORDERED: ACETAMINOPHEN 325 MG TABLET PO PRN (15:15)
[2023-01-06] MEDS ORDERED: BISACODYL 10 MG SUPP (DULCOLAX) PR PRN (15:15)
[2023-01-06] MEDS ORDERED: RT-ALBUTEROL/IPRATROPIUM 3 ML (DUONEB) VIAL INH PRN (16:00)
[2023-01-06] MEDS ORDERED: ALBU18HF2 INH (16:34)
[2023-01-06] MEDS ORDERED: MUPI22OI2 (16:34)
[2023-01-06] MEDS ORDERED: NYST60PO TOP (16:34)
[2023-01-06] MEDS ORDERED: ISOS30TA82 PO (16:34)
[2023-01-06] MEDS ORDERED: HYDR200T46 PO (16:34)
[2023-01-06] MEDS ORDERED: NITR0.3T7 PO (16:34)
[2023-01-06] MEDS ORDERED: ZOLP5TAB7 PO (16:34)
[2023-01-06] MEDS ORDERED: DOCU100C37 PO (16:34)
[2023-01-06] MEDS ORDERED: BUDE10.7 INH (16:34)
[2023-01-06] MEDS ORDERED: FERR325T24 PO (16:34)
[2023-01-06] MEDS: cefTRIAXone IV/IM 1,000 MG in NS (IVPB) 50 ML IV SCH (16:49)
[2023-01-06] MEDS: ENOXAPARIN 40 MG/0.4 ML (LOVENOX) SYR SC SCH (16:49)
--- NOTE | 2023-01-06 18:24 | Tele-ICU Progress Note ---
Progress Note Video assessment done , Hemodynamically stable Available charting reviewed, discussed with RN PATIENT IS STEP-DOWN STATUS ( not ICU ) NO TELE-ICU CONSULT REQUESTED CONTINUE TO MONITOR PER USUAL No need for Tele-ICU interventions Plans as delineated by bedside physicians / consultants Focused Exam Lactate Level 01/06/23 11:56: Lactic Acid Level 1.30 Height, Weight, BMI Height: 5'3.00" Weight: 120lbs. oz. 54.184228dw; 37.10 BMI Method:Stated GAURANG RAMSAY MD Jan 06, 2023 18:24
[2023-01-06] MEDS: RT-ALBUTEROL/IPRATROPIUM 3 ML (DUONEB) VIAL INH SCH ×2 (19:50→22:14)
[2023-01-06] MEDS ORDERED: NON-FORMULARY MEDICATION 1 EA EA (Budesonide/Glycopyr/Formoterol (Breztri Aerosphere Inhal INH SCH (21:00)
[2023-01-06] MEDS ORDERED: MUPIROCIN 2% OINT 22 GM (BACTROBAN) TUBE TOP SCH (21:00)
[2023-01-06] MEDS ORDERED: NYSTATIN TOP SCH (21:00)
[2023-01-06] MEDS: DONEPEZIL 10 MG (ARICEPT) TAB PO SCH (21:03)
[2023-01-06] MEDS: MUPIROCIN 2% OINT 22 GM (BACTROBAN) TUBE NSEACH SCH (21:03)
[2023-01-06] MEDS: ALPRAZolam 0.5 MG (XANAX) TAB PO SCH (21:03)
[2023-01-06] MEDS: DOCUSATE SODIUM 100 MG (COLACE) CAP PO SCH (21:03)
[2023-01-06] MEDS: CYCLOBENZAPRINE 10 MG (FLEXERIL) TAB PO SCH (21:03)
[2023-01-06] MEDS: MEMANTINE 10 MG (NAMENDA) TABLET PO SCH (21:04)
[2023-01-06] MEDS: ZOLPIDEM 5 MG (AMBIEN) TAB PO SCH (21:04)
[2023-01-06] MEDS: HYDROXYCHLOROQUINE 200 MG (PLAQUENIL) TAB PO SCH (21:04)
[2023-01-06] MEDS: MICONAZOLE 2% POWDER (DESENEX AF) 90 GM TOP SCH (21:04)
[2023-01-07] VITALS (8 sets, daily range): BP systolic 110–152; BP diastolic 54–118
[2023-01-07] MEDS: RT-ALBUTEROL/IPRATROPIUM 3 ML (DUONEB) VIAL INH SCH ×6 (02:51→22:14)
[2023-01-07 05:07] LABS: BASOPHILS % (AUTO) 0 % (0-10); EOSINOPHILS % (AUTO) 0 % (0-10); HEMATOCRIT 30 % (35-52); HEMOGLOBIN 8.7 g/dL (11.5-16.0); LYMPHOCYTES # (AUTO) 0.6 10^3/uL (1.0-4.0); LYMPHOCYTES % (AUTO) 13 % (12-44); MEAN CORPUSCULAR HEMOGLOBIN 26 pg (25-34); MEAN CORPUSCULAR HGB CONC 30 g/dL (32-36); MEAN CORPUSCULAR VOLUME 87 fL (80-99); MEAN PLATELET VOLUME 10.6 fL (9.0-12.2); MONOCYTES # (AUTO) 0.1 10^3/uL (0.0-1.0); MONOCYTES % (AUTO) 2 % (0-12); NEUTROPHILS # (AUTO) 3.7 10^3/uL (1.8-7.8); NEUTROPHILS % (AUTO) 85 % (42-75); PLATELET COUNT 108 10^3/uL (130-400); WHITE BLOOD COUNT 4.4 10^3/uL (4.3-11.0)
[2023-01-07 05:23] LABS: CALCIUM 8.7 MG/DL (8.5-10.1); CREATININE SERUM 0.86 MG/DL (0.60-1.30); POTASSIUM 4.5 MMOL/L (3.6-5.0)
[2023-01-07] MEDS: predniSONE 20 MG TAB PO SCH (06:38)
[2023-01-07] MEDS: UMECLIDINIUM BROMIDE (INCRUSE ELLIPTA) 7'S IH SCH (08:11)
[2023-01-07] MEDS: FLUTICASONE/VILANTEROL 200 MCG 14'S (BREO) IH SCH (08:11)
[2023-01-07] MEDS ORDERED: NON-FORMULARY MEDICATION 1 EA EA (Duloxetine HCl 60 MG) PO SCH (09:00)
[2023-01-07] MEDS ORDERED: PANTOPRAZOLE 20 MG TABLET (PROTONIX) PO SCH (09:00)
--- NOTE | 2023-01-07 09:34 | Consultation-Cardiology ---
HPI-Cardiology Cardiology Consultation Date of Consultation 01/07/23 Date of Admission Time Seen by Provider: 09:30 Indication: Shortness of breath HPI 62-year-old lady with history of severe COPD. Oxygen dependent. History of CVA and TIA. Last episode was over 10 years ago. Patient was brought to the emergency room due to acute respiratory failure and hypoxemia with oxygen in the 70s. Responded to the treatment via EMT, on arrival to the emergency room she was back to her baseline with 3 L nasal can nula. On my evaluation patient is laying down in bed. Feeling better. Admits having some chills yesterday. No chest pain. No syncope or near syncopal episodes. Home Medications & Allergies Allergies: Coded Allergies: No Known Drug Allergies (Unverified , 03/06/17) Home Medication List Reviewed: Yes IFG-Hgoexk-Gdqpmo Hx Patient Social History Marital Status: single Employed/Student: retired Smoking Status: Former Smoker Type Used: Electronic/Vapor, Smokeless Tobacco 2nd Hand Smoke Exposure: No Recent Hopitalizations: No Alcohol Use?: No Immunizations Up To Date Date of Pneumonia Vaccine: Apr 30, 2019 Past Medical History Discussed below Family Medical History Significant Family History: Asthma, Heart Disease, Stroke Review of Systems-General Review of Systems Constitutional: no symptoms reported EENTM: no symptoms reported Respiratory: see HPI, cough, dyspnea on exertion; No hemoptysis, No orthopnea, No phlegm; short of breath; No stridor; wheezing; No other Cardiovascular: see HPI; No chest pain, No edema, No Hx of Intervention, No palpitations, No syncope, No vascular heart diseas, No other Gastrointestinal: no symptoms reported Genitourinary: no symptoms reported Musculoskeletal: no symptoms reported Skin: no symptoms reported Psychiatric/Neurological: No Symptoms Reported Reviewed Test Results Reviewed Test Results Lab Laboratory Tests Test 01/06/23 11:56 01/06/23 12:12 01/06/23 13:32 01/07/23 04:20 Range/Units White Blood Count 8.7 4.4 4.3-11.0 10^3/uL Red Blood Count 4.13 3.41 L 3.80-5.11 10^6/uL Hemoglobin 10.4 L 8.7 L 11.5-16.0 g/dL Hematocrit 37 30 L 35-52 % Mean Corpuscular Volume 90 87 80-99 fL Mean Corpuscular Hemoglobin 25 26 25-34 pg Mean Corpuscular Hemoglobin Concent 28 L 30 L 32-36 g/dL Red Cell Distribution Width 19.9 H 18.8 H 10.0-14.5 % Platelet Count 149 108 L 130-400 10^3/uL Mean Platelet Volume 10.8 10.6 9.0-12.2 fL Immature Granulocyte % (Auto) 1 1 % Neutrophils (%) (Auto) 70 85 H 42-75 % Lymphocytes (%) (Auto) 25 13 12-44 % Monocytes (%) (Auto) 4 2 0-12 % Eosinophils (%) (Auto) 0 0 0-10 % Basophils (%) (Auto) 1 0 0-10 % Neutrophils # (Auto) 6.1 3.7 1.8-7.8 10^3/uL Lymphocytes # (Auto) 2.2 0.6 L 1.0-4.0 10^3/uL Monocytes # (Auto) 0.4 0.1 0.0-1.0 10^3/uL Eosinophils # (Auto) 0.0 0.0 0.0-0.3 10^3/uL Basophils # (Auto) 0.1 0.0 0.0-0.1 10^3/uL Immature Granulocyte # (Auto) 0.1 0.0 0.0-0.1 10^3/uL Prothrombin Time 13.8 12.2-14.7 SEC INR Comment 1.0 0.8-1.4 Activated Partial Thromboplast Time 27 24-35 SEC D-Dimer 0.49 0.00-0.49 UG/ML Sodium Level 136 136 135-145 MMOL/L Potassium Level 4.5 4.5 3.6-5.0 MMOL/L Chloride Level 98 101 98-107 MMOL/L Carbon Dioxide Level 28 27 21-32 MMOL/L Anion Gap 10 8 5-14 MMOL/L Blood Urea Nitrogen 17 19 H 7-18 MG/DL Creatinine 1.05 0.86 0.60-1.30 MG/DL Estimat Glomerular Filtration Rate 60 77 BUN/Creatinine Ratio 16 22 Glucose Level 87 133 H 70-105 MG/DL Lactic Acid Level 1.30 0.50-2.00 MMOL/L Calcium Level 9.0 8.7 8.5-10.1 MG/DL Corrected Calcium 9.7 8.5-10.1 MG/DL Total Bilirubin 0.9 0.1-1.0 MG/DL Aspartate Amino Transf (AST/SGOT) 16 5-34 U/L Alanine Aminotransferase (ALT/SGPT) 20 0-55 U/L Alkaline Phosphatase 124 40-136 U/L Troponin I < 0.30 <0.30 NG/ML Pro-B-Type Natriuretic Peptide 8536.0 H <125.0 PG/ML Total Protein 6.9 6.4-8.2 GM/DL Albumin 3.1 L 3.2-4.5 GM/DL Blood Gas Puncture Site RIGHT RADIAL Blood Gas Patient Temperature 36.6 Arterial Blood pH 7.42 7.37-7.43 Arterial Blood Partial Pressure CO2 53 H 35-45 MMHG Arterial Blood Partial Pressure O2 49 L 79-93 MMHG Arterial Blood HCO3 34 H 23-27 MMOL/L Arterial Blood Total CO2 36.0 H 21.0-31.0 MMOL/L Arterial Blood Oxygen Saturation 85 L 94-100 % Arterial Blood Base Excess 8.4 H -2.5-2.5 MMOL/L Feliciano Test NEGATIVE Blood Gas Ventilator Setting NO Blood Gas Inspired Oxygen 5L Urine Color ORANGE Urine Clarity SL CLOUDY Urine pH 5.5 5-9 Urine Specific Mauldin >=1.030 1.016-1.022 Urine Protein 1+ H NEGATIVE Urine Glucose (UA) TRACE H NEGATIVE Urine Ketones NEGATIVE NEGATIVE Urine Nitrite NEGATIVE NEGATIVE Urine Bilirubin 2+ H NEGATIVE Urine Urobilinogen 1.0 < = 1.0 MG/DL Urine Leukocyte Esterase NEGATIVE NEGATIVE Urine RBC (Auto) NEGATIVE NEGATIVE Urine RBC NONE /HPF Urine WBC 10-25 H /HPF Urine Squamous Epithelial Cells 2-5 /HPF Urine Crystals NONE /LPF Urine Bacteria LARGE H /HPF Urine Casts NONE /LPF Urine Mucus LARGE H /LPF Urine Culture Indicated YES Urine Opiates Screen NEGATIVE NEGATIVE Urine Oxycodone Screen NEGATIVE NEGATIVE Urine Methadone Screen NEGATIVE NEGATIVE Urine Propoxyphene Screen NEGATIVE NEGATIVE Urine Barbiturates Screen NEGATIVE NEGATIVE Ur Tricyclic Antidepressants Screen POSITIVE H NEGATIVE Urine Phencyclidine Screen NEGATIVE NEGATIVE Urine Amphetamines Screen NEGATIVE NEGATIVE Urine Methamphetamines Screen NEGATIVE NEGATIVE Urine Benzodiazepines Screen POSITIVE H NEGATIVE Urine Cocaine Screen NEGATIVE NEGATIVE Urine Cannabinoids Screen POSITIVE H NEGATIVE Test 01/07/23 07:20 Range/Units Stool Occult Blood Immunoassay POSITIVE H NEGATIVE Physical Exam Physical Exam Vital Signs Vital Signs - First Documented 01/06/23 01/06/23 14:02 15:31 O2 Flow Rate 30.00 FiO2 21 Capillary Refill : Less Than 3 Seconds Height, Weight, BMI Height: 5'3.00" Weight: 120lbs. oz. 54.969994ej; 38.20 BMI Method:Stated General Appearance: No Apparent Distress, WD/WN Eyes: Bilateral Eye Normal Inspection, Bilateral Eye PERRL, Bilateral Eye EOMI HEENT: PERRL/EOMI, TMs Normal, Normal ENT Inspection, Pharynx Normal, Moist Mucous Membranes Neck: Full Range of Motion, Normal Inspection, Non Tender, Supple, Carotid Bruit Respiratory: Chest Non Tender, Normal Breath Sounds, No Accessory Muscle Use, No Respiratory Distress Cardiovascular: Regular Rate, Rhythm, No Edema, No Gallop, No JVD, No Murmur, Normal Peripheral Pulses Gastrointestinal: Normal Bowel Sounds, No Organomegaly, No Pulsatile Mass, Non Tender, Soft Back: Normal Inspection, No CVA Tenderness, No Vertebral Tenderness Extremity: Normal Capillary Refill, Normal Inspection, Normal Range of Motion, Non Tender, No Calf Tenderness, No Pedal Edema Neurologic/Psychiatric: Alert, Oriented x3, No Motor/Sensory Deficits, Normal Mood/Affect Skin: Normal Color, Warm/Dry Lymphatic: No Adenopathy A/P-Cardiology Admission Diagnosis Shortness of breath Acute exacerbation of COPD Hypertension Hyperlipidemia Assessment/Plan Shortness of breath, acute respiratory insufficiency Acute exacerbation of COPD. Improved. Back to her baseline on 3 L nasal cannula. Feeling better Elevation in proBNP. 2D echo was done on January 06, 2023 showing mild LVH with normal systolic function ejection fraction 50 to 55%, grade 1 diastolic dysfunction. Severe pulmonary hypertension with PA pressure 60 to 65 mmHg History of multiple CVA/TIA, last stroke was over 10 years ago. Questionable history of coronary artery disease, patient had on her medication list nitroglycerin No previous cardiac evaluation was done. Currently clinically stable, will consider work-up as an outpatient Hypertension, controlled, monitor blood pressure Hyperlipidemia, monitor lipids Dementia. RADHA LO MD Jan 07, 2023 09:34
[2023-01-07] MEDS: PANTOPRAZOLE 40 MG (PROTONIX) VIAL IV SCH ×2 (09:36→20:08)
[2023-01-07] MEDS: MUPIROCIN 2% OINT 22 GM (BACTROBAN) TUBE NSEACH SCH ×2 (10:51→21:18)
[2023-01-07] MEDS: CYCLOBENZAPRINE 10 MG (FLEXERIL) TAB PO SCH ×2 (10:51→20:08)
[2023-01-07] MEDS: ISOSORBIDE MONONITRATE 30 MG (IMDUR) TAB PO SCH (10:51)
[2023-01-07] MEDS: DULoxetine 30 MG (CYMBALTA) CAP PO SCH (10:51)
[2023-01-07] MEDS: ALPRAZolam 0.5 MG (XANAX) TAB PO SCH ×3 (10:52→20:08)
[2023-01-07] MEDS: CLOPIDOGREL 75 MG (PLAVIX) TABLET PO SCH (10:52)
[2023-01-07] MEDS: AtorvaSTATin TABLET 10 MG TABLET PO SCH (10:52)
[2023-01-07] MEDS: MICONAZOLE 2% POWDER (DESENEX AF) 90 GM TOP SCH ×2 (10:53→21:18)
[2023-01-07] MEDS: DOCUSATE SODIUM 100 MG (COLACE) CAP PO SCH ×2 (10:53→20:08)
[2023-01-07] MEDS: HYDROXYCHLOROQUINE 200 MG (PLAQUENIL) TAB PO SCH ×2 (11:14→20:08)
[2023-01-07] MEDS: MEMANTINE 10 MG (NAMENDA) TABLET PO SCH ×2 (11:14→20:08)
--- NOTE | 2023-01-07 14:52 | Consultation - Surgery ---
History of Present Illness History of Present Illness Patient Consulted On(eileen/time) 01/07/23 14:45 Time Seen by Provider: 10:32 History of Present Illness Surgery asked to consult regarding anemia and +hemoccult HPI per ER: See [id number] female with PMH of PD/HTN/multiple CVA's and TIA's, with the last 1 being 10 years ago, is brought in by EMS from [facility] for respiratory distress. EMS reported that when they got to [facility] patient's oxygen saturation was in the 70s, however the oxygen tubing was over 50 feet long, so EMS put a much shorter tubing and the oxygen saturation went up to 90% on 5 L of oxygen. Patient was put on CPAP by EMS and given Solu- Medrol IV and a DuoNeb and was brought to the ER. In the ER patient appears lethargic and tired, and initially was short of breath but able to answer questions slowly due to SOB. Patient is AO x3 in the ER. I called patient's son and spoke with him at length via phone, and he reports that patient started declining in the past 3 months and was unable to take care of herself appropriately. He stated that she became noncompliant medications and took them on and off, and only in the past week has she been compliant with all her medications. Patient's son stated that when they took her to the PCP appointment, her PCP emergently admitted her to [facility] the day before yesterday. Patient's son also reported that all of the symptoms were triggered when the patient fell and hit her head on the end table, for which she had a CT head that was negative at that time. Patient is a full code as per son. Patient's baseline oxygen requirement at home was 3 L, and in [facility] it was 4 L. When I spoke to pt she told me she was going home today. She denied any abdominal pain and stated she hadn't seen any hematochezia or melena. She states she has never been told that she has low blood level. She states she has never had a colonoscopy, "I was allergic to Miralax, I couldn't keep it down". States at that time they did do an EGD and it showed "inflammation". She denies hematemesis, but has felt weak lately; she attributed it to her breathing. Allergies and Home Medications Allergies Coded Allergies: No Known Drug Allergies (Unverified , 03/06/17) Patient Home Medication List Home Medication List Reviewed: Yes Albuterol Sulfate (Ventolin Hfa) 90 Mcg Hfa.aer.ad, 2 PUFF INH Q4H PRN for SHORTNESS OF BREATH, (Reported) Entered as Reported by: JOHNNY ORDAZ on 01/06/23 163 Last Action: Held Alprazolam (Alprazolam) 0.5 Mg Tablet, 0.5 MG PO TID, (Reported) Entered as Reported by: JOHNNY ORDAZ on 02/05/201515 Last Action: Continued Atorvastatin Calcium (Atorvastatin Calcium) 10 Mg Tablet, 10 MG PO DAILY, (Reported) Entered as Reported by: JOHNNY ORDAZ on 02/05/201515 Last Action: Continued Budesonide/Glycopyr/Formoterol (Breztri Aerosphere Inhaler) 160 Mcg-9 Mcg-4.8 Mcg/Actuation Hfa.aer.ad, 2 PUFF INH BID, (Reported) Entered as Reported by: JOHNNY ORDAZ on 01/06/231633 Last Action: Converted Clopidogrel Bisulfate (Clopidogrel) 75 Mg Tablet, 75 MG PO DAILY, (Reported) Entered as Reported by: JOHNNY ORDAZ on 02/05/201515 Last Action: Continued Cyclobenzaprine HCl (Cyclobenzaprine HCl) 10 Mg Tablet, 10 MG PO BID, (Reported) Entered as Reported by: KRISTINA CHAMBERLAIN on 09/13/18 1229 Last Action: Continued Docusate Sodium (Docusate Sodium) 100 Mg Capsule, 100 MG PO DAILY, (Reported) Entered as Reported by: JOHNNY ORDAZ on 01/06/231633 Last Action: Held Donepezil HCl (Donepezil HCl) 10 Mg Tablet, 10 MG PO HS, (Reported) Entered as Reported by: JOHNNY ORDAZ on 02/05/201515 Last Action: Continued Duloxetine HCl (Duloxetine HCl) 60 Mg Capsule.dr, 60 MG PO DAILY, (Reported) Entered as Reported by: JOHNNY ORDAZ on 02/05/201515 Last Action: Converted Ferrous Sulfate (Ferosul) 325 Mg (65 Mg Iron) Tablet, 325 MG PO DAILY, (Reported) Entered as Reported by: JOHNNY ORDAZ on 01/06/231633 Last Action: Held Hydroxychloroquine Sulfate (Hydroxychloroquine Sulfate) 200 Mg Tablet, 200 MG PO BID, (Reported) Entered as Reported by: JOHNNY ORDAZ on 01/06/231633 Last Action: Continued Ipratropium/Albuterol Sulfate (Iprat-Albut 0.5-3(2.5) mg/3 ml) 0.5 Mg-3 Mg (2.5 Mg Base)/3 Ml Ampul.neb, 3 ML IH QID, (Reported) Entered as Reported by: JOHNNY ORDAZ on 03/02/20 1156 Last Action: Held Isosorbide Mononitrate (Isosorbide Mononitrate ER) 30 Mg Tab.er.24h, 30 MG PO DAILY, (Reported) Entered as Reported by: JOHNNY ORDAZ on 01/06/231633 Last Action: Continued Memantine HCl (Memantine HCl) 10 Mg Tablet, 10 MG PO BID, (Reported) Entered as Reported by: JOHNNY ORDAZ on 02/05/201515 Last Action: Continued Mupirocin (Mupirocin) 2 % Oint...g., 1 APPLIC NA BID, (Reported) Entered as Reported by: JOHNNY ORDAZ on 01/06/231633 Last Action: Continued Nitroglycerin (Nitroglycerin) 0.3 Mg Tab.subl, 0.3 MG PO UD PRN for CHEST PAIN (ANGINA), (Reported) Entered as Reported by: JOHNNY ORDAZ on 01/06/231633 Last Action: Held Nystatin (Nystop) 100,000 Unit/Gram Powder, 1 APPLIC TOP BID, (Reported) Entered as Reported by: JOHNNY ORDAZ on 01/06/231633 Last Action: Converted Pantoprazole Sodium (Pantoprazole Sodium) 20 Mg Tablet.dr, 20 MG PO DAILY, (Reported) Entered as Reported by: JOHNNY ORDAZ on 02/05/201515 Last Action: Continued Zolpidem Tartrate (Zolpidem Tartrate) 5 Mg Tablet, 5 MG PO HS, (Reported) Entered as Reported by: JOHNNY ORDAZ on 01/06/231633 Last Action: Continued Discontinued Medications Aripiprazole (Aripiprazole) 5 Mg Tablet, 5 MG PO HS, (Reported) Discontinued Reason: No Longer Taking Entered as Reported by: JOHNNY ORDAZ on 02/05/20 1516 Last Action: Discontinued Furosemide (Furosemide) 20 Mg Tablet, 20 MG PO DAILY, (Reported) Discontinued Reason: No Longer Taking Entered as Reported by: JOHNNY ORDAZ on 05/13/20 1057 Last Action: Discontinued Ibuprofen (Ibuprofen) 200 Mg Capsule, 400 MG PO Q6H PRN for PAIN-MILD (1-4), (Reported) Discontinued Reason: No Longer Taking Entered as Reported by: JOHNNY ORDAZ on 05/13/20 1057 Last Action: Discontinued Prednisone (Prednisone) 20 Mg Tab, 40 MG PO DAILY@0700 Discontinued Reason: No Longer Taking Prescribed by: MIKAELA MANUEL on 05/13/20 1238 Last Action: Discontinued Prednisone (Prednisone) 20 Mg Tab, 40 MG PO DAILY Discontinued Reason: No Longer Taking Prescribed by: HONG ETIENNE on 10/19/22 1316 Last Action: Discontinued Trazodone HCl (Trazodone HCl) 100 Mg Tablet, 100 MG PO HS, (Reported) Discontinued Reason: No Longer Taking Entered as Reported by: KRISTINA CHAMBERLAIN on 09/13/18 1229 Last Action: Discontinued Past Zzhgupt-Tcldqe-Grxkvf Hx Patient Social History Smoking Status: Former Smoker Former Smoker, Quit: Aug 15, 2018 Type Used: Electronic/Vapor, Smokeless Tobacco 2nd Hand Smoke Exposure: No Recent Hopitalizations: No Alcohol Use?: No Immunizations Up To Date Date of Pneumonia Vaccine: Apr 30, 2019 Seasonal Allergies Seasonal Allergies: No Surgeries History of Surgeries: Yes (r eye, DNC, ) Surgeries: Appendectomy, Eye Surgery Respiratory History of Respiratory Disorde: Yes Respiratory Disorders: Sleep Apnea, COPD, Emphysema Cardiovascular History of Cardiac Disorders: No Cardiac Disorders: High Cholesterol, Hypertension Neurological History of Neurological Disord: Yes (restless legs) Neurological Disorders: Dementia, Stroke, TIA Genitourinary History of Genitourinary Disor: No Gastrointestinal History of Gastrointestinal Di: Yes (decreased appetite) Musculoskeletal Musculoskeletal Disorders: Arthritis Endocrine History of Endocrine Disorders: No HEENT History of HEENT Disorders: No Cancer History of Cancer: No Psychosocial History of Psychiatric Problem: Yes Behavioral Health Disorders: Anxiety, Bipolar, Depression Integumentary History of Skin or Integumenta: No Blood Transfusions History of Blood Disorders: No Family Medical History Significant Family History: Asthma, Heart Disease, Stroke Review of Systems-General Constitutional: No chills, No diaphoresis; malaise, weakness EENTM: No blurred vision, No mouth swelling, No epistaxis Respiratory: cough, dyspnea on exertion; No hemoptysis; short of breath Cardiovascular: No chest pain, No palpitations Gastrointestinal: No abdominal pain, No jaundice, No nausea, No vomiting Genitourinary: No dysuria, No frequency, No hematuria Musculoskeletal: joint pain, joint swelling Skin: No change in color, No change in hair/nails Psychiatric/Neurological: Anxiety, Depressed, Pre-Existing Deficit, Weakness Physical Exam-General Problems Physical Exam Vital Signs Vital Signs - First Documented 01/06/23 01/06/23 14:02 15:31 O2 Flow Rate 30.00 FiO2 21 Capillary Refill : Less Than 3 Seconds General Appearance: no apparent distress, obese Eyes: Bilateral Eye PERRL, Bilateral Eye Abnormal EOM HEENT: pharynx normal; No scleral icterus (R), No scleral icterus (L) Neck: non-tender, supple Respiratory: decreased breath sounds, crackles, rhonchi, wheezing Cardiovascular: regular rate, rhythm, no murmur Gastrointestinal: non tender, soft, no organomegaly, hernia (small umbilical) Rectal: deferred, heme positive stool, other (had a dark BM, with foul almost bloody smell, but not tarry) Extremities: no calf tenderness, pedal edema Neurologic/Psychiatric: alert, oriented x 3 Skin: normal color, warm/dry Lymphatic: no adenopathy (neck, axilla or groin) Data Review Labs Laboratory Tests 01/07/23 04:20: White Blood Count 4.4, Red Blood Count 3.41L, Hemoglobin 8.7L, Hematocrit 30L, Mean Corpuscular Volume 87, Mean Corpuscular Hemoglobin 26, Mean Corpuscular Hemoglobin Concent 30L, Red Cell Distribution Width 18.8H, Platelet Count 108L, Mean Platelet Volume 10.6, Immature Granulocyte % (Auto) 1, Neutrophils (%) (Auto) 85H, Lymphocytes (%) (Auto) 13, Monocytes (%) (Auto) 2, Eosinophils (%) (Auto) 0, Basophils (%) (Auto) 0, Neutrophils # (Auto) 3.7, Lymphocytes # (Auto) 0.6L, Monocytes # (Auto) 0.1, Eosinophils # (Auto) 0.0, Basophils # (Auto) 0.0, Immature Granulocyte # (Auto) 0.0, Sodium Level 136, Potassium Level 4.5, Chloride Level 101, Carbon Dioxide Level 27, Anion Gap 8, Blood Urea Nitrogen 19H, Creatinine 0.86, Estimat Glomerular Filtration Rate 77, BUN/Creatinine Ratio 22, Glucose Level 133H, Calcium Level 8.7 01/07/23 07:20: Stool Occult Blood Immunoassay POSITIVEH Assessment/Plan Assessment/Plan Assessment/Plan Anemia GI bleed Hx of Stroke on Anticoagulation Pt needs EGD and Colonoscopy, can be done as an outpt. If she remains in hospital could prep and do her procedure Monday. CIERRA QUINN DO Jan 07, 2023 14:52
--- NOTE | 2023-01-07 15:47 | History & Physical-Hospitalist ---
History of Present Illness HPI/Chief Complaint Melania Cope is a 62 year old female with PMH HTN, HLD, COPD, chronic respiratory failure, history of stroke, dementia, who presented with shortness of breath. She says that she just moved into [facility] yesterday. She was found to be hypoxic at the facility with oxygen in the 70s. She reportedly had a very long oxygen tubing ~50 ft long. Her oxygen improved with shortened tubing and increasing to 5 L. She was also given breathing treatments and steroids by EMS. Upon my exam, she is feeling much better. She denies fevers. She denies chest pain. She denies nausea, vomiting, and abdominal pain. She has not seen any blood in her stools. She denies lightheadedness and dizziness. She has had an upper endoscopy in the past but was unable to complete the prep to have a colonoscopy. Source: patient Exam Limitations: no limitations Date Seen 01/07/23 Time Seen by a Provider: 10:15 Attending Physician Wilbur Shane DO PCP Admitting Physician: Neptali Ruiz MD Attending Physician: Neptali Ruiz MD Referring Physician Date of Admission Jan 06, 2023 at 14:42 Home Medications & Allergies Home Medications Reviewed patient Home Medication Reconciliation performed by pharmacy medication reconciliations bomb technician and/or nursing. Patients Allergies have been reviewed. Allergies Allergies Coded Allergies No Known Drug Allergies (Unverified03/06/17) Past Kvnhwhf-Irmmfu-Ulslah Hx Patient Social History Marrital Status: single Employed/Student: retired Tobacco Use?: No Tobacco type used: Cigarettes Smoking Status: Former Smoker Smokeless Tobacco Frequency: Never a User Use of E-Cig and/or Vaping dev: No Use of E-Cig and/or Vaping Aaron: Never a User Substance use?: No Alcohol Use?: No Pt feels they are or have been: No Immunizations Up To Date First/Initial COVID19 Vaccinat: Denies Second COVID19 Vaccination Brady: Denies Date of Pneumonia Vaccine: Apr 30, 2019 Seasonal Allergies Seasonal Allergies: No Current Status Advance Directives: No Communicates: Verbally Primary Language: Singaporean Preferred Spoken Language: Singaporean Is interpretation needed?: No Implanted or Applied Medical D: None Past Medical History Surgeries: Appendectomy, Eye Surgery Sleep Apnea, COPD, Emphysema Currently Using CPAP: Yes High Cholesterol, Hypertension Dementia, Stroke, TIA Arthritis Anxiety, Bipolar, Depression Blood Disorders: No PMH: COPD, anxiety, bipolar, depression, high cholesterol, stroke, dementia (early onset of short term memory), arthritis Family Medical History Asthma, Heart Disease, Stroke Review of Systems Constitutional: weakness Respiratory: short of breath Cardiovascular: no symptoms reported Gastrointestinal: no symptoms reported Physical Exam Physical Exam Vital Signs Vital Signs - First Documented 01/06/23 01/06/23 14:02 15:31 O2 Flow Rate 30.00 FiO2 21 Capillary Refill : Less Than 3 Seconds Height, Weight, BMI Height: 5'3.00" Weight: 120lbs. oz. [id number]; 38.20 BMI Method:Stated General Appearance: No Apparent Distress, Obese HEENT: PERRL/EOMI, Pharynx Normal Neck: Normal Inspection, Supple Respiratory: Lungs Clear, Normal Breath Sounds, No Respiratory Distress Cardiovascular: Regular Rate, Rhythm, No Murmur Gastrointestinal: Normal Bowel Sounds, Non Tender, Soft Extremity: Non Tender; No Inflammation; Pedal Edema Neurologic/Psychiatric: Alert, No Motor/Sensory Deficits, Normal Mood/Affect Skin: Normal Color, Warm/Dry Results Results/Procedures Labs Laboratory Tests 01/06/23 11:56 01/07/23 04:20 Patient resulted labs reviewed. Imaging: Reviewed Imaging Report Assessment/Plan Admission Diagnosis Acute COPD exacerbation Admission Status: Observation Assessment and Plan Acute COPD exacerbation Acute on chronic respiratory failure with hypoxia Supplemental oxygen as needed, returned to baseline at this time Steroids MAT protocol Anemia Occult blood positive Hemoglobin appears to be near baseline Surgery consulted, planning for outpatient endoscopies Elevated BNP Pulmonary HTN Likely due to sleep apnea Encouraged compliance with BiPAP HTN HLD Dementia History of stroke Continue home meds as able Diagnosis/Problems Diagnosis/Problems (1) COPD with acute exacerbation Status: Acute (2) Acute on chronic respiratory failure with hypoxia Status: Acute (3) Anemia Status: Acute (4) Fecal occult blood test positive Status: Acute (5) ENEIDA (obstructive sleep apnea) Status: Chronic (6) Pulmonary HTN Status: Acute (7) Elevated brain natriuretic peptide (BNP) level Status: Acute (8) Obesity Status: Chronic (9) HTN (hypertension) Status: Chronic (10) HLD (hyperlipidemia) Status: Chronic (11) Dementia Status: Chronic (12) History of stroke Status: Chronic NEPTALI RUIZ MD Jan 07, 2023 15:47
[2023-01-07] MEDS: ENOXAPARIN 40 MG/0.4 ML (LOVENOX) SYR SC SCH (16:12)
[2023-01-07] MEDS: cefTRIAXone IV/IM 1,000 MG in NS (IVPB) 50 ML IV SCH (16:38)
[2023-01-07] MEDS: DONEPEZIL 10 MG (ARICEPT) TAB PO SCH (20:08)
[2023-01-07] MEDS: ZOLPIDEM 5 MG (AMBIEN) TAB PO SCH (20:08)
[2023-01-08] VITALS (8 sets, daily range): BP systolic 122–147; BP diastolic 57–71
[2023-01-08] MEDS: RT-ALBUTEROL/IPRATROPIUM 3 ML (DUONEB) VIAL INH SCH ×5 (02:50→18:50)
[2023-01-08] MEDS: predniSONE 20 MG TAB PO SCH (06:01)
[2023-01-08 06:19] LABS: BASOPHILS % (AUTO) 0 % (0-10); EOSINOPHILS % (AUTO) 0 % (0-10); HEMATOCRIT 32 % (35-52); HEMOGLOBIN 9.2 g/dL (11.5-16.0); LYMPHOCYTES # (AUTO) 1.2 10^3/uL (1.0-4.0); LYMPHOCYTES % (AUTO) 18 % (12-44); MEAN CORPUSCULAR HEMOGLOBIN 25 pg (25-34); MEAN CORPUSCULAR HGB CONC 29 g/dL (32-36); MEAN CORPUSCULAR VOLUME 87 fL (80-99); MEAN PLATELET VOLUME 11.4 fL (9.0-12.2); MONOCYTES # (AUTO) 0.2 10^3/uL (0.0-1.0); MONOCYTES % (AUTO) 3 % (0-12); NEUTROPHILS # (AUTO) 5.2 10^3/uL (1.8-7.8); NEUTROPHILS % (AUTO) 78 % (42-75); PLATELET COUNT 164 10^3/uL (130-400); WHITE BLOOD COUNT 6.7 10^3/uL (4.3-11.0)
[2023-01-08] MEDS: FLUTICASONE/VILANTEROL 200 MCG 14'S (BREO) IH SCH (06:26)
[2023-01-08] MEDS: UMECLIDINIUM BROMIDE (INCRUSE ELLIPTA) 7'S IH SCH (06:26)
[2023-01-08 06:43] LABS: CALCIUM 9.3 MG/DL (8.5-10.1); CREATININE SERUM 1.07 MG/DL (0.60-1.30); POTASSIUM 4.5 MMOL/L (3.6-5.0)
[2023-01-08] MEDS: DOCUSATE SODIUM 100 MG (COLACE) CAP PO SCH ×2 (08:36→20:20)
[2023-01-08] MEDS: PANTOPRAZOLE 40 MG (PROTONIX) VIAL IV SCH ×2 (08:36→20:19)
[2023-01-08] MEDS: ALPRAZolam 0.5 MG (XANAX) TAB PO SCH ×3 (08:36→20:19)
[2023-01-08] MEDS: MEMANTINE 10 MG (NAMENDA) TABLET PO SCH ×2 (08:36→20:19)
[2023-01-08] MEDS: HYDROXYCHLOROQUINE 200 MG (PLAQUENIL) TAB PO SCH ×2 (08:37→20:19)
[2023-01-08] MEDS: DULoxetine 30 MG (CYMBALTA) CAP PO SCH (08:37)
[2023-01-08] MEDS: MICONAZOLE 2% POWDER (DESENEX AF) 90 GM TOP SCH ×2 (08:37→20:20)
[2023-01-08] MEDS: AtorvaSTATin TABLET 10 MG TABLET PO SCH (08:37)
[2023-01-08] MEDS: ISOSORBIDE MONONITRATE 30 MG (IMDUR) TAB PO SCH (08:37)
[2023-01-08] MEDS: CLOPIDOGREL 75 MG (PLAVIX) TABLET PO SCH (08:37)
[2023-01-08] MEDS: CYCLOBENZAPRINE 10 MG (FLEXERIL) TAB PO SCH ×2 (08:37→20:19)
[2023-01-08] MEDS: MUPIROCIN 2% OINT 22 GM (BACTROBAN) TUBE NSEACH SCH ×2 (08:39→20:19)
--- NOTE | 2023-01-08 10:46 | Cardiology Progress Note ---
Subjective Date Seen by Provider: Jan 08, 2023 Time Seen by Provider: 10:45 Subjective/Events-last exam Patient was seen at bedside, sitting comfortably, feeling better Focused Exam Lactate Level 01/06/23 11:56: Lactic Acid Level 1.30 Objective-Cardiology Exam Last Set of Vital Signs Vital Signs 01/06/23 01/08/23 15:31 08:44 Temp 36.1 Pulse 79 Resp 18 B/P (MAP) 142/64 (90) Pulse Ox 92 O2 Delivery Nasal Cannula O2 Flow Rate 2.00 FiO2 21 I&O Intake and Output 01/08/23 00:00 Intake Total 1000 ml Output Total 875 ml Balance 125 ml Intake Oral 1000 ml Output Urine Total 875 ml # Bowel Movements 4 General: Alert, Oriented X3, Cooperative HEENT: Atraumatic, PERRLA Neck: Supple, No JVD, No Thyromegaly Lungs: Clear to Auscultation, Normal Air Movement Heart: Regular Rate, Normal S1, Normal S2, No Murmurs Abdomen: Normal Bowel Sounds, Soft, No Tenderness, No Hepatosplenomegaly, No Masses Extremities: No Clubbing, No Cyanosis, No Edema, Normal Pulses, No Tenderness/ Swelling Skin: No Rashes, No Breakdown, No Significant Lesion Neuro: Normal Gait, Normal Speech, Strength at 5/5 X4 Ext, Normal Tone, Sensation Intact Psych/Mental Status: Mental Status NL, Mood NL Results Lab Laboratory Tests 01/08/23 05:44 A/P-Cardiology Admission Diagnosis Shortness of breath Acute exacerbation of COPD Hypertension Hyperlipidemia Assessment/Plan Status post shortness of breath, acute respiratory insufficiency Acute exacerbation of COPD. Improved. Back to her baseline on 3 L nasal cannula. Feeling better Elevation in proBNP. 2D echo was done on January 06, 2023 showing mild LVH with normal systolic function ejection fraction 50 to 55%, grade 1 diastolic dysfunction. Severe pulmonary hypertension with PA pressure 60 to 65 mmHg Anemia, stool for occult blood positive Seen by Dr. Sales and recommend colonoscopy. History of multiple CVA/TIA, last stroke was over 10 years ago. Questionable history of coronary artery disease, patient had on her medication list nitroglycerin No previous cardiac evaluation was done. Currently clinically stable, will consider work-up as an outpatient Hypertension, controlled, monitor blood pressure Hyperlipidemia, monitor lipids Dementia. RADHA LO MD Jan 08, 2023 10:46
--- NOTE | 2023-01-08 13:48 | Progress Note - Surgery ---
Subjective Time Seen by a Provider: 11:24 Subjective/Events-last exam Pt seen and examined states she is supposed to go home, no melenaotic BMs. Review of Systems Pulmonary: No Dyspnea, No Cough Cardiovascular: No: Chest Pain, Palpitations Gastrointestinal: No: Nausea, Vomiting, Abdominal Pain Focused Exam Lactate Level 01/06/23 11:56: Lactic Acid Level 1.30 Objective Exam Vital Signs Date Time Temp Pulse Resp B/P (MAP) Pulse Ox O2 Delivery O2 Flow Rate FiO2 01/08/23 11:46 36.2 75 18 125/60 (81) 94 Nasal Cannula 2.00 01/08/23 11:13 93 Nasal Cannula 2.00 01/08/23 08:44 36.1 79 18 142/64 (90) 92 Nasal Cannula 2.00 01/08/23 08:00 Nasal Cannula 3.00 01/08/23 06:32 Nasal Cannula 2.00 01/08/23 06:31 Nasal Cannula 2.00 01/08/23 06:26 95 Nasal Cannula 2.00 01/08/23 04:00 36.6 68 18 136/67 (90) 94 Nasal Cannula 1.00 01/08/23 02:50 95 Nasal Cannula 2.00 01/08/23 00:35 36.6 69 18 147/71 (96) 93 Nasal Cannula 1.00 01/07/23 22:14 94 Nasal Cannula 2.00 01/07/23 20:00 97 Nasal Cannula 3.00 01/07/23 19:50 37.1 79 18 133/61 (85) 92 Nasal Cannula 1.00 01/07/23 18:46 93 Nasal Cannula 2.00 01/07/23 16:28 36.2 78 18 121/58 (79) 93 Nasal Cannula 2.00 01/07/23 14:08 96 Nasal Cannula 3.00 I & O 01/08/23 07:00 Intake Total 1120 ml Output Total 875 ml Balance 245 ml Capillary Refill : Less Than 3 Seconds General Appearance: No Apparent Distress, Obese HEENT: PERRL/EOMI Respiratory: Lungs Clear, Normal Breath Sounds, No Respiratory Distress Cardiovascular: Regular Rate, Rhythm, No Murmur Gastrointestinal: non tender, soft, no organomegaly, hernia (small umbilical) Extremity: No Inflammation; Pedal Edema Neurologic/Psychiatric: Alert, Normal Mood/Affect Results Lab Laboratory Tests 01/08/23 05:44: White Blood Count 6.7, Red Blood Count 3.65L, Hemoglobin 9.2L, Hematocrit 32L, Mean Corpuscular Volume 87, Mean Corpuscular Hemoglobin 25, Mean Corpuscular Hemoglobin Concent 29L, Red Cell Distribution Width 19.2H, Platelet Count 164, Mean Platelet Volume 11.4, Immature Granulocyte % (Auto) 1, Neutrophils (%) (Auto) 78H, Lymphocytes (%) (Auto) 18, Monocytes (%) (Auto) 3, Eosinophils (%) (Auto) 0, Basophils (%) (Auto) 0, Neutrophils # (Auto) 5.2, Lymphocytes # (Auto) 1.2, Monocytes # (Auto) 0.2, Eosinophils # (Auto) 0.0, Basophils # (Auto) 0.0, Immature Granulocyte # (Auto) 0.0, Sodium Level 137, Potassium Level 4.5, Chloride Level 100, Carbon Dioxide Level 30, Anion Gap 7, Blood Urea Nitrogen 23H, Creatinine 1.07, Estimat Glomerular Filtration Rate 59, BUN/Creatinine Ratio 21, Glucose Level 90, Calcium Level 9.3 Microbiology 01/06/23 Urine Culture - Final, Complete NO GROWTH 01/06/23 Blood Culture - Preliminary, Resulted No growth Assessment/Plan Assessment/Plan Assessment/Plan Anemia GI bleed Hx of Stroke on Anticoagulation Pt needs EGD and Colonoscopy, can be done as an outpt. Pt may remain in [facility] until Monday because of ride to retirement and will f/u with me as outpt. CIERRA QUINN DO Jan 08, 2023 13:48
[2023-01-08] MEDS: ENOXAPARIN 40 MG/0.4 ML (LOVENOX) SYR SC SCH (14:03)
--- NOTE | 2023-01-08 14:24 | Progress Note - Hospitalist ---
Subjective HPI/CC On Admission Date Seen by Provider: Jan 08, 2023 Time Seen by Provider: 11:05 Melania Cope is a 62 year old female with PMH HTN, HLD, COPD, chronic respiratory failure, history of stroke, dementia, who presented with shortness of breath. She says that she just moved into [facility] yesterday. She was found to be hypoxic at the facility with oxygen in the 70s. She reportedly had a very long oxygen tubing ~50 ft long. Her oxygen improved with shortened tubing and increasing to 5 L. She was also given breathing treatments and steroids by EMS. Upon my exam, she is feeling much better. She denies fe vers. She denies chest pain. She denies nausea, vomiting, and abdominal pain. She has not seen any blood in her stools. She denies lightheadedness and dizziness. She has had an upper endoscopy in the past but was unable to complete the prep to have a colonoscopy. Subjective/Events-last exam She is doing better. She has no complaints. She denies shortness of breath. She denies bloody stools. Focused Exam Lactate Level 01/06/23 11:56: Lactic Acid Level 1.30 Objective Exam Vital Signs Vital Signs Date Time Temp Pulse Resp B/P (MAP) Pulse Ox O2 Delivery O2 Flow Rate FiO2 01/08/23 11:46 36.2 75 18 125/60 (81) 94 Nasal Cannula 2.00 01/06/23 15:31 21 Capillary Refill : Less Than 3 Seconds General Appearance: No Apparent Distress, Obese Respiratory: No Respiratory Distress, Decreased Breath Sounds Cardiovascular: Regular Rate, Rhythm, No Murmur Gastrointestinal: Normal Bowel Sounds, Soft Extremity: No Inflammation; Pedal Edema Neurologic/Psychiatric: Alert, Normal Mood/Affect Skin: Normal Color, Warm/Dry Results/Procedures Lab Laboratory Tests 01/08/23 05:44 Patient resulted labs reviewed. Imaging: Reviewed Imaging Report Assessment/Plan Assessment and Plan Assess & Plan/Chief Complaint Acute COPD exacerbation Acute on chronic respiratory failure with hypoxia Supplemental oxygen as needed, returned to baseline at this time Steroids MAT protocol Anemia Occult blood positive Hemoglobin, stable, appears to be near baseline Surgery consulted, planning for outpatient endoscopies Elevated BNP Pulmonary HTN Likely due to sleep apnea Encouraged compliance with BiPAP HTN HLD Dementia History of stroke Continue home meds as able DVT prophylaxis: Lovenox Medically stable for discharge. Transportation back to [facility]. Diagnosis/Problems Diagnosis/Problems (1) COPD with acute exacerbation Status: Acute (2) Acute on chronic respiratory failure with hypoxia Status: Acute (3) Anemia Status: Acute (4) Fecal occult blood test positive Status: Acute (5) ENEIDA (obstructive sleep apnea) Status: Chronic (6) Pulmonary HTN Status: Acute (7) Elevated brain natriuretic peptide (BNP) level Status: Acute (8) Obesity Status: Chronic (9) HTN (hypertension) Status: Chronic (10) HLD (hyperlipidemia) Status: Chronic (11) Dementia Status: Chronic (12) History of stroke Status: Chronic NEPTALI RUIZ MD Jan 08, 2023 14:24
[2023-01-08] MEDS: ZOLPIDEM 5 MG (AMBIEN) TAB PO SCH (20:19)
[2023-01-08] MEDS: DONEPEZIL 10 MG (ARICEPT) TAB PO SCH (20:19)
[2023-01-09 03:45] VITALS: BP 118/60
[2023-01-09] MEDS: predniSONE 20 MG TAB PO SCH (06:03)
[2023-01-09] MEDS: UMECLIDINIUM BROMIDE (INCRUSE ELLIPTA) 7'S IH SCH (07:18)
[2023-01-09] MEDS: RT-ALBUTEROL/IPRATROPIUM 3 ML (DUONEB) VIAL INH SCH ×2 (07:18→11:19)
[2023-01-09] MEDS: FLUTICASONE/VILANTEROL 200 MCG 14'S (BREO) IH SCH (07:18)
[2023-01-09 07:57] VITALS: BP 128/63
[2023-01-09] MEDS: ALPRAZolam 0.5 MG (XANAX) TAB PO SCH (08:45)
[2023-01-09] MEDS: MEMANTINE 10 MG (NAMENDA) TABLET PO SCH (08:45)
[2023-01-09] MEDS: CLOPIDOGREL 75 MG (PLAVIX) TABLET PO SCH (08:45)
[2023-01-09] MEDS: CYCLOBENZAPRINE 10 MG (FLEXERIL) TAB PO SCH (08:46)
[2023-01-09] MEDS: DOCUSATE SODIUM 100 MG (COLACE) CAP PO SCH (08:46)
[2023-01-09] MEDS: ISOSORBIDE MONONITRATE 30 MG (IMDUR) TAB PO SCH (08:46)
[2023-01-09] MEDS: DULoxetine 30 MG (CYMBALTA) CAP PO SCH (08:46)
[2023-01-09] MEDS: AtorvaSTATin TABLET 10 MG TABLET PO SCH (08:46)
[2023-01-09] MEDS: PANTOPRAZOLE 40 MG (PROTONIX) VIAL IV SCH (08:46)
[2023-01-09] MEDS: HYDROXYCHLOROQUINE 200 MG (PLAQUENIL) TAB PO SCH (08:46)
[2023-01-09] MEDS: MUPIROCIN 2% OINT 22 GM (BACTROBAN) TUBE NSEACH SCH (08:47)
[2023-01-09] MEDS: MICONAZOLE 2% POWDER (DESENEX AF) 90 GM TOP SCH (08:47)
--- NOTE | 2023-01-09 09:13 | Discharge Inst-Simple/Standard ---
Discharge Inst-Standard Patient Instructions/Follow Up Plan of Care/Instructions/FU: Please continue to take your medications as written. Please follow up with your primary care doctor to follow up this hospital stay. Activity as Tolerated: Yes Discharge Diet: Cardiac Diet Return to The Hospital For: Chest pain, shortness of breath, fever, weakness, if you feel you are getting worse. MILAGROS VERONICA MD Jan 09, 2023 09:13
--- NOTE | 2023-01-09 09:22 | Cardiology Progress Note ---
Subjective Date Seen by Provider: Jan 09, 2023 Time Seen by Provider: 08:30 Subjective/Events-last exam Patient is sitting up in bed, no new complaints. Denies any chest pain Focused Exam Lactate Level 01/06/23 11:56: Lactic Acid Level 1.30 Objective-Cardiology Exam Last Set of Vital Signs Vital Signs 01/08/23 01/09/23 01/09/23 14:59 07:57 08:04 Temp 36.2 Pulse 74 Resp 20 B/P (MAP) 128/63 (84) Pulse Ox 97 O2 Delivery Nasal Cannula O2 Flow Rate 3.00 FiO2 28 I&O Intake and Output 01/09/23 00:00 Intake Total 1410 ml Output Total 770 ml Balance 640 ml Intake Oral 1410 ml Output Urine Total 770 ml General: Alert, Oriented X3, Cooperative HEENT: Atraumatic, PERRLA Neck: Supple, No JVD, No Thyromegaly Lungs: Clear to Auscultation, Normal Air Movement Heart: Regular Rate, Normal S1, Normal S2, No Murmurs Abdomen: Normal Bowel Sounds, Soft, No Tenderness, No Hepatosplenomegaly, No Masses Extremities: No Clubbing, No Cyanosis, No Edema, Normal Pulses, No Tenderness/S welling Skin: No Rashes, No Breakdown, No Significant Lesion Neuro: Normal Gait, Normal Speech, Strength at 5/5 X4 Ext, Normal Tone, Sensation Intact Psych/Mental Status: Mental Status NL, Mood NL A/P-Cardiology Admission Diagnosis Shortness of breath Acute exacerbation of COPD Hypertension Hyperlipidemia Assessment/Plan Status post shortness of breath, acute respiratory insufficiency Acute exacerbation of COPD. Improved. Back to her baseline on 3 L nasal cannula. Feeling better Elevation in proBNP. 2D echo was done on January 06, 2023 showing mild LVH with normal systolic function ejection fraction 50 to 55%, grade 1 diastolic dysfunction. Severe pulmonary hypertension with PA pressure 60 to 65 mmHg Anemia, stool for occult blood positive Seen by Dr. Sales and recommend colonoscopy, planning to be scheduled as outpatient. History of multiple CVA/TIA, last stroke was over 10 years ago. Questionable history of coronary artery disease, patient had on her medication list nitroglycerin No previous cardiac evaluation was done. Currently clinically stable, will consider work-up as an outpatient Hypertension, controlled, monitor blood pressure Hyperlipidemia, monitor lipids Dementia. OK for discharge from cardiology standpoint. Supervisory-Addendum Brief Supervisory Addendum Participated in pt care: history, MDM, physical Personally performed: exam, history, MDM Care discussed with: WILMER Results interpretation: Verified all documentation Notes: Patient was seen and evaluated with Liz, examination performed, management plan was discussed, agree with the current scribed note, I made few changes to the note using Italic font Patient was seen at bedside, laying down comfortably, feeling better. No new complain Possible discharge today Tolerating medication well Back to her baseline on oxygen. LIZ BARTH Jan 09, 2023 09:22 RADHA LO MD Jan 09, 2023 09:38
--- NOTE | 2023-01-09 10:49 | Discharge Summary ---
Diagnosis/Chief Complaint Date of Admission Jan 06, 2023 at 14:42 Date of Discharge Discharge Date: Jan 09, 2023 Admission Diagnosis Acute COPD exacerbation Primary Care Wilbur Shane DO Discharge Diagnosis (1) COPD with acute exacerbation Status: Acute (2) Acute on chronic respiratory failure with hypoxia Status: Acute (3) Anemia Status: Acute (4) Fecal occult blood test positive Status: Acute (5) ENEIDA (obstructive sleep apnea) Status: Chronic (6) Pulmonary HTN Status: Acute (7) Elevated brain natriuretic peptide (BNP) level Status: Acute (8) Obesity Status: Chronic (9) HTN (hypertension) Status: Chronic (10) HLD (hyperlipidemia) Status: Chronic (11) Dementia Status: Chronic (12) History of stroke Status: Chronic Discharge Summary Discharge Physical Exam Allergies: Coded Allergies: No Known Drug Allergies (Unverified , 03/06/17) Vitals & I&Os Vital Signs Date Time Temp Pulse Resp B/P (MAP) Pulse Ox O2 Delivery O2 Flow Rate FiO2 01/09/23 08:04 Nasal Cannula 3.00 01/09/23 07:57 36.2 74 20 128/63 (84) 97 01/08/23 14:59 28 General Appearance: No Apparent Distress, Chronically ill, Obese Respiratory: Lungs Clear, No Respiratory Distress Cardiovascular: Regular Rate, Rhythm, No Murmur Neurologic/Psychiatric: Alert, Oriented x3 Hospital Course Patient was admitted to the hospital secondary to hypoxia and concern for acute exacerbation of COPD. She was treated with steroids and nebulized breathing treatments and improved. There was concern that the tubing at the facility may have contributed to her hypoxia as well. She was at her baseline oxygen requirement upon discharge. [facility] was [facility] in improved and stable condition. Labs (last 24 hrs) Microbiology 01/06/23 Urine Culture - Final, Complete NO GROWTH 01/06/23 Blood Culture - Preliminary, Resulted No growth Patient resulted labs reviewed. Imaging: Reviewed Imaging Report Discussion & Recommendations Discharge Planning: >30 minutes discharge planning Discharge Home Medications: Active Scripts Active Reported Mupirocin 2 % Oint...g. 1 Applic NA BID Nystop (Nystatin) 100,000 Unit/Gram Powder 1 Applic TOP BID APPLY UNDER EACH BREAST Nitroglycerin 0.3 Mg Tab.subl 0.3 Mg PO UD PRN Zolpidem Tartrate 5 Mg Tablet 5 Mg PO HS Ventolin Hfa (Albuterol Sulfate) 90 Mcg Hfa.aer.ad 2 Puff INH Q4H PRN Hydroxychloroquine Sulfate 200 Mg Tablet 200 Mg PO BID Breztri Aerosphere Inhaler (Budesonide/Glycopyr/Formoterol) 160 Mcg-9 Mcg-4.8 Mcg/Actuation Hfa.aer.ad 2 Puff INH BID Isosorbide Mononitrate ER (Isosorbide Mononitrate) 30 Mg Tab.er.24h 30 Mg PO DAILY Ferosul (Ferrous Sulfate) 325 Mg (65 Mg Iron) Tablet 325 Mg PO DAILY Docusate Sodium 100 Mg Capsule 100 Mg PO DAILY Iprat-Albut 0.5-3(2.5) mg/3 ml (Ipratropium/Albuterol Sulfate) 0.5 Mg-3 Mg (2.5 Mg Base)/3 Ml Ampul.neb 3 Ml IH QID Atorvastatin Calcium 10 Mg Tablet 10 Mg PO DAILY Donepezil HCl 10 Mg Tablet 10 Mg PO HS Pantoprazole Sodium 20 Mg Tablet.dr 20 Mg PO DAILY Clopidogrel (Clopidogrel Bisulfate) 75 Mg Tablet 75 Mg PO DAILY Alprazolam 0.5 Mg Tablet 0.5 Mg PO TID Duloxetine HCl 60 Mg Capsule.dr 60 Mg PO DAILY Memantine HCl 10 Mg Tablet 10 Mg PO BID Cyclobenzaprine HCl 10 Mg Tablet 10 Mg PO BID Instructions to patient/family Please see electronic discharge instructions given to patient. MILAGROS VERONICA MD Jan 09, 2023 10:49
[2023-01-09 11:46] VITALS: BP 139/63
[2023-01-09 13:05] VITALS: BP 139/63
== END 2023-01-09 09:13 ==
LOC: EDUNIT# 11:47 → ER FS 11:48 → UNDOADMOB 14:42 → ICU 14:42 → CSD 01-07 05:56 → 4TH 01-07 15:40 → CSD 01-07 15:40 → UNDODISOB 01-09 09:13
PROVIDERS: ADMIT Internal Medicine; ATTEND Family Medicine
DX: J44.1 Chronic obstructive pulmonary disease with (acute) exacerbation (principal); J96.21 Acute and chronic respiratory failure with hypoxia; D64.9 Anemia, unspecified; R19.5 Other fecal abnormalities; G47.33 Obstructive sleep apnea (adult) (pediatric); I27.20 Pulmonary hypertension, unspecified; R79.89 Other specified abnormal findings of blood chemistry; I10 Essential (primary) hypertension; K92.2 Gastrointestinal hemorrhage, unspecified; E78.5 Hyperlipidemia, unspecified; E66.9 Obesity, unspecified; F03.90 Unspecified dementia, unspecified severity, without behavioral disturbance, psychotic disturbance, mood disturbance, and anxiety; Z86.73 Personal history of transient ischemic attack (TIA), and cerebral infarction without residual deficits; Z87.891 Personal history of nicotine dependence; Z79.01 Long term (current) use of anticoagulants; Z28.310 Unvaccinated for COVID-19; Z68.37 Body mass index [BMI] 37.0-37.9, adult
CPT/HCPCS: 36415; 51702; 71045; 80048 ×2; 80053; 80306; 81000; 82274; 82805; 83605; 83880; 84484; 85025 ×3; 85379; 85610; 85730; 87040; 87088; 94640 ×7; 94660; 94760 ×2; 96366; 96372; 96375 ×2; 96376 ×3; 99285; C8929; G0378 ×2; 93005; 93306

== ENCOUNTER → 2023-02-23 | Outpatient (CLI) | payer MEDICARE, MEDICAID ==
[~2023-02-23] MED LIST changes: +ALBU18HF2 INH; +BUDE10.7 INH; +DOCU100C37 PO; +FERR325T24 PO; +HYDR200T71 PO; +ISOS30TA82 PO; +MUPI22OI2; +NITR0.3T7 PO; +NYST60PO TOP; +ZOLP5TAB7 PO
--- NOTE | 2023-02-23 16:20 | Diagnostic Imaging Report ---
CT Lung Screening INDICATION:90 pack year smoking history, for screening. TECHNIQUE: Noncontrast, low-dose CT imaging performed according to the lung cancer screening protocol. Auto Exposure Controls were utilize during the CT exam to meet ALARA standards for radiation dose reduction. COMPARISON:Baseline FINDINGS:No lung mass or suspicious pulmonary nodule. There is some relatively mild centrilobular emphysematous changes most pronounced in the apices. No pneumonia or edema. No thoracic adenopathy. No effusion. The visible upper abdomen nonacute. IMPRESSION:No evidence for lung cancer. Continued annual low-dose CT screening followup in one year's time recommended. LUNG-RADS CATEGORY:Category 1 MODIFIER:None OTHER SIGNIFICANT FINDINGS:No Dictated by: Dictated on workstation # [id number]
== END ==
LOC: RAD 12:43
PROVIDERS: ATTEND Internal Medicine Critical Care Medicine
DX: J44.9 Chronic obstructive pulmonary disease, unspecified (principal); Z87.891 Personal history of nicotine dependence
CPT/HCPCS: 71271

== ENCOUNTER 2023-03-28 14:51 | Emergency (ER) | payer MEDICARE, MEDICAID ==
[~2023-03-28] VITALS: Ht 160 cm; Wt 93.0 kg
--- NOTE | 2023-03-28 14:57 | ED GI ---
General Stated Complaint: N/V/D Source of Information: Patient, EMS Exam Limitations: No Limitations History of Present Illness Date Seen by Provider: Mar 28, 2023 Time Seen by Provider: 14:44 Initial Comments 62-year-old female presents to the emergency department today from [facility] for nausea vomiting and diarrhea. Symptoms started about 11:00 today. She is on trilogy pretty much bbxwjh-ikl-[id number] and he had to remove it because she was vomiting so much. She tells me she has vomited about 5 times since onset. Emesis is nonbloody and nonbilious. She is also had numerous loose stools since the onset of her symptoms. She has diffuse abdominal cramping without any focal abdominal pain. No urinary symptoms. No fevers or chills. No known sick contacts. All other systems reviewed and negative except documented per HPI. Voice recognition software was used to help create this chart Allergies and Home Medications Allergies Coded Allergies: No Known Drug Allergies (Unverified , 03/06/17) Patient Home Medication List Home Medication List Reviewed: Yes Albuterol Sulfate (Ventolin Hfa) 90 Mcg Hfa.aer.ad, 2 PUFF INH Q4H PRN for SHORTNESS OF BREATH, (Reported) Entered as Reported by: JOHNNY ORDAZ on 01/06/23 1634 Alprazolam (Alprazolam) 0.5 Mg Tablet, 0.5 MG PO TID, (Reported) Entered as Reported by: JOHNNY ORDAZ on 02/05/20 1516 Atorvastatin Calcium (Atorvastatin Calcium) 10 Mg Tablet, 10 MG PO DAILY, (Reported) Entered as Reported by: JOHNNY ORDAZ on 02/05/20 1516 Budesonide/Glycopyr/Formoterol (Breztri Aerosphere Inhaler) 160 Mcg-9 Mcg-4.8 Mcg/Actuation Hfa.aer.ad, 2 PUFF INH BID, (Reported) Entered as Reported by: JOHNNY ORDAZ on 01/06/23 1634 Clopidogrel Bisulfate (Clopidogrel) 75 Mg Tablet, 75 MG PO DAILY, (Reported) Entered as Reported by: JOHNNY ORDAZ on 02/05/20 1516 Cyclobenzaprine HCl (Cyclobenzaprine HCl) 10 Mg Tablet, 10 MG PO BID, (Reported) Entered as Reported by: KRISTINA CHAMBERLAIN on 09/13/18 1229 Docusate Sodium (Docusate Sodium) 100 Mg Capsule, 100 MG PO DAILY, (Reported) Entered as Reported by: JOHNNY ORDAZ on 01/06/23 1634 Donepezil HCl (Donepezil HCl) 10 Mg Tablet, 10 MG PO HS, (Reported) Entered as Reported by: JOHNNY ORDAZ on 02/05/20 1516 Duloxetine HCl (Duloxetine HCl) 60 Mg Capsule.dr, 60 MG PO DAILY, (Reported) Entered as Reported by: JOHNNY ORDAZ on 02/05/20 1516 Ferrous Sulfate (Ferosul) 325 Mg (65 Mg Iron) Tablet, 325 MG PO DAILY, (Reported) Entered as Reported by: JOHNNY ORDAZ on 01/06/23 1634 Hydroxychloroquine Sulfate (Hydroxychloroquine Sulfate) 200 Mg Tablet, 200 MG PO BID, (Reported) Entered as Reported by: JOHNNY ORDAZ on 01/06/23 1634 Ipratropium/Albuterol Sulfate (Iprat-Albut 0.5-3(2.5) mg/3 ml) 0.5 Mg-3 Mg (2.5 Mg Base)/3 Ml Ampul.neb, 3 ML IH QID, (Reported) Entered as Reported by: JOHNNY ORDAZ on 03/02/20 1156 Isosorbide Mononitrate (Isosorbide Mononitrate ER) 30 Mg Tab.er.24h, 30 MG PO DAILY, (Reported) Entered as Reported by: JOHNNY ORDAZ on 01/06/23 1634 Memantine HCl (Memantine HCl) 10 Mg Tablet, 10 MG PO BID, (Reported) Entered as Reported by: JOHNNY ORDAZ on 02/05/20 1516 Mupirocin (Mupirocin) 2 % Oint...g., 1 APPLIC NA BID, (Reported) Entered as Reported by: JOHNNY ORDAZ on 01/06/23 1634 Nitroglycerin (Nitroglycerin) 0.3 Mg Tab.subl, 0.3 MG PO UD PRN for CHEST PAIN (ANGINA), (Reported) Entered as Reported by: JOHNNY ORDAZ on 01/06/23 1634 Nystatin (Nystop) 100,000 Unit/Gram Powder, 1 APPLIC TOP BID, (Reported) Entered as Reported by: JOHNNY ORDAZ on 01/06/23 1634 Pantoprazole Sodium (Pantoprazole Sodium) 20 Mg Tablet.dr, 20 MG PO DAILY, (Reported) Entered as Reported by: JOHNNY ORDAZ on 02/05/20 1516 Zolpidem Tartrate (Zolpidem Tartrate) 5 Mg Tablet, 5 MG PO HS, (Reported) Entered as Reported by: JOHNNY ORDAZ on 01/06/23 1634 Review of Systems Review of Systems Constitutional: see HPI Past Ioynvdu-Xpbixn-Hhxoii Hx Patient Social History Tobacco Use?: No Use of E-Cig and/or Vaping dev: No Substance use?: No Alcohol Use?: No Immunizations Up To Date First/Initial COVID19 Vaccinat: Denies Second COVID19 Vaccination Brady: Denies Third COVID19 Vaccination Date: Denies Seasonal Allergies Seasonal Allergies: No Past Medical History Surgery/Hospitalization HX: COPD on Home O2 at 3 Lpm; TIA; Dementia; High Cholesterol; Eye surgery; Right leg orthopedic surgery; Appendectomy; Cholecysectomy Surgeries: Yes (r eye, DNC, ) Appendectomy, Eye Surgery Respiratory: Yes Sleep Apnea, COPD, Emphysema Currently Using CPAP: Yes Cardiac: No High Cholesterol, Hypertension Neurological: Yes (restless legs) Dementia, Stroke, TIA Genitourinary: No Gastrointestinal: Yes (decreased appetite) Arthritis Endocrine: No HEENT: No Cancer: No Psychosocial: Yes Anxiety, Bipolar, Depression Integumentary: No Blood Disorders: No Family Medical History Asthma, Heart Disease, Stroke Physical Exam Vital Signs Vital Signs - First Documented 03/28/23 15:15 Pulse 106 Resp 20 B/P (MAP) 133/51 (78) Pulse Ox 94 O2 Delivery Nasal Cannula O2 Flow Rate 4.00 Capillary Refill : Height/Weight/BMI Height: 5'3.00" Weight: 120lbs. oz. [id number]; 37.65 BMI Method:Stated General Appearance: WD/WN, no apparent distress HEENT: normal ENT inspection, pharynx normal Neck: non-tender, supple Respiratory: chest non-tender, lungs clear, normal breath sounds, no respiratory distress, no accessory muscle use Cardiovascular: no murmur, tachycardia Gastrointestinal: normal bowel sounds, non tender, soft Extremities: normal range of motion, non-tender, normal inspection, normal capillary refill Neurologic/Psychiatric: alert, oriented x 3 Skin: normal color, warm/dry Procedures/Interventions Date of ETT Placement: Feb 04, 2020 Time of ETT Placement: 811 Progress/Results/Core Measures Results/Orders Lab Results Laboratory Tests Test 03/28/23 14:55 Range/Units White Blood Count 11.6 H 4.3-11.0 10^3/uL Red Blood Count 5.07 3.80-5.11 10^6/uL Hemoglobin 14.9 11.5-16.0 g/dL Hematocrit 48 35-52 % Mean Corpuscular Volume 95 80-99 fL Mean Corpuscular Hemoglobin 29 25-34 pg Mean Corpuscular Hemoglobin Concent 31 L 32-36 g/dL Red Cell Distribution Width 15.1 H 10.0-14.5 % Platelet Count 353 130-400 10^3/uL Mean Platelet Volume 10.0 9.0-12.2 fL Immature Granulocyte % (Auto) 0 % Neutrophils (%) (Auto) 90 H 42-75 % Lymphocytes (%) (Auto) 4 L 12-44 % Monocytes (%) (Auto) 5 0-12 % Eosinophils (%) (Auto) 0 0-10 % Basophils (%) (Auto) 0 0-10 % Neutrophils # (Auto) 10.5 H 1.8-7.8 10^3/uL Lymphocytes # (Auto) 0.4 L 1.0-4.0 10^3/uL Monocytes # (Auto) 0.6 0.0-1.0 10^3/uL Eosinophils # (Auto) 0.0 0.0-0.3 10^3/uL Basophils # (Auto) 0.0 0.0-0.1 10^3/uL Immature Granulocyte # (Auto) 0.0 0.0-0.1 10^3/uL Neutrophils % (Manual) 40 % Lymphocytes % (Manual) 5 % Monocytes % (Manual) 6 % Eosinophils % (Manual) 0 % Basophils % (Manual) 0 % Band Neutrophils 49 % Platelet Estimate ADEQUATE Percent Immature Platelet Fraction 4.7 0.0-7.6 % Blood Morphology Comment NORMAL Sodium Level 138 135-145 MMOL/L Potassium Level 4.6 3.6-5.0 MMOL/L Chloride Level 102 98-107 MMOL/L Carbon Dioxide Level 26 21-32 MMOL/L Anion Gap 10 5-14 MMOL/L Blood Urea Nitrogen 19 H 7-18 MG/DL Creatinine 0.97 0.60-1.30 MG/DL Estimat Glomerular Filtration Rate 66 BUN/Creatinine Ratio 20 Glucose Level 139 H 70-105 MG/DL Calcium Level 10.4 H 8.5-10.1 MG/DL Corrected Calcium 10.2 H 8.5-10.1 MG/DL Total Bilirubin 0.3 0.1-1.0 MG/DL Aspartate Amino Transf (AST/SGOT) 31 5-34 U/L Alanine Aminotransferase (ALT/SGPT) 33 0-55 U/L Alkaline Phosphatase 170 H 40-136 U/L Total Protein 8.4 H 6.4-8.2 GM/DL Albumin 4.2 3.2-4.5 GM/DL Lipase 44 8-78 U/L My Orders Orders - CHARU MCFADDEN DO Ua Culture If Indicated (03/28/23 14:54) Cbc With Automated Diff (03/28/23 14:54) Comprehensive Metabolic Panel (03/28/23 14:54) Lipase (03/28/23 14:54) Prochlorperazine Injection (Prochlorpera (03/28/23 15:15) Manual Differential (03/28/23 14:55) Medications Given in ED Current Medications Medications Dose Ordered Sig/Ana Route Start Time Stop Time Status Last Admin Dose Admin Prochlorperazine Edisylate 10 mg ONCE ONCE IV 03/28/23 15:15 03/28/23 15:16 DC 03/28/23 15:09 10 MG Vital Signs/I&O 03/28/23 15:15 Pulse 106 Resp 20 B/P (MAP) 133/51 (78) Pulse Ox 94 O2 Delivery Nasal Cannula O2 Flow Rate 4.00 Departure Impression Primary Impression: Nausea vomiting and diarrhea Disposition: HOME, SELF-CARE Condition: Stable Departure-Patient Inst. Referrals: BRENNAN MAJOR DO (PCP/Family) Primary Care Physician Patient Instructions: Diarrhea, Adult ED, Nausea and Vomiting, Adult ED Add. Discharge Instructions: Continue to use Zofran 4 mg dissolved under your tongue as needed. Use the Compazine every 6 hours as needed. This may make you drowsy so do not drive or make important decisions while taking it. Increase your fluids at home and rest. If your diarrhea lasts longer than 24 hours I recommend taking Imodium [id number] as directed on the package insert. Return to the emergency department for any severe concerns. Follow-up with your primary doctor for any nonemergent needs. CHARU MCFADDEN DO Mar 28, 2023 14:57
[2023-03-28 15:08] LABS: BASOPHILS % (AUTO) 0 % (0-10); EOSINOPHILS % (AUTO) 0 % (0-10); HEMATOCRIT 48 % (35-52); HEMOGLOBIN 14.9 g/dL (11.5-16.0); LYMPHOCYTES # (AUTO) 0.4 10^3/uL (1.0-4.0); LYMPHOCYTES % (AUTO) 4 % (12-44); MEAN CORPUSCULAR HEMOGLOBIN 29 pg (25-34); MEAN CORPUSCULAR HGB CONC 31 g/dL (32-36); MEAN CORPUSCULAR VOLUME 95 fL (80-99); MONOCYTES # (AUTO) 0.6 10^3/uL (0.0-1.0); MONOCYTES % (AUTO) 5 % (0-12); NEUTROPHILS # (AUTO) 10.5 10^3/uL (1.8-7.8); NEUTROPHILS % (AUTO) 90 % (42-75); PLATELET COUNT 353 10^3/uL (130-400); WHITE BLOOD COUNT 11.6 10^3/uL (4.3-11.0)
[2023-03-28] MEDS ORDERED: PROCHLORPERAZINE INJ 10 MG/2ML VIAL IV ONE (15:15)
[2023-03-28 15:20] LABS: BAND NEUTROPHILS 49 %; BASOPHILS % (MANUAL) 0 %; EOSINOPHILS % (MANUAL) 0 %; LYMPHOCYTES % (MANUAL) 5 %; MONOCYTES % (MANUAL) 6 %; NEUTROPHILS % (MANUAL) 40 %; PLATELET ESTIMATE ADEQUATE; RBC MORPH NORMAL
[2023-03-28 15:25] LABS: POTASSIUM 4.6 MMOL/L (3.6-5.0)
[2023-03-28 15:28] LABS: CREATININE SERUM 0.97 MG/DL (0.60-1.30)
[2023-03-28 15:29] LABS: ALBUMIN 4.2 GM/DL (3.2-4.5); BILIRUBIN,TOTAL 0.3 MG/DL (0.1-1.0); CALCIUM 10.4 MG/DL (8.5-10.1); TOTAL PROTEIN 8.4 GM/DL (6.4-8.2)
[2023-03-28 16:00] VITALS: BP 135/50
== END 2023-03-28 16:00 | disposition home or self-care (01) ==
LOC: EDUNIT# 14:51 → ER FS 14:52
DX: R11.2 Nausea with vomiting, unspecified (principal); R19.7 Diarrhea, unspecified; J44.9 Chronic obstructive pulmonary disease, unspecified; G47.30 Sleep apnea, unspecified; Z99.81 Dependence on supplemental oxygen; Z99.89 Dependence on other enabling machines and devices; Z28.310 Unvaccinated for COVID-19
CPT/HCPCS: 36415; 80053; 83690; 85007; 85027; 96374

== ENCOUNTER 2023-06-19 01:58 | Inpatient (IN) | payer MEDICARE, MEDICAID ==
[~2023-06-19] VITALS: Ht 160 cm; Wt 103.5 kg
[2023-06-19] MEDS ORDERED: dexAMETHasone INJ 10 MG/ML 1 ML VIAL IV STA (02:08)
--- NOTE | 2023-06-19 02:15 | ED General ---
General Stated Complaint: RESPIRATORY DISTRESS Source of Information: Patient, EMS, Shelter Records, Old Records History of Present Illness Date Seen by Provider: Jun 19, 2023 Time Seen by Provider: 01:58 Initial Comments 62-year-old female presenting with EMS from [facility]. She has a history of COPD and is on 3 L of O2 by nasal cannula all the time. She also has obstructive sleep apnea. She had COVID 10 days ago. She states that she has been more short of breath today. She also was having burning with urination and frequency. She had an oxygen saturation in the 80s when EMS arrived and they gave her DuoNeb breathing treatment. Patient is alert, awake and speaking. She states that the breathing treatment did help with her breathing but she was still feeling winded with minimal exertion and coughing. She denied having any chest pain, headache, abdominal pain, nausea, vomiting. She did not feel like she had a fever but has had some chills. Timing/Duration: Getting Worse Severity: Moderate Modifying Factors: improves with Medication (DuoNeb breathing treatment helped her breathe easier); worse with Movement Associated Systoms: No Chest Pain; Cough; No Diaphoresis, No Headaches, No Loss of Appetite, No Malaise, No Nausea/Vomiting, No Rash, No Seizure; Shortness of Air; No Syncope; Weakness Allergies and Home Medications Allergies Coded Allergies: No Known Drug Allergies (Unverified , 03/06/17) Patient Home Medication List Home Medication List Reviewed: Yes Albuterol Sulfate (Ventolin Hfa) 90 Mcg Hfa.aer.ad, 2 PUFF INH Q4H PRN for SHORTNESS OF BREATH, (Reported) Entered as Reported by: JOHNNY ORDAZ on 01/06/23 1634 Alprazolam (Alprazolam) 0.5 Mg Tablet, 0.5 MG PO TID, (Reported) Entered as Reported by: JOHNNY ORDAZ on 02/05/20 1516 Atorvastatin Calcium (Atorvastatin Calcium) 10 Mg Tablet, 10 MG PO DAILY, (Reported) Entered as Reported by: JOHNNY ORDAZ on 02/05/20 1516 Budesonide/Glycopyr/Formoterol (Breztri Aerosphere Inhaler) 160 Mcg-9 Mcg-4.8 Mcg/Actuation Hfa.aer.ad, 2 PUFF INH BID, (Reported) Entered as Reported by: JOHNNY ORDAZ on 01/06/23 1634 Clopidogrel Bisulfate (Clopidogrel) 75 Mg Tablet, 75 MG PO DAILY, (Reported) Entered as Reported by: JOHNNY ORDAZ on 02/05/20 1516 Cyclobenzaprine HCl (Cyclobenzaprine HCl) 10 Mg Tablet, 10 MG PO BID, (Reported) Entered as Reported by: KRISTINA CHAMBERLAIN on 09/13/18 1229 Docusate Sodium (Docusate Sodium) 100 Mg Capsule, 100 MG PO DAILY, (Reported) Entered as Reported by: JOHNNY ORDAZ on 01/06/23 1634 Donepezil HCl (Donepezil HCl) 10 Mg Tablet, 10 MG PO HS, (Reported) Entered as Reported by: JOHNNY ORDAZ on 02/05/20 1516 Duloxetine HCl (Duloxetine HCl) 60 Mg Capsule.dr, 60 MG PO DAILY, (Reported) Entered as Reported by: JOHNNY ORDAZ on 02/05/20 1516 Ferrous Sulfate (Ferosul) 325 Mg (65 Mg Iron) Tablet, 325 MG PO DAILY, (Reported) Entered as Reported by: JOHNNY ORDAZ on 01/06/23 1634 Hydroxychloroquine Sulfate (Hydroxychloroquine Sulfate) 200 Mg Tablet, 200 MG PO BID, (Reported) Entered as Reported by: JOHNNY ORDAZ on 01/06/23 1634 Ipratropium/Albuterol Sulfate (Iprat-Albut 0.5-3(2.5) mg/3 ml) 0.5 Mg-3 Mg (2.5 Mg Base)/3 Ml Ampul.neb, 3 ML IH QID, (Reported) Entered as Reported by: JOHNNY ORDAZ on 03/02/20 1156 Isosorbide Mononitrate (Isosorbide Mononitrate ER) 30 Mg Tab.er.24h, 30 MG PO DAILY, (Reported) Entered as Reported by: JOHNNY ORDAZ on 01/06/23 1634 Memantine HCl (Memantine HCl) 10 Mg Tablet, 10 MG PO BID, (Reported) Entered as Reported by: JOHNNY ORDAZ on 02/05/20 1516 Mupirocin (Mupirocin) 2 % Oint...g., 1 APPLIC NA BID, (Reported) Entered as Reported by: JOHNNY ORDAZ on 01/06/23 1634 Nitroglycerin (Nitroglycerin) 0.3 Mg Tab.subl, 0.3 MG PO UD PRN for CHEST PAIN (ANGINA), (Reported) Entered as Reported by: JOHNNY ORDAZ on 01/06/23 1634 Nystatin (Nystop) 100,000 Unit/Gram Powder, 1 APPLIC TOP BID, (Reported) Entered as Reported by: JOHNNY ORDAZ on 01/06/23 1634 Pantoprazole Sodium (Pantoprazole Sodium) 20 Mg Tablet.dr, 20 MG PO DAILY, (Reported) Entered as Reported by: JOHNNY ORDAZ on 02/05/20 1516 Zolpidem Tartrate (Zolpidem Tartrate) 5 Mg Tablet, 5 MG PO HS, (Reported) Entered as Reported by: JOHNNY ORDAZ on 01/06/23 1634 Review of Systems Review of Systems Constitutional: chills; No fever EENTM: no symptoms reported Respiratory: cough, dyspnea on exertion, short of breath; No stridor; wheezing Cardiovascular: No chest pain Gastrointestinal: No nausea, No vomiting Genitourinary: dysuria, frequency Musculoskeletal: no symptoms reported Skin: no symptoms reported Psychiatric/Neurological: No Symptoms Reported Past Cjavfte-Qrfrig-Ypnqkh Hx Patient Social History Tobacco Use?: No Use of E-Cig and/or Vaping dev: No Substance use?: No Alcohol Use?: No Immunizations Up To Date First/Initial COVID19 Vaccinat: Denies Second COVID19 Vaccination Brady: Denies Third COVID19 Vaccination Date: Denies Seasonal Allergies Seasonal Allergies: No Past Medical History Surgery/Hospitalization HX: COPD on Home O2 at 3 Lpm; TIA; Dementia; High Cholesterol; Eye surgery; Right leg orthopedic surgery; Appendectomy; Cholecysectomy Surgeries: Yes (r eye, DNC, ) Appendectomy, Eye Surgery Respiratory: Yes Sleep Apnea, COPD, Emphysema Currently Using CPAP: Yes Cardiac: No High Cholesterol, Hypertension Neurological: Yes (restless legs) Dementia, Stroke, TIA Genitourinary: No Gastrointestinal: Yes (decreased appetite) Arthritis Endocrine: No HEENT: No Cancer: No Psychosocial: Yes Anxiety, Bipolar, Depression Integumentary: No Blood Disorders: No Family Medical History Asthma, Heart Disease, Stroke Physical Exam Vital Signs Vital Signs - First Documented 06/19/23 02:00 Temp 37.3 Pulse 93 Resp 22 B/P (MAP) 148/56 (86) Pulse Ox 93 O2 Delivery Nasal Cannula O2 Flow Rate 8.00 Capillary Refill : Height, Weight, BMI Height: 5'3.00" Weight: 120lbs. oz. 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 Norm as Tested Skin: Warm/Dry Focused Exam Lactate Level 06/19/23 02:03: Lactic Acid Level 0.80 Lactic Acid Level Laboratory Tests Test 06/19/23 02:03 Lactic Acid Level 0.80 MMOL/L (0.50-2.00) Procedures/Interventions Date of ETT Placement: Feb 04, 2020 Time of ETT Placement: 811 Progress/Results/Core Measures Suspected Sepsis SIRS Temperature: Pulse: Respiratory Rate: Laboratory Tests 06/19/23 02:03: White Blood Count 13.2H Blood Pressure / Mean: 06/19/23 02:03: Lactic Acid Level 0.80 Laboratory Tests 06/19/23 02:03: Creatinine 0.83, Platelet Count 323, Total Bilirubin 0.8 Results/Orders Lab Results Laboratory Tests Test 06/19/23 02:03 06/19/23 02:08 Range/Units White Blood Count 13.2 H 4.3-11.0 10^3/uL Red Blood Count 4.09 3.80-5.11 10^6/uL Hemoglobin 12.5 11.5-16.0 g/dL Hematocrit 39 35-52 % Mean Corpuscular Volume 95 80-99 fL Mean Corpuscular Hemoglobin 31 25-34 pg Mean Corpuscular Hemoglobin Concent 32 32-36 g/dL Red Cell Distribution Width 14.6 H 10.0-14.5 % Platelet Count 323 130-400 10^3/uL Mean Platelet Volume 10.0 9.0-12.2 fL Immature Granulocyte % (Auto) 2 % Neutrophils (%) (Auto) 72 42-75 % Lymphocytes (%) (Auto) 14 12-44 % Monocytes (%) (Auto) 11 0-12 % Eosinophils (%) (Auto) 1 0-10 % Basophils (%) (Auto) 1 0-10 % Neutrophils # (Auto) 9.5 H 1.8-7.8 10^3/uL Lymphocytes # (Auto) 1.8 1.0-4.0 10^3/uL Monocytes # (Auto) 1.4 H 0.0-1.0 10^3/uL Eosinophils # (Auto) 0.1 0.0-0.3 10^3/uL Basophils # (Auto) 0.1 0.0-0.1 10^3/uL Immature Granulocyte # (Auto) 0.3 H 0.0-0.1 10^3/uL Venous Blood pH 7.43 H 7.31-7.41 Venous Blood Partial Pressure CO2 48 40-52 MMHG Venous Blood HCO3 32 H 22-28 MMOL/L Sodium Level 134 L 135-145 MMOL/L Potassium Level 4.0 3.6-5.0 MMOL/L Chloride Level 97 L 98-107 MMOL/L Carbon Dioxide Level 30 21-32 MMOL/L Anion Gap 7 5-14 MMOL/L Blood Urea Nitrogen 13 7-18 MG/DL Creatinine 0.83 0.60-1.30 MG/DL Estimat Glomerular Filtration Rate 80 BUN/Creatinine Ratio 16 Glucose Level 132 H 70-105 MG/DL Lactic Acid Level 0.80 0.50-2.00 MMOL/L Calcium Level 8.9 8.5-10.1 MG/DL Corrected Calcium 9.6 8.5-10.1 MG/DL Total Bilirubin 0.8 0.1-1.0 MG/DL Aspartate Amino Transf (AST/SGOT) 18 5-34 U/L Alanine Aminotransferase (ALT/SGPT) 15 0-55 U/L Alkaline Phosphatase 96 40-136 U/L C-Reactive Protein 14.81 H <0.50 MG/DL Total Protein 7.9 6.4-8.2 GM/DL Albumin 3.1 L 3.2-4.5 GM/DL Urine Color YELLOW Urine Clarity TURBID Urine pH 6.0 5-9 Urine Specific Webster >=1.030 1.016-1.022 Urine Protein 1+ H NEGATIVE Urine Glucose (UA) NEGATIVE NEGATIVE Urine Ketones NEGATIVE NEGATIVE Urine Nitrite NEGATIVE NEGATIVE Urine Bilirubin 1+ H NEGATIVE Urine Urobilinogen 1.0 < = 1.0 MG/DL Urine Leukocyte Esterase TRACE H NEGATIVE Urine RBC (Auto) TRACE-I H NEGATIVE Urine RBC RARE /HPF Urine WBC 5-10 H /HPF Urine Squamous Epithelial Cells 10-25 H /HPF Urine Renal Epithelial Cells 0-2 /HPF Urine Crystals NONE /LPF Urine Bacteria LARGE H /HPF Urine Casts NONE /LPF Urine Mucus LARGE H /LPF Urine Other CLUE CELLS PRESENT /HPF Urine Yeast RARE /HPF Urine Culture Indicated YES My Orders Orders - HONG ETIENNE MD Cbc And Automated Diff (06/19/23 02:07) Comprehensive Metabolic Panel (06/19/23 02:07) Blood Culture (06/19/23 02:07) Ua Culture If Indicated (06/19/23 02:07) Chest 1 View Ap/Pa Only (06/19/23 02:07) Ed Iv/Invasive Line Start (06/19/23 02:07) Crp Fs (06/19/23 02:07) Lactic Acid Analyzer (06/19/23 02:07) Venous Blood Gas (06/19/23 02:07) O2 (06/19/23 02:07) Dexamethasone Injection (Dexamethasone (06/19/23 02:08) Urine Culture (06/19/23 02:08) Ceftriaxone Iv/Im (Ceftriaxone Iv/Im) (06/19/23 03:11) Ipratropium/Albuterol Inh Soln (Ipratrop (06/19/23 03:11) Svn Small Volume Nebulizer (06/19/23 03:11) Ed Admission (Communication) (06/19/23 03:41) Methylprednisolone Sod Succ (Methylpredn (06/19/23 03:48) Ns Iv 1000 Ml (Ns Iv 1000 Ml) (06/19/23 03:48) Vital Signs/I&O 06/19/23 06/19/23 06/19/23 02:00 02:00 03:19 Temp 37.3 Pulse 93 Resp 22 B/P (MAP) 148/56 (86) Pulse Ox 93 O2 Delivery Nasal Cannula Nasal Cannula Nasal Cannula O2 Flow Rate 8.00 8.00 8.00 Capillary Refill : Progress Note #1: Progress Note Differential diagnosis includes sepsis, pneumonia, COPD exacerbation, UTI, electrolyte imbalance, hypoxia. EMS established peripheral IV access. Send labs for complete blood count, comprehensive metabolic profile, CRP, blood cultures, lactic acid, urinalysis. Venous blood gas to try looking at her oxygenation and CO2 levels. Continue on supplemental oxygen at least 3 L/min which is her baseline. Try to keep oxygen saturation above 90%. 1 view chest x-ray to look for signs of acute infiltrate or effusion or mass. Dexamethasone 10 mg IV to try and help from a COPD standpoint. She did receive a DuoNeb breathing treatment by EMS and this might need to be repeated to help with her shortness of breath and wheezing. Progress Note #2: Time: 02:44 Progress Note On my personal interpretation and review I did not appreciate any acute infiltrate or effusion on the chest x-ray. Complete blood count showed mild elevation in the white blood cell count of 13.2 with a normal differential 72 neutrophils and 14% lymphocytes. She had mild chronic anemia with a hemoglobin of 12.5. Venous blood gas showed a pH of 7.43 with PCO2 of 48 and HCO3 of 32. Oxygen saturation was 91 to 93% on 8 L by nasal cannula. 0315 comprehensive metabolic profile did not show any acute electrolyte abnormalities. Her CO2 was 30 with a creatinine 0.8. Her lactic acid was normal at 0.8. Her CRP was elevated at 14.81 to go along with inflammation or infectious process. Urinalysis showed infection and some concentration with a specific gravity greater than 1.030. She had trace leukocyte esterase with large bacteria and clue cells. Ordered a DuoNeb breathing treatment as well as 1 g of Rocephin IV. We will see if she can be titrated down on her supplemental oxygen to be closer to the 3 L that she uses baseline at residential. If she is continuing to require the elevated supplemental oxygen to maintain her O2 sat at 90% then will discuss with the hospitalist about admission for COPD exacerbation and UTI. Progress Note #3: Time: 03:35 Progress Note As patient was still requiring at least 7 L of supplemental oxygen to maintain O2 sat 90% or better by called and spoke with Dr. Landry, the on-call hospitalist. I reviewed with him the patient presentation and history as well as having recent COVID 10 days ago. She was having increased shortness of breath and COPD exacerbation symptoms currently. She was not septic as she had a normal lactic acid of 0.8. Her urinalysis did show some concentration as well as UTI and bacterial vaginosis. Will order Rocephin for the UTI, Flagyl for the bacterial vaginosis, continue MAT protocol for her COPD exacerbation and order 62.5 mg Solu-Medrol IV every 8. Ordered normal saline 75 mils an hour to help with hydration. She is a full code patient and would be a full inpatient admission for the COPD exacerbation and UTI. 0350 EMS was notified of the transfer as we do have a bed assignment for the patient. They refused transport stating that they do not transport patients after 3 AM. We will continue to monitor the patient here in the emergency department and provide ventilatory support as well as start IV fluid hydration. Patient will have to wait here until dayshift EMS comes on shift and decides that they are ready and available to take the patient. Patient would likely benefit from physical therapy during her hospital admission. She seems to be more weak and debilitated than her baseline. This may be secondary to her recent COVID infection on top of her COPD exacerbation and now having urinary tract infection. Progress Note #4: Time: 06:41 Progress Note Patient rested some while waiting for EMS transfer. She remained stable and oxygen saturation continued to hover around 90 to 92% on 7 to 8 L of O2 by nasal cannula. She is supposed to wear a trilogy respiratory device as well and does not have that here with her. Awaiting EMS to transport patient to [facility] Diagnostic Imaging Diagonstic Imaging: Xray Plain Films/CT/US/NM/MRI: chest Comments 0224 on my personal review and interpretation the 1 view chest x-ray demonstrates COPD changes with hyperexpanded lungs but I did not appreciate any acute infiltrate or effusion. Reviewed: Reviewed by Me Departure Communication (Admissions) Time/Spoke to Admitting Phy: 03:35 As patient was still requiring at least 7 L of supplemental oxygen to maintain O2 sat 90% or better by called and spoke with Dr. Landry, the on-call hospitalist. I reviewed with him the patient presentation and history as well as having recent COVID 10 days ago. She was having increased shortness of breath and COPD exacerbation symptoms currently. She was not septic as she had a normal lactic acid of 0.8. Her urinalysis did show some concentration as well as UTI and bacterial vaginosis. Will order Rocephin for the UTI, Flagyl for the bacterial vaginosis, continue MAT protocol for her COPD exacerbation and order 62.5 mg Solu-Medrol IV every 8. Ordered normal saline 75 mils an hour to help with hydration. She is a full code patient and would be a full inpatient admission for the COPD exacerbation and UTI. Impression Primary Impression: COPD with acute exacerbation Additional Impressions: Acute cystitis without hematuria Bacterial vaginosis Disposition: 30 STILL A PATIENT Condition: Stable Admissions Decision to Admit Reason: Admit from ER (General) Decision to Admit/Date: Jun 19, 2023 Time/Decision to Admit Time: 03:35 Departure-Patient Inst. Referrals: BRENNAN MAJOR DO (PCP/Family) Primary Care Physician HONG ETIENNE MD Jun 19, 2023 02:15
[2023-06-19 02:29] LABS: BASOPHILS # (AUTO) 0.1 10^3/uL (0.0-0.1); BASOPHILS % (AUTO) 1 % (0-10); EOSINOPHILS # (AUTO) 0.1 10^3/uL (0.0-0.3); EOSINOPHILS % (AUTO) 1 % (0-10); HEMATOCRIT 39 % (35-52); HEMOGLOBIN 12.5 g/dL (11.5-16.0); LYMPHOCYTES # (AUTO) 1.8 10^3/uL (1.0-4.0); LYMPHOCYTES % (AUTO) 14 % (12-44); MEAN CORPUSCULAR HEMOGLOBIN 31 pg (25-34); MEAN CORPUSCULAR HGB CONC 32 g/dL (32-36); MEAN CORPUSCULAR VOLUME 95 fL (80-99); MONOCYTES # (AUTO) 1.4 10^3/uL (0.0-1.0); MONOCYTES % (AUTO) 11 % (0-12); NEUTROPHILS # (AUTO) 9.5 10^3/uL (1.8-7.8); NEUTROPHILS % (AUTO) 72 % (42-75); PLATELET COUNT 323 10^3/uL (130-400); WHITE BLOOD COUNT 13.2 10^3/uL (4.3-11.0)
[2023-06-19 02:43] LABS: CLARITY,URINE TURBID; COLOR,URINE YELLOW; GLUCOSE, URINE (UA) NEGATIVE (NEGATIVE); KETONES,URINE NEGATIVE (NEGATIVE); LEUKOCYTE ESTERASE ,URINE TRACE (NEGATIVE); NITRITE,URINE NEGATIVE (NEGATIVE); PROTEIN,URINE 1+ (NEGATIVE)
[2023-06-19 02:58] LABS: BILIRUBIN,URINE 1+ (NEGATIVE)
[2023-06-19 02:59] LABS: BACTERIA,URINE LARGE /HPF; RBC,URINE RARE /HPF
[2023-06-19 03:00] LABS: RENAL EPITHELIAL CELLS,URINE 0-2 /HPF; YEAST,URINE RARE /HPF
[2023-06-19 03:01] LABS: URINE OTHER CLUE CELLS PRESENT /HPF
[2023-06-19 03:04] LABS: CREATININE SERUM 0.83 MG/DL (0.60-1.30)
[2023-06-19 03:05] LABS: ALBUMIN 3.1 GM/DL (3.2-4.5); BILIRUBIN,TOTAL 0.8 MG/DL (0.1-1.0); CALCIUM 8.9 MG/DL (8.5-10.1); TOTAL PROTEIN 7.9 GM/DL (6.4-8.2)
[2023-06-19] MEDS ORDERED: cefTRIAXone IV/IM 1,000 MG in NS (IVPB) 50 ML 50 ML IV STA (03:11)
[2023-06-19] MEDS ORDERED: RT-Ipratropium/Albuterol NEB 3 ML VIAL INH STA (03:11)
[2023-06-19] MEDS ORDERED: methylPREDNISolone INJ 125 MG VIAL IVP STA (03:48)
[2023-06-19] MEDS ORDERED: NS IV 1000 ML 1,000 ML IV STA (03:48)
[2023-06-19 08:30] VITALS: BP 130/77
[2023-06-19] MEDS ORDERED: IOHEXOL 350 MG/ML 100 ML (OMNIPAQUE 350) VIAL IV ONE (09:00)
[2023-06-19] MEDS ORDERED: HOLD METFORMIN - RECEIVED CONTRAST 20 ML VIAL IV SCH (09:00)
[2023-06-19] MEDS ORDERED: NS 100 ML (IVPB) BAG IV ONE (09:00)
--- NOTE | 2023-06-19 09:32 | Diagnostic Imaging Report ---
INDICATION: Dyspnea and hypoxia. Portable AP view of chest is obtained with comparison made to study of 01/06/2023. Heart size and pulmonary vascularity are within normal limits. There is no evidence pneumothorax or consolidation. There is no significant pleural fluid. IMPRESSION: No evidence of acute abnormality. Dictated by: Dictated on workstation # [id number]
[2023-06-19 09:41] VITALS: BP 130/77
[2023-06-19] MEDS: NS IV 1000 ML 1,000 ML IV SCH ×2 (09:43→15:39)
[2023-06-19] MEDS ORDERED: RT-ALBUTEROL HFA 8.5 GM INHALER IH PRN (09:45)
[2023-06-19] MEDS: metroNIDAZOLE 500 MG TABLET PO SCH ×2 (09:55→21:16)
--- NOTE | 2023-06-19 10:07 | Diagnostic Imaging Report ---
INDICATION: COPD. COVID. Hypoxia. COMPARISON: None TECHNIQUE: Routine postcontrast CTA of the chest was performed. Contrast was injected intravenously and timed for optimal opacification of the arterial structures. Multiplanar and 3-D reformats were also created and reviewed. Auto Exposure Controls were utilized during the CT exam to meet ALARA standards for radiation dose reduction. FINDINGS: No abnormal intraluminal filling defect is seen within the pulmonary arteries to the 1st subsegmental division. Main pulmonary arterial trunk is prominent. Measures 3.2 cm in diameter. Heart size is within normal limits. There is moderate calcified aortic and coronary atherosclerosis. By NASCET criteria, there is no focal significant stenosis of the thoracic aorta. There is no evidence of dissection or aneurysm. There is no large pericardial effusion. Multiple enlarged mediastinal and bilateral hilar lymph nodes are identified. Precarinal lymph node measures 1.8 x 1.9 cm. Enlarged right hilar lymph node measures 1.5 x 1.9 cm. Enlarged left hilar lymph node measures 1.7 x 2.5 cm. No abnormal axillary adenopathy is seen. Evaluation of the lung figueroa demonstrates background moderate diffuse emphysematous changes. There is mild subpleural consolidative airspace disease involving the bilateral lower lobes. Irregular subpleural groundglass densities are also noted involving the inferolateral margins of the right middle and right lower lobes. No large effusion or pneumothorax is seen. Osseous structures show no acute abnormalities. No lytic or blastic bony lesions are seen. Included portions of the upper abdomen are unremarkable as well. IMPRESSION: 1. No acute pulmonary embolus. 2. Multiple enlarged bilateral hilar and mediastinal lymph nodes. Similar appearance is noted on previous CT lung screening dated 02/23/2023. Appearance can be seen with sarcoid. Metastatic disease is not excluded. 3. Background emphysematous changes. 4. Subpleural airspace disease the bilateral lower and right middle lobes, which could be on the basis of atelectasis. Some component of infiltrate is not excluded. Dictated by: Dictated on workstation # [id number]
[2023-06-19] MEDS: CEFEPIME INJECTION 1,000 MG in NS (IVPB) 50 ML 50 ML IV SCH ×3 (10:28→21:17)
[2023-06-19 11:20] VITALS: BP 128/78
[2023-06-19] MEDS: RT-ALBUTEROL HFA 8.5 GM INHALER IH SCH ×4 (12:01→23:06)
[2023-06-19] MEDS: methylPREDNISolone INJ 125 MG VIAL IV SCH ×2 (14:12→21:16)
[2023-06-19 15:53] VITALS: BP 121/69
--- NOTE | 2023-06-19 16:35 | History & Physical-Hospitalist ---
History of Present Illness HPI/Chief Complaint Melania Cope is a 62 year old female with PMH HTN, HLD, COPD, chronic respiratory failure with hypoxia on 3 L, history of stroke, dementia, who presented with shortness of breath. She was brought from her senior care due to low oxygen saturations. She tested positive for COVID ten days ago. She has had a cough. She reported chills. She denies pain. She has no other complaints. Source: patient Exam Limitations: no limitations Date Seen 06/19/23 Time Seen by a Provider: 09:05 Attending Physician Wilbur Shane DO PCP Admitting Physician: Km Landry MD Attending Physician: Km Landry MD Referring Physician Date of Admission Jun 19, 2023 at 08:12 Home Medications & Allergies Home Medications Reviewed patient Home Medication Reconciliation performed by pharmacy medication reconciliations network control technician and/or nursing. Patients Allergies have been reviewed. Allergies Allergies Coded Allergies No Known Drug Allergies (Unverified03/06/17) Past Fodnurv-Jzxegk-Zyjmyo Hx Patient Social History Tobacco Use?: No Smoking Status: Former Smoker Use of E-Cig and/or Vaping dev: No Substance use?: No Alcohol Use?: No Pt feels they are or have been: Yes Immunizations Up To Date First/Initial COVID19 Vaccinat: Denies Second COVID19 Vaccination Brady: Denies Tetanus Booster (TDap): Unknown Hepatitis A: No Hepatitis B: No Date of Pneumonia Vaccine: Apr 30, 2019 Seasonal Allergies Seasonal Allergies: No Current Status status: No status: No Advance Directives: No Communicates: Verbally Primary Language: Lao Preferred Spoken Language: Lao Is interpretation needed?: No Past Medical History Surgeries: Appendectomy, Eye Surgery Sleep Apnea, COPD, Emphysema Currently Using CPAP: Yes High Cholesterol, Hypertension Dementia, Stroke, TIA Arthritis Anxiety, Bipolar, Depression Blood Disorders: No PMH: COPD, anxiety, bipolar, depression, high cholesterol, stroke, dementia (early onset of short term memory), arthritis Family Medical History Asthma, Heart Disease, Stroke Review of Systems Constitutional: chills Respiratory: cough, dyspnea on exertion, short of breath Cardiovascular: no symptoms reported Gastrointestinal: no symptoms reported Physical Exam Physical Exam Vital Signs Vital Signs - First Documented 06/19/23 02:00 Temp 37.3 Pulse 93 Resp 22 B/P (MAP) 148/56 (86) Pulse Ox 93 O2 Delivery Nasal Cannula O2 Flow Rate 8.00 Capillary Refill : Less Than 3 Seconds Height, Weight, BMI Height: 5'3.00" Weight: 120lbs. oz. 54.836663kb; 39.84 BMI Method:Stated General Appearance: No Apparent Distress, Chronically ill, Obese HEENT: PERRL/EOMI, Pharynx Normal Neck: Normal Inspection, Supple Respiratory: No Respiratory Distress, Decreased Breath Sounds Cardiovascular: Regular Rate, Rhythm, No Murmur Gastrointestinal: Normal Bowel Sounds, Soft Extremity: Normal Inspection, No Pedal Edema Neurologic/Psychiatric: Alert, Normal Mood/Affect Skin: Normal Color, Warm/Dry Results Results/Procedures Labs Laboratory Tests 06/19/23 02:03 Patient resulted labs reviewed. Imaging: Reviewed Imaging Report Assessment/Plan Admission Diagnosis Acute on chronic respiratory failure with hypoxia Admission Status: Inpatient Order (span 2 midnights) Reason for Inpatient Admission: PNA COPD Assessment and Plan Acute on chronic respiratory failure with hypoxia Sepsis due to pneumonia COPD exacerbation COVID COVID positive [address] without PE, possible pneumonia, stable lymphadenopathy, emphysema Cefepime Steroids MAT protocol Supplemental oxygen as needed Gentle IV fluids Bacterial vaginosis Flagyl HTN HLD History of stroke Dementia Continue home meds as able DVT prophylaxis: Lovenox Diagnosis/Problems Diagnosis/Problems (1) Acute on chronic respiratory failure with hypoxia Status: Acute (2) COPD exacerbation Status: Acute (3) Sepsis due to pneumonia Status: Acute (4) Bacterial vaginosis Status: Acute (5) HTN (hypertension) Status: Chronic (6) HLD (hyperlipidemia) Status: Chronic (7) History of stroke Status: Chronic (8) Dementia Status: Chronic (9) Obesity Status: Chronic NEPTALI RUIZ MD Jun 19, 2023 16:35
[2023-06-19] MEDS: ENOXAPARIN 40 MG/0.4 ML SYRINGE SQ SCH (16:47)
[2023-06-19] MEDS: HYDROXYCHLOROQUINE 200 MG TABLET PO SCH (17:07)
[2023-06-19 20:31] VITALS: BP 119/70
[2023-06-19] MEDS: MEMANTINE 5 MG TABLET PO SCH (21:16)
[2023-06-19] MEDS: ALPRAZolam 0.5 MG TABLET PO PRN (21:22)
[2023-06-19] MEDS: CYCLOBENZAPRINE 10 MG TABLET PO PRN (21:23)
[2023-06-19 23:39] VITALS: BP 115/66
[2023-06-20] MEDS: RT-ALBUTEROL HFA 8.5 GM INHALER IH SCH ×6 (02:38→21:56)
[2023-06-20 03:33] VITALS: BP 120/67
[2023-06-20] MEDS: CEFEPIME INJECTION 1,000 MG in NS (IVPB) 50 ML 50 ML IV SCH ×4 (04:41→22:29)
[2023-06-20] MEDS: NS IV 1000 ML 1,000 ML IV SCH (05:44)
[2023-06-20] MEDS: methylPREDNISolone INJ 125 MG VIAL IV SCH ×3 (05:44→22:29)
[2023-06-20 05:58] LABS: BASOPHILS # (AUTO) 0.1 10^3/uL (0.0-0.1); BASOPHILS % (AUTO) 1 % (0-10); EOSINOPHILS % (AUTO) 0 % (0-10); HEMATOCRIT 39 % (35-52); HEMOGLOBIN 11.8 g/dL (11.5-16.0); LYMPHOCYTES # (AUTO) 0.8 10^3/uL (1.0-4.0); LYMPHOCYTES % (AUTO) 6 % (12-44); MEAN CORPUSCULAR HEMOGLOBIN 30 pg (25-34); MEAN CORPUSCULAR HGB CONC 30 g/dL (32-36); MEAN CORPUSCULAR VOLUME 98 fL (80-99); MEAN PLATELET VOLUME 10.2 fL (9.0-12.2); MONOCYTES # (AUTO) 0.3 10^3/uL (0.0-1.0); MONOCYTES % (AUTO) 3 % (0-12); NEUTROPHILS # (AUTO) 10.4 10^3/uL (1.8-7.8); NEUTROPHILS % (AUTO) 86 % (42-75); PLATELET COUNT 344 10^3/uL (130-400); WHITE BLOOD COUNT 12.2 10^3/uL (4.3-11.0)
[2023-06-20 06:14] LABS: POTASSIUM 4.5 MMOL/L (3.6-5.0)
[2023-06-20 06:16] LABS: CALCIUM 8.4 MG/DL (8.5-10.1)
[2023-06-20 06:20] LABS: CREATININE SERUM 0.83 MG/DL (0.60-1.30)
[2023-06-20 06:41] LABS: BAND NEUTROPHILS 7 %; LYMPHOCYTES % (MANUAL) 3 %; MONOCYTES % (MANUAL) 6 %; NEUTROPHILS % (MANUAL) 80 %
[2023-06-20 06:42] LABS: ANISOCYTOSIS SLIGHT; ATYPICAL LYMPHOCYTES 1 %; MYELOCYTES % 3 %; NUCLEATED RED BLOOD CELLS 2; PLATELET CLUMPS SLIGHT
[2023-06-20 07:19] VITALS: BP 107/71
[2023-06-20] MEDS: HYDROXYCHLOROQUINE 200 MG TABLET PO SCH ×2 (08:01→18:29)
[2023-06-20] MEDS: ISOSORBIDE MONONITRATE 30 MG TABLET PO SCH (08:01)
[2023-06-20] MEDS: toPIRamate 25 MG (TOPAMAX) TAB PO SCH (08:01)
[2023-06-20] MEDS: MEMANTINE 5 MG TABLET PO SCH ×2 (08:01→21:00)
[2023-06-20] MEDS: DULoxetine 30 MG CAPSULE PO SCH (08:01)
[2023-06-20] MEDS: metroNIDAZOLE 500 MG TABLET PO SCH ×2 (08:01→21:00)
[2023-06-20] MEDS: CLOPIDOGREL 75 MG TABLET PO SCH (08:01)
[2023-06-20] MEDS: PANTOPRAZOLE 20 MG TABLET PO SCH (08:01)
[2023-06-20] MEDS: ALPRAZolam 0.5 MG TABLET PO PRN ×2 (08:21→16:22)
[2023-06-20] MEDS ORDERED: DULoxetine 30 MG CAPSULE PO SCH (09:00)
[2023-06-20] MEDS ORDERED: cefTRIAXone 1 GM/NS 50 ML IVPB IV SCH ×2 (09:00)
--- NOTE | 2023-06-20 10:31 | Progress Note - Hospitalist ---
Subjective HPI/CC On Admission Date Seen by Provider: Jun 20, 2023 Time Seen by Provider: 08:50 Melania Cope is a 62 year old female with PMH HTN, HLD, COPD, chronic respiratory failure with hypoxia on 3 L, history of stroke, dementia, who presented with shortness of breath. She was brought from her long term due to low oxygen saturations. She tested positive for COVID ten days ago. She has had a cough. She reported chills. She denies pain. She has no other complaints. Subjective/Events-last exam She is feeling much better today. She is breathing better. She denies pain. Her cough is better. Focused Exam Lactate Level 06/19/23 02:03: Lactic Acid Level 0.80 Objective Exam Vital Signs Vital Signs Date Time Temp Pulse Resp B/P (MAP) Pulse Ox O2 Delivery O2 Flow Rate FiO2 06/20/23 08:57 92 High Flow N/C 8.00 06/20/23 07:19 35.9 80 17 107/71 (83) Capillary Refill : Less Than 3 Seconds General Appearance: No Apparent Distress, Obese Respiratory: No Respiratory Distress, Wheezing Cardiovascular: Regular Rate, Rhythm, No Murmur Gastrointestinal: Normal Bowel Sounds, Soft Extremity: Normal Inspection, No Pedal Edema Neurologic/Psychiatric: Alert, Normal Mood/Affect Results/Procedures Lab Laboratory Tests 06/20/23 05:46 Patient resulted labs reviewed. Imaging: Reviewed Imaging Report Assessment/Plan Assessment and Plan Assess & Plan/Chief Complaint Acute on chronic respiratory failure with hypoxia Sepsis due to pneumonia COPD exacerbation COVID COVID positive 10 days ago, out of isolation now CT without PE, possible pneumonia, stable lymphadenopathy, emphysema Cefepime Steroids MAT protocol Supplemental oxygen as needed BiPAP at night Stop IV fluids Bacterial vaginosis Flagyl HTN HLD History of stroke Dementia Continue home meds as able DVT prophylaxis: Lovenox Diagnosis/Problems Diagnosis/Problems (1) Acute on chronic respiratory failure with hypoxia Status: Acute (2) COPD exacerbation Status: Acute (3) Sepsis due to pneumonia Status: Acute (4) Bacterial vaginosis Status: Acute (5) HTN (hypertension) Status: Chronic (6) HLD (hyperlipidemia) Status: Chronic (7) History of stroke Status: Chronic (8) Dementia Status: Chronic (9) Obesity Status: Chronic NEPTALI RUIZ MD Jun 20, 2023 10:31
[2023-06-20 11:03] VITALS: BP 109/66
[2023-06-20] MEDS ORDERED: ONDA-105 PO (12:42)
[2023-06-20] MEDS ORDERED: MULT-1136 PO (12:42)
[2023-06-20] MEDS ORDERED: SUVO20TA2 PO (12:42)
[2023-06-20] MEDS ORDERED: PROC10TA15 PO (12:42)
[2023-06-20] MEDS ORDERED: TOPI25TA10 PO (12:42)
[2023-06-20] MEDS ORDERED: LOPE-175 PO (12:42)
[2023-06-20 15:30] VITALS: BP 116/69
[2023-06-20] MEDS: ENOXAPARIN 40 MG/0.4 ML SYRINGE SQ SCH (16:14)
[2023-06-20] MEDS: CYCLOBENZAPRINE 10 MG TABLET PO PRN (16:22)
[2023-06-20 19:01] VITALS: BP 116/67
[2023-06-20] MEDS ORDERED: toPIRamate 25 MG (TOPAMAX) TAB PO SCH (22:34)
[2023-06-20 23:58] VITALS: BP 115/64
[2023-06-21] MEDS: CYCLOBENZAPRINE 10 MG TABLET PO PRN (00:16)
[2023-06-21] MEDS: ALPRAZolam 0.5 MG TABLET PO PRN ×2 (00:16→08:08)
[2023-06-21] MEDS: RT-ALBUTEROL HFA 8.5 GM INHALER IH SCH ×3 (02:12→10:30)
[2023-06-21] MEDS: CEFEPIME INJECTION 1,000 MG in NS (IVPB) 50 ML 50 ML IV SCH ×2 (04:36→11:12)
[2023-06-21 04:39] VITALS: BP 119/67
[2023-06-21] MEDS: methylPREDNISolone INJ 125 MG VIAL IV SCH (05:15)
[2023-06-21 07:34] VITALS: BP 149/72
[2023-06-21] MEDS: HYDROXYCHLOROQUINE 200 MG TABLET PO SCH (08:35)
[2023-06-21] MEDS: MEMANTINE 5 MG TABLET PO SCH (08:35)
[2023-06-21] MEDS: DULoxetine 30 MG CAPSULE PO SCH (08:36)
[2023-06-21] MEDS: toPIRamate 25 MG (TOPAMAX) TAB PO SCH (08:36)
[2023-06-21] MEDS: ISOSORBIDE MONONITRATE 30 MG TABLET PO SCH (08:36)
[2023-06-21] MEDS: metroNIDAZOLE 500 MG TABLET PO SCH (08:36)
[2023-06-21] MEDS: PANTOPRAZOLE 20 MG TABLET PO SCH (08:36)
[2023-06-21] MEDS: CLOPIDOGREL 75 MG TABLET PO SCH (08:36)
[2023-06-21] MEDS ORDERED: predniSONE 20 MG TABLET PO NR (09:00)
[2023-06-21] MEDS ORDERED: PRED10TA22 PO (09:56)
[2023-06-21] MEDS ORDERED: METR-145 PO (09:56)
[2023-06-21] MEDS ORDERED: AMOX1TAB12 PO (09:56)
--- NOTE | 2023-06-21 10:03 | Discharge Summary ---
Discharge Summary Hospital Course Hospital Course Date of Admission: Jun 19, 2023 at 08:12 Admission Diagnosis : Acute on chronic respiratory failure with hypoxia Family Physician/Provider: Wilbur Shane DO Date of Discharge: 06/21/23 Discharge Diagnosis: Acute on chronic respiratory failure with hypoxia, COPD exacerbation, sepsis due to pneumonia Hospital Course: Melania Cope is a 62 year old female who was admitted with acute on chronic respiratory failure with hypoxia. She had a CT which showed no PE, but did show possible pneumonia with underlying emphysema. She also had lymphadenopathy which was stable. She was treated with IV antibiotics and improved. She will complete a course of Augmentin as an outpatient. She was also given IV steroids due to COPD exacerbation. She also received breathing treatments. She will complete a Prednisone taper as an outpatient. She was requiring supplemental oxygen 3 L continuously and 9 L with ambulation. She should follow up with her PCP in about a week. She will need further monitoring of her lymphadenopathy. She was discharged back to [facility] for skilled therapies in [facility], [place] Labs and Pending Lab Test: Microbiology 06/19/23 Urine Culture - Final, Complete 3 or more isolates No Susceptibility Performed 06/19/23 Blood Culture - Preliminary, Resulted Home Meds Active Amox Tr-K Clv 875-125 mg Tab (Amoxicillin/Potassium Clav) 875 Mg-125 Mg Tablet 1 Each PO BID 5 Days Prednisone 10 Mg Tab.ds.pk 10 Mg PO DAILY Take 6 tabs(60mg)daily,decrease by 1 tab(10mg)every other day. Metronidazole 500 Mg Tablet 500 Mg PO BID 5 Days Reported Ondansetron HCl 4 Mg Tablet 4 Mg PO Q4H PRN Prochlorperazine Maleate 10 Mg Tablet 10 Mg PO Q6H PRN Imodium A-D (Loperamide HCl) 2 Mg Capsule 4 Mg PO Q4H PRN TAKES 2 (2MG) CAPS Belsomra (Suvorexant) 20 Mg Tablet 20 Mg PO HS Topiramate 25 Mg Tablet 25 Mg PO HS Multivitamin 1 Each Tablet 1 Each PO DAILY Nystop (Nystatin) 100,000 Unit/Gram Powder 1 Applic TOP BID APPLY UNDER EACH BREAST Nitroglycerin 0.3 Mg Tab.subl 0.3 Mg PO UD PRN Ventolin Hfa (Albuterol Sulfate) 90 Mcg Hfa.aer.ad 1-2 Puff INH Q4H PRN Hydroxychloroquine Sulfate 200 Mg Tablet 200 Mg PO BID Breztri Aerosphere Inhaler (Budesonide/Glycopyr/Formoterol) 160 Mcg-9 Mcg-4.8 Mcg/Actuation Hfa.aer.ad 2 Puff INH BID Isosorbide Mononitrate ER (Isosorbide Mononitrate) 30 Mg Tab.er.24h 30 Mg PO DAILY Ferosul (Ferrous Sulfate) 325 Mg (65 Mg Iron) Tablet 325 Mg PO DAILY Docusate Sodium 100 Mg Capsule 100 Mg PO DAILY Iprat-Albut 0.5-3(2.5) mg/3 ml (Ipratropium/Albuterol Sulfate) 0.5 Mg-3 Mg (2.5 Mg Base)/3 Ml Ampul.neb 3 Ml IH Q6H PRN Atorvastatin Calcium 10 Mg Tablet 10 Mg PO DAILY Donepezil HCl 10 Mg Tablet 10 Mg PO HS Pantoprazole Sodium 20 Mg Tablet. 20 Mg PO DAILY Clopidogrel (Clopidogrel Bisulfate) 75 Mg Tablet 75 Mg PO DAILY Alprazolam 0.5 Mg Tablet 0.5 Mg PO 0900,1400,2100 Duloxetine HCl 60 Mg Capsule. 60 Mg PO DAILY Memantine HCl 10 Mg Tablet 10 Mg PO BID Cyclobenzaprine HCl 10 Mg Tablet 10 Mg PO BID Instructions to Patient/Family Assessment/Instructions Take medications as prescribed. Follow up with Dr. Shane in about a week. Return with worsening shortness of breath, pain, or if you feel like you are getting worse. Follow Up Appt.: [facility] in about a week Skilled NF Admit to: [facility] ([facility]) I certify that SNF services are required to be given on an inpatient basis because of the above named patient's need for longterm care on a continuing basis for the conditions(s) for which he/she was receiving inpatient hospital services prior to his/her transfer to the SNF. Retirement Facility Order: Nursing Services, [employer]-Evaluate & Treat, Physical Therapy-Evaluate & Treat Oxygen Delivery Method: High Flow N/C Discharge Diet: No Restrictions Daily Activity as Tolerated: Yes Neptali Ruiz Jun 21, 2023 09:57 Discharge Physical Exam General: Alert, No Acute Distress Lungs: Other (wheezing, no acute distress) Heart: Regular Rate, No Murmurs Abdomen: Soft, No Tenderness Extremities: No Edema, No Tenderness/Swelling Neuro: Normal Speech, Normal Tone Psych/Mental Status: Mental Status NL, Mood NL NEPTALI RUIZ MD Jun 21, 2023 10:02
[2023-06-21 11:12] VITALS: BP 145/75
[2023-06-22] MEDS ORDERED: predniSONE 20 MG TABLET PO SCH (07:00)
== END 2023-06-21 11:45 | DRG 871 ==
LOC: EDUNIT# 01:58 → ER FS 01:59 → 4TH 08:12
PROVIDERS: ADMIT Internal Medicine; ATTEND Internal Medicine
PROC: 5A0945A Assistance with Respiratory Ventilation, 24-96 Consecutive Hours, High Flow/Velocity Cannula (ICD-10-PCS; principal; 2023-06-19)
DX: A41.89 Other specified sepsis (principal); J18.9 Pneumonia, unspecified organism; J96.21 Acute and chronic respiratory failure with hypoxia; U07.1 COVID-19; J44.1 Chronic obstructive pulmonary disease with (acute) exacerbation; J44.0 Chronic obstructive pulmonary disease with (acute) lower respiratory infection; Z68.41 Body mass index [BMI] 40.0-44.9, adult; J43.9 Emphysema, unspecified; R59.1 Generalized enlarged lymph nodes; I10 Essential (primary) hypertension; Z86.73 Personal history of transient ischemic attack (TIA), and cerebral infarction without residual deficits; E78.00 Pure hypercholesterolemia, unspecified; F03.90 Unspecified dementia, unspecified severity, without behavioral disturbance, psychotic disturbance, mood disturbance, and anxiety; F31.9 Bipolar disorder, unspecified; F41.9 Anxiety disorder, unspecified; N76.0 Acute vaginitis; E66.9 Obesity, unspecified
CPT/HCPCS: 36415; 71045; 71275; 80048; 80053; 81000; 82805; 83605; 85007; 85025; 85027; 86141; 87040; 87088; 94640; 94760; 94761

== ENCOUNTER → 2023-07-07 | Outpatient (CLI) | payer MEDICARE, MEDICAID ==
[~2023-07-07] MED LIST changes: +AMOX1TAB12 PO; +LOPE-175 PO; +METR-145 PO; +MULT-1136 PO; +ONDA-105 PO; +PROC10TA15 PO; +SUVO20TA2 PO; +TOPI25TA10 PO
[2023-07-07 12:57] LABS: HEMATOCRIT 42 % (35-52); MEAN CORPUSCULAR HEMOGLOBIN 31 pg (25-34); MEAN CORPUSCULAR HGB CONC 31 g/dL (32-36); MEAN CORPUSCULAR VOLUME 98 fL (80-99); MEAN PLATELET VOLUME 10.5 fL (9.0-12.2); PLATELET COUNT 230 10^3/uL (130-400); WHITE BLOOD COUNT 11.8 10^3/uL (4.3-11.0)
[2023-07-07 13:18] LABS: ALBUMIN 3.6 GM/DL (3.2-4.5); BILIRUBIN,TOTAL 0.3 MG/DL (0.1-1.0); CALCIUM 9.3 MG/DL (8.5-10.1); CREATININE SERUM 0.68 MG/DL (0.60-1.30); POTASSIUM 4.8 MMOL/L (3.6-5.0); TOTAL PROTEIN 6.3 GM/DL (6.4-8.2)
== END ==
LOC: LAB FS 12:43
PROVIDERS: ATTEND Emergency Medicine
DX: J44.0 Chronic obstructive pulmonary disease with (acute) lower respiratory infection (principal)
CPT/HCPCS: 80053; 85027